=== PATIENT | male | born 1950 | race Caucasian/White ===

== ENCOUNTER 2024-02-12 14:26 | Outpatient (CLI) | payer MEDICARE, OTHER, SELFPAY ==
--- NOTE | 2024-02-12 15:00 | PE_ITS ---
[facility] [address] [facility] [address] Phone:?[phone] Fax:?[phone] Referring Physician Information: Clay Anthony D.O [address] [facility] [address] Phone:?[phone] Fax:?[phone] Patient:Marito Houser D.O.B:?1950 Sex:?Male Phone:?[phone] [facility] MRN:?[id number] Exam Date:?02/12/2024 EXAM: PET/CT WHOLE BODY, CANCER RESTAGING CLINICAL INFORMATION: New diagnosis of melanoma. History of head and neck cancer. TECHNICAL INFORMATION: Helical acquisition of data was obtained from the vertex to the toes with reconstruction of 3.75 mm thick images at 3.[address] data was used for attenuation correction. PET scanning was performed through the same anatomic range 55 minutes following administration of 13.45 mCi of 18-FDG delivered intravenously. The patient's glucose at the time of the injection was 123 mg/dL. PET, CT and PET/CT fusion images are interpreted using a computer viewing workstation. PET, CT and PET/CT fusion images were archived and saved in the patient's permanent medical record. COMPARISON: Outside PET-CT from 07/22/2023. INTERPRETATION: Head and Neck: There are no abnormal hypermetabolic foci within the head or neck. There is physiologic uptake in the intracranial soft tissues. The patient is status post left parotidectomy with asymmetric FDG uptake (SUVmax = 2.75) that is consistent with routine chronic granulation/healing; no evidence of viable residua/recurrence. Chest: There are no abnormal hypermetabolic foci within the chest. Background mediastinal blood pool uptake has a maximum SUV of 2.34. No lung nodules or masses detected on this free-breathing exam. No lymphadenopathy detected. Abdomen and Pelvis: There are no abnormal hypermetabolic foci within the abdomen or pelvis. Background hepatic parenchymal uptake has a maximum SUV of 2.68. There is physiologic excretion of radiotracer in the urine and bowel. Skeleton, Musculature, and Integument: No abnormal hypermetabolic foci within the skeleton. No ramses osteoblastic or osteolytic disease. CONCLUSION: 1. No abnormal FDG uptake to indicate active malignancy. 2. Status post left parotidectomy with expected appearance. Electronically signed on 02/13/2024 1:32:00 PM by Triston Lewis M.D.
== END 2024-02-12 14:27 | disposition home or self-care (01) ==
PROVIDERS: Visit Provider Otolaryngology Otolaryngology/Facial Plastic Surgery
DX: C77.0 Secondary and unspecified malignant neoplasm of lymph nodes of head, face and neck (principal)
CPT/HCPCS: 78816; A9552

== ENCOUNTER 2024-06-02 09:45 | Outpatient (CLI) | payer MEDICARE, OTHER, SELFPAY ==
--- OUTSIDE RECORDS SUMMARY | 2024-06-02 09:49 | XMS_ITS | Encounter Summary ---
Author Organization [facility] Address [address] [address] Care Team Providers Care Metal Fence Erector Name Role Phone Jarod Pascual MD Primary Care Provider [phone]- [phone] Encounter Details Date Type Department Care Team (Late st Contact Info) Description 06/01/2024 1:00 PM TIN CAN LABORER Lab Visit [facility] [address] [place] [id number] Squamous cell carcinoma of skin; Prostate cancer screening Social History Tobacco Use Types Packs/Day Years Used Date Smoking Tobacco: Every Day Cigarettes Comments:Half a pack a day o f Cigarettes and is on a quitting program. Sex and Gender Information Value Date Recorded Sex Assigned at Not on file Gender Identity Not on file Sexual Orientation Not on file documented as of this encounter Plan of Treatment Upcoming Encounters Date Type Department Care Team (Late st Contact Info) Description 06/02/2024 1:00 PM TIN CAN LABORER Appointment [facility] [address] [place] [address] 06/08/2024 8:50 AM TIN CAN LABORER Appointment Otol[place]ology at [place] [address] [place] [address] [address] [place] [phone] Becky Rodriguez MD [facility] [place] [address] 07/08/2024 10:00 AM TIN CAN LABORER Appointment [facility] - Dermatology [address] [place] [address] [place] [address] [place] [address] KATRINA MEHTA [address] 08/09/2024 1:00 PM TIN CAN LABORER Appointment [facility] [address] Dermatology [address] [place], [place] [address] Dina Cuevas MD, PhD [address] [place], [place] [id number] 08/30/2024 9:00 AM TIN CAN LABORER Appointment [facility] [address] [place] [address] 08/30/2024 9:30 AM TIN CAN LABORER Appointment [facility] Oncology [address] [place] [address] Cecile Arteaga MD [address] [place], [place] [phone] documented as of this encounter Procedures Procedure Name Priority Date/Time Associated Diagnosis Comments CBC AND DIFFERENTIAL PANEL STAT 06/01/2024 1:14 PM TIN CAN LABORER Squamous cell carcinoma of skin CREATININE / GFR STAT 06/01/2024 1:14 PM TIN CAN LABORER Squamous cell carcinoma of skin COMPLETE BLOOD COUNT-W/DIFF STAT 06/01/2024 1:14 PM TIN CAN LABORER Squamous cell carcinoma of skin AST STAT 06/01/2024 1:14 PM TIN CAN LABORER Squamous cell carcinoma of skin CALCIUM STAT 06/01/2024 1:14 PM TIN CAN LABORER Squamous cell carcinoma of skin BILIRUBIN, TOTAL STAT 06/01/2024 1:14 PM TIN CAN LABORER Squamous cell carcinoma of skin ALKALINE PHOSPHATASE, TOTAL STAT 06/01/2024 1:14 PM TIN CAN LABORER Squamous cell carcinoma of skin documented in this encounter Results * (ABNORMAL) Complete Blood Count-W/Diff (06/01/2024 1:14 PM TIN CAN LABORER) WBC 8.3 3.5 - 10.5 x10(9)/L 06/01/2024 1:21 PM TIN CAN LABORER [facility] RBC 4.87 4.32 - 5.72 x10(12)/L 06/01/2024 1:21 PM TIN CAN LABORER [facility] Hemoglobin 15.4 13.5 - 17.5 g/dL 06/01/2024 1:21 PM TIN CAN LABORER [facility] HCT 44.6 38.8 - 50.0 % 06/01/2024 1:21 PM TIN CAN LABORER [facility] MCV 91.6 80.0 - 100.0 fL 06/01/2024 1:21 PM TIN CAN LABORER [facility] MCH 31.6 27.6 - 33.3 pg 06/01/2024 1:21 PM TIN CAN LABORER [facility] MCHC 34.5 31.5 - 35.2 g/dL 06/01/2024 1:21 PM TIN CAN LABORER [facility] RDW 12.9 11.9 - 15.5 % 06/01/2024 1:21 PM TIN CAN LABORER [facility] Platelets 260 150 - 450 x10(9)/L 06/01/2024 1:21 PM TIN CAN LABORER [facility] Automated NRBC 0 <=0 /100 WBC 06/01/2024 1:21 PM TIN CAN LABORER [facility] Neutrophil Absolute 6.8 1.7 - 7.0 10(9)/L 06/01/2024 1:21 PM TIN CAN LABORER [facility] Lymphocyte Absolute 0.7(L) 1.0 - 4.8 10(9)/L 06/01/2024 1:21 PM TIN CAN LABORER [facility] Monocyte Absolute 0.6 0.2 - 0.9 10(9)/L 06/01/2024 1:21 PM TIN CAN LABORER [facility] Eosinophil Absolute 0.1 0.0 - 0.5 10(9)/L 06/01/2024 1:21 PM TIN CAN LABORER [facility] Basophil Absolute 0.1 0.0 - 0.3 10(9)/L 06/01/2024 1:21 PM TIN CAN LABORER [facility] Automated Neutrophil Count (Prelim) 6.8 10(9)/L 06/01/2024 1:21 PM TIN CAN LABORER [facility] Comment:The Instrument Absol sun'aq Neutrophil Count (IANC) is calculated from the automated differential and may differ slightly from the manual differential Absolute Neutrophil Count (IANC), if subsequently reported. Immature Granulocyte % 0.4 0.0 - 0.5 % 06/01/2024 1:21 PM TIN CAN LABORER [facility] Blood Venipuncture / Unknown 06/01/2024 1:14 PM TIN CAN LABORER 06/01/2024 1:17 PM TIN CAN LABORER Cecile Arteaga MD LAB_1 Performing Organization Address [facility] Phone Number [facility] [address] [place] [address] * Creatinine / GFR (06/01/2024 1:14 PM TIN CAN LABORER) Creatinine 0.84 0.73 - 1.18 mg/dL 06/01/2024 1:44 PM TIN CAN LABORER [facility] GFR, Estimated >60 >60 mL/min/1.7 3m2 06/01/2024 1:44 PM TIN CAN LABORER [facility] Blood Venipuncture / Unknown 06/01/2024 1:14 PM TIN CAN LABORER 06/01/2024 1:17 PM TIN CAN LABORER Cecile Arteaga MD LAB_1 Performing Organization Address [facility] de Phone Number [facility] [address] * Bilirubin, Total (06/01/2024 1:14 PM TIN CAN LABORER) Bilirubin, Total 0.5 0.2 - 1.2 mg/dL 06/01/2024 1:44 PM TIN CAN LABORER [facility] Blood Venipuncture / Unknown 06/01/2024 1:14 PM TIN CAN LABORER 06/01/2024 1:17 PM TIN CAN LABORER Cecile Arteaga MD LAB_1 Performing Organization Address [facility]/ZIP Co de Phone Number [facility] [address] * Calcium (06/01/2024 1:14 PM TIN CAN LABORER) Calcium 9.3 8.4 - 10.4 mg/dL 06/01/2024 1:44 PM TIN CAN LABORER [facility] Blood Venipuncture / Unknown 06/01/2024 1:14 PM TIN CAN LABORER 06/01/2024 1:17 PM TIN CAN LABORER Cecile Arteaga MD LAB_1 Performing Organization Address [facility] Co de Phone Number [facility] [address] [place] [address] * AST (06/01/2024 1:14 PM TIN CAN LABORER) AST (SGOT) 12 10 - 40 U/L 06/01/2024 1:44 PM TIN CAN LABORER [facility] Blood Venipuncture / Unknown 06/01/2024 1:14 PM TIN CAN LABORER 06/01/2024 1:17 PM TIN CAN LABORER Cecile Arteaga MD LAB_1 Performing Organization Address [facility] Co de Phone Number [facility] [address] * Alkaline Phosphatase, Total (06/01/2024 1:14 PM TIN CAN LABORER) Alkaline Phosphatase 109 40 - 150 U/L 06/01/2024 1:44 PM TIN CAN LABORER [facility] Blood Venipuncture / Unknown 06/01/2024 1:14 PM TIN CAN LABORER 06/01/2024 1:17 PM TIN CAN LABORER Cecile Arteaga MD LAB_1 Performing Organization Address [facility] Co de Phone Number [facility] [address] [place] [address] documented in this encounter Visit Diagnoses Diagnosis Squamous cell carcinoma of skin Squamous cell carcinoma of skin, site unspecified Prostate cancer screening Special screening for malignant neoplasm of prostate documented in this encounter Care Teams Metal Fence Erector Relationship Specialty Start Date End Date Jarod Pascual MD [address] [place] [address] PCP - General 05/10/24 documented as of this encounter
--- OUTSIDE RECORDS SUMMARY | 2024-06-02 09:49 | XMS_ITS | Encounter Summary ---
Author Organization [facility] Address [address], [place] [address] Care Team Providers Care Guest Service Representative Name Role Phone Jarod Pascual MD Primary Care Provider [phone]- [phone] Reason for Visit * Procedure/Equipment (Routine) - Incomplete Specialty Diagnoses / Procedures Referred By Brent t Referred To Contact Diagnoses Squamous cell carcinoma of skin Procedures CT Neck Soft Tissue W IV Cont Cecile Arteaga MD [address] [place] [address] Referral ID Status Reason Start Date Expiration Date V isits Requested Visits Authorized [id number] Incomplete 05/10/2024 08/09/2025 1 1 Encounter Details Date Type Department Care Team (Late st Contact Info) Description 05/29/2024 11:00 AM HEAD PASTRY CHEF Ancillary Procedure [facility] [address] [address] Scan [address] [place] [phone] Cecile Arteaga MD [address] [place] [address] Squamous cell carcinoma of skin Social History Tobacco Use Types Packs/Day Years [...] st Contact Info) Description 06/02/2024 1:00 PM HEAD PASTRY CHEF Appointment [facility] [address] [place] [address] 06/08/2024 8:50 AM HEAD PASTRY CHEF Appointment Otolaryngology at [place] [address] [facility] [address] [place] [phone] Becky Rodriguez MD [address] [place] [address] 07/08/2024 10:00 AM HEAD PASTRY CHEF Appointment - Dermatology [address] [place] [address] [place] [address] [place] [address] 08/09/2024 1:00 PM HEAD PASTRY CHEF Appointment [place] [address] [place] [address] [place] [address] [place] [address] 08/30/2024 9:00 AM HEAD PASTRY CHEF Appointment [facility] [address] [place] [address] 08/30/2024 9:30 AM HEAD PASTRY CHEF Appointment [facility] Oncology [address] [place], [place] [phone] Cecile Arteaga MD [address] [place] [address] documented as of this encounter Procedures Procedure Name Priority Date/Time Associated Diagnosis Comments CT NECK SOFT TISSUE W IV CONT Routine 05/29/2024 11:22 AM HEAD PASTRY CHEF Squamous cell carcinoma of skin documented in this encounter Results * CT Neck Soft Tissue W IV Cont (05/29/2024 11:22 AM HEAD PASTRY CHEF) Anatomical Region Laterality Modality Neck, C-Spine, Spine, Vascular C omputed Tomography 05/29/2024 10:3 4 AM HEAD PASTRY CHEF Impressions 06/01/2024 10:19 AM HEAD PASTRY CHEF 1. Increased degree of intermediate density process within the expected distribution of the deep and superficial lobes of the left parotid gland extending into the adjacent interfascial fat planes and subcutaneous fat. Increased intermediate density along the expected fat plane deep to the left sternocleidomastoid musculature increased. Mild asymmetrical prominence of the left masseter muscle increased. Increased subcutaneous fat stranding involving the left lateral face and anterolateral neck bilaterally left greater than right. Findings may be consistent with a left parotidectomy, Mohs surgery and radiation therapy. No focal superimposed nodular enhancing lesion or fluid collection. Neoplastic infiltration cannot be excluded. 2. Asymmetrical wall thickening involving the oral pharynx and hypopharynx on the left with effacement of the left vallecula and left piriform sinus. No focal enhancing lesion. Recommend direct visualization for further characterization. Post radiation therapy changes could have this appearance. 3. Symmetrical thickening of the epiglottis bilaterally. Symmetrical wall thickening involving the lower hypopharynx and supraglottic larynx including the true and false vocal cords without superimposed enhancing lesions could represent post radiation therapy change. Again recommend direct visualization. 4. Increased size of intermediate density nodular process involving the right submental region extending into the right paramedian anterior neck to the level of the thyroid cartilage superiorly which could represent lymphadenopathy and post radiation therapy changes. Additional increased potential post radiation therapy changes involving the anterior neck bilaterally right greater than left. Superimposed neoplastic infiltration cannot be excluded. 5. Additional findings as above. Narrative 06/01/2024 10:19 AM HEAD PASTRY CHEF INDICATION: eval recurrence COMPARISON: Correlation is made to prior PET/CT 02/12/2024 TECHNIQUE: Images of the neck were obtained following the administration of 75 mL IOHEXOL 350 MG/ML IV SOLN. FINDINGS: Increased degree of intermediate density within the expected distribution of the deep and superficial lobes of the left parotid gland extending into the interfascial fat planes and subcutaneous fat. Metallic surgical clips along the posterior superior margin of the left parotid bed. Intermediate density along the expected fat plane deep to the left sternocleidomastoid musculature, increased. Mild asymmetrical prominence of the left masseter muscle increased. Increased subcutaneous fat stranding involving the left lateral face and anterolateral neck bilaterally. No superimposed focal enhancing lesion or fluid collection. Increased size of intermediate density nodular process of the right submental region extending into the right paramedian anterior neck to the level of the thyroid cartilage superiorly. New zones of asymmetric increased intermediate density and soft tissue swelling involving the right anterior neck anterior to the distribution of the thyroid cartilage. No discrete focal enhancing nodular subcomponent. Bilateral scleral banding. Images through the orbits, visualized paranasal sinuses, visualized mastoid air cells, nasopharynx, right parotid gland, right resin mixer space appear unremarkable. Asymmetric wall thickening involving the oral pharynx and hypopharynx on the left with effacement of the adjacent vallecula and piriform sinus without discrete enhancing nodular lesion. Oral cavity, floor of mouth, submandibular glands appear otherwise unremarkable. Symmetrical thickening of the german of the lower hypopharynx and supraglottic larynx with effacement of the supraglottic airway, axial images 43 through 47 mild symmetrical thickening of the epiglottis. No focal enhancing lesions. 5 mm hypodensity involving left lobe of the thyroid. Visualized mediastinum visualized upper lung singeltary appear unremarkable. Partial visualization of potential secretions involving the lower posterior trachea. Anterior spinal fusion from the C4-T1 levels consisting of interbody spacers and anterior screw/plate fixation. Procedure Note Kavon Yanez MD - 06/01/2024 INDICATION: eval recurrence COMPARISON: Correlation is made to prior PET/CT 02/12/2024 TECHNIQUE: Images of the neck were obtained following the administrationof 75 mL IOHEXOL 350 MG/ML IV SOLN. FINDINGS: Increased degree of intermediate density within the expecteddistribution of the deep and superficial lobes of the left parotid glandextending into the interfascial fat planes and subcutaneous fat. Metallicsurgical clips along the posterior superior margin of the left parotidbed. Intermediate density along the expected fat plane deep to the leftsternocleidomastoid musculature, increased. Mild asymmetrical prominenceof the left masseter muscle increased. Increased subcutaneous fatstranding involving the left lateral face and anterolateral neckbilaterally. No superimposed focal enhancing lesion or fluid collection.Increased size of intermediate density nodular process of the rightsubmental region extending into the right paramedian anterior neck to thelevel of the thyroid cartilage superiorly. New zones of asymmetricincreased intermediate density and soft tissue swelling involving theright anterior neck anterior to the distribution of the thyroid cartilage.No discrete focal enhancing nodular subcomponent. Bilateral scleralbanding. Images through the orbits, visualized paranasal sinuses,visualized mastoid air cells, nasopharynx, right parotid gland, rightmasticator space appear unremarkable. Asymmetric wall thickening involvingthe oral pharynx and hypopharynx on the left with effacement of theadjacent vallecula and piriform sinus without discrete enhancing nodularlesion. Oral cavity, floor of mouth, submandibular glands appear otherwiseunremarkable. Symmetrical thickening of the german of the lower hypopharynxand supraglottic larynx with effacement of the supraglottic airway, axialimages 43 through 47 mild symmetrical thickening of the epiglottis. Nofocal enhancing lesions. 5 mm hypodensity involving left lobe of thethyroid. Visualized mediastinum visualized upper lung singletary appearunremarkable. Partial visualization of potential secretions involving thelower posterior trachea. Anterior spinal fusion from the C4-T1 levelsconsisting of interbody spacers and anterior screw/plate fixation. IMPRESSION 1. Increased degree of intermediate density process within the expecteddistribution of the deep and superficial lobes of the left parotid glandextending into the adjacent interfascial fat planes and subcutaneous fat.Increased intermediate density along the expected fat plane deep to theleft sternocleidomastoid musculature increased. Mild asymmetricalprominence of the left masseter muscle increased. Increased subcutaneousfat stranding involving the left lateral face and anterolateral neckbilaterally left greater than right. Findings may be consistent with aleft parotidectomy, Mohs surgery and radiation therapy. No focalsuperimposed nodular enhancing lesion or fluid collection. Neoplasticinfiltration cannot be excluded. 2. Asymmetrical wall thickening involving the oral pharynx and hypopharynxon the left with effacement of the left vallecula and left piriform sinus.No focal enhancing lesion. Recommend direct visualization for furthercharacterization. Post radiation therapy changes could have thisappearance. 3. Symmetrical thickening of the epiglottis bilaterally. Symmetrical wallthickening involving the lower hypopharynx and supraglottic larynxincluding the true and false vocal cords without superimposed enhancinglesions could represent post radiation therapy change. Again recommenddirect visualization. 4. Increased size of intermediate density nodular process involving theright submental region extending into the right paramedian anterior neckto the level of the thyroid cartilage superiorly which could representlymphadenopathy and post radiation therapy changes. Additional increasedpotential post radiation therapy changes involving the anterior neckbilaterally right greater than left. Superimposed neoplastic infiltrationcannot be excluded. 5. Additional findings as above. Cecile Arteaga MD RAD CT documented in this encounter Visit Diagnoses Diagnosis Squamous cell carcinoma of skin Squamous cell carcinoma of skin, site unspecified documented in this encounter Administered Medications Inactive Administered Medications - up to 3 most recent administrations Medication Order MAR Action Action Date Dose Rate Site iohexol (OMNIPAQUE 350) 350 MG/ML injection 75 mL 75 mL, Intravenous, ONCE, On 05/29/24 at 1115, For 1 dose Given 05/29/2024 10:47 AM HEAD PASTRY CHEF 75 mL sodium chloride 0.9% injection 10 mL 10 mL, Intravenous, ONCE, On 05/29/24 at 1115, For 1 dose Given 05/29/2024 10:46 AM HEAD PASTRY CHEF 10 mL documented in this encounter Care Teams Guest Service Representative Relationship Specialty Start Date End Date Jarod Pascual MD [address] [place] [address] PCP - General 05/10/24 documented as of this encounter
--- OUTSIDE RECORDS SUMMARY | 2024-06-02 09:49 | XMS_ITS | Encounter Summary ---
Author Organization [facility] Address [address] [place] [address] Care Team Providers Care Dry Transfer Man Name Role Phone Unassigned, Provider Primary Care Provider Unava ilable Reason for Referral * Consult/Transfer Care (Routine) - New Request Specialty Diagnoses / Procedures Referred By Brent mary Referred To Contact Diagnoses History of nonmelanoma skin cancer Dina Cuevas MD, PhD [address] [place] [address] Referral ID Status Reason Start Date Expiration Date V isits Requested Visits Authorized [id number] New Request 05/06/2024 08/05/2025 1 1 Scheduling Instructions Your clinician has recommended an appointment with [facility]. You can quickly make your appointment online at Looklet/[email or web address]. You can also call [phone] for help scheduling your appointment. We suggest you call your health insurance company about your coverage and benefits for this appointment. Question Answer Appointment Urgency? 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 Completed radiation 11/2023. New sensation of fullness in throat. No papable lymphnodes. Needs ongoing oncology care for high risk cancer. Will have Q3 month derm visits for now. Drives from [place] NING MACHINE FEEDER Reason for Visit * Reason Comments Skin Check FBE Encounter Details Date Type Department Care Team (Late st Contact Info) Description 05/06/2024 2:00 PM SKINNING MACHINE FEEDER Procedure Visit [facility] [address] [place] [address] Dina Cuevas MD, PhD [address] [place] [address] Skin Check (FBE ) Social History Tobacco Use Types Packs/Day Years Used Date Smoking Tobacco: Never Assessed Sex and Gender Information Value Date Recorded Sex Assigned at Not on file Gender Identity Not on file Sexual Orientation Not on file documented as of this encounter Patient Instructions * Patient Instructions* Lillie Strickland RN - 05/06/2024 2:00 PM SKINNING MACHINE FEEDER Care Instructions after a shave skin biopsy/removal When do I start changing the bandage on my wound site? Leave the original bandage/dressing in place for 24 to 48 hours. If you develop bleeding from the site, apply firm pressure directly over the bandage, using the heel of your hand, for [address] bandage on top of the first one - don???t keep removing and replacing dressings. NO PEEKING! Notify us if the bleeding still does not stop. How do I change the bandage on my wound? Clean the area once a day with warm soap and water. Gently pat dry the area. After the area has been cleaned and is dry, apply a small amount of petroleum jelly or Aquaphor healing ointment and apply a new bandage. We prefer that you do not use an antibacterial ointment (i.e. bacitracin, Neosporin) as many peopledevelop a hypersensitivity including a rash and even blistering related to these. Is it okay to shower after having a skin biopsy/removal? Showering is okay, but please do not soak in a bathtub, hot tub, or pool. This will slow the healing process and may create infection. When can I stop bandaging my wound? Continue the wound care process until the area is healed. Complete healing usually takes 2-4 weeks.Wounds heal best when kept moist, try not to let the area dry out. During this process you may see a white film develop over your wound and this is part of the normal healing process. Letting them open to air, drying out, and having a scab form actually causes wounds to take longer to heal. If yourskin is getting sensitive to the bandage, use gauze and paper tape. Can I exercise after having a skin biopsy/removal? Avoid exercising for 2 days. What signs or symptoms should I call the dermatology department about? Infection after a biopsy is not likely, but can occur. Mild amounts of redness, bruising, swelling,discomfort and a clear to yellowish to blood-tinged discharge are normal. Signs of Infection include: fever, increasing pain, blood blister, drainage of pus, and extreme heat from the site. Please call the clinic if you experience any of these symptoms. When will I receive my skin biopsy/removal results? Your skin biopsy specimen will be sent to our laboratory for processing. It will then be interpreted by one of our board-certified dermatopathologists. The dermatopathologist will write their findings in a pathology report. Your pathology report will be released automatically to your [employer] account. If you don't have an active [employer] account, your care team will contact you with the results of this pathology report when it is available. Typically your pathology report will be available 7 to 14 days after your biopsy or procedure. Our pathology services will be listed separately on your bill. If you have further questions about the biopsy process or if you have not received your biopsy results within 2 weeks, please call us. NING MACHINE FEEDER documented in this encounter Progress Notes * Dina Cuevas MD, PhD - 05/06/2024 2:00 PM CST Results were sent to patient in [employer]. Once they read them, reach out and let patient know 1. The biopsy showed a basal cell carcinoma that needs additional treatment on his left forearm. Based on the histology, they could elect to treat this with electrodesiccation and curettage or surgical excision. 2. The biopsy showed a SCC/BCC that needs additional treatment on his right forearm. Based on the histology, they could elect to treat this with surgical excision. Please review their options for BCC on LEFT ARM and either schedule with me for ED&C or with Derm surgery for excision/Mohs based on their decision. As he does need surgical excision on the rightarm for the squamous cell carcinoma overlapping with a BCC, he might find it easier to see Derm surgery for both. But I am happy to ED&C the left arm if he prefers. Check to see if follow up appointment has already been scheduled, if not they should follow-up in 1year for full-body skin check following procedure. Please update patient problem list with diagnosis, location, and patients choice for treatment. NING MACHINE FEEDER * Dina Cuevas MD, PhD - 05/06/2024 1:00 PM CST Images from the original note were not included. 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 6.5mm invasion depth. Bx05/2023, surgery 08/2023 completed at [facility] SCC vertex scalp s/p excision 07/2023 completed at [facility] Pertinent HPI Ever Houser is a 74 y.o. male who presents to clinic today for Chief Complaint Patient presents with Skin Check FBE Pt presents as a new pt for a FBE. He brings a copy of his pathology and notes which have been added to the problem list. Pt has had extensive surgery and repair for metastatic SCC on left cheek in [place]. He Completed a course of radiation in 12/21. Pt is concerned about a lump and swelling under his jaw present x 1 month. He also has a growth on his left arm present x 1 month tender and growing. [place] [facility] [place] [facility] and has questions about follow up visits with an oncologist. Past Medical History: See Derm Problem List hyperlipidemia diabetes mellitus type II BPH bullous pemphigoid dx 2019 Family History: none Last Derm Visit: Last Visit Maximum visits displayed: 1 None Medications: The patient has a current medication list which includes the following prescription(s): atorvastatin, cholecalciferol, linagliptin, metformin xr, paroxetine, pioglitazone, and tamsulosin. Allergies: No Known Allergies Review of Systems: Generally feels well without other skin concerns today. Exam: General: Well-appearing male, in no acute distress, alert and oriented. Skin: Full body skin exam performed including scalp, head, face, neck, abdomen, chest, back, bilateral upper and lower extremities, nails, and buttocks. Did not examine genitals. Exam remarkable for findings outlined below. Otherwise normal. Assessment/Plan: 1. Sun-damaged skin Diffuse photodamage is noted. No lesions worrisome for melanoma or non-melanoma skin cancer on examtoday (other than biopsied). Reviewed importance of daily sun protection with the goal to minimize any ngo lines with sunscreen of at least SPF30, hats, clothing, and timing of activities in the sun. Reviewed warning signs of skin cancer, need for regular self skin exams, and return to clinic if any new or worrisome spots arise. 2. Benign nevus Scattered uniform brown macules, all examined with dermatoscopy and noted to have normal pigment pattern unless otherwise noted. Benign, reassured. 3. Seborrheic keratosis Scattered ngo to brown, stuck-on, waxy papules noted. Benign, reassured. 4. History of nonmelanoma skin cancer Well healed scar without nodules or dyspigmentation noted at previously excised lesions. No evidence of recurrence. Continue with self-monitoring, and return to clinic if changes to scar. 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 Consult placed for coordination of care. Related Procedures ONCOLOGY CONSULT-ADULTS 5. Neoplasm of skin (HRC) (2) Left Forearm - Anterior 1.1 cm volcano-like nodule with central keritinaceous core. Shave removal (No CPT) Lesion diameter (cm): 1.1 Informed consent: discussed and consent obtained Timeout: patient name, date of , surgical site, and procedure verified Anesthesia: the lesion was anesthetized in a standard fashion Anesthetic: 1% lidocaine w/ epinephrine 1-100,000 local infiltration Instrument used: flexible razor blade Hemostasis achieved with: electrodesiccation Outcome: patient tolerated procedure well Post-procedure details: sterile dressing applied and wound care instructions given Dressing type: bandage and petrolatum Specimen 1 - Surgical Path, Dermatology Clinical Impression: r/o scc 1.1 cm volcano-like nodule with central keritinaceous core. Right Forearm - Anterior 0.6 cm volcano-like nodule with central keritinaceous core. Shave removal (No CPT) Lesion diameter (cm): 0.6 Informed consent: discussed and consent obtained Timeout: patient name, date of , surgical site, and procedure verified Anesthesia: the lesion was anesthetized in a standard fashion Anesthetic: 1% lidocaine w/ epinephrine 1-100,000 local infiltration Instrument used: flexible razor blade Hemostasis achieved with: electrodesiccation Outcome: patient tolerated procedure well Post-procedure details: sterile dressing applied and wound care instructions given Dressing type: bandage and petrolatum Specimen 2 - Surgical Path, Dermatology Clinical Impression: r/o scc 0.6 cm volcano-like nodule with central keritinaceous core. Follow up: Return to clinic in 3 months, sooner PRN problems or concerns. Orders Placed: Orders Placed This Encounter Surgical Path, Dermatology ONCOLOGY CONSULT-ADULTS Shave removal (No CPT) Shave removal (No CPT) This note was dictated using voice recognition software. There may be sound- alike and/or punctuation errors. Chief complaint and portions of HPI entered by nursing staff as provided by patient I confirm that I have addressed the multifaceted nature of the patient's nelson needs by furnishing care and counseling for the patient's chronic or complex condition that will require ongoing care with myself or someone on my team. Addendum: FINAL DIAGNOSIS Date Value Ref Range Status 05/06/2024 Final A. Skin, Left Forearm - Anterior, shave: - Nodular basal cell carcinoma, present at deep biopsy margin. B. Skin, Right Forearm - Anterior, shave: - Nodular basal cell carcinoma colliding with invasive squamous cell carcinoma, both present at deep biopsy margin. NING MACHINE FEEDER documented in this encounter Plan of Treatment Upcoming Encounters Date Type Department Care Team (Late st Contact Info) Description 06/02/2024 1:00 PM SKINNING MACHINE FEEDER Appointment [facility] [address] [place] [address] 06/08/2024 8:50 AM SKINNING MACHINE FEEDER Appointment Otol[facility]ology at [place] [address] [place] [address] [address] [place] [phone] [place] [address] [place] [phone] 07/08/2024 10:00 AM SKINNING MACHINE FEEDER Appointment [facility] - Dermatology [address] [place] [address] [place] [address] [place] [address] 08/09/2024 1:00 PM SKINNING MACHINE FEEDER Appointment [place] [address] [place] [address] Dina Cuevas MD, PhD [address] [place] [address] 08/30/2024 9:00 AM SKINNING MACHINE FEEDER Appointment [facility] LAB [address] [place], [place] [id number] 08/30/2024 9:30 AM SKINNING MACHINE FEEDER Appointment [facility] Oncology [address] [place] [address] Cecile Arteaga MD [address] [place] [address] Scheduled Referrals Name Type Priority Associated Diagnoses Orde r Schedule ONCOLOGY CONSULT-ADULTS Referral Routine History of nonmelanoma skin cancer Ordered: 05/06/2024 documented as of this encounter Procedures Procedure Name Priority Date/Time Associated Diagnosis Comments EPIDERMAL / DERMAL SHAVING Routine 05/06/2024 2:39 PM SKINNING MACHINE FEEDER Neoplasm of skin (HRC) EPIDERMAL / DERMAL SHAVING Routine 05/06/2024 2:37 PM SKINNING MACHINE FEEDER Neoplasm of skin (HRC) SURGICAL PATHOLOGY, DERMATOLOGY Routine 05/06/2024 2:37 PM SKINNING MACHINE FEEDER Neoplasm of skin (HRC) documented in this encounter Results * Shave removal (No CPT) (05/06/2024 2:39 PM SKINNING MACHINE FEEDER) Narrative EXTERNAL RESULTS - 05/06/2024 2:39 PM SKINNING MACHINE FEEDER Lesion diameter (cm): 0.6 Informed consent: discussed and consent obtained Timeout: patient name, date of , surgical site, and procedure verified Anesthesia: the lesion was anesthetized in a standard fashion Anesthetic: 1% lidocaine w/ epinephrine 1-100,000 local infiltration Instrument used: flexible razor blade Hemostasis achieved with: electrodesiccation Outcome: patient tolerated procedure well Post-procedure details: sterile dressing applied and wound care instructions given Dressing type: bandage and petrolatum Dina Cuevas MD, PhD [facility] Performing Organization Address [facility] de Phone Number EXTERNAL RESULTS * Shave removal (No CPT) (05/06/2024 2:37 PM SKINNING MACHINE FEEDER) Narrative EXTERNAL RESULTS - 05/06/2024 2:37 PM SKINNING MACHINE FEEDER Lesion diameter (cm): 1.1 Informed consent: discussed and consent obtained Timeout: patient name, date of , surgical site, and procedure verified Anesthesia: the lesion was anesthetized in a standard fashion Anesthetic: 1% lidocaine w/ epinephrine 1-100,000 local infiltration Instrument used: flexible razor blade Hemostasis achieved with: electrodesiccation Outcome: patient tolerated procedure well Post-procedure details: sterile dressing applied and wound care instructions given Dressing type: bandage and petrolatum Dina Cuevas MD, PhD [facility] Performing Organization Address [facility] de Phone Number EXTERNAL RESULTS * Surgical Path, Dermatology (05/06/2024 2:37 PM SKINNING MACHINE FEEDER) Case Report Surgical Pathology Report Case: [id number] Authorizing Provider: Dina Cuevas MD, PhD Collected: 05/06/2024 1437 Ordering Location: [place] [address] Received: 05/07/2024 0914 Dermatology Pathologist: Los Storm MD Specimens: A) - Skin, Left Forearm - Anterior B) - Skin, Right Forearm - Anterior 05/13/2024 8:16 AM [facility] [address] DER[address]Y FINAL DIAGNOSIS A. Skin, Left Forearm - Anterior, shave: - Nodular basal cell carcinoma, present at deep biopsy margin. B. Skin, Right Forearm - Anterior, shave: - Nodular basal cell carcinoma colliding with invasive squamous cell carcinoma, both present at deep biopsy margin. 05/13/2024 8:16 AM [facility] [address] D[address]Y Clinical Information A: Clinical Impression: r/o scc 1.1 cm volcano-like nodule with central keritinaceous core. B: Clinical Impression: r/o scc 0.6 cm volcano-like nodule with central keritinaceous core. 05/13/2024 8:16 AM [facility] [address] DERMAT[address]Y Microscopic Description Microscopic examination is performed. 05/13/2024 8:16 AM [facility] [address] DER[address]Y Technical Information A portion of the technical [place] [address]. 05/13/2024 8:16 AM [facility] [address] D[address]Y Gross Description A: Received in formalin, labeled with the patient's name and Skin, Left Forearm - Anterior is a 13 x 10 x 5 mm shave of skin. The specimen is marked with blue ink, quadrisected, and submitted entirely in one cassette. B: Received in formalin, labeled with the patient's name and Skin, Right Forearm - Anterior is a 8 x 8 x 2 mm shave of skin. The specimen is marked with green ink, trisected, and submitted entirely in one cassette. DS 05/13/2024 8:16 AM [facility] [address] DERMATOLOGY Embedded Images 05/13/2024 8:16 AM SKINNING MACHINE FEEDER SECOND OFFICER [address] DERMATOLOGY Skin (Skin) 05/06/2024 2:37 PM SKINNING MACHINE FEEDER 05/07/2024 9:25 AM SKINNING MACHINE FEEDER Comment:Clinical Impression: r/o scc 1.1 cm volcano-like nodule with central keritinaceous core. Skin structure (body structure) (Skin) 05/06/2024 2:39 PM SKINNING MACHINE FEEDER 05/07/2024 9:25 AM SKINNING MACHINE FEEDER Comment:Clinical Impression: r/o scc 0.6 cm volcano-like nodule with central keritinaceous core. Dina Cuevas MD, PhD LAB PATHOLOGY SECOND OFFICER [address] [place] [address], [facility] documented in this encounter Visit Diagnoses Diagnosis Sun-damaged skin- Primary Other chronic dermatitis due to solar radiation Benign nevus Benign neoplasm of skin, site unspecified Seborrheic keratosis Other seborrheic keratosis History of nonmelanoma skin cancer Personal history of other malignant neoplasm of skin Neoplasm of skin (HRC) Neoplasm of unspecified nature of bone, soft tissue, and skin documented in this encounter Care Teams Dry Transfer Man Relationship Specialty Start Date End Date Unassigned, Provider [address] [place] [address] PCP - General 04/02/00 05/09/24 documented as of this encounter
--- OUTSIDE RECORDS SUMMARY | 2024-06-02 09:49 | XMS_ITS | Encounter Summary ---
Author Organization [facility] Address [address], [place] [address] Care Team Providers Care Search Engine Marketing Specialist Name Role Phone Jarod Pascual MD Primary Care Provider [phone] Reason for Referral * Consult/Transfer Care (Routine) - New Request Specialty Diagnoses / Procedures Referred By Brent mary Referred To Contact Diagnoses Squamous cell carcinoma of skin Abnormal CT scan, neck Dysphagia, unspecified type H/O head and neck radiation Doc Adame MD [address] [place] [address] Referral ID Status Reason Start Date Expiration Date V isits Requested Visits Authorized [id number] New Request 06/01/2024 08/31/2025 1 1 Scheduling Instructions Your clinician has recommended an appointment with [facility] ([facility]) - Head & Neck Surgery. You may call [phone] for help scheduling your appointment. We suggest you call your health insurance company about your coverage and benefits for this appointment. Question Answer Appointment Urgency? Within 1 Week (Urgent) Reason for visit? eval cause of swelling and abnormal CT, please evaluate/consider biopsy, LN ICAL SERVICES CONSULTANT Encounter Details Date Type Department Care Team (Late st Contact Info) Description 06/01/2024 1:30 PM CLINICAL SERVICES CONSULTANT Office Visit [facility] Oncology [facility] [place] [address] Doc Adame MD [address] [place] [id number] Squamous cell carcinoma of skin (Primary Dx); Abnormal CT scan, neck; Dysphagia, unspecified type; H/O head and neck radiation; Prostate cancer screening Social History Tobacco Use Types Packs/Day Years Used Date Smoking Tobacco: Every Day Cigarettes Comments:Half a pack a day o f Cigarettes and is on a quitting program. Sex and Gender Information Value Date Recorded Sex Assigned at Not on file Gender Identity Not on file Sexual Orientation Not on file documented as of this encounter Last Filed Vital Signs Vital Sign Reading Time Taken Comments Blood Pressure 129/63 06/01/2024 1:35 PM CLINICAL SERVICES CONSULTANT Pulse 78 06/01/2024 1:35 PM CLINICAL SERVICES CONSULTANT Temperature 36.6 C (97.8 F) 06/01/2024 1:35 PM CLINICAL SERVICES CONSULTANT Respiratory Rate - - Oxygen Saturation 100% 06/01/2024 1:3 5 PM CLINICAL SERVICES CONSULTANT Inhaled Oxygen Concentration - - Weight 55.7 kg (122 lb 12.8 oz) 024 1:35 PM CLINICAL SERVICES CONSULTANT with shoe. Height - - Body Mass Index 19.88 05/10/2024 9:12 AM CLINICAL SERVICES CONSULTANT documented in this encounter Patient Instructions * Patient Instructions* Doc Adame MD - 06/01/2024 1:30 PM CLINICAL SERVICES CONSULTANT Please Schedule: ENT Con2 Labs/Imaging: You will receive labs and imaging reports immediately on [facility], and this will be frequently before Dr. Adame has reviewed them. If there is an emergent life-threatening finding, this will be addressed the same day by Dr. Adame or the on-call oncologist. Our nursing team will address any otherurgent labs or major changes in imaging reports and update Dr. Adame for input when necessary with most commonly labs and imaging to be reviewed together at appointments. Scheduling Assistance: For assistance scheduling, please call our main number at [phone] or book online at [email or web address] All radiology imaging can be scheduled by calling [phone]. Future Concerns/Questions: Please contact our main clinic triage nurse team at [phone] for any new symptoms or other urgent matters. If you have additional non-urgent questions or concerns please contact Dr. Adame's main nurse, Elif, by sending a Thoorat message addressed to her or by calling the number above then asking for her. 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 male who was seen in consultation on 05/10/2024 4 squamous cell carcinoma of the skin. He was initially diagnosed at an outside facility, [facility]. Outside records reviewed in [facility]. Per this reviewed: He had move to [place] from [place] in April of 2023. During this visit he noted that he had some skin lesions of the cheek that he wished to have evaluated. Referral to Dermatology. He was seen by Dermatology on 06/16/2023. Abnormalities were noted on the left cheek as well as the vertex. Lesions removed squamous cell carcinoma, well differentiated. For his cheek lesion, he was recommended toundergo Mohs surgery. For this Mohs surgery, he underwent further evaluation including CT of the neck. 07/07/2023 IMPRESSION: 16 x 13 mm ill-defined probable lymph node inferior to the superficial lobe of the left parotid gland with ill-defined margins with the adjacent sternocleidomastoid muscle. Although this could be an inflammatory lymph node, a metastatic lymph node should be excluded. He was seen by ENT on 07/08/2023. By physical exam no neck lymphadenopathy or supraclavicular adenopathy were noted. Neck mass was identified with ultrasound inked and marked. Biopsy was taken for FNA. FINAL DIAGNOSIS A. Lymph node, left level 2, fine-needle aspiration: --Positive for malignancy. --Metastatic squamous cell carcinoma. --Satisfactory specimen for evaluation. 07/22/2023 PET IMPRESSION: 1. Mild FDG avidity corresponding to the nodule/lymph node within or adjacent to the inferior LEFT parotid lobe. 2. No additional sites of hypermetabolic disease are identified. 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 Final pathology notable for left cheek unifocal 3.2 cm moderate to poorly differentiated squamous cell carcinoma depth of invasion 6.5 mm perineural invasion present. Invasive tumor present at margin. Regional lymph nodes: Left neck 2A, 2B, 3 and partial 5 submitted. Eighteen lymph nodes in total evaluated, 2 lymph nodes with tumor. Size of largest syed metastatic deposit 2.4 cm, extranodal extension present. 09/08/2023 he met with Medical Oncology. Per that documentation discussion of high-risk features were reviewed. He was felt to have contraindication to cisplatin. Recommendation of [place]-based withTaxol weekly or cetuximab was reviewed. After discussion the patient opted for radiation alone withplan for use libtayo if relapse. Adjuvant radiation was complicated by significant difficulties with weight loss, orthostatic hypotension, pain and mucositis. He completed all but 2 of his radiation treatments. Postradiation he met with ENT provider and had PET scan in January. By report he had good response to treatment. Stage pT3, pN3b, cM0, group stage IV Interval History: He returns today for follow-up He reports overall continuing to struggle. He states that he continues to eat food to try to increase his weight without improvement in the weight itself. He also notes that he has had progressive pain in his throat. He has found it difficult to swallow. It is most notable 1st thing in the morning when he tries to gargle with mouthwash. He is able to maintain nutrition. He finds when he is tryingto drink because of the pain and difficulty in his throat he we will mechanically lean his whole-body back to be able to swallow. Objective: BP 129/63 (BP Location: Left Arm, BP Cuff Size: Small Adult/Large Pediatrics) Pulse 78 Temp 97.8 ??F (36.6 ??C) (Oral) Wt 122 lb 12.8 oz (55.7 kg) Comment: with shoe. SpO2 100% BMI 19.88 kg/m?? Gen: Alert, normal appearance and behavior, non diaphoretic, no acute distress HEENT: Normocephalic, no scleral icterus Neck: Supple, soft Lymphatic: Right-sided soft spongy cervical lymph node Laboratory: Labs reviewed in [facility] including CBC, oncology profile, PSA 05/29 ct neck, ct chest reviewed in [facility]. Images reviewed personally Assessment and Plan: #. Left cheek squamous cell carcinoma. Surgery notable for 3.2 cm moderate to poorly differentiated cutaneous squamous cell carcinoma withperineural invasion. 08/17 lymph nodes positive for metastatic spread. The largest was 2.4 cm an extra syed extension was seen. Microscopic deep margin positive. pT3,pN3b, cM0 We reviewed that current lab testing including imaging. Discussed that current imaging is inconclusive. Although neck imaging findings may be secondary to radiation, there could be an infiltrative malignancy present as well. Discussed that I would recommend evaluation by ENT for direct visualization. Additional consideration by ENT for biopsy including excisional lymph node biopsy of suspicious lymph node. Reviewed I am concerned given the significant difficulties he is having with his symptomstherefore we will ask for this ENT evaluation to be urgent. He is comfortable with that plan. Additionally reviewed importance of continued follow up with Dermatology. He is currently scheduledwith Dermatology. Goal of Treatment: Curative intent Disease Status: Recall at previous visit we discussed that he is high-risk of recurrence. After evaluation by ENT, if he is found to not have any recurrence and abnormal imaging is consistent with radiation, we would continue to follow closely. In accordance with current NCCN guidelines for patients who are at very high-risk including evaluation physical exam every 2-3 months for 1 year then every 2-4 months cole additional year, then every 4-6 months for 3 years, then every 6-12 months lifelong. Given individual characteristics of his treatment including high tumor grade, incomplete radiation therapy, I would recommend evaluation by imaging at least at 6 months post treatment for the 1st year postradiation. Treatment Plan: Anticipate close surveillance with repeat provider visit in 3 months with lab 2. Weight loss At time of initial consultation discussed ongoing weight loss. Further lab testing was completed for his appointment including PSA. Follow up Plan: ENT referral Total time spent on the day of encounter: 42 minutes spent on day of service preparing for visit including chart review, performing medical appropriate evaluation and counseling/discussion with patient, orders/preparing plan of care and documentation of which 38 minutes was face to face. Dictation disclaimer: Note completed with voice recognition software. Typographical or voice recognition areas may result. Please contact me if you note any areas for clarification and correction. ICAL SERVICES CONSULTANT documented in this encounter Plan of Treatment Upcoming Encounters Date Type Department Care Team (Late st Contact Info) Description 06/02/2024 1:00 PM CLINICAL SERVICES CONSULTANT Appointment [place] [id number] [place] [address] 06/08/2024 8:50 AM CLINICAL SERVICES CONSULTANT Appointment Otolaryngology at [place] [address] [address] [facility] [address] [place] [phone] Becky Rodriguez MD [address] [place] [address] 07/08/2024 10:00 AM CLINICAL SERVICES CONSULTANT Appointment [facility] - Dermatology [address] [place] [address] [place] [address] [place] [address] 08/09/2024 1:00 PM CLINICAL SERVICES CONSULTANT Appointment [place] [address] Dermatology [address] [place] [address] Dina Cuevas MD, PhD [address] [facility] [place] [address] 08/30/2024 9:00 AM CLINICAL SERVICES CONSULTANT Appointment [facility] [address] [facility] [place] [address] 08/30/2024 9:30 AM CLINICAL SERVICES CONSULTANT [facility]ment [facility] [address] [facility] [place] [address] Doc Adame MD [address] [place] [address] Scheduled Orders Name Type Priority Associated Diagnoses Orde r Schedule PSA - Prostatic Specific Antigen (Screen) Lab Routine Prostate cancer screening Expected: 06/02/2024, Expires: 08/31/2024 Scheduled Referrals Name Type Priority Associated Diagnoses Orde r Schedule Otolaryngology Consult Adult/Peds Referral Routine Squamous cell carcinoma of skin Abnormal CT scan, neck Dysphagia, unspecified type H/O head and neck radiation Ordered: 06/01/2024 documented as of this encounter Results * Creatinine / GFR (06/01/2024 1:14 PM CLINICAL SERVICES CONSULTANT) Pathologist [facility] Creatinine 0.84 0.73 - 1.18 mg/dL 06/01/2024 1:44 PM CLINICAL SERVICES CONSULTANT [facility] GFR, Estimated >60 >60 mL/min/1.7 3m2 06/01/2024 1:44 PM CLINICAL SERVICES CONSULTANT [facility] Blood Venipuncture / Unknown 06/01/2024 1:14 PM CLINICAL SERVICES CONSULTANT 06/01/2024 1:17 PM CLINICAL SERVICES CONSULTANT Doc Adame MD LAB_1 [facility] [address] [place], [place] [address] * Bilirubin, Total (06/01/2024 1:14 PM CLINICAL SERVICES CONSULTANT) Bilirubin, Total 0.5 0.2 - 1.2 mg/dL 06/01/2024 1:44 PM CLINICAL SERVICES CONSULTANT [facility] Blood Venipuncture / Unknown 06/01/2024 1:14 PM CLINICAL SERVICES CONSULTANT 06/01/2024 1:17 PM CLINICAL SERVICES CONSULTANT Doc Adame MD LAB_1 Performing Organization Address [facility] [address] Phone Number [facility] [address] [place] [address] * Calcium (06/01/2024 1:14 PM CLINICAL SERVICES CONSULTANT) Calcium 9.3 8.4 - 10.4 mg/dL 06/01/2024 1:44 PM CLINICAL SERVICES CONSULTANT [facility] Blood Venipuncture / Unknown 06/01/2024 1:14 PM CLINICAL SERVICES CONSULTANT 06/01/2024 1:17 PM CLINICAL SERVICES CONSULTANT Doc Adame MD LAB_1 Performing Organization Address [facility] [address] Phone Number [facility] [address] [place] [address] * AST (06/01/2024 1:14 PM CLINICAL SERVICES CONSULTANT) AST (SGOT) 12 10 - 40 U/L 06/01/2024 1:44 PM CLINICAL SERVICES CONSULTANT [facility] Blood Venipuncture / Unknown 06/01/2024 1:14 PM CLINICAL SERVICES CONSULTANT 06/01/2024 1:17 PM CLINICAL SERVICES CONSULTANT Doc Adame MD LAB_1 Performing Organization Address [facility] [address] Phone Number [facility] [address] [place] [address] * Alkaline Phosphatase, Total (06/01/2024 1:14 PM CLINICAL SERVICES CONSULTANT) Alkaline Phosphatase 109 40 - 150 U/L 06/01/2024 1:44 PM CLINICAL SERVICES CONSULTANT [facility] Blood Venipuncture / Unknown 06/01/2024 1:14 PM CLINICAL SERVICES CONSULTANT 06/01/2024 1:17 PM CLINICAL SERVICES CONSULTANT Doc Adame MD LAB_1 [facility] [address] [place] [address], [facility] documented in this encounter Visit Diagnoses Diagnosis Squamous cell carcinoma of skin- Primary Squamous cell carcinoma of skin, site unspecified Abnormal CT scan, neck Other nonspecific (abnormal) findings on radiological and other examinations of body structure Dysphagia, unspecified type H/O head and neck radiation Personal history of irradiation, presenting hazards to health Prostate cancer screening Special screening for malignant neoplasm of prostate documented in this encounter Care Teams Search Engine Marketing Specialist Relationship Specialty Start Date End Date Jarod Pascual MD [address] [place] [address] PCP - General 05/10/24 documented as of this encounter
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
--- OUTSIDE RECORDS SUMMARY | 2024-06-02 09:49 | XMS_ITS | Clinical Summary ---
Author Organization [facility] Address [address], [place] [address] Care Team Providers Care Technical Specialist Cytology Name Role Phone Jarod Pascual MD Primary Care Provider [phone] Source Comments You are receiving this document as you are listed as the primary care provider,follow-up provider, or the patient has been referred to you for consultation.This is in compliance with the Medicare and[facility] EHR Incentive Program,which states Providers who transition their patient to another setting of careor provider of care or refers their patient to another provider of care shouldprovide summary care record for each transition of care or referral. [facility] Allergies No known active allergies Medications Medication Sig Dispensed Refills Start Date End Date Status metFORMIN XR (GLUCOPHAGE XR) 750 MG 24 hour release tablet Take 1 Tablet (750 mg) by mouth every evening with a meal. Twice a day Active LINAGLIPTIN OR 5 mg. Active pioglitazone (ACTOS) 45 MG tablet Take 1 Tablet (45 mg) by mouth daily. Active atorvastatin (LIPITOR) 20 MG tablet Take 1 Tablet (20 mg) by mouth daily. Active tamsulosin 0.4 MG CAPS capsule Take 1 Capsule (0.4 mg) by mouth daily. Active cholecalciferol (VITAMIND3) 50 MCG (2000 UT) tablet Take 1 Tablet (2,000 Units) by mouth daily. Twice a day Active PARoxetine (PAXIL) 10 MG tablet Take 1 Tablet (10 mg) by mouth daily. Active Active Problems Problem Noted Date Diagnosed Date Squamous cell carcinoma of skin 05/05/2024 Overview (05/05/2024): SCC -stage IV, moderate to poorly differentiated left cheek s/p WLE with left parotidectomy +LN dissection 2/9nodes positive, and perineural involvement. 6.5mm invasion depth. Bx05/2023, surgery 08/[address] [facility] SCC vertex scalp s/p excision 07/[address] [facility] Encounters Date Type Department Care Team Description 06/01/2024 1:30 PM SUPERVISOR KEYMODULE ASSEMBLY Office Visit [facility] Oncology [address] [place] [address] Cecile Arteaga MD Squamous cell carcinoma of skin (Primary Dx); Abnormal CT scan, neck; Dysphagia, unspecified type; H/O head and neck radiation; Prostate cancer screening 06/01/2024 1:00 PM SUPERVISOR KEYMODULE ASSEMBLY Lab Visit [facility] LAB [address] [place] [address] Squamous cell carcinoma of skin; Prostate cancer screening 05/31/2024 Notes/Orders [facility] Oncology [address] [place] [address] Cecile Arteaga MD Prostate cancer screening (Primary Dx) 05/29/2024 11:00 AM SUPERVISOR KEYMODULE ASSEMBLY Ancillary Procedure [facility] [address] [address] Scan [address] [place] [phone] Cecile Arteaga MD Squamous cell carcinoma of skin 05/29/2024 10:40 AM SUPERVISOR KEYMODULE ASSEMBLY Ancillary Procedure [facility] [address] [address] Scan [address] [place] [phone] Cecile Arteaga MD Squamous cell carcinoma of skin 05/17/2024 Telephone [place] [address] Dermatology [facility] [place] [address] Dina Cuevas MD, PhD Referral 05/10/2024 9:00 AM SUPERVISOR KEYMODULE ASSEMBLY Office Visit [facility] Oncology [address] [place] [address] Cecile Arteaga MD Squamous cell carcinoma of skin (Primary Dx) 05/06/2024 2:00 PM SUPERVISOR KEYMODULE ASSEMBLY Procedure Visit [place] [address] [place] [address] Dina Cuevas MD, PhD Skin Check (FBE ) from Last 3 Months Social History Tobacco Use Types Packs/Day Years Used Date Smoking Tobacco: Every Day Cigarettes Tobacco Cessation:Ready to Q uit: Not Asked; Counseling Given: Not Answered Comments:Half a pack a day of Cigarettes and is on a quitting program. Sex and Gender Information Value Date Recorded Sex Assigned at Not on file Gender Identity Not on file Sexual Orientation Not on file Last Filed Vital Signs Vital Sign Reading Time Taken Comments Blood Pressure 129/63 06/01/2024 1:35 PM SUPERVISOR KEYMODULE ASSEMBLY Pulse 78 06/01/2024 1:35 PM SUPERVISOR KEYMODULE ASSEMBLY Temperature 36.6 C (97.8 F) 06/01/2024 1:35 PM SUPERVISOR KEYMODULE ASSEMBLY Respiratory Rate - - Oxygen Saturation 100% 06/01/2024 1:3 5 PM SUPERVISOR KEYMODULE ASSEMBLY Inhaled Oxygen Concentration - - Weight 55.7 kg (122 lb 12.8 oz) 024 1:35 PM SUPERVISOR KEYMODULE ASSEMBLY with shoe. Height 167.4 cm (5' 5.9) 05/10/2024 9: 12 AM SUPERVISOR KEYMODULE ASSEMBLY with shoe. Body Mass Index 19.88 05/10/2024 9:12 AM SUPERVISOR KEYMODULE ASSEMBLY Plan of Treatment Upcoming Encounters Date Type Department Care Team (Late st Contact Info) Description 06/02/2024 1:00 PM SUPERVISOR KEYMODULE ASSEMBLY Appointment [facility] [address] [place] [address] 06/08/2024 8:50 AM SUPERVISOR KEYMODULE ASSEMBLY Appointment Otol[place]ology at [place] [address] [place] [address] [address] [place] [phone] Becky Rodriguez MD [address] [place] [address] 07/08/2024 10:00 AM SUPERVISOR KEYMODULE ASSEMBLY Appointment [facility] - Dermatology [address] [place], [place] [address] [place] [address] [place] [address] 08/09/2024 1:00 PM SUPERVISOR KEYMODULE ASSEMBLY Appointment [facility] [address] Dermatology [address] [place], [place] [phone] Dina Cuevas MD, PhD [address] [place], [place] [phone] 08/30/2024 9:00 AM SUPERVISOR KEYMODULE ASSEMBLY Appointment [facility] [address] [place], [place] [phone] 08/30/2024 9:30 AM SUPERVISOR KEYMODULE ASSEMBLY Appointment [facility] Oncology [address] [place] [address] Cecile Arteaga MD [address] [place], [place] [address] Health Maintenance Due Date Last Done Comments Hep C Screening (Preventive Services) 1950 Medicare Annual Wellness Visit 1950 Zoster/Shingles (2 of 2) 03/23/2019 01/26/2019 RSV (1 - 1-dose 75+ series) 2023 COVID-19 Vaccine (3 - 2023- season) 2024 12/18/2020, 11/13/2020 DTaP/Tdap/Td (5 - Tdap) 04/22/2034 04/22/20, 04/04/2022, 01/10/2021, Additional history exists Pneumococcal 65+ Yrs Completed 01/26/2019, 04/21/20 13 Influenza Completed 04/22/2024, 02/28, 04/30/2021, Additional history exists HepA Aged Out No longer eligi ble based on patient's age to complete this topic HepB Aged Out No longer eligi ble based on patient's age to complete this topic Hib Aged Out No longer eligi ble based on patient's age to complete this topic IPV (Polio) Aged Out No longer eligi ble based on patient's age to complete this topic MCV4 Aged Out No longer eligi ble based on patient's age to complete this topic Procedures Procedure Name Priority Date/Time Associated Diagnosis Comments COMPLETE BLOOD COUNT-W/DIFF STAT 06/01/2024 1:14 PM SUPERVISOR KEYMODULE ASSEMBLY Squamous cell carcinoma of skin CREATININE / GFR STAT 06/01/2024 1:14 PM SUPERVISOR KEYMODULE ASSEMBLY Squamous cell carcinoma of skin BILIRUBIN, TOTAL STAT 06/01/2024 1:14 PM SUPERVISOR KEYMODULE ASSEMBLY Squamous cell carcinoma of skin CALCIUM STAT 06/01/2024 1:14 PM SUPERVISOR KEYMODULE ASSEMBLY Squamous cell carcinoma of skin AST STAT 06/01/2024 1:14 PM SUPERVISOR KEYMODULE ASSEMBLY Squamous cell carcinoma of skin ALKALINE PHOSPHATASE, TOTAL STAT 06/01/2024 1:14 PM SUPERVISOR KEYMODULE ASSEMBLY Squamous cell carcinoma of skin CBC AND DIFFERENTIAL PANEL STAT 06/01/2024 1:14 PM SUPERVISOR KEYMODULE ASSEMBLY Squamous cell carcinoma of skin CT NECK SOFT TISSUE W IV CONT Routine 05/29/2024 11:22 AM SUPERVISOR KEYMODULE ASSEMBLY Squamous cell carcinoma of skin CT CHEST W IV CONT Routine 05/29/2024 10 :56 AM SUPERVISOR KEYMODULE ASSEMBLY Squamous cell carcinoma of skin CREATININE/GFR, WB POC STAT 05/29/2024 9:52 AM SUPERVISOR KEYMODULE ASSEMBLY EPIDERMAL / DERMAL SHAVING Routine 05/06/2024 2:39 PM SUPERVISOR KEYMODULE ASSEMBLY Neoplasm of skin (HRC) EPIDERMAL / DERMAL SHAVING Routine 05/06/2024 2:37 PM SUPERVISOR KEYMODULE ASSEMBLY Neoplasm of skin (HRC) SURGICAL PATHOLOGY, DERMATOLOGY Routine 05/06/2024 2:37 PM SUPERVISOR KEYMODULE ASSEMBLY Neoplasm of skin (HRC) from Last 3 Months Results * Creatinine / GFR (06/01/2024 1:14 PM SUPERVISOR KEYMODULE ASSEMBLY) Creatinine 0.84 0.73 - 1.18 mg/dL 06/01/2024 1:44 PM SUPERVISOR KEYMODULE ASSEMBLY [facility] GFR, Estimated >60 >60 mL/min/1.7 3m2 06/01/2024 1:44 PM SUPERVISOR KEYMODULE ASSEMBLY [facility] Blood Venipuncture / Unknown 06/01/2024 1:14 PM SUPERVISOR KEYMODULE ASSEMBLY 06/01/2024 1:17 PM SUPERVISOR KEYMODULE ASSEMBLY Cecile Arteaga MD LAB_1 Performing Organization Address City/State/[facility] Co de Phone Number [facility] [address] * (ABNORMAL) Complete Blood Count-W/Diff (06/01/2024 1:14 PM SUPERVISOR KEYMODULE ASSEMBLY) WBC 8.3 3.5 - 10.5 x10(9)/L 06/01/2024 1:21 PM SUPERVISOR KEYMODULE ASSEMBLY [facility] RBC 4.87 4.32 - 5.72 x10(12)/L 06/01/2024 1:21 PM SUPERVISOR KEYMODULE ASSEMBLY [facility] Hemoglobin 15.4 13.5 - 17.5 g/dL 06/01/2024 1:21 PM SUPERVISOR KEYMODULE ASSEMBLY [facility] HCT 44.6 38.8 - 50.0 % 06/01/2024 1:21 PM SUPERVISOR KEYMODULE ASSEMBLY [facility] MCV 91.6 80.0 - 100.0 fL 06/01/2024 1:21 PM SUPERVISOR KEYMODULE ASSEMBLY [facility] MCH 31.6 27.6 - 33.3 pg 06/01/2024 1:21 PM SUPERVISOR KEYMODULE ASSEMBLY [facility] MCHC 34.5 31.5 - 35.2 g/dL 06/01/2024 1:21 PM SUPERVISOR KEYMODULE ASSEMBLY [facility] RDW 12.9 11.9 - 15.5 % 06/01/2024 1:21 PM SUPERVISOR KEYMODULE ASSEMBLY [facility] Platelets 260 150 - 450 x10(9)/L 06/01/2024 1:21 PM SUPERVISOR KEYMODULE ASSEMBLY [facility] Automated NRBC 0 <=0 /100 WBC 06/01/2024 1:21 PM SUPERVISOR KEYMODULE ASSEMBLY [facility] Neutrophil Absolute 6.8 1.7 - 7.0 10(9)/L 06/01/2024 1:21 PM SUPERVISOR KEYMODULE ASSEMBLY [facility] Lymphocyte Absolute 0.7(L) 1.0 - 4.8 10(9)/L 06/01/2024 1:21 PM SUPERVISOR KEYMODULE ASSEMBLY [facility] Monocyte Absolute 0.6 0.2 - 0.9 10(9)/L 06/01/2024 1:21 PM SUPERVISOR KEYMODULE ASSEMBLY [facility] Eosinophil Absolute 0.1 0.0 - 0.5 10(9)/L 06/01/2024 1:21 PM SUPERVISOR KEYMODULE ASSEMBLY [facility] Basophil Absolute 0.1 0.0 - 0.3 10(9)/L 06/01/2024 1:21 PM SUPERVISOR KEYMODULE ASSEMBLY [facility] Automated Neutrophil Count (Prelim) 6.8 10(9)/L 06/01/2024 1:21 PM SUPERVISOR KEYMODULE ASSEMBLY [facility] Comment:The Instrument Absol [place] Neutrophil Count (IANC) is calculated from the automated differential and may differ slightly from the manual differential Absolute Neutrophil Count (IANC), if subsequently reported. Immature Granulocyte % 0.4 0.0 - 0.5 % 06/01/2024 1:21 PM SUPERVISOR KEYMODULE ASSEMBLY [facility] Blood Venipuncture / Unknown 06/01/2024 1:14 PM SUPERVISOR KEYMODULE ASSEMBLY 06/01/2024 1:17 PM SUPERVISOR KEYMODULE ASSEMBLY Cecile Arteaga MD LAB_1 Performing Organization Address [facility]/ZIP Co de Phone Number [facility] [address] * AST (06/01/2024 1:14 PM SUPERVISOR KEYMODULE ASSEMBLY) AST (SGOT) 12 10 - 40 U/L 06/01/2024 1:44 PM SUPERVISOR KEYMODULE ASSEMBLY [facility] Blood Venipuncture / Unknown 06/01/2024 1:14 PM SUPERVISOR KEYMODULE ASSEMBLY 06/01/2024 1:17 PM SUPERVISOR KEYMODULE ASSEMBLY Cecile Arteaga MD LAB_1 Performing Organization Address City/[facility]/ZIP Co de Phone Number [facility] [address] [place] [address] * Calcium (06/01/2024 1:14 PM SUPERVISOR KEYMODULE ASSEMBLY) Calcium 9.3 8.4 - 10.4 mg/dL 06/01/2024 1:44 PM SUPERVISOR KEYMODULE ASSEMBLY [facility] Blood Venipuncture / Unknown 06/01/2024 1:14 PM SUPERVISOR KEYMODULE ASSEMBLY 06/01/2024 1:17 PM SUPERVISOR KEYMODULE ASSEMBLY Cecile Arteaga MD LAB_1 Performing Organization Address [facility] de Phone Number [facility] [address] [place] [address] * Bilirubin, Total (06/01/2024 1:14 PM SUPERVISOR KEYMODULE ASSEMBLY) Bilirubin, Total 0.5 0.2 - 1.2 mg/dL 06/01/2024 1:44 PM SUPERVISOR KEYMODULE ASSEMBLY [facility] Blood Venipuncture / Unknown 06/01/2024 1:14 PM SUPERVISOR KEYMODULE ASSEMBLY 06/01/2024 1:17 PM SUPERVISOR KEYMODULE ASSEMBLY Cecile Arteaga MD LAB_1 Performing Organization Address [facility] de Phone Number [facility] [address] [place] [address] * Alkaline Phosphatase, Total (06/01/2024 1:14 PM SUPERVISOR KEYMODULE ASSEMBLY) Alkaline Phosphatase 109 40 - 150 U/L 06/01/2024 1:44 PM SUPERVISOR KEYMODULE ASSEMBLY [facility] Blood Venipuncture / Unknown 06/01/2024 1:14 PM SUPERVISOR KEYMODULE ASSEMBLY 06/01/2024 1:17 PM SUPERVISOR KEYMODULE ASSEMBLY Cecile Arteaga MD LAB_1 Performing Organization Address [facility] de Phone Number [facility] [address] [place] [address] * CT Neck Soft Tissue W IV Cont (05/29/2024 11:22 AM SUPERVISOR KEYMODULE ASSEMBLY) Anatomical Region Laterality Modality Neck, C-Spine, Spine, Vascular C omputed Tomography 05/29/2024 10:3 4 AM SUPERVISOR KEYMODULE ASSEMBLY Impressions 06/01/2024 10:19 AM SUPERVISOR KEYMODULE ASSEMBLY 1. Increased degree of intermediate density process [...] findings as above. Narrative 06/01/2024 10:19 AM SUPERVISOR KEYMODULE ASSEMBLY INDICATION: eval recurrence COMPARISON: Correlation is made [...] air cells, nasopharynx, right parotid gland, right resident programs assistant space appear unremarkable. Asymmetric wall thickening involving [...] Chest W IV Cont (05/29/2024 10:56 AM SUPERVISOR KEYMODULE ASSEMBLY) Anatomical Region Laterality Modality Chest, Lung Computed Tomogra phy 05/29/2024 10:3 3 AM SUPERVISOR KEYMODULE ASSEMBLY Impressions 05/29/2024 12:27 PM SUPERVISOR KEYMODULE ASSEMBLY 1. Multiple 1 to 2 mm pulmonary [...] time, likely benign. Narrative 05/29/2024 12:27 PM SUPERVISOR KEYMODULE ASSEMBLY COMPARISON: Correlation made with PET/CT from 07/22/2023, [...] likely benign. Cecile Arteaga MD RAD CT * Creatinine/GFR, WB POC (05/29/2024 9:52 AM SUPERVISOR KEYMODULE ASSEMBLY) Creatinine, Whole Blood 0.9 0.7 - 1.2 mg/dL 05/29/2024 10:33 AM [facility] GFR, Estimated >60 >60 mL/min/1.7 3m2 05/29/2024 10:33 AM [facility] Blood Venipuncture / Unknown 05/29/2024 9:52 AM SUPERVISOR KEYMODULE ASSEMBLY 05/29/2024 10:30 AM SUPERVISOR KEYMODULE ASSEMBLY Cecile Arteaga MD LAB_1 [facility] [address] [place] [address] * Shave removal (No CPT) (05/06/2024 2:39 PM SUPERVISOR KEYMODULE ASSEMBLY) Only the most recent of2 resultswithin the time period is included. Narrative EXTERNAL RESULTS - 05/06/2024 2:39 PM SUPERVISOR KEYMODULE ASSEMBLY Lesion diameter (cm): 0.6 Informed consent: discussed [...] petrolatum Dina Cuevas MD, PhD DERM PROCEDURE ORDE [facility] EXTERNAL RESULTS * Surgical Path, Dermatology (05/06/2024 2:37 PM SUPERVISOR KEYMODULE ASSEMBLY) Case Report Surgical Pathology Report Case: [id number] Authorizing Provider: Dina Cuevas MD, PhD Collected: 05/06/2024 1437 Ordering Location: [place] [address] Received: 05/07/2024 0976 Dermatology Pathologist: Los Storm MD Specimens: A) - Skin, Left Forearm - Anterior B) - Skin, Right Forearm - Anterior 05/13/2024 8:16 AM SUPERVISOR KEYMODULE ASSEMBLY [facility] D[facility] FINAL DIAGNOSIS A. Skin, Left Forearm - Anterior, shave: - Nodular basal cell carcinoma, present at deep biopsy margin. B. Skin, Right Forearm - Anterior, shave: - Nodular basal cell carcinoma colliding with invasive squamous cell carcinoma, both present at deep biopsy margin. 05/13/2024 8:16 AM SUPERVISOR KEYMODULE ASSEMBLY [facility] DER[facility] Clinical Information A: Clinical Impression: r/o scc 1.1 cm volcano-like nodule with central keritinaceous core. B: Clinical Impression: r/o scc 0.6 cm volcano-like nodule with central keritinaceous core. 05/13/2024 8:16 AM SUPERVISOR KEYMODULE ASSEMBLY [facility] DERMATOLOGY Microscopic Description Microscopic examination is performed. 05/13/2024 8:16 AM SUPERVISOR KEYMODULE ASSEMBLY [facility] DER[facility] Technical Information A portion of the technical staining was performed at [facility], [address] [place] [address]. 05/13/2024 8:16 AM SUPERVISOR KEYMODULE ASSEMBLY [facility] DERMAT[facility]Y Gross Description A: Received in [...] in one cassette. DS 05/13/2024 8:16 AM SUPERVISOR KEYMODULE ASSEMBLY [facility] DER[facility]Y Embedded Images 05/13/2024 8:16 AM SUPERVISOR KEYMODULE ASSEMBLY [facility] DER[facility] Skin (Skin) 05/06/2024 2:37 PM SUPERVISOR KEYMODULE ASSEMBLY 05/07/2024 9:25 AM SUPERVISOR KEYMODULE ASSEMBLY Comment:Clinical Impression: r/o scc 1.1 cm volcano-like nodule with central keritinaceous core. Skin structure (body structure) (Skin) 05/06/2024 2:39 PM SUPERVISOR KEYMODULE ASSEMBLY 05/07/2024 9:25 AM SUPERVISOR KEYMODULE ASSEMBLY Comment:Clinical Impression: r/o scc 0.6 cm volcano-like nodule with central keritinaceous core. Dina Cuevas MD, PhD LAB PATHOLOGY Performing Organization Address City/State/ZIP Co tn Phone Number [facility] DERMATOLOGY [address] [place] [address], [facility] from Last 3 Months Care Teams Technical Specialist Cytology Relationship Specialty Start Date End Date Jarod Pascual MD [address] [place] [address] PCP - General 05/10/24
--- OUTSIDE RECORDS SUMMARY | 2024-06-02 09:49 | XMS_ITS | Clinical Summary ---
Author Organization [facility] Address [place], [place] [address] Care Team Providers Care Cerner Analyst Name Role Phone Nonstaff, Doctor Primary Care Provider Unavailab le Allergies No known active allergies Medications Medication Sig Dispensed Refills Start Date End Date Status atorvastatin (LIPITOR) 20 mg tablet Take 20 mg by mouth once daily. Active cholecalciferol, Vitamin D3, 2,000 unit tablet Take 2,000 Units by mouth once daily. Active doxycycline (VIBRAMYCIN) 100 mg capsule Take 100 mg by mouth 2 times daily. Active linaGLIPtin (TRADJENTA) 5 mg tab Take 5 mg by mouth once daily. Active pioglitazone (ACTOS) 45 mg tablet Take 45 mg by mouth once daily. Active tamsulosin (FLOMAX) 0.4 mg capsule Take 0.4 mg by mouth once daily in the afternoon. Active oxyCODONE (ROXICODONE) 5 mg immediate release tabletIndications:Po st-operative state Take 1-2 tablets by mouth every 6 hours if needed for Pain (For moderate pain.) 20 tablet 06/30/2019 Active metFORMIN (GLUCOPHAGE XR) 750 mg Extended-Release tabletIndications:Ty pe 2 diabetes mellitus without complication, without long-term current use of insulin (HC) Take 1 tablet by mouth 2 times daily. DO NOT TAKE UNTIL OK WITH YOUR PRIMARY MD 0 07/02/2019 Active Active Problems Problem Noted Date Diagnosed Date BIRGIT (acute kidney injury) 06/30/2019 Right hydronephrosis seconda ry to right ureteral stricture. S/P Cysto and stent placement 06/29/2019 Type 2 diabetes mellitus wit hout complication, without long-term current use of insulin 06/29/2019 Hyperlipidemia 06/29/2019 Bullous pemphigoid 06/29/2019 BPH (benign prostatic hyperplasia) 06/29/2019 Social History Tobacco Use Types Packs/Day Years Used Date Smoking Tobacco: Former Smokeless Tobacco: Never Sex and Gender Information Value Date Recorded Sex Assigned at Not on file Gender Identity Not on file Sexual Orientation Not on file Obstetrics History Last Filed Vital Signs Vital Sign Reading Time Taken Comments Blood Pressure 138/64 06/30/2019 4:00 PM GROCERY DELIVERER Pulse 63 06/30/2019 4:00 PM GROCERY DELIVERER Temperature 36.5 C (97.7 F) 06/30/2019 4:00 PM GROCERY DELIVERER Respiratory Rate 16 06/30/2019 4:00 PM GROCERY DELIVERER Oxygen Saturation 93% 06/30/2019 4:00 PM GROCERY DELIVERER Inhaled Oxygen Concentration - - Weight 67.6 kg (149 lb) 06/29/2019 4:43 PM GROCERY DELIVERER Height 167.6 cm (5' 6) 06/29/2019 4:43 PM GROCERY DELIVERER Body Mass Index 24.05 06/29/2019 4:43 PM GROCERY DELIVERER Plan of Treatment Not on file Medical Devices Implanted Type Area Labeling Associate Device Identifier Shelf Expiration Date Model / Serial / Lot Stent Uret [id number] Contour - [id number] Implanted:Qty: 1 on 06/30/2019 by Seth Villa MD at [facility] Right: Ureter [facility] 02/23/2022 [id number]# / / [id number] Advance Directives * Full Code (Latest Code Status on File) Date Activated Date Inactivated Comments 06/29/2019 5:43 PM 06/30/2019 8:29 PM Care Teams Cerner Analyst Relationship Specialty Start Date End Date Nonstaff, Doctor NON STAFF DOCTOR PCP - General 06/29/19
--- OUTSIDE RECORDS SUMMARY | 2024-06-02 09:49 | XMS_ITS | Encounter Summary ---
[facility] Address [address], [place] [address] Care Team Providers Care Forestry Pilot Name Role Phone Jarod Pascual MD Primary Care Provider [phone] Reason for Referral * Consult/Transfer Care (Routine) - New Request Specialty Diagnoses / Procedures Referred By Brent mary Referred To Contact Diagnoses Basal cell carcinoma of upper extremity, unspecified laterality Dina Cuevas MD, PhD [address] [place] [address] Referral ID Status Reason Start Date Expiration Date V isits Requested Visits Authorized [id number] New Request 05/17/2024 08/16/2025 1 1 Scheduling Instructions Your clinician has recommended an appointment with [facility] Dermatology Surgery. You may call [phone] to schedule your appointment. This recommended service/s may not be covered by your insurance coverage. To find out your specific benefit coverage, please call the number on your insurance card. Question Answer Appointment Urgency? Non-Urgent NSTONE POLISHER OPERATOR Reason for Visit * Reason Comments Referral Encounter Details Date Type Department Care Team (Late st Contact Info) Description 05/17/2024 Telephone [place] [address] Dermatology [address] [place], [place] [id number] Dina Cuevas MD, PhD [facility] [place] [address] Referral Social History Tobacco Use Types Packs/Day Years Used Date Smoking Tobacco: Every Day Cigarettes Comments:Half a pack a day o f Cigarettes and is on a quitting program. Sex and Gender Information Value Date Recorded Sex Assigned at Not on file Gender Identity Not on file Sexual Orientation Not on file documented as of this encounter Nursing Notes * Almas Ingram - 05/19/2024 10:42 AM CST Scheduled a 2.0 site excision on 07/08 with TURNER in [place]. NSTONE POLISHER OPERATOR * Jimena Dickerson - 05/19/2024 9:54 AM CST LVM NSTONE POLISHER OPERATOR * Delores Arauz MD - 05/18/2024 6:32 AM CST Agree with grading. OK to do both at same appt. NSTONE POLISHER OPERATOR * Yennifer Ramirez MD - 05/17/2024 5:10 PM CST Agree semi urgent , both in one excision slot. NSTONE POLISHER OPERATOR * Carlie Mercado MD - 05/17/2024 8:58 AM CST semi urgent. Excision. Can do both in one excision slot if scheduled with me NSTONE POLISHER OPERATOR * Yancy Malik - 05/17/2024 8:48 AM CST Semi urgent exc 1.0 + 1.0 or semi urgent exc 2.0, 2 sites. Can be with JL, DARIN or gen derm/res per guidelines. NSTONE POLISHER OPERATOR * Delores Garcia RN - 05/17/2024 7:43 AM CST Images from the original note were not included. Mohs / Derm Surg Referral Site 1: Site 2: Site 3: Site 4: Site Left Forearm- Anterior Right Forearm- Anterior Diagnosis Nodular BCC Nodular BCC Size (optional) <1 cm 1-2 cm >2 cm Special Considerations for this site Photos (Copy & Paste or type No Photo): How was pt informed? (ex: left msg, spoke with pt): [employer] message. Patient left voicemail verbalizing understanding understanding and chose excision x2. Home address : [address] [place], [place] [address] Is this the patient's first derm surg referral?: Yes Best Number/Person to Call: Telephone Information: Work Phone Not on file. Home Phone Not on file. Remember, if contacting someone besides the pt, make sure we have a verbal disclosure on file for that person. Notes (such as mobility requirements, preferred surgeon or location, scheduling considerations, etc.): NSTONE POLISHER OPERATOR documented in this encounter Plan of Treatment Upcoming Encounters Date Type Department Care Team (Late st Contact Info) Description 06/02/2024 1:00 PM GREENSTONE POLISHER OPERATOR Appointment [facility] [address] [place] [address] 06/08/2024 8:50 AM GREENSTONE POLISHER OPERATOR Appointment Otol[place]ology at [place] [address] [address] [facility] [address] [place] [phone] Becky Rodriguez MD [address] [place] [address] 07/08/2024 10:00 AM GREENSTONE POLISHER OPERATOR Appointment [facility] - Dermatology [address] [place] [address] [place] [address] [place] [address] [place] [address] 08/09/2024 1:00 PM GREENSTONE POLISHER OPERATOR Appointment [place] [address] Dermatology [address] [place] [address] Dina Cuevas MD, PhD [address] [place] [address] 08/30/2024 9:00 AM GREENSTONE POLISHER OPERATOR Appointment [facility] [address] [place] [address] 08/30/2024 9:30 AM GREENSTONE POLISHER OPERATOR Appointment [facility] Oncology [address] [place] [address] Cecile Arteaga MD [address] [place] [address] Scheduled Referrals Name Type Priority Associated Diagnoses Orde r Schedule Dermatology Surgery/Mohs Consult Adult Referral Routine Basal cell carcinoma of upper extremity, unspecified laterality Ordered: 05/17/2024 documented as of this encounter Visit Diagnoses Diagnosis Basal cell carcinoma of upper extremity, unspecified laterality- Primary documented in this encounter Care Teams Forestry Pilot Relationship Specialty Start Date End Date Jarod Pascual MD [address] [place] [address] PCP - General 05/10/24 documented as of this encounter
--- OUTSIDE RECORDS SUMMARY | 2024-06-02 09:49 | XMS_ITS | Encounter Summary ---
Author Organization [facility] Address [address], [place] [address] Care Team Providers Care Farm Labor Contractor Name Role Phone Jarod Pascual MD Primary Care Provider [phone]- [phone] Reason for Visit * Procedure/Equipment (Routine) - Incomplete Specialty Diagnoses / Procedures Referred By Brent t Referred To Contact Diagnoses Squamous cell carcinoma of skin Procedures CT Chest W IV Cont Cecile Arteaga MD [address] [place] [address] Referral ID Status Reason Start Date Expiration Date V isits Requested Visits Authorized [id number] Incomplete 05/10/2024 08/09/2025 1 1 Encounter Details Date Type Department Care Team (Late st Contact Info) Description 05/29/2024 10:40 AM BUILDING ATTENDANT Ancillary Procedure [facility] [address] [address] Scan [address] [place] [phone] Cecile Arteaga MD [address] [place] [address] Squamous cell carcinoma of skin [...] st Contact Info) Description 06/02/2024 1:00 PM BUILDING ATTENDANT Appointment [facility] [address] [place] [address] 06/08/2024 8:50 AM BUILDING ATTENDANT Appointment Otolaryngology at [place] [address] [address] [facility] [address] [place] [address] Becky Rodriguez MD [address] [place] [address] 07/08/2024 10:00 AM BUILDING ATTENDANT Appointment [facility] - Dermatology [address] [place] [address] [place] [address] [place] [address] 08/09/2024 1:00 PM BUILDING ATTENDANT Appointment [place] [address] [place] [address] Dina Cuevas MD, PhD [address] [place] [address] 08/30/2024 9:00 AM BUILDING ATTENDANT Appointment [facility] [address] [place] [address] 08/30/2024 9:30 AM BUILDING ATTENDANT Appointment [facility] Oncology [address] [place] [address] Cecile Arteaga MD [address] [place] [address] documented as of this encounter Procedures Procedure Name Priority Date/Time Associated Diagnosis Comments CT CHEST W IV CONT Routine 05/29/2024 10 :56 AM BUILDING ATTENDANT Squamous cell carcinoma of skin CREATININE/GFR, WB POC STAT 05/29/2024 9:52 AM BUILDING ATTENDANT documented in this encounter Results * CT Chest W IV Cont (05/29/2024 10:56 AM BUILDING ATTENDANT) Anatomical Region Laterality Modality Chest, Lung Computed Tomogra phy 05/29/2024 10:3 3 AM BUILDING ATTENDANT Impressions 05/29/2024 12:27 PM BUILDING ATTENDANT 1. Multiple 1 to 2 mm pulmonary [...] time, likely benign. Narrative 05/29/2024 12:27 PM BUILDING ATTENDANT COMPARISON: Correlation made with PET/CT from 07/22/2023, [...] * Creatinine/GFR, WB POC (05/29/2024 9:52 AM BUILDING ATTENDANT) Creatinine, Whole Blood 0.9 0.7 - 1.2 mg/dL 05/29/2024 10:33 AM BUILDING ATTENDANT [facility] GFR, Estimated >60 >60 mL/min/1.7 3m2 05/29/2024 10:33 AM [facility] Blood Venipuncture / Unknown 05/29/2024 9:52 AM BUILDING ATTENDANT 05/29/2024 10:30 AM BUILDING ATTENDANT Cecile Arteaga MD LAB_1 [facility] [address] [place] [address] documented in this encounter Visit Diagnoses Diagnosis Squamous cell carcinoma of skin Squamous cell carcinoma of skin, site unspecified documented in this encounter Care Teams Farm Labor Contractor Relationship Specialty Start Date End Date Jarod Pascual MD [address] [place] [address] PCP - General 05/10/24 documented as of this encounter
--- OUTSIDE RECORDS SUMMARY | 2024-06-02 09:49 | XMS_ITS | Encounter Summary ---
Author Organization [facility] Address [address] [address] Care Team Providers Care Circus Agent Name Role Phone Jarod Pascual MD Primary Care Provider [phone]- [phone] Encounter Details Date Type Department Care Team (Late st Contact Info) Description 05/31/2024 Notes/Orders [facility] Oncology [address] [place] [address] Cecile Arteaga MD [address] [place], [place] [phone] Prostate cancer screening (Primary Dx) Social History Tobacco Use Types [...] st Contact Info) Description 06/02/2024 1:00 PM SOFTWARE DESIGN ENGINEER Appointment [facility] [address] [place] [address] 06/08/2024 8:50 AM SOFTWARE DESIGN ENGINEER Appointment Otol[place]ology at [place] [address] [place] [address] [address] [place] [phone] Becky Rodriguez MD [address] [place] [address] 07/08/2024 10:00 AM SOFTWARE DESIGN ENGINEER Appointment [place] [facility] - Dermatology [address] [place] [address] [place] [address] [place] [address] 08/09/2024 1:00 PM SOFTWARE DESIGN ENGINEER Appointment [facility] [address] Dermatology [address] [place], [place] [address] Dina Cuevas MD, PhD [address] [place] [address] 08/30/2024 9:00 AM SOFTWARE DESIGN ENGINEER Appointment [facility] [address] [place] [address] 08/30/2024 9:30 AM SOFTWARE DESIGN ENGINEER Appointment [facility] Oncology [address] [place] [address] Cecile Arteaga MD [address] [place] [address] documented as of this encounter Visit Diagnoses Diagnosis Prostate cancer screening- Primary Special screening for malignant neoplasm of prostate documented in this encounter Care Teams Circus Agent Relationship Specialty Start Date End Date Jarod Pascual MD [address] [place] [address] PCP - General 05/10/24 documented as of this encounter
--- OUTSIDE RECORDS SUMMARY | 2024-06-02 09:50 | XMS_ITS | Encounter Summary ---
Author Organization [facility] Address [address] [address] [place] [address] Care Team Providers Care Hydrologist Name Role Phone Ochoa Varma MD Primary Care Provider Elkin Zavala MD Unavailable Yuri Oneill MD Unavailable Emma Guerrero RN Unavailable [phone] Ochoa Varma MD Unavailable Encounter Details Date Type Department Care Team (Late st Contact Info) Description 02/25/2024 Orders Only [facility] [address] [facility] [place] [address] [place]ya [place] [address] [facility] [place] [address] Diagnosis unknown (Primary Dx) Social History Tobacco Use Types Packs/Day Years Used Date Smoking Tobacco: Every Day Cigarettes 0.3 57.9 Started: 06/30/1966 Smokeless Tobacco: Never Comments:0.5 pack per day - current 12/02/23 4-5 cigarettes daily 0.75 pack per day 08/22/2023 No vaping About 3rd quarter of a pack-09/08/23 10/07/23-0.5 PPD 11/11/23-5 cigarettes daily 11/26/23-6-7 cigarettes daily, 01/07/24-0.5 PPD Alcohol Use Standard Drinks/Week Comments Yes 0 (1 standard drink = 0.6 oz pur e alcohol) socially, maybe 3 per month AUDIT-C Answer Date Recorded Q1: How often do you have a drink containing alc ohol? 2-4 times a month 08/29/2023 Q2: How many drinks containi ng alcohol do you have on a typical day when you are drinking? 1 or 2 08/29/2023 Q3: How often do you have si x or more drinks on one occasion? Never 08/29/2023 Overall Financial Resource Strain (CARDIA) Answe r Date Recorded How hard is it for you to pa y for the very basics like food, housing, medical care, and heating? Not hard at all 08/12/2023 PHQ-2 Answer Date Recorded PHQ-2 Total 2 10/11/2023 Hunger Vital Sign Answer Date Recorded Within the past 12 months, y ou worried that your food would run out before you got the money to buy more. Never true 08/12/19 24 Within the past 12 months, t he food you bought just didn't last and you didn't have money to get more. Never true 08/12/2023 PRAPARE - Transportation Answer Date Re corded In the past 12 months, has l ack of transportation kept you from medical appointments or from getting medications? No 07/31 In the past 12 months, has l ack of transportation kept you from meetings, work, or from getting things needed for daily living? No 08/12/2023 Housing Stability Vital Sign Answer Hardy e Recorded In the last 12 months, was t here a time when you were not able to pay the mortgage or rent on time? No 08/12/2023 In the last 12 months, how many places have you lived? 1 08/12/2023 In the last 12 months, was t here a time when you did not have a steady place to sleep or slept in a chcf (including now)? No 08/12/2023 Sex and Gender Information Value Date Recorded Sex Assigned at Not on file Legal Sex Male 12:43 PM CDT Gender Identity Not on file Sexual Orientation Not on file documented as of this encounter Functional Status * Do you have difficulty with walking, balance, climbing stairs, or had a fall in the last 3 months? Answer Date of Assessment Author No 12/08/2023 2:30 PM CDT Usha Leyva LPN documented as of this encounter Plan of Treatment Upcoming Encounters Date Type Department Care Team (Latest Contact Info) Description 07/14/2024 1:45 PM WIRE ROPE SALES REPRESENTATIVE Office Visit [facility] [address] [facility] [place] [address] Katelyn Waller MD [address] [facility] [place] [address] Discharge Disposition: Home, Self Care 12/20/2024 2:45 PM CDT Clinical Support Visit [facility] [address] [facility] [place] [address] Elkin Zavala MD [address] [facility] [place] [address] 12/20/2024 3:00 PM CDT Office Visit [facility] [address] [facility] [place] [address] Elkin Zavala MD [address] [facility] [place] [address] documented as of this encounter Procedures Procedure Name Priority Date/Time Associated Diagnosis Comments EXTERNAL IMAGING STUDY PACS STORAGE Routine 02/12/2024 4:05 PM CDT Diagnosis unknown documented in this encounter Results * EXTERNAL IMAGING STUDY PACS STORAGE (02/12/2024 4:05 PM CDT) Narrative Epic, User - 02/25/2024 8:44 AM CDT Outside study order used for film storage in PACS. No radiologist review or dictation. us Provider Unlisted RADIOLOGY DIAGNOSTIC Final Res ult documented in this encounter Visit Diagnoses Diagnosis Diagnosis unknown- Primary Other unknown and unspecified cause of morbidity or mortality documented in this encounter Care Teams Hydrologist Relationship Specialty Start Date End Date Ochoa Varma MD [address] [place] [address] PCP - General Family Medicine 05/20/23 Ochoa Varma MD [address] [place] [address] PCP - Attributed Provider 12/23/23 Elkin Zavala MD [address] [facility] [place] [address] Consulting Physician Radiation Oncology (Radiology) 09/01/23 Yuri Oneill MD [address] [place] [address] Primary Oncologist Hematology and Oncology (Internal Medicine) 09/05/23 Emma Guerrero, RN [address] [place] [address] Nurse Navigator Otolaryngology (Ear, Nose and Throat) 10/28/23 documented as of this encounter
--- OUTSIDE RECORDS SUMMARY | 2024-06-02 09:50 | XMS_ITS ---
Author Organization [place] [email or web address] [facility] Address [address] [place] [address] [address] [place] [address] Care Team Providers Care Environmental Test Technician Name Role Phone Ochoa Varma MD Primary Care Provider Elkin Zavala MD Unavailable Yuri Oneill MD Unavailable [phone] Emma Guerrero RN Unavailable [phone] Ochoa Varma MD Unavailable Active Problems Problem Noted Date Diagnosed Date Dehydration 12/08/2023 Recurrent major depressive d isorder, remission status unspecified 10/28/2023 Depression, recurrent 10/28/2023 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 08/31 Cancer Staging:Pathologic stage from 09/01/2023:Stage IV(pT3, pN3a(U), cM0) - Signed by Elkin Zavala MD on 09/01/2023 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 11/06/2022 Right ureteral stone 10/30/2022 Essential hypertension 04/15/2022 Erectile dysfunction 07/03/2020 Generalized osteoarthritis 07/03/2020 Primary osteoarthritis of fi rst carpometacarpal joint of left hand 09/15/2019 BIRGIT (acute kidney injury) 06/30/2019 Type 2 diabetes mellitus wit hout complication, without long-term current use of insulin 06/29/2019 Other hydronephrosis 06/29/2019 Hyperlipidemia 06/29/2019 BPH (benign prostatic hyperplasia) 06/29/2019 Vitreomacular adhesion of right eye 04/01/2019 Presence of intraocular lens 04/01/2019 Bullous pemphigoid 04/01/2019 Pruritus 12/25/2018 Lumbar pain 12/25/2018 Left hip pain 12/25/2018 Diverticulosis of large intestine without hemorr raul 07/24/2018 Tubular adenoma of colon 01/25/2017 Colon polyps 01/21/2017 Iliac artery stenosis, right 07/15/2016 Overview (05/20/2023): Balloon procedure 1995 about Premature atrial contractions 02/21/2016 Vitamin D deficiency 02/20/2016 Pure hypercholesterolemia 02/20/2016 Nontoxic single thyroid nodule 02/20/2016 Mass of neck 02/06/2016 Overview (06/19/2023): Problem description: Neck mass Thyroid nodule 02/06/2016 Overview (06/19/2023): Problem description: Thyroid nodule Current Treatment and Therapy Plans No current plan information found. Other Current Plans Infusion Orders - IV Fluids (Hydration)* Plan Start Date:12/10/2023 Plan Provider:Ochoa Varma MD Linked Problems Dehydration Treatment Medications sodium chloride 0.9% (bolus) sodium chloride flush 0.9% Past Treatment and Therapy Plans INFUSION 1 Plan Name Start Date Discontinue Date Treatment Medications Discontinue Reason Plan Provider Infusion Orders - IV Fluids (Hydration) 12/02/2023 12/02/2023 sodium chloride 0.9% (bolus)sodium chloride flush 0.9% Therapy completed Elkin Zavala MD Radiation Treatments * Course C1: L_Neck 10/23/2023 - 12/01/2023 Treatment Period Energy Fraction Dose Fractions Total Dose Plans Planned Left_Neck 10/23/2023 - 12/01/2023 220 cGy 27 / 3 0 6,600 cGy Reference Points Delivered [id number] 10/23/2023 - 12/01/2023 5,940 cGy * Course C1:TomoHeadNeck 10/21/2023 - 10/21/2023 Treatment Period Energy Fraction Dose Fractions Total Dose Plans Planned TomoHeadNeck 10/21/2023 - 10/21/2023 0 / 1 Reference Points Delivered [id number] 10/21/2023 - 10/21/2023 0 cGy
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
--- OUTSIDE RECORDS SUMMARY | 2024-06-02 09:50 | XMS_ITS | Encounter Summary ---
Author Organization [facility] Address [address] [place] [address] Care Team Providers Care Healthcare Business Analyst Name Role Phone Ochoa Varma MD Primary Care Provider Elkin Zavala MD Unavailable Yuri Oneill MD Unavailable Emma Guerrero RN Unavailable [phone] Ochoa Varma MD Unavailable Reason for Referral * Transitions of Care (Routine) - New Request Specialty Diagnoses / Procedures Referred By Brent mary Referred To Contact Diagnoses Squamous cell carcinoma of skin of left cheek Katelyn Waller MD [address] [place] [address] Phone: tel: fax: Dina Chakraborty MD [address] [place] [address] Phone: tel: fax: Referral ID Status Reason Start Date Expiration Date Visits Requested Visits Authorized [id number] New Request Patient Preference 03/31/2024 1 1 Comments Patient has metastatic melanoma. Also followed by head and neck surgery Reason for Visit * Reason Onset Date Comments Referral 03/30/2024 Encounter Details Date Type Department Care Team (Late st Contact Info) Description 03/30/2024 Telephone [facility] DERMATOLOG[facility] [address] [place] [id number] Dorothy Rich, AUTO REPAIR SHOP MANAGER [address] [place] [address] Referral Social History Tobacco Use Types Packs/Day [...] place to sleep or slept in a care home (including now)? No 08/12/2023 Sex and Gender [...] Leyva LPN documented as of this encounter Nursing Notes * Katelyn Waller MD - 03/31/2024 12:54 PM CDT Referral signed * Dorothy Rich LPN - 03/30/2024 1:12 PM CDT Lens stated he called one of the provider on the list of provider Dr. Waller provided. Appointment schedule 04/12/[address] Dina Cuevas. Needs referral and records fax to to [facility] phone # fax # . Referral placed. Records faxed. * Dorothy Rich LPN - 03/30/2024 1:10 PM CDT ----- Message from Katelyn Waller sent at 03/29/2024 4:57 PM CDT ----- Regarding: RE: patient referral We can put in a referral but I am confused as to how he cannot find a software quality specialist nearby - We sent him a list of board certified dermatologists and I don't know of a [facility] that does not do skin cancer screenings. I also can't imagine that there won't be a long wait time for [place] as well. rod Reynolds put together a referral for Minh noting he has metastatic squamous cell carcinoma and needs regular skin exams. ----- Message ----- From: Emma Guerrero RN Sent: 03/29/2024 2:02 PM CDT To: Katelyn Waller MD Subject: RE: patient referral Wero, I had a call from Minh today stating he has tried to call several physician practices in [place] and they are either booked up, not taking new patients or do not specialize in what he needs. He didfind one doctor that comes to a town nearby, but only once per week. Patient is requesting a referral to [facility] for Dermatology. Not sure if this is something you want to send to have him see someone specific that you might know or? He has kept his appointment with you for now, but plans to cancel if he can get into someone in [place]. Otherwise, I can call [facility] and have them reach out to the patient to set something up. Thank you, Emma ----- Message ----- From: Katelyn Waller MD Sent: 03/15/2024 8:25 AM CDT To: Emma Guerrero RN Subject: RE: patient referral Generally, a referral is not needed. There are no board certified dermatologists listed in [place] per the [employer] website. I did print a list for ones 15-25 miles from [place]. We can mail this tothem and they can pick one or call one for time to get in. He has an appointment with us in June- this may need to be cancelled if they are able to get into one closer to home. Please notify them. ----- Message ----- From: Emma Guerrero RN Sent: 03/12/2024 2:29 PM CDT To: Katelyn Waller MD Subject: FW: patient referral Wero Waller, The ENT referral at [facility] also has a dermatology clinic on site and the patient wouldlike a referral to a software quality specialist there. Do you know of anyone specific he should see at that center and could your staff place that referral? Thank you, Emma ----- Message ----- From: Maria G Bernal MA Sent: 03/12/2024 2:17 PM CDT To: Emma Guerrero RN; Deloris Quinn CNP Subject: RE: patient referral FYI, Referral made to: There is this surgeon at [facility], if you want to put in the referral. Adrian Wood MD [address] [place], [place] [address] ## correct fax # is [phone]## Sun: Closed Mon - Tue: 7:30 am-8:00 pm Fri - Fri: 7:30 am-5:00 pm Sat: Closed Will fax records, ref to Dr Adrian Wood, they will review records and contact pt with appt ----- Message ----- From: Deloris Quinn CNP Sent: 03/12/2024 7:55 AM CDT To: Ent Kaplan Scheduling Staff Subject: RE: patient referral Placed referral to ENT in [facility] ----- Message ----- From: Clay Anthony DO Sent: 03/10/2024 2:55 PM CDT To: Deloris Quinn CNP; Nela Zamora PA-C Subject: FW: patient referral Can one of you place this referral ----- Message ----- From: Emma Guerrero RN Sent: 02/28/2024 9:23 AM CDT To: Clay Anthony DO; Vandana Mike RN Subject: patient referral There is this surgeon at [facility], if you want to put in the referral. Adrian Wood MD [address] [place], [place] [address] Sun: Closed Mon - Tue: 7:30 am-8:00 pm Fri - Fri: 7:30 am-5:00 pm Sat: Closed General info: [phone] ----- Message ----- From: Clay Anthony DO Sent: 02/25/2024 2:27 PM CDT To: Emma Guerrero RN When you get back can you find a surgeon for his moth exterminator follow up near [facility]? He lives with his son now. documented in this encounter Plan of Treatment Upcoming Encounters Date Type Department Care Team (Latest Contact Info) Description 07/14/2024 1:45 PM COSTUMER ASSISTANT Office Visit [facility] DERMAT[facility] [address] [facility] [place] [address] Katelyn Waller MD [address] [facility] [place] [address] Discharge Disposition: Home, Self Care 12/20/2024 2:45 PM CDT Clinical Support Visit [facility] [address] [facility] [place] [address] Elkin Zavala MD [address] [facility] [place] [address] 12/20/2024 3:00 PM CDT Office Visit [facility] [address] [facility] [place] [address] Elkin Zavala MD [address] [facility] [place] [address] Scheduled Referrals Name Type Priority Associated Diagnoses Orde r Schedule CLINIC REFERRAL DERMATOLOGY NON ONE CHART Referral Routine Squamous cell carcinoma of skin of left cheek Ordered: 03/31/2024 documented as of this encounter Visit Diagnoses Diagnosis Squamous cell carcinoma of skin of left cheek- Primary Squamous cell carcinoma of skin of other and unspecified parts of face documented in this encounter Care Teams Healthcare Business Analyst Relationship Specialty Start Date End Date Ochoa Varma MD [address] [address] PCP - General Family Medicine 05/20/23 Ochoa Varma MD [address] [place] [address] PCP - Attributed Provider 12/23/23 lEkin Zavala MD [address] [facility] [place] [address] Consulting Physician Radiation Oncology (Radiology) 09/01/23 Yuri Oneill MD [address] [place] [address] Primary Oncologist Hematology and Oncology (Internal Medicine) 09/05/23 Emma Guerrero RN [address] [place] [address] Nurse Navigator Otolaryngology (Ear, Nose and Throat) 10/28/23 documented as of this encounter
--- OUTSIDE RECORDS SUMMARY | 2024-06-02 09:50 | XMS_ITS | Encounter Summary ---
Author Organization [facility] Address [address] [place] [address] [address] [place] [address] Care Team Providers Care Lard Refiner Name Role Phone Ochoa Varma MD Primary Care Provider Elkin Zavala MD Unavailable Yuri Oneill MD Unavailable Emma Guerrero RN Unavailable [phone] Ochoa Varma MD Unavailable Reason for Visit * Reason Onset Date Comments Referral 03/12/2024 Encounter Details Date Type Department Care Team (Late st Contact Info) Description 03/12/2024 Telephone [facility] EAR, NOSE & THROAT [address] [place] [address] Clay Anthony, [address] [address] Referral Social History Tobacco Use Types Packs/Day Years Used Date Smoking Tobacco: Every Day Cigarettes 0.3 57.9 Started: 06/30/1966 Smokeless Tobacco: Never Comments:0.5 pack per day - current 12/02/23 4-5 cigarettes daily 0.75 pack per day 08/22/2023 No vaping About 3rd quarter of a pack-09/08/23 10/07/23-0.5 PPD 11/11/23-5 cigarettes daily 11/26/23-6-7 cigarettes daily, 7/10/24-0.5 PPD Alcohol Use Standard Drinks/Week Comments Yes [...] place to sleep or slept in a correction (including now)? No 08/12/2023 Sex and Gender [...] as of this encounter Nursing Notes * Maria G Bernal MA - 03/12/2024 1:48 PM CDT FYI, Referral made to: There is this surgeon at [facility], if you want to put in the referral. Adrian Wood MD [address] [place] [address] correct fax # is [phone] Sun: Closed Mon - Tue: 7:30 am-8:00 pm Fri - Fri: 7:30 am-5:00 pm Sat: Closed Will fax records, ref to Dr Adrian Wood, they will review records and contact pt with appt documented in this encounter Plan of Treatment Upcoming Encounters Date Type Department Care Team (Latest Contact Info) Description 07/14/2024 1:45 PM ESCORT PATIENTS Office Visit [facility] DERMAT[facility] [address] [place] [address] Katelyn Waller MD [address] [place] [address] Discharge Disposition: Home, Self Care 12/20/2024 2:45 PM CDT Clinical Support Visit [facility] [address] [place] [address] Elkin Zavala MD [address] [place] [address] 12/20/2024 3:00 PM CDT Office Visit [facility] [address] [place] [address] Elkin Zavala MD [address] [place] [address] documented as of this encounter Visit Diagnoses Not on filedocumented in this encounter Care Teams Lard Refiner Relationship Specialty Start Date End Date Ochoa Varma MD [address] [place] [address] PCP - General Family Medicine 05/20/23 Ochoa Varma MD [address] [place] [address] PCP - Attributed Provider 12/23/23 Elkin Zavala MD [address] [place] [address] Consulting Physician Radiation Oncology (Radiology) 09/01/23 Yuri Oneill MD [address] [place] [address] Primary Oncologist Hematology and Oncology (Internal Medicine) 09/05/23 Emma Guerrero RN [address] [place] [address] [place] [address] Nurse Navigator Otolaryngology (Ear, Nose and Throat) 10/28/23 documented as of this encounter
--- OUTSIDE RECORDS SUMMARY | 2024-06-02 09:50 | XMS_ITS | Encounter Summary ---
Author Organization [facility] Address [address] [address] [place] [address] Care Team Providers Care Digital Learning Platforms Manager Name Role Phone Ochoa Varma MD Primary Care Provider Elkin Zavala MD Unavailable Yuri Oneill MD Unavailable mEma Guerrero RN Unavailable [phone] Ochoa Varma MD Unavailable [phone] Encounter Details Date Type Department Care Team (Late st Contact Info) Description 03/15/2024 Telephone [facility] ON[facility] [address] [place] [address] Emma Guerrero, RN [address] [place] [address] Social History Tobacco Use Types Packs/Day Years [...] as of this encounter Nursing Notes * Emma Guerrero RN - 03/15/2024 2:32 PM CDT 03/15/2024 Call to patient to inform him he can refer himself to a wet machine operator in the [facility]. There are no board certified dermatologists in this area listed on the [facility] website per Dr Waller. Patient will be mailed a list of providers that are within 20 miles or so from that area per Dr Waller. Patient can then pick one and call to schedule himself. Navigation did not speak to the patient as he did not answer. VM left for patient to return call [facility] Navigator. documented in this encounter Plan of Treatment Upcoming Encounters Date Type Department Care Team (Latest Contact Info) Description 07/14/2024 1:45 PM TORPEDO SPECIALIST Office Visit [facility] DERMAT[facility] [address] [place] [address] Katelyn Waller MD [address] [place] [address] Discharge Disposition: Home, Self Care 12/20/2024 2:45 PM CDT Clinical Support Visit [facility] [address] [place] [address] Elkin Zavala MD [address] [place] [address] 12/20/2024 3:00 PM CDT Office Visit [facility] [address] [place] [address] Elkin Zavala MD [address] [place] [address] documented as of this encounter Visit Diagnoses Not on filedocumented in this encounter Care Teams Digital Learning Platforms Manager Relationship Specialty Start Date End Date Ochoa Varma MD [address] [place] [address] PCP - General Family Medicine 05/20/23 Ochoa Varma MD [address] [place] [address] PCP - Attributed Provider 12/23/23 Elkin Zavala MD [address] [place] [address] Consulting Physician Radiation Oncology (Radiology) 09/01/23 Yuri Oneill MD [address] [place] [address] Primary Oncologist Hematology and Oncology (Internal Medicine) 09/05/23 Emma Guerrero RN [address] [place] [address] Nurse Navigator Otolaryngology (Ear, Nose and Throat) 10/28/23 documented as of this encounter
--- OUTSIDE RECORDS SUMMARY | 2024-06-02 09:50 | XMS_ITS | Continuity of Care Document ---
Author Name [facility] Organization [facility] Care Team Providers Care Change Management Expert Name Role Phone [facility] Unavailable Unavailable Problems Combined list of problems from Department of Defense and [facility] Affairs facilities. It does not include entries that were removed or entered in error. Problem Status Onset Date Problem Type Date of Resolution Comments Source Actinic keratosis Active Condition [facility] Adjustment Disorder Unspecified * (ICD-9-CM 309.9) Active Condition [facility] Benign prostatic hyperplasia Active Condition [facility] Cervical spinal stenosis Active Condition [facility] Cervical spondylosis without myelopathy Active Condition [facility] Diabetes Mellitus Type 2 (SCT 96982932) Active Condition [facility] Diabetes Mellitus Type II or unspecified Active Condition [facility] Erectile Dysfunction * (ICD-9-CM 302.72) Active Condition [facility] Family social history Active Condition November 17, 2023 Entered By: LUCIA YUEN Comment: Sister - passed of colon cancer - first diagnosis age 72May 2023 Entered By: LUCIA YUEN Comment: brother - passed of bone cancer [facility] History of colonoscopy Active Condition November 17, 2023 Entered By: LUCIA YUEN Comment: reports next due 2028; last 2018 in [facility] History of surgery Active Condition ay 2023 Entered By: LUCIA YUEN Comment: Arthroscopy bilateral knees, left rotator cuff repair, cervical fusion C1-C3 2022, right TMJMay 2023 Entered By: LUCIA YUEN Comment: 09/2023 left total parotidectomy, left neck dissection, left cheek wide excision, rotation flap [facility] Hyperlipidemia (SCT [id number]) Active Condition [facility] Hyperlipidemia * (ICD-9-CM 272.4) Active Condition [facility] Impaired FASTING Glucose (ICD-9-CM 790.21) Active Condition [facility] Insomnia * (ICD-9-CM 780.52) Active Condition [facility] Mixed hyperlipidemia Active Condition [facility] Nephrolithiasis Active Condition [facility] Osteoarthritis of bilateral knee joints Active Condition [facility] Peripheral Vascular Disease Leg/Foot (ICD-9-CM 443.9) Active Condition [facility] Personal History of Colonic Polyps (ICD-9-CM V12.72) Active Condition [facility] Posttraumatic stress disorder Active Condition [facility] Social and personal history finding Active Condition November 17, 2023 Entered By: LUCIA YUEN Comment: with two children. Son lives two hours from him. 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, reserves 8 yrs, [employer] 3 yrs, [employer] 15 yrs [facility] Squamous cell carcinoma Active Condition [facility] Tobacco user Active Condition [facility] Type 2 diabetes mellitus without complication Active Condition [facility] Diagnosis: ICD-10-CM F43.10 Post-traumatic stress disorder, unspecified Active Diagnosis [facility] Diagnosis: ICD-10-CM Z72.0 Tobacco use Active Diagnosis [facility] Diagnosis: ICD-10-CM E11.9 Type 2 diabetes mellitus without complications Active Diagnosis [facility] Diagnosis: ICD-10-CM Z71.9 Counseling, unspecified Active Diagnosis [facility] Diagnosis: ICD-10-CM C80.1 Malignant (primary) neoplasm, unspecified Active Diagnosis [facility] Medications Combined list of outpatient medications from Department of Defense and [facility] Affairs facilities.Medications provided include 1) outpatient medications from the last 15 months, and 2) patient-reported medications. Medication Details Route Status Patient Instructions Prescription Expires Prescription Number Last Dispense Date Ordering Provider Order Date Order Qty Source ACETAMINOPH EN TAB TAKE TYLENOL ARTHRITI S BY MOUTH PRN ORAL ACTIVE LLOYD ZIMMERMAN 2007 [facility] atorvastati n (U/D) 20 MG ORAL TAB TAKE ONE TABLET ORALLY AT BEDTIME FOR CHOLESTE ROL Active 11/17/2024 [id number] LUCIA YUEN [address] [facility] ATORVASTATI N CA 20MG TAB TAKE ONE TABLET ORALLY AT BEDTIME FOR CHOLESTE ROL ORAL DISCONT INUED (EDIT) 11/17/2024 [id number] 4 TON YUEN 2023 90 [facility] ATORVASTATI N CA 20MG TAB TAKE ONE TABLET BY MOUTH AT BEDTIME ORAL ACTIVE SIVA CENTENO 2018 [facility] ATORVASTATI N CA 40MG TAB TAKE ONE TABLET ORALLY AT BEDTIME FOR CHOLESTE ROL ORAL ACTIVE 02/19/2025 [id number] 4 Megha KRUEGER 2023 90 [facility] ATORVASTATI N CALCIUM (atorvastat in calcium), 20 MG, TABLET, ORAL, LUL PHARMACEU, 500 ea. BOTTLE Active [id number] 4 2023 90 [facility] BUPROPION HCL 150MG 12HR TAB,SA TAKE ONE TABLET ORALLY EVERY DAY FOR 3 DAYS, THEN TAKE ONE TABLET TWICE A DAY FOR 12 WEEKS FOR TOBACCO CESSATIO N ORAL 05/29/2024 [id number] 4 Megha KRUEGER 2023 171 [facility] CHOLECALCIF TERRELL (VIT D3) TAB TAKE ORALLY EVERY DAY ORAL ACTIVE Megha KRUEGER 2023 [facility] CLOTRIMAZOL E (CLOTRIMAZO LE), 10MG, ALEX, MUCOUS MEM, [facility] 70 ea. BOTTLE Active [id number] 2023 70 Pharmac y [facility] Service Facilit y CYANOCOBALA MIN 1000MCG TAB TAKE FIVE TABLETS ORALLY EVERY DAY ORAL ACTIVE Megha KRUEGER 2023 [facility] DIPHENHYDRA MINE HCL 25MG CAP TAKE 1 CAPSULE ORALLY NEEDED ORAL ACTIVE Megha KRUEGER 2023 [facility] EMPAGLIFLOZ IN 10 MG ORAL TAB TAKE ONE TABLET ORALLY EVERY MORNING FOR DIABETES Active 11/17/2024 [id number] 4 LUCIA YUEN [address] [facility] EMPAGLIFLOZ IN 10MG TAB TAKE ONE TABLET ORALLY EVERY MORNING FOR DIABETES ORAL ACTIVE 02/19/2025 [id number] 4 Megha KRUEGER 2023 90 [facility] EMPAGLIFLOZ IN 10MG TAB TAKE ONE TABLET ORALLY EVERY MORNING FOR DIABETES ORAL DISCONT INUED BY PROVIDE R 11/17/2024 [id number] 4 TON YUEN 2023 90 [facility] FLOMAX (BRAND) 0.4 MG ORAL CAP TAKE ONE CAPSULE ORALLY EVERY DAY FOR PROSTATE 30 MINUTES AFTER THE SAME MEAL EACH DAY Active 11/17/2024 [id number] 4 LUCIA YUEN [address] [facility] FLUOROURACI L (fluorourac il), 5 %, CREAM (G), TOPICAL, [employer] IN, 40 g TUBE Active [id number] 2023 40 [facility] y IBUPROFEN TAB TAKE BY MOUTH PRN ORAL ACTIVE GE,HAITAO 2007 [facility] LIDOCAINE HCL VISCOUS (LIDOCAINE HCL), 20MG/ML, SOLUTION, MUCOUS MEM, [facility] 100 ml BOTTLE Cancele d [id number] : 2023 160 [facility]ilit y LINAGLIPTIN 5MG TAB TAKE ONE TABLET BY MOUTH EVERY DAY ORAL ACTIVE SIVA CENTENO 2018 [facility] METFORMIN HCL 750MG 24HR TAB,SA TAKE ONE TABLET ORALLY EVERY EVENING FOR DIABETES WITH FOOD ORAL HOLD 11/17/2024 [id number] 4 TON YUEN 2023 90 [facility] METFORMIN HCL 750MG 24HR TAB,SA TAKE ONE TABLET BY MOUTH TWICE A DAY WITH FOOD ORAL ACTIVE SIVA CENTENO 2018 [facility] Metformin Hydrochlori de (Glucophage XR Eq.) Tablet Extended Release 750 mg Oral TAKE ONE TABLET ORALLY EVERY EVENING FOR DIABETES WITH FOOD Active 11/17/2024 [id number] 4 LUCIA YUEN [address] [facility] METFORMIN TAB,SA TAKE 750MG BY MOUTH TWICE A DAY ORAL ACTIVE Demian DOVE 2011 [facility] Nicotine Polacrilex (Commit Eq.) Lozenge 4 mg Mouth/Throa t DISSOLVE 1 LOZENGE BETWEEN CHEEK AND GUM EVERY 3 HOURS NEEDED EVERY 1 TO 2 HOURS WEEKS 1-6; EVERY 2 TO 4 HOURS WEEKS 7-9; EVERY 4 TO 8 HOURS WEEKS 10-12 FOR TOBACCO CESSATIO N. Active 11/17/2024 [id number] 4 LUCIA YUEN [address] [facility] NICOTINE POLACRILEX 4MG LOZENGE DISSOLVE 1 LOZENGE BETWEEN CHEEK AND GUM EVERY 3 HOURS NEEDED EVERY 1 TO 2 HOURS WEEKS 1-6; EVERY 2 TO 4 HOURS WEEKS 7-9; EVERY 4 TO 8 HOURS WEEKS 10-12 FOR TOBACCO CESSATIO N. EVERY 1 TO 2 HOURS WEEKS 1-6; EVERY 2 TO 4 HOURS WEEKS 7-9; EVERY 4 TO 8 HOURS WEEKS 10-12 FOR TOBACCO CESSATIO N. BUCCAL DISCONT INUED BY PINO Boss 11/17/2024 [id number] 4 TON YUEN 2023 144 [facility] ONDANSETRON ODT (ONDANSETRO N), 4 MG, TAB RAPDIS, ORAL, XiamON PHARMA L, 30 ea. BLIST PACK Active [id number] 2023 30 Pharmac y [facility]ion Service Facilit y PAROXETINE HCL (PAROXETINE HCL), 20 MG, TABLET, ORAL, JDLab., 1000 ea. BOTTLE Active [id number] 2023 90 Pharmac y Data Trans[facility] tion Service Facilit y PARoxetine HCl (U/D) 20 MG ORAL TAB TAKE ONE TABLET ORALLY EVERY DAY FOR PTSD Active 11/17/2024 [id number] LUCIA YUEN 2023 90 [facility] PAROXETINE HCL 20MG TAB TAKE ONE TABLET ORALLY EVERY DAY FOR PTSD ORAL DISCONT INUED (EDIT) 11/17/2024 [id number] 4 TON YUEN 2023 90 [facility] PAROXETINE HCL 30MG TAB TAKE ONE TABLET ORALLY EVERY DAY FOR PTSD ORAL ACTIVE 03/10/2025 [id number] 4 Angelina NICOLE 2023 90 [facility] PAROXETINE HCL 30MG TAB TAKE ONE TABLET ORALLY EVERY DAY FOR PTSD ORAL DISCONT INUED (EDIT) 01/19/2025 [id number] Angelina NICOLE 2023 60 [facility] PIOGLITAZON E 45 MG ORAL TAB TAKE ONE TABLET ORALLY EVERY DAY FOR DIABETES Active 11/17/2024 [id number] [facility]EN 2023 90 [facility] 45MG TAB TAKE ONE TABLET ORALLY EVERY DAY FOR DIABETES ORAL ACTIVE 11/17/2024 [id number] 4 TON YUEN 2023 90 [facility] PIOGLITAZON E HCL 45MG TAB TAKE ONE TABLET BY MOUTH DAILY ORAL ACTIVE Demian DOVE 2011 [facility] PREDNISONE 20MG TAB TAKE ONE TABLET ORALLY TWICE A DAY FOR 5 DAYS FOR RASH WITH FOOD. ORAL DISCONT INUED 02/03/2024 [id number] 4 GRAVES 2023 10 [facility] ROSUVASTATI N CA 40MG TAB TAKE ONE TABLET BY MOUTH DAILY ORAL ACTIVE KATIE KIM 2010 [facility] SAW PALMETTO CAP/TAB TAKE 900MG BY MOUTH TWICE A DAY ORAL ACTIVE Demian DOVE 2011 [facility] SSD (SILVER SULFADIAZIN E), 1 %, CREAM (G), TOPICAL, 'S LAB, 400 g JAR Active [id number] 2023 400 Pharmac y [facility] Service Facilit y TAMSULOSIN HCL 0.4MG CAP TAKE ONE CAPSULE ORALLY EVERY DAY FOR PROSTATE 30 MINUTES AFTER THE SAME MEAL EACH DAY ORAL HOLD 11/17/2024 [id number] TON YUEN 2023 90 [facility] TRADJENTA (LINAGLIPTI N), 5 MG, TABLET, ORAL, BOEHRINGER ING., 90 ea. BOTTLE Active [id number] 2023 90 Pharmac y Data Trans[facility]ion Service Facilit y Immunizations Combined list of available immunizations from the Department of Defense and Veterans Affairs facilities. Immunization Series Date Given Administered By Site Reaction Lot Number CVX Code Drug Panel Instrument Repairer Status Comments Source PNEUMOCOCCAL CONJUGATE PCV20, POLYSACCHARID E [id number] CONJUGATE, ADJUVANT, PF 2023 YASMIN BROWN RIGHT DELTO ID [id number] 216 complet [facility] TDAP 2022 115 complet [facility] COVID-19 (MODERNA), MRNA, LNP-S, PF, 100 MCG/0.5ML DOSE OR 50 MCG/0.25ML DOSE 2 2020 207 complet ed [facility] COVID-19 (MODERNA), MRNA, LNP-S, PF, 100 MCG/0.5ML DOSE OR 50 MCG/0.25ML DOSE 1 2020 207 complet ed [facility] PNEUMOCOCCAL POLYSACCHARID E PPV23 2018 33 complet ed [facility] ZOSTER RECOMBINANT 1 2018 187 complet [facility] PNEUMOCOCCAL CONJUGATE PCV 13 2012 133 complet ed V [facility] INFLUENZA, UNSPECIFIED FORMULATION 2010 88 complet ed [facility] INFLUENZA, UNSPECIFIED FORMULATION 2008 88 complet ed [facility] INFLUENZA, UNSPECIFIED FORMULATION 2007 88 complet ed [facility] INFLUENZA, UNSPECIFIED FORMULATION 2006 88 complet ed [facility] PNEUMOCOCCAL, UNSPECIFIED FORMULATION 2006 109 complet [facility] TD(ADULT) UNSPECIFIED FORMULATION 2003 139 complet [facility] Results Combined list of recent chemistry, hematology and other laboratory results from Department of Defense and Veterans Affairs, ranging from 15 months to all on record, depending upon the facility. Order Name Results Value Reference Range Date Interpretation Specimen Comments Source CBC SCREEN/AU TO DIFF MONOCYTES [#/VOLUME] IN BLOOD BY AUTOMATED COUNT 0.7 10*3/uL 0.2 - 1.0 01/11 Specimen Type: BLOOD No comment entered. Ordering Provider: RISHABH KRUEGER Report Released Date/Time: Jan 08, 2024 03:50 PM Reporting Lab: [address] [place] [address] Performing Lab: [address] [place] [address] [facility] CBC SCREEN/AU TO DIFF NEUTROPHILS [#/VOLUME] IN BLOOD BY AUTOMATED COUNT 10.4 10*3/uL 1.5 - 7.0 01/11 H Specimen Type: BLOOD No comment entered. Ordering Provider: RISHABH KRUEGER Report Released Date/Time: Jan 08, 2024 03:50 PM Reporting Lab: [address] [place] [address] Performing Lab: [address] [place] [address] [facility] CBC SCREEN/AU TO DIFF ERYTHROCYTE S [#/VOLUME] IN BLOOD BY AUTOMATED COUNT 4.14 10*6/uL 3.95 - 5.79 01/11 Specimen Type: BLOOD No comment entered. Ordering Provider: RISHABH KRUEGER Report Released Date/Time: Jan 08, 2024 03:50 PM Reporting Lab: [address] [place] [address] Performing Lab: [address] [place] [address] [facility] CBC SCREEN/AU TO DIFF LEUKOCYTES [#/VOLUME] IN BLOOD BY AUTOMATED COUNT 11.9 10*3/uL 4.0 - 10.8 01/11 H Specimen Type: BLOOD No comment entered. Ordering Provider: RISHABH KRUEGER Report Released Date/Time: Jan 08, 2024 03:50 PM Reporting Lab: [address] [place] [address] Performing Lab: [address] [place] [address] [facility] CBC SCREEN/AU TO DIFF HEMOGLOBIN [MASS/VOLUM E] IN BLOOD 13.3 g/dL 12.5 - 17.0 01/11 Specimen Type: BLOOD No comment entered. Ordering Provider: RISHABH KRUEGER Report Released Date/Time: Jan 08, 2024 03:50 PM Reporting Lab: [address] [place] [address] Performing Lab: [address] [place] [address] [facility] CBC SCREEN/AU TO DIFF HEMATOCRIT [VOLUME FRACTION] OF BLOOD BY AUTOMATED COUNT 38.7 38 - 52 01/11 Specimen Type: BLOOD No comment entered. Ordering Provider: RISHABH KRUEGER Report Released Date/Time: Jan 08, 2024 03:50 PM Reporting Lab: [address] [place] [address] Performing Lab: [address] [place] [address] [facility] CBC SCREEN/AU TO DIFF MCV [ENTITIC VOLUME] BY AUTOMATED COUNT 93.5 fL 81.8 - 98.6 01/11 Specimen Type: BLOOD No comment entered. Ordering Provider: RISHABH KRUEGER Report Released Date/Time: Jan 08, 2024 03:50 PM Reporting Lab: [address] [place] [address] Performing Lab: [address] [place] [address] [facility] CBC SCREEN/AU TO DIFF MCH [ENTITIC MASS] BY AUTOMATED COUNT 32.1 pg 27.2 - 33.6 01/11 Specimen Type: BLOOD No comment entered. Ordering Provider: RISHABH KRUEGER Report Released Date/Time: Jan 08, 2024 03:50 PM Reporting Lab: [address] [place] [address] Performing Lab: [address] [place] [address] [facility] CBC SCREEN/AU TO DIFF MCHC [MASS/VOLUM E] BY AUTOMATED COUNT 34.4 g/dL 32.4 - 34.8 01/11 Specimen Type: BLOOD No comment entered. Ordering Provider: RISHABH KRUEGER Report Released Date/Time: Jan 08, 2024 03:50 PM Reporting Lab: [place] [facility] [facility] [address] [place] [address] [place] [address] Performing Lab: [facility] [address] [place] [address] [place] [address] [facility] CBC SCREEN/AU TO DIFF ERYTHROCYTE DISTRIBUTIO N WIDTH [RATIO] BY AUTOMATED COUNT 15.2 12.3 - 15.9 01/11 Specimen Type: BLOOD No comment entered. Ordering Provider: RISHABH KRUEGER Report Released Date/Time: Jan 08, 2024 03:50 PM Reporting Lab: [facility] [address] [place] [address] [place] [address] Performing Lab: [place] [address] [place] [address] [facility] CBC SCREEN/AU TO DIFF PLATELETS [#/VOLUME] IN BLOOD BY AUTOMATED COUNT 250 10*3/uL 150 - 400 01/11 Specimen Type: BLOOD No comment entered. Ordering Provider: RISHABH KRUEGER Report Released Date/Time: Jan 08, 2024 03:50 PM Reporting Lab: [place] [address] [place] [address] Performing Lab: [place] [address] [place] [address] [facility] CBC SCREEN/AU TO DIFF PLATELET MEAN VOLUME [ENTITIC VOLUME] IN BLOOD BY AUTOMATED COUNT 9.9 fL 6.6 - 11.8 01/11 Specimen Type: BLOOD No comment entered. Ordering Provider: RISHABH KRUEGER Report Released Date/Time: Jan 08, 2024 03:50 PM Reporting Lab: [place] [address] [place] [address] Performing Lab: [facility] [address] [place] [address] [place] [address] [facility] CBC SCREEN/AU TO DIFF EOSINOPHILS [#/VOLUME] IN BLOOD BY AUTOMATED COUNT 0.1 10*3/uL 0.0 - 0.6 01/11 Specimen Type: BLOOD No comment entered. Ordering Provider: RISHABH KRUEGER Report Released Date/Time: Jan 08, 2024 03:50 PM Reporting Lab: [place] [address] [place] [address] Performing Lab: [facility] [address] [place] [address] [place] [address] [facility] CBC SCREEN/AU TO DIFF BASOPHILS [#/VOLUME] IN BLOOD BY AUTOMATED COUNT 0.0 10*3/uL 0.0 - 0.2 01/11 Specimen Type: BLOOD No comment entered. Ordering Provider: RISHABH KRUEGER Report Released Date/Time: Jan 08, 2024 03:50 PM Reporting Lab: [address] [place] [address] Performing Lab: [address] [place] [address] [facility] CBC SCREEN/AU TO DIFF LYMPHOCYTES [#/VOLUME] IN BLOOD BY AUTOMATED COUNT 0.6 10*3/uL 1.0 - 4.0 01/11 L Specimen Type: BLOOD No comment entered. Ordering Provider: RISHABH KRUEGER Report Released Date/Time: Jan 08, 2024 03:50 PM Reporting Lab: [address] [place] [address] Performing Lab: [address] [place] [address] [facility] CBC SCREEN/AU TO DIFF NUCLEATED ERYTHROCYTE S [#/VOLUME] IN BLOOD BY AUTOMATED COUNT 0.00 10*3/uL 0 - 0.00 01/11 Specimen Type: BLOOD No comment entered. Ordering Provider: RISHABH KRUEGER Report Released Date/Time: Jan 08, 2024 03:50 PM Reporting Lab: [address] [place] [address] Performing Lab: [address] [place] [address] [facility] CBC SCREEN/AU TO DIFF NUCLEATED ERYTHROCYTE S/100 LEUKOCYTES [RATIO] IN BLOOD BY AUTOMATED COUNT 0.0 0 - 0.0 01/11 Specimen Type: BLOOD No comment entered. Ordering Provider: RISHABH KRUEGER Report Released Date/Time: Jan 08, 2024 03:50 PM Reporting Lab: [address] [place] [address] Performing Lab: [place] [address] [place] [address] [facility] CBC SCREEN/AU TO DIFF IMMATURE GRANULOCYTE S [#/VOLUME] IN BLOOD BY AUTOMATED COUNT 0.1 10*3/uL 0 - 0.06 01/11 H Specimen Type: BLOOD No comment entered. Ordering Provider: RISHABH KRUEGER Report Released Date/Time: Jan 08, 2024 03:50 PM Reporting Lab: [address] [address] Performing Lab: [address] [place] [id number] [place] [address] COMPREHEN SIVE METABOLIC PANEL UREA NITROGEN [MASS/VOLUM E] IN SERUM OR PLASMA 18 mg/dL 9 - 20 01/11 Specimen Type: PLASMA Comment: For an in-depth explanation of the eGFR (CKD-EPI) calculation, please refer to [facility]: Chemistry Ordering Provider: RISHABH KRUEGER Report Released Date/Time: Jan 08, 2024 03:50 PM Reporting Lab: [address] [address] Performing Lab: [address] [place] [address] [facility] COMPREHEN SIVE METABOLIC PANEL GLUCOSE [MASS/VOLUM E] IN SERUM OR PLASMA 350 mg/dL 70 - 100 01/11 H Specimen Type: PLASMA Comment: For an in-depth explanation of the eGFR (CKD-EPI) calculation, please refer to Path and Lab [facility]: Chemistry Ordering Provider: RISHABH KRUEGER Report Released Date/Time: Jan 08, 2024 03:50 PM Reporting Lab: [address] [place] [address] Performing Lab: [address] [place] [address] [facility] COMPREHEN SIVE METABOLIC PANEL SODIUM [MOLES/VOLU ME] IN SERUM OR PLASMA 135 mmol/L 137 - 145 01/11 L Specimen Type: PLASMA Comment: For an in-depth explanation of the eGFR (CKD-EPI) calculation, please refer to Path and Lab [facility]: Chemistry Ordering Provider: RISHABH KRUEGER Report Released Date/Time: Jan 08, 2024 03:50 PM Reporting Lab: [address] [place] [address] Performing Lab: [facility] [address] [place] [address] [place] [address] [facility] COMPREHEN SIVE METABOLIC PANEL POTASSIUM [MOLES/VOLU ME] IN SERUM OR PLASMA 4.1 mmol/L 3.5 - 5.1 01/11 Specimen Type: PLASMA Comment: For an in-depth explanation of the eGFR (CKD-EPI) calculation, please refer to Path and Lab [facility]: Chemistry Ordering Provider: RISHABH KRUEGER Report Released Date/Time: Jan 08, 2024 03:50 PM Reporting Lab: [place] [address] [place] [address] Performing Lab: [address] [place] [address] [facility] COMPREHEN SIVE METABOLIC PANEL CHLORIDE [MOLES/VOLU ME] IN SERUM OR PLASMA 100 mmol/L 98 - 107 01/11 Specimen Type: PLASMA Comment: For an in-depth explanation of the eGFR (CKD-EPI) calculation, please refer to Path and Lab Sharepoint: Chemistry Ordering Provider: RISHABH KRUEGER Report Released Date/Time: Jan 08, 2024 03:50 PM Reporting Lab: [address] [place] [address] Performing Lab: [address] [place] [address] [facility] COMPREHEN SIVE METABOLIC PANEL CARBON DIOXIDE, TOTAL [MOLES/VOLU ME] IN SERUM OR PLASMA 27 mmol/L 22 - 30 01/11 Specimen Type: PLASMA Comment: For an in-depth explanation of the eGFR (CKD-EPI) calculation, please refer to Path and Lab Sharepoint: Chemistry Ordering Provider: RISHABH KRUEGER Report Released Date/Time: Jan 08, 2024 03:50 PM Reporting Lab: [facility] [address] [place] [address] [place] [address] Performing Lab: [facility] [address] [place] [address] [place] [address] [facility] COMPREHEN SIVE METABOLIC PANEL PROTEIN [MASS/VOLUM E] IN SERUM OR PLASMA 6.3 g/dL 6.5 - 8.5 01/11 L Specimen Type: PLASMA Comment: For an in-depth explanation of the eGFR (CKD-EPI) calculation, please refer to Path and Lab Sharepoint: Chemistry Ordering Provider: RISHABH KRUEGER Report Released Date/Time: Jan 08, 2024 03:50 PM Reporting Lab: [facility] [address] [place] [address] [place] [address] Performing Lab: [facility] [address] [place] [address] [place] [address] [facility] COMPREHEN SIVE METABOLIC PANEL ALBUMIN [MASS/VOLUM E] IN SERUM OR PLASMA 4.1 g/dL 3.5 - 5 01/11 Specimen Type: PLASMA Comment: For an in-depth explanation of the eGFR (CKD-EPI) calculation, please refer to Path and Lab Sharepoint: Chemistry Ordering Provider: RISHABH KRUEGER Report Released Date/Time: Jan 08, 2024 03:50 PM Reporting Lab: [address] [place] [address] Performing Lab: [address] [place] [address] [facility] COMPREHEN SIVE METABOLIC PANEL BILIRUBIN.T OTAL [MASS/VOLUM E] IN SERUM OR PLASMA 0.6 mg/dL 0.2 - 1.3 01/11 Specimen Type: PLASMA Comment: For an in-depth explanation of the eGFR (CKD-EPI) calculation, please refer to Path and Lab Sharepoint: Chemistry Ordering Provider: RISHABH KRUEGER Report Released Date/Time: Jan 08, 2024 03:50 PM Reporting Lab: [place] [address] [place] [address] [place] [address] Performing Lab: [facility] [address] [place] [address] [place] [address] [facility] COMPREHEN SIVE METABOLIC PANEL ANION GAP IN SERUM OR PLASMA 8 mmol/L 3 - 11 01/11 Specimen Type: PLASMA Comment: For an in-depth explanation of the eGFR (CKD-EPI) calculation, please refer to Path and Lab Sharepoint: Chemistry Ordering Provider: RISHABH KRUEGER Report Released Date/Time: Jan 08, 2024 03:50 PM Reporting Lab: [facility] [address] [place] [address] [place] [address] Performing Lab: [facility] [address] [place] [address] [place] [address] [facility] COMPREHEN SIVE METABOLIC PANEL ALANINE AMINOTRANSF ERASE [ENZYMATIC ACTIVITY/VO LUME] IN SERUM OR PLASMA 20 U/L < 50 - 50 01/11 Specimen Type: PLASMA Comment: For an in-depth explanation of the eGFR (CKD-EPI) calculation, please refer to Path and Lab Sharepoint: Chemistry Ordering Provider: RISHABH KRUEGER Report Released Date/Time: Jan 08, 2024 03:50 PM Reporting Lab: [facility] [address] [address] Performing Lab: [facility] [address] [place] [address] [place] [address] [facility] COMPREHEN SIVE METABOLIC PANEL CREATININE [MASS/VOLUM E] IN SERUM OR PLASMA 0.7 mg/dL 0.7 - 1.4 01/11 Specimen Type: PLASMA Comment: For an in-depth explanation of the eGFR (CKD-EPI) calculation, please refer to Path and Lab Sharepoint: Chemistry Ordering Provider: RISHABH KRUEGER Report Released Date/Time: Jan 08, 2024 03:50 PM Reporting Lab: [facility] [address] [facility] [place] [address] Performing Lab: [facility] [address] [facility] [place] [address] [facility] COMPREHEN SIVE METABOLIC PANEL ALKALINE PHOSPHATASE [ENZYMATIC ACTIVITY/VO LUME] IN SERUM OR PLASMA 140 U/L 38 - 126 01/11 H Specimen Type: PLASMA Comment: For an in-depth explanation of the eGFR (CKD-EPI) calculation, please refer to Path and Lab Sharepoint: Chemistry Ordering Provider: RISHABH KRUEGER Report Released Date/Time: Jan 08, 2024 03:50 PM Reporting Lab: [facility] [address] [facility] [place] [address] Performing Lab: [facility] [address] [address] [facility] COMPREHEN SIVE METABOLIC PANEL ASPARTATE AMINOTRANSF ERASE [ENZYMATIC ACTIVITY/VO LUME] IN SERUM OR PLASMA 18 U/L 15 - 46 01/11 Specimen Type: PLASMA Comment: For an in-depth explanation of the eGFR (CKD-EPI) calculation, please refer to Path and Lab Sharepoint: Chemistry Ordering Provider: RISHABH KRUEGER Report Released Date/Time: Jan 08, 2024 03:50 PM Reporting Lab: [address] [place] [address] Performing Lab: [address] [place] [address] [facility] COMPREHEN SIVE METABOLIC PANEL CALCIUM [MASS/VOLUM E] IN SERUM OR PLASMA 9.3 mg/dL 8.4 - 10.2 01/11 Specimen Type: PLASMA Comment: For an in-depth explanation of the eGFR (CKD-EPI) calculation, please refer to Path and Lab Sharepoint: Chemistry Ordering Provider: RISHABH KRUEGER Report Released Date/Time: Jan 08, 2024 03:50 PM Reporting Lab: [address] [place] [address] Performing Lab: [address] [place] [address] [facility] COMPREHEN SIVE METABOLIC PANEL GLOMERULAR FILTRATION RATE/1.73 SQ M.PREDICTED [VOLUME RATE/AREA] IN SERUM, PLASMA OR BLOOD BY CREATININE- BASED FORMULA (CKD-EPI 2020) 96.00 mL/min/ {1.73_m 2} 01/11 Specimen Type: PLASMA Comment: For an in-depth explanation of the eGFR (CKD-EPI) calculation, please refer to Path and Lab Sharepoint: Chemistry Ordering Provider: RISHABH KRUEGER Report Released Date/Time: Jan 08, 2024 03:50 PM Reporting Lab: [address] [place] [address] Performing Lab: [address] [place] [address] [facility] HEMOGLOBI N A1C HEMOGLOBIN A1C/HEMOGLO BIN.TOTAL IN BLOOD 7.4 01/11 Specimen Type: BLOOD Comment: Values obtained from A1C measurements can vary.For typical A1C assays, a reported value of 7.0 could actually be between 6.72and 7.28 if measured by a reference method. A reported value of 9.0 couldactuall y be between 8.73 and 9.27. Ref: http://www.n gsp.org/CAPd donna.asp Ordering Provider: RISHABH KRUEGER Report Released Date/Time: Jan 08, 2024 03:50 PM Reporting Lab: [facility] [address] [place] [address] [place] [address] Performing Lab: [facility] [address] [place] [address] [place] [address] [facility] LIPID PANEL CHOLESTEROL [MASS/VOLUM E] IN SERUM OR PLASMA 207 mg/dL < 200 - 200 01/11 H Specimen Type: PLASMA Comment: For an in-depth explanation of the eGFR (CKD-EPI) calculation, please refer to Path and Lab Sharepoint: Chemistry Ordering Provider: RISHABH KRUEGER Report Released Date/Time: Jan 08, 2024 03:50 PM Reporting Lab: [facility] [address] [place] [address] [place] [address] Performing Lab: [address] [place] [address] [facility] LIPID PANEL TRIGLYCERID E [MASS/VOLUM E] IN SERUM OR PLASMA 155 mg/dL < 150 - 150 01/11 H Specimen Type: PLASMA Comment: For an in-depth explanation of the eGFR (CKD-EPI) calculation, please refer to Path and Lab Sharepoint: Chemistry Ordering Provider: RISHABH KRUEGER Report Released Date/Time: Jan 08, 2024 03:50 PM Reporting Lab: [facility] [address] [place] [address] [place] [address] Performing Lab: [facility] [address] [place] [address] [place] [address] [facility] LIPID PANEL CHOLESTEROL IN LDL [MASS/VOLUM E] IN SERUM OR PLASMA BY CALCULATION 102 mg/dL < 100 - 100 01/11 H Specimen Type: PLASMA Comment: For an in-depth explanation of the eGFR (CKD-EPI) calculation, please refer to Path and Lab Sharepoint: Chemistry Ordering Provider: RISHABH KRUEGER Report Released Date/Time: Jan 08, 2024 03:50 PM Reporting Lab: [facility] [address] [place] [address] [place] [address] Performing Lab: [facility] [address] [place] [address] [place] [address] [facility] LIPID PANEL CHOLESTEROL IN HDL [MASS/VOLUM E] IN SERUM OR PLASMA 74 mg/dL 01/11 Specimen Type: PLASMA Comment: For an in-depth explanation of the eGFR (CKD-EPI) calculation, please refer to Path and Lab Sharepoint: Chemistry Ordering Provider: RISHABH KRUEGER Report Released Date/Time: Jan 08, 2024 03:50 PM Reporting Lab: [address] [place] [address] Performing Lab: [address] [place] [address] [facility] MICROALBU MIN PANEL (RDM) MICROALBUMI N [MASS/VOLUM E] IN URINE <0.6mg/ dL < 1.7 - 1.7 01/11 Specimen Type: URINE Comment: Unable to calculate MALB/CREAT-R due to low/high Microalbumin or Creatinine. Ordering Provider: RISHABH KRUEGER Report Released Date/Time: Jan 08, 2024 03:50 PM Reporting Lab: [address] [place] [address] Performing Lab: [address] [place] [address] [facility] MICROALBU MIN PANEL (RDM) MICROALBUMI N/CREATININ E [MASS RATIO] IN URINE comment mg/g{cr eat} 01/11 Specimen Type: URINE Comment: Unable to calculate MALB/CREAT-R due to low/high Microalbumin or Creatinine. Ordering Provider: RISHABH KRUEGER Report Released Date/Time: Jan 08, 2024 03:50 PM Reporting Lab: [address] [place] [address] Performing Lab: [address] [place] [address] [facility] MICROALBU MIN PANEL (RDM) CREATININE [MASS/VOLUM E] IN URINE 40 mg/dL 01/11 Specimen Type: URINE Comment: Unable to calculate MALB/CREAT-R due to low/high Microalbumin or Creatinine. Ordering Provider: RISHABH KRUEGER Report Released Date/Time: Jan 08, 2024 03:50 PM Reporting Lab: [address] [place] [address] Performing Lab: [facility] [address] [place] [address] [facility] CBC SCREEN/AU TO DIFF MONOCYTES [#/VOLUME] IN BLOOD BY AUTOMATED COUNT 0.6 10*3/uL 0.2 - 1.0 11/16 Specimen Type: BLOOD No comment entered. Ordering Provider: LUCIA YUEN Report Released Date/Time: Oct 14, 2023 01:25 PM Reporting Lab: [facility] [address] [place] [address] [place] [address] Performing Lab: [facility] [address] [place] [address] [place] [address] [facility] CBC SCREEN/AU TO DIFF NEUTROPHILS [#/VOLUME] IN BLOOD BY AUTOMATED COUNT 6.8 10*3/uL 1.5 - 7.0 11/16 Specimen Type: BLOOD No comment entered. Ordering Provider: LUCIA YUEN Report Released Date/Time: Oct 14, 2023 01:25 PM Reporting Lab: [facility] [place] [address] [place] [address] Performing Lab: [facility] [address] [place] [address] [place] [address] [facility] CBC SCREEN/AU TO DIFF ERYTHROCYTE S [#/VOLUME] IN BLOOD BY AUTOMATED COUNT 4.77 10*6/uL 3.95 - 5.79 11/16 Specimen Type: BLOOD No comment entered. Ordering Provider: LUCIA YUEN Report Released Date/Time: Oct 14, 2023 01:25 PM Reporting Lab: [facility] [place] [address] [place] [address] Performing Lab: [facility] [address] [place] [address] [place] [address] [facility] CBC SCREEN/AU TO DIFF LEUKOCYTES [#/VOLUME] IN BLOOD BY AUTOMATED COUNT 8.2 10*3/uL 4.0 - 10.8 11/16 Specimen Type: BLOOD No comment entered. Ordering Provider: LUCIA YUEN Report Released Date/Time: Oct 14, 2023 01:25 PM Reporting Lab: [facility] [address] [place] [address] [place] [address] Performing Lab: [facility] [address] [place] [address] [place] [address] [facility] CBC SCREEN/AU TO DIFF HEMOGLOBIN [MASS/VOLUM E] IN BLOOD 14.7 g/dL 12.5 - 17.0 11/16 Specimen Type: BLOOD No comment entered. Ordering Provider: LUCIA YUEN Report Released Date/Time: Oct 14, 2023 01:25 PM Reporting Lab: [address] [place] [address] Performing Lab: [address] [place] [address] [facility] CBC SCREEN/AU TO DIFF HEMATOCRIT [VOLUME FRACTION] OF BLOOD BY AUTOMATED COUNT 43.9 38 - 52 11/16 Specimen Type: BLOOD No comment entered. Ordering Provider: LUCIA YUEN Report Released Date/Time: Oct 14, 2023 01:25 PM Reporting Lab: [address] [place] [address] Performing Lab: [address] [place] [address] [facility] CBC SCREEN/AU TO DIFF MCV [ENTITIC VOLUME] BY AUTOMATED COUNT 92.0 fL 81.8 - 98.6 11/16 Specimen Type: BLOOD No comment entered. Ordering Provider: LUCIA YUEN Report Released Date/Time: Oct 14, 2023 01:25 PM Reporting Lab: [address] [place] [address] Performing Lab: [address] [place] [address] [facility] CBC SCREEN/AU TO DIFF MCH [ENTITIC MASS] BY AUTOMATED COUNT 30.8 pg 27.2 - 33.6 11/16 Specimen Type: BLOOD No comment entered. Ordering Provider: LUCIA YUEN Report Released Date/Time: Oct 14, 2023 01:25 PM Reporting Lab: [address] [place] [address] Performing Lab: [address] [place] [address] [facility] CBC SCREEN/AU TO DIFF MCHC [MASS/VOLUM E] BY AUTOMATED COUNT 33.5 g/dL 32.4 - 34.8 11/16 Specimen Type: BLOOD No comment entered. Ordering Provider: LUCIA YUEN Report Released Date/Time: Oct 14, 2023 01:25 PM Reporting Lab: [address] [place] [address] Performing Lab: [address] [place] [address] [facility] CBC SCREEN/AU TO DIFF ERYTHROCYTE DISTRIBUTIO N WIDTH [RATIO] BY AUTOMATED COUNT 13.6 12.3 - 15.9 11/16 Specimen Type: BLOOD No comment entered. Ordering Provider: LUCIA YUEN Report Released Date/Time: Oct 14, 2023 01:25 PM Reporting Lab: [address] [place] [address] Performing Lab: [address] [place] [address] [facility] CBC SCREEN/AU TO DIFF PLATELETS [#/VOLUME] IN BLOOD BY AUTOMATED COUNT 226 10*3/uL 150 - 400 11/16 Specimen Type: BLOOD No comment entered. Ordering Provider: LUCIA YUEN Report Released Date/Time: Oct 14, 2023 01:25 PM Reporting Lab: [place] [address] [place] [address] Performing Lab: [address] [place] [address] [facility] CBC SCREEN/AU TO DIFF PLATELET MEAN VOLUME [ENTITIC VOLUME] IN BLOOD BY AUTOMATED COUNT 10.1 fL 6.6 - 11.8 11/16 Specimen Type: BLOOD No comment entered. Ordering Provider: LUCIA YUEN Report Released Date/Time: Oct 14, 2023 01:25 PM Reporting Lab: [place] [address] [place] [address] Performing Lab: [address] [place] [address] [facility] CBC SCREEN/AU TO DIFF EOSINOPHILS [#/VOLUME] IN BLOOD BY AUTOMATED COUNT 0.1 10*3/uL 0.0 - 0.6 11/16 Specimen Type: BLOOD No comment entered. Ordering Provider: LUCIA YUEN Report Released Date/Time: Oct 14, 2023 01:25 PM Reporting Lab: [facility] [address] [place] [address] [place] [address] Performing Lab: [facility] [address] [place] [address] [place] [address] [facility] CBC SCREEN/AU TO DIFF BASOPHILS [#/VOLUME] IN BLOOD BY AUTOMATED COUNT 0.0 10*3/uL 0.0 - 0.2 11/16 Specimen Type: BLOOD No comment entered. Ordering Provider: LUCIA YUEN Report Released Date/Time: Oct 14, 2023 01:25 PM Reporting Lab: [place] [facility] [address] [place] [address] Performing Lab: [place] [address] [place] [address] [facility] CBC SCREEN/AU TO DIFF LYMPHOCYTES [#/VOLUME] IN BLOOD BY AUTOMATED COUNT 0.6 10*3/uL 1.0 - 4.0 11/16 L Specimen Type: BLOOD No comment entered. Ordering Provider: LUCIA YUEN Report Released Date/Time: Oct 14, 2023 01:25 PM Reporting Lab: [place] [address] [place] [address] Performing Lab: [place] [address] [place] [address] [facility] CBC SCREEN/AU TO DIFF NUCLEATED ERYTHROCYTE S [#/VOLUME] IN BLOOD BY AUTOMATED COUNT 0.00 10*3/uL 0 - 0.00 11/16 Specimen Type: BLOOD No comment entered. Ordering Provider: LUCIA YUEN Report Released Date/Time: Oct 14, 2023 01:25 PM Reporting Lab: [place] [address] [place] [address] Performing Lab: [place] [address] [place] [address] [facility] CBC SCREEN/AU TO DIFF NUCLEATED ERYTHROCYTE S/100 LEUKOCYTES [RATIO] IN BLOOD BY AUTOMATED COUNT 0.0 0 - 0.0 11/16 Specimen Type: BLOOD No comment entered. Ordering Provider: LUCIA YUEN Report Released Date/Time: Oct 14, 2023 01:25 PM Reporting Lab: [place] [address] [place] [address] Performing Lab: [address] [place] [address] [facility] CBC SCREEN/AU TO DIFF IMMATURE GRANULOCYTE S [#/VOLUME] IN BLOOD BY AUTOMATED COUNT 0.0 10*3/uL 0 - 0.06 11/16 Specimen Type: BLOOD No comment entered. Ordering Provider: LUCIA YUEN Report Released Date/Time: Oct 14, 2023 01:25 PM Reporting Lab: [address] [place] [address] Performing Lab: [address] [place] [address] [facility] COMPREH SIVE METABOLIC PANEL UREA NITROGEN [MASS/VOLUM E] IN SERUM OR PLASMA 13 mg/dL 9 - 20 11/16 Specimen Type: PLASMA Comment: For an in-depth explanation of the eGFR (CKD-EPI) calculation, please refer to Path and Lab Sharepoint: Chemistry For PSA: 5 alpha reductase inhibitors can cause a reduction in serum PSA by approximatel y 50%. Free PSA levels are not affected. Potential for biotin interference especially in patients taking biotin in doses of thousands of micrograms/d ay. The following tests have the potential for biotin interference . Direction of Biotin interference : Positive: B12, Cortisol, Folate, Anti-HAV Total. Negative: CEA, Ferritin, FSH, PTH, LH, Prolactin, PSA, HCG, Troponin, TSH, Testosterone , Anti-HAV IgM. Ordering Provider: LUCIA YUEN Report Released Date/Time: Oct 14, 2023 01:25 PM Reporting Lab: [address] [place] [address] Performing Lab: [address] [place] [address] [facility] COMPREH SIVE METABOLIC PANEL GLUCOSE [MASS/VOLUM E] IN SERUM OR PLASMA 144 mg/dL 70 - 100 11/16 H Specimen Type: PLASMA Comment: For an in-depth explanation of the eGFR (CKD-EPI) calculation, please refer to Path and Lab Sharepoint: Chemistry For PSA: 5 alpha reductase inhibitors can cause a reduction in serum PSA by approximatel y 50%. Free PSA levels are not affected. Potential for biotin interference especially in patients taking biotin in doses of thousands of micrograms/d ay. The following tests have the potential for biotin interference . Direction of Biotin interference : Positive: B12, Cortisol, Folate, Anti-HAV Total. Negative: CEA, Ferritin, FSH, PTH, LH, Prolactin, PSA, HCG, Troponin, TSH, Testosterone , Anti-HAV IgM. Ordering Provider: LUCIA YUEN Report Released Date/Time: Oct 14, 2023 01:25 PM Reporting Lab: [address] [place] [address] Performing Lab: [address] [place] [address] [facility] COMPREH SIVE METABOLIC PANEL SODIUM [MOLES/VOLU ME] IN SERUM OR PLASMA 141 mmol/L 137 - 145 11/16 Specimen Type: PLASMA Comment: For an in-depth explanation of the eGFR (CKD-EPI) calculation, please refer to Path and Lab Sharepoint: Chemistry For PSA: 5 alpha reductase inhibitors can cause a reduction in serum PSA by approximatel y 50%. Free PSA levels are not affected. Potential for biotin interference especially in patients taking biotin in doses of thousands of micrograms/d ay. The following tests have the potential for biotin interference . Direction of Biotin interference : Positive: B12, Cortisol, Folate, Anti-HAV Total. Negative: CEA, Ferritin, FSH, PTH, LH, Prolactin, PSA, HCG, Troponin, TSH, Testosterone , Anti-HAV IgM. Ordering Provider: LUCIA YUEN Report Released Date/Time: Oct 14, 2023 01:25 PM Reporting Lab: [address] [place] [address] Performing Lab: [address] [place] [address] [facility] METABOLIC PANEL POTASSIUM [MOLES/VOLU ME] IN SERUM OR PLASMA 4.2 mmol/L 3.5 - 5.1 11/16 Specimen Type: PLASMA Comment: For an in-depth explanation of the eGFR (CKD-EPI) calculation, please refer to Path and Lab Sharepoint: Chemistry For PSA: 5 alpha reductase inhibitors can cause a reduction in serum PSA by approximatel y 50%. Free PSA levels are not affected. Potential for biotin interference especially in patients taking biotin in doses of thousands of micrograms/d ay. The following tests have the potential for biotin interference . Direction of Biotin interference : Positive: B12, Cortisol, Folate, Anti-HAV Total. Negative: CEA, Ferritin, FSH, PTH, LH, Prolactin, PSA, HCG, Troponin, TSH, Testosterone , Anti-HAV IgM. Ordering Provider: LUCIA YUEN Report Released Date/Time: Oct 14, 2023 01:25 PM Reporting Lab: [address] [place] [address] Performing Lab: [address] [place] [address] [facility] COMPREH SIVE METABOLIC PANEL CHLORIDE [MOLES/VOLU ME] IN SERUM OR PLASMA 106 mmol/L 98 - 107 11/16 Specimen Type: PLASMA Comment: For an in-depth explanation of the eGFR (CKD-EPI) calculation, please refer to Path and Lab Sharepoint: Chemistry For PSA: 5 alpha reductase inhibitors can cause a reduction in serum PSA by approximatel y 50%. Free PSA levels are not affected. Potential for biotin interference especially in patients taking biotin in doses of thousands of micrograms/d ay. The following tests have the potential for biotin interference . Direction of Biotin interference : Positive: B12, Cortisol, Folate, Anti-HAV Total. Negative: CEA, Ferritin, FSH, PTH, LH, Prolactin, PSA, HCG, Troponin, TSH, Testosterone , Anti-HAV IgM. Ordering Provider: LUCIA YUEN Report Released Date/Time: Oct 14, 2023 01:25 PM Reporting Lab: [address] [place] [address] Performing Lab: [address] [place] [address] [facility] SIVE METABOLIC PANEL CARBON DIOXIDE, TOTAL [MOLES/VOLU ME] IN SERUM OR PLASMA 30 mmol/L 22 - 30 11/16 Specimen Type: PLASMA Comment: For an in-depth explanation of the eGFR (CKD-EPI) calculation, please refer to Path and Lab Sharepoint: Chemistry For PSA: 5 alpha reductase inhibitors can cause a reduction in serum PSA by approximatel y 50%. Free PSA levels are not affected. Potential for biotin interference especially in patients taking biotin in doses of thousands of micrograms/d ay. The following tests have the potential for biotin interference . Direction of Biotin interference : Positive: B12, Cortisol, Folate, Anti-HAV Total. Negative: CEA, Ferritin, FSH, PTH, LH, Prolactin, PSA, HCG, Troponin, TSH, Testosterone , Anti-HAV IgM. Ordering Provider: LUCIA YUEN Report Released Date/Time: Oct 14, 2023 01:25 PM Reporting Lab: [address] [place] [address] Performing Lab: [address] [place] [address] [facility] COMPREHEN SIVE METABOLIC PANEL PROTEIN [MASS/VOLUM E] IN SERUM OR PLASMA 6.6 g/dL 6.5 - 8.5 11/16 Specimen Type: PLASMA Comment: For an in-depth explanation of the eGFR (CKD-EPI) calculation, please refer to Path and Lab Sharepoint: Chemistry For PSA: 5 alpha reductase inhibitors can cause a reduction in serum PSA by approximatel y 50%. Free PSA levels are not affected. Potential for biotin interference especially in patients taking biotin in doses of thousands of micrograms/d ay. The following tests have the potential for biotin interference . Direction of Biotin interference : Positive: B12, Cortisol, Folate, Anti-HAV Total. Negative: CEA, Ferritin, FSH, PTH, LH, Prolactin, PSA, HCG, Troponin, TSH, Testosterone , Anti-HAV IgM. Ordering Provider: LUCIA YUEN Report Released Date/Time: Oct 14, 2023 01:25 PM Reporting Lab: [address] [place] [address] Performing Lab: [address] [place] [address] [facility] COMPREHEN SIVE METABOLIC PANEL ALBUMIN [MASS/VOLUM E] IN SERUM OR PLASMA 4.3 g/dL 3.5 - 5 11/16 Specimen Type: PLASMA Comment: For an in-depth explanation of the eGFR (CKD-EPI) calculation, please refer to Path and Lab Sharepoint: Chemistry For PSA: 5 alpha reductase inhibitors can cause a reduction in serum PSA by approximatel y 50%. Free PSA levels are not affected. Potential for biotin interference especially in patients taking biotin in doses of thousands of micrograms/d ay. The following tests have the potential for biotin interference . Direction of Biotin interference : Positive: B12, Cortisol, Folate, Anti-HAV Total. Negative: CEA, Ferritin, FSH, PTH, LH, Prolactin, PSA, HCG, Troponin, TSH, Testosterone , Anti-HAV IgM. Ordering Provider: LUCIA YUEN Report Released Date/Time: Oct 14, 2023 01:25 PM Reporting Lab: [address] [place] [address] Performing Lab: [address] [place] [address] [facility] COMPREHEN SIVE METABOLIC PANEL BILIRUBIN.T OTAL [MASS/VOLUM E] IN SERUM OR PLASMA 0.7 mg/dL 0.2 - 1.3 11/16 Specimen Type: PLASMA Comment: For an in-depth explanation of the eGFR (CKD-EPI) calculation, please refer to Path and Lab Sharepoint: Chemistry For PSA: 5 alpha reductase inhibitors can cause a reduction in serum PSA by approximatel y 50%. Free PSA levels are not affected. Potential for biotin interference especially in patients taking biotin in doses of thousands of micrograms/d ay. The following tests have the potential for biotin interference . Direction of Biotin interference : Positive: B12, Cortisol, Folate, Anti-HAV Total. Negative: CEA, Ferritin, FSH, PTH, LH, Prolactin, PSA, HCG, Troponin, TSH, Testosterone , Anti-HAV IgM. Ordering Provider: LUCIA YUEN Report Released Date/Time: Oct 14, 2023 01:25 PM Reporting Lab: [address] [place] [address] Performing Lab: [address] [place] [address] [facility] COMPREH SIVE METABOLIC PANEL ANION GAP IN SERUM OR PLASMA 5 mmol/L 3 - 11 11/16 Specimen Type: PLASMA Comment: For an in-depth explanation of the eGFR (CKD-EPI) calculation, please refer to Path and Lab Sharepoint: Chemistry For PSA: 5 alpha reductase inhibitors can cause a reduction in serum PSA by approximatel y 50%. Free PSA levels are not affected. Potential for biotin interference especially in patients taking biotin in doses of thousands of micrograms/d ay. The following tests have the potential for biotin interference . Direction of Biotin interference : Positive: B12, Cortisol, Folate, Anti-HAV Total. Negative: CEA, Ferritin, FSH, PTH, LH, Prolactin, PSA, HCG, Troponin, TSH, Testosterone , Anti-HAV IgM. Ordering Provider: LUCIA YUEN Report Released Date/Time: Oct 14, 2023 01:25 PM Reporting Lab: [address] [place] [address] Performing Lab: [address] [place] [address] [facility] COMPREH SIVE METABOLIC PANEL ALANINE AMINOTRANSF ERASE [ENZYMATIC ACTIVITY/VO LUME] IN SERUM OR PLASMA 17 U/L < 50 - 50 11/16 Specimen Type: PLASMA Comment: For an in-depth explanation of the eGFR (CKD-EPI) calculation, please refer to Path and Lab Sharepoint: Chemistry For PSA: 5 alpha reductase inhibitors can cause a reduction in serum PSA by approximatel y 50%. Free PSA levels are not affected. Potential for biotin interference especially in patients taking biotin in doses of thousands of micrograms/d ay. The following tests have the potential for biotin interference . Direction of Biotin interference : Positive: B12, Cortisol, Folate, Anti-HAV Total. Negative: CEA, Ferritin, FSH, PTH, LH, Prolactin, PSA, HCG, Troponin, TSH, Testosterone , Anti-HAV IgM. Ordering Provider: LUCIA YUEN Report Released Date/Time: Oct 14, 2023 01:25 PM Reporting Lab: [address] [place] [address] Performing Lab: [address] [place] [address] [facility] COMPREH SIVE METABOLIC PANEL CREATININE [MASS/VOLUM E] IN SERUM OR PLASMA 0.7 mg/dL 0.7 - 1.4 11/16 Specimen Type: PLASMA Comment: For an in-depth explanation of the eGFR (CKD-EPI) calculation, please refer to [facility]: Chemistry For PSA: 5 alpha reductase inhibitors can cause a reduction in serum PSA by approximatel y 50%. Free PSA levels are not affected. Potential for biotin interference especially in patients taking biotin in doses of thousands of micrograms/d ay. The following tests have the potential for biotin interference . Direction of Biotin interference : Positive: B12, Cortisol, Folate, Anti-HAV Total. Negative: CEA, Ferritin, FSH, PTH, LH, Prolactin, PSA, HCG, Troponin, TSH, Testosterone , Anti-HAV IgM. Ordering Provider: LUCIA YUEN Report Released Date/Time: Oct 14, 2023 01:25 PM Reporting Lab: [address] [place] [address] Performing Lab: [address] [place] [address] [facility] COMPREHEN SIVE METABOLIC PANEL ALKALINE PHOSPHATASE [ENZYMATIC ACTIVITY/VO LUME] IN SERUM OR PLASMA 80 U/L 38 - 126 11/16 Specimen Type: PLASMA Comment: For an in-depth explanation of the eGFR (CKD-EPI) calculation, please refer to [facility]: Chemistry For PSA: 5 alpha reductase inhibitors can cause a reduction in serum PSA by approximatel y 50%. Free PSA levels are not affected. Potential for biotin interference especially in patients taking biotin in doses of thousands of micrograms/d ay. The following tests have the potential for biotin interference . Direction of Biotin interference : Positive: B12, Cortisol, Folate, Anti-HAV Total. Negative: CEA, Ferritin, FSH, PTH, LH, Prolactin, PSA, HCG, Troponin, TSH, Testosterone , Anti-HAV IgM. Ordering Provider: LUCIA YUEN Report Released Date/Time: Oct 14, 2023 01:25 PM Reporting Lab: [address] [place] [address] Performing Lab: [address] [place] [address] [facility] COMPREH SIVE METABOLIC PANEL ASPARTATE AMINOTRANSF ERASE [ENZYMATIC ACTIVITY/VO LUME] IN SERUM OR PLASMA 27 U/L 15 - 46 11/16 Specimen Type: PLASMA Comment: For an in-depth explanation of the eGFR (CKD-EPI) calculation, please refer to [facility]: Chemistry For PSA: 5 alpha reductase inhibitors can cause a reduction in serum PSA by approximatel y 50%. Free PSA levels are not affected. Potential for biotin interference especially in patients taking biotin in doses of thousands of micrograms/d ay. The following tests have the potential for biotin interference . Direction of Biotin interference : Positive: B12, Cortisol, Folate, Anti-HAV Total. Negative: CEA, Ferritin, FSH, PTH, LH, Prolactin, PSA, HCG, Troponin, TSH, Testosterone , Anti-HAV IgM. Ordering Provider: LUCIA YUEN Report Released Date/Time: Oct 14, 2023 01:25 PM Reporting Lab: [address] [place] [address] Performing Lab: [address] [place] [address] [facility] COMPREHEN SIVE METABOLIC PANEL CALCIUM [MASS/VOLUM E] IN SERUM OR PLASMA 9.3 mg/dL 8.4 - 10.2 11/16 Specimen Type: PLASMA Comment: For an in-depth explanation of the eGFR (CKD-EPI) calculation, please refer to [facility]: Chemistry For PSA: 5 alpha reductase inhibitors can cause a reduction in serum PSA by approximatel y 50%. Free PSA levels are not affected. Potential for biotin interference especially in patients taking biotin in doses of thousands of micrograms/d ay. The following tests have the potential for biotin interference . Direction of Biotin interference : Positive: B12, Cortisol, Folate, Anti-HAV Total. Negative: CEA, Ferritin, FSH, PTH, LH, Prolactin, PSA, HCG, Troponin, TSH, Testosterone , Anti-HAV IgM. Ordering Provider: LUCIA YUEN Report Released Date/Time: Oct 14, 2023 01:25 PM Reporting Lab: [address] [place] [address] Performing Lab: [address] [place] [address] [facility] GLOMERULAR FILTRATION RATE/1.73 SQ M.PREDICTED [VOLUME RATE/AREA] IN SERUM, PLASMA OR BLOOD BY CREATININE- BASED FORMULA (CKD-EPI 2020) 96.00 mL/min/ {1.73_m 2} 11/16 Specimen Type: PLASMA Comment: For an in-depth explanation of the eGFR (CKD-EPI) calculation, please refer to Path and [facility]: Chemistry For PSA: 5 alpha reductase inhibitors can cause a reduction in serum PSA by approximatel y 50%. Free PSA levels are not affected. Potential for biotin interference especially in patients taking biotin in doses of thousands of micrograms/d ay. The following tests have the potential for biotin interference . Direction of Biotin interference : Positive: B12, Cortisol, Folate, Anti-HAV Total. Negative: CEA, Ferritin, FSH, PTH, LH, Prolactin, PSA, HCG, Troponin, TSH, Testosterone , Anti-HAV IgM. Ordering Provider: LUCIA YUEN Report Released Date/Time: Oct 14, 2023 01:25 PM Reporting Lab: [address] [place] [address] Performing Lab: [address] [place] [address] [facility] HEMOGLOBI N A1C HEMOGLOBIN A1C/HEMOGLO BIN.TOTAL IN BLOOD 7.8 11/16 Specimen Type: BLOOD Comment: Values obtained from A1C measurements can vary.For typical A1C assays, a reported value of 7.0 could actually be between 6.72and 7.28 if measured by a reference method. A reported value of 9.0 couldactuall y be between 8.73 and 9.27. Ref: http://www.n gsp.org/CAPd donna.asp Ordering Provider: LUCIA YUEN Report Released Date/Time: Oct 14, 2023 01:25 PM Reporting Lab: [address] [place] [address] Performing Lab: [address] [place] [address] [facility] LIPID PANEL CHOLESTEROL [MASS/VOLUM E] IN SERUM OR PLASMA 113 mg/dL < 200 - 200 11/16 Specimen Type: PLASMA Comment: For an in-depth explanation of the eGFR (CKD-EPI) calculation, please refer to Path and [facility]: Chemistry For PSA: 5 alpha reductase inhibitors can cause a reduction in serum PSA by approximatel y 50%. Free PSA levels are not affected. Potential for biotin interference especially in patients taking biotin in doses of thousands of micrograms/d ay. The following tests have the potential for biotin interference . Direction of Biotin interference : Positive: B12, Cortisol, Folate, Anti-HAV Total. Negative: CEA, Ferritin, FSH, PTH, LH, Prolactin, PSA, HCG, Troponin, TSH, Testosterone , Anti-HAV IgM. Ordering Provider: LUCIA YUEN Report Released Date/Time: Oct 14, 2023 01:25 PM Reporting Lab: [address] [place] [address] Performing Lab: [address] [place] [address] [facility] LIPID PANEL TRIGLYCERID E [MASS/VOLUM E] IN SERUM OR PLASMA 78 mg/dL < 150 - 150 11/16 Specimen Type: PLASMA Comment: For an in-depth explanation of the eGFR (CKD-EPI) calculation, please refer to Path and Lab Sharepoint: Chemistry For PSA: 5 alpha reductase inhibitors can cause a reduction in serum PSA by approximatel y 50%. Free PSA levels are not affected. Potential for biotin interference especially in patients taking biotin in doses of thousands of micrograms/d ay. The following tests have the potential for biotin interference . Direction of Biotin interference : Positive: B12, Cortisol, Folate, Anti-HAV Total. Negative: CEA, Ferritin, FSH, PTH, LH, Prolactin, PSA, HCG, Troponin, TSH, Testosterone , Anti-HAV IgM. Ordering Provider: LUCIA YUEN Report Released Date/Time: Oct 14, 2023 01:25 PM Reporting Lab: [address] [place] [address] Performing Lab: [address] [place] [address] [facility] LIPID PANEL CHOLESTEROL IN LDL [MASS/VOLUM E] IN SERUM OR PLASMA BY CALCULATION 40 mg/dL < 100 - 100 11/16 Specimen Type: PLASMA Comment: For an in-depth explanation of the eGFR (CKD-EPI) calculation, please refer to Path and Lab Sharepoint: Chemistry For PSA: 5 alpha reductase inhibitors can cause a reduction in serum PSA by approximatel y 50%. Free PSA levels are not affected. Potential for biotin interference especially in patients taking biotin in doses of thousands of micrograms/d ay. The following tests have the potential for biotin interference . Direction of Biotin interference : Positive: B12, Cortisol, Folate, Anti-HAV Total. Negative: CEA, Ferritin, FSH, PTH, LH, Prolactin, PSA, HCG, Troponin, TSH, Testosterone , Anti-HAV IgM. Ordering Provider: LUCIA YUEN Report Released Date/Time: Oct 14, 2023 01:25 PM Reporting Lab: [address] [place] [address] Performing Lab: [address] [place] [address] [facility] LIPID PANEL CHOLESTEROL IN HDL [MASS/VOLUM E] IN SERUM OR PLASMA 57 mg/dL 11/16 Specimen Type: PLASMA Comment: For an in-depth explanation of the eGFR (CKD-EPI) calculation, please refer to Path and Lab Sharepoint: Chemistry For PSA: 5 alpha reductase inhibitors can cause a reduction in serum PSA by approximatel y 50%. Free PSA levels are not affected. Potential for biotin interference especially in patients taking biotin in doses of thousands of micrograms/d ay. The following tests have the potential for biotin interference . Direction of Biotin interference : Positive: B12, Cortisol, Folate, Anti-HAV Total. Negative: CEA, Ferritin, FSH, PTH, LH, Prolactin, PSA, HCG, Troponin, TSH, Testosterone , Anti-HAV IgM. Ordering Provider: LUCIA YUEN Report Released Date/Time: Oct 14, 2023 01:25 PM Reporting Lab: [address] [place] [address] Performing Lab: [address] [place] [address] [facility] URINALYSI S COLOR OF URINE Yellow 11/16 Specimen Type: URINE No comment entered. Ordering Provider: LUCIA YUEN Report Released Date/Time: Oct 14, 2023 01:25 PM Reporting Lab: [address] [place] [address] Performing Lab: [address] [place] [address] [facility] URINALYSI S PH OF URINE 6.5 5.0 - 9.0 11/16 Specimen Type: URINE No comment entered. Ordering Provider: LUCIA YUEN Report Released Date/Time: Oct 14, 2023 01:25 PM Reporting Lab: [address] [place] [address] Performing Lab: [address] [place] [address] [facility] URINALYSI S LEUKOCYTES [#/AREA] IN URINE SEDIMENT BY MICROSCOPY HIGH POWER FIELD NEG 11/16 Specimen Type: URINE No comment entered. Ordering Provider: LUCIA YUEN Report Released Date/Time: Oct 14, 2023 01:25 PM Reporting Lab: [address] [place] [address] Performing Lab: [place] [facility] [address] [place] [address] [place] [address] [facility] URINALYSI S APPEARANCE OF URINE CLEAR 11/16 Specimen Type: URINE No comment entered. Ordering Provider: LUCIA YUEN Report Released Date/Time: Oct 14, 2023 01:25 PM Reporting Lab: [place] [facility] [address] [place] [address] [place] [address] Performing Lab: [place] [facility] [address] [place] [address] [place] [address] [facility] [facility] URINALYSI S SPECIFIC GRAVITY OF URINE 1.019 1.003 - 1.040 11/16 Specimen Type: URINE No comment entered. Ordering Provider: LUCIA YUEN Report Released Date/Time: Oct 14, 2023 01:25 PM Reporting Lab: [place] [address] [place] [address] Performing Lab: [place] [address] [place] [address] [facility] [facility] URINALYSI S PROTEIN [MASS/VOLUM E] IN URINE TRACEmg /dL 11/16 Specimen Type: URINE No comment entered. Ordering Provider: LUCIA YUEN Report Released Date/Time: Oct 14, 2023 01:25 PM Reporting Lab: [place] [address] [place] [address] Performing Lab: [place] [address] [place] [address] [facility] [facility] URINALYSI S GLUCOSE [MASS/VOLUM E] IN URINE BY TEST STRIP 500 mg/dL 11/16 Specimen Type: URINE No comment entered. Ordering Provider: LUCIA YUEN Report Released Date/Time: Oct 14, 2023 01:25 PM Reporting Lab: [place] [facility] [address] [place] [address] [place] [address] Performing Lab: [place] [facility] [address] [place] [address] [place] [address] [facility] URINALYSI S KETONES [MASS/VOLUM E] IN URINE BY TEST STRIP NEGmg/d L 11/16 Specimen Type: URINE No comment entered. Ordering Provider: LUCIA YUEN Report Released Date/Time: Oct 14, 2023 01:25 PM Reporting Lab: [place] [facility] [address] [place] [address] Performing Lab: [place] [facility] [address] [place] [address] [place] [facility] URINALYSI S NITRITE [MASS/VOLUM E] IN URINE BY TEST STRIP NEG 11/16 Specimen Type: URINE No comment entered. Ordering Provider: LUCIA YUEN Report Released Date/Time: Oct 14, 2023 01:25 PM Reporting Lab: [place] [facility] [address] [place] [address] [place] [address] Performing Lab: [place] [facility] [address] [place], [place] [address] [address] [place] [facility] URINALYSI S UROBILINOGE N [UNITS/VOLU ME] IN URINE BY TEST STRIP 4 mg/dL <2.0 - 2.0 11/16 Specimen Type: URINE No comment entered. Ordering Provider: LUCIA YUEN Report Released Date/Time: Oct 14, 2023 01:25 PM Reporting Lab: [place] [facility] [address] [place] [address] [place] [address] Performing Lab: [place] [facility] [address] [place] [address] [place] [address] [place] [facility] URINALYSI S BILIRUBIN.T OTAL [PRESENCE] IN URINE NEG 11/16 Specimen Type: URINE No comment entered. Ordering Provider: LUCIA YUEN Report Released Date/Time: Oct 14, 2023 01:25 PM Reporting Lab: [place] [facility] [address] [place] [address] [place] [address] Performing Lab: [place] [facility] [address] [place], [place] [address] [address] [place] [facility] URINALYSI S HEMOGLOBIN [PRESENCE] IN URINE NEG 11/16 Specimen Type: URINE No comment entered. Ordering Provider: LUCIA YUEN Report Released Date/Time: Oct 14, 2023 01:25 PM Reporting Lab: [place] [facility] [address] [place] [address] [place] [address] Performing Lab: [place] [facility] [address] [place], [place] [address] [address] [place] [facility] Vital Signs Combined list of inpatient and outpatient Vital Signs from Department of Defense and Veterans Affairs, ranging from 12 months to all on record, depending upon the facility. Vital Sign Value Date Comments Source SYSTOLIC BLOOD PRESSURE 152 01/12/2024 14:19:05 [place] [facility] DIASTOLIC BLOOD PRESSURE 75 01/12/2024 14:19:05 [place] [facility] PULSE OXIMETRY 98 01/12/2024 14:19:05 [place] [facility] WEIGHT 123 01/12/2024 14:19:05 [place] [facility] BMI 19kg/m2 01/12/2024 14:19:05 [place] [facility] PAIN 0 01/12/2024 14:19:05 [place] [facility] HEIGHT 67 01/12/2024 14:19:05 [place] [facility] TEMPERATURE 97.6 01/12/2024 14:19:05 [place] [facility] PULSE 48 01/12/2024 14:19:05 [place] [facility] RESPIRATION 16 01/12/2024 14:19:05 [place] [facility] SYSTOLIC BLOOD PRESSURE 130 11/17/2023 14:24:28 [place] [facility] DIASTOLIC BLOOD PRESSURE 63 11/17/2023 14:24:28 [place] [facility] PULSE OXIMETRY 96 11/17/2023 14:24:28 [place] [facility] WEIGHT 131 11/17/2023 14:24:28 [place] [facility] PAIN 0 11/17/2023 14:24:28 [place] [facility] TEMPERATURE 97.3 11/17/2023 14:24:28 [place] [facility] PULSE 63 11/17/2023 14:24:28 [place] [facility] RESPIRATION 16 11/17/2023 14:24:28 [place] [facility] Encounters Combined list of: 1) Encounters from Department of Veterans Affairs facilities going back up to thelast 18 months. 2) Encounters from the Department of Defense facilities going back up to 280 months. Location Location Details Encounter Type Encounter Number Reason For Visit Attending Provider ADM Date DC Date Status Disposition Source [place] [facility] Outpatient Encounter [id number] 04/04 [place] [facility] Outpatient Encounter [id number] 10/26 [facility] [place] [facility] Outpatient Encounter [id number] 10/[address] [place] [facility] [place] [facility] Outpatient Encounter [id number] 11/[address] [place] [facility] [place] [facility] OFFICE O/P [place] 60 MIN [id number] Diagnos is: ICD-10- CM E11.9 Type 2 diabete s mellitu s without complic ations< br/> BILLY YUEN 11/[address] [place] [facility] [place] [facility] QNHP OL DIG ASSMT&MGMT 05-19 [id number] Diagnos is: ICD-10- CM F43.10 Post-tr aumatic stress disorde r, unspeci fied
ROME PABLO 11/[address] [place] [facility] [place] [facility] Outpatient Encounter [id number] BILLY YUEN 11/[address] [place] [facility] [place] [facility] Outpatient Encounter [id number] 11/[address] [place] [facility] [place] [facility] Outpatient Encounter [id number] 11/[address] [place] [facility] [place] [facility] Outpatient Encounter [id number] KAY LAZO 01/[address] [place] [address] [facility] [place] [facility] Outpatient Encounter [id number] 01/[address] [place] [facility] [place] 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
DAVID MAK 01/[address] [place] [facility] [place] 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
ME NEELA KRUEGER 01/[address] [place] [facility] [place] [facility] PSYCH DIAGNOSTIC EVALUATION [id number] Diagnos is: ICD-10- CM F43.10 Post-tr aumatic stress disorde r, unspeci fied
JUDY NICOLE 01/[address] [place] [facility] [place] 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
ELOY METZ M 01/[address] [place] [facility] [place] [facility] Outpatient Encounter [id number] 01/[address] [place] [facility] [place] 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
ELOY METZ 02/[address] [place] [facility] [place] [facility] Outpatient Encounter [id number] 02/[address] [place] [facility] [place] [facility] Outpatient Encounter [id number] Diagnos is: ICD-10- CM E11.9 Type 2 diabete s mellitu s without complic ations< br/> ME NEELA KRUEGER 02/[address] [place] [facility] [place] [facility] PSYTX W PT 30 MINUTES [id number] Diagnos is: ICD-10- CM F43.10 Post-tr aumatic stress disorde r, unspeci fied
LISANDRO DODD 02/[address] [place] [facility] [place] [facility] Outpatient Encounter [id number] 02/[address] [place] [facility] [place] [facility] Outpatient Encounter [id number] LISANDRO DODD 02/[address] [place] [facility] [place] [facility] Outpatient Encounter [id number] 02/[address] [place] [facility] [place] [facility] QNHP OL DIG ASSMT&MGMT 05-19 [id number] Diagnos is: ICD-10- CM Z72.0 Tobacco use<br/ > ROME PABLO 03/[address] [place] [facility] [place] [facility] Outpatient Encounter [id number] 03/[address] [place] [facility] [place] [facility] Outpatient Encounter [id number] 03/[address] [place] [facility] [place] [facility] Outpatient Encounter [id number] Diagnos is: ICD-10- CM F43.10 Post-tr aumatic stress disorde r, unspeci fied
JUDY NICOLE 03/[address] [place] [facility] [place] [facility] Outpatient Encounter [id number] 03/[address] [place] [facility] [place] [facility] Outpatient Encounter [id number] 04/[address] [place] [address] [facility] Procedures Combined list of: 1) Procedures from Department of Veterans Affairs facilities going back up to [facility], not all [place] non-surgical procedures are included; 2) All procedures from the Department of Defense facilities. Procedure Procedure Type Code Date Perfomer Comments Sourc e SKIN TEST; TUBERCULOSIS, TIN E TEST 09/30/2003 [facility] Social History Combined list of available smoking, tobacco, and other social history from Department of Defense and Veterans Affairs facilities. Social History Type Response Date Comment Sourc e Tobacco smoking status NHIS VA-TOBACCO USER EVERY DAY 11/17/2023 [facility] History of tobacco use VA-TOBACCO USE WI 30 MIN OF WAKEUP 11/17/2023 [facility] History of tobacco use AL-TOBACCO QUIT 15 YRS OR MORE 01/26/2019 [facility] History of tobacco use FORMER TOBACCO USER 7Y OR GREATER 07/19/2011 [facility] History of tobacco use FORMER TOBACCO USE >1Y <7Y 10/30/2009 [facility] History of tobacco use FORMER TOBACCO USE >1Y <7Y 10/26/2008 [facility] History of tobacco use FORMER TOBACCO USE >1Y <7Y 10/27/2007 [facility] History of tobacco use FORMER TOBACCO USE >1Y <7Y 11/27/2006 [facility] History of tobacco use LIFETIME NON-SMOKER/QUIT 7 YRS OR> 04/26/2004 Quit 2 months ago [facility] This section is an empty social history section. [facility] Plan of Care List of future care activities from [facility] facilities. Additional future care activities may be listed in the Assessment and Plan section. Date/Time Care Activity Care Activity Detail Facili ty 08/17/2024 AMBULATORY - MEDICINE AMBULATORY - MEDICI NE [facility] 08/17/2024 AMBULATORY - SURGERY AMBULATORY - SURGERY [facility] 08/17/2024 AMBULATORY - MEDICINE AMBULATORY - MEDICI NE [facility] 05/19/2024 Laboratory - Chemistry Order MET ABOLIC PANEL BLOOD PLASMA SP [facility] 05/19/2024 Laboratory - Chemistry Order LIP ID PANEL BLOOD PLASMA SP ONCE [facility] 05/19/2024 Laboratory - Chemistry Order HEM OGLOBIN A1C BLOOD SP ONCE [facility] Advance Directives List of completed, amended, or rescinded Advance Directives on record at [facility] facilities. An actual copy of the Directive is not included. Date Advance Directive Provider Source 11/15/2001 ADVANCE DIRECTIVE FELIX BALTAZ[facility]
--- OUTSIDE RECORDS SUMMARY | 2024-06-02 09:50 | XMS_ITS | Clinical Summary ---
Author Organization [facility] Address [address] [place] [address] [address] [place] [address] Care Team Providers Care Impregnator Electrolytic Capacitors Name Role Phone Ochoa Varma MD Primary Care Provider Elkin Zavala MD Unavailable Yuri Oneill MD Unavailable Emma Guerrero RN Unavailable [phone] Ochoa Varma MD Unavailable [phone] Allergies No known active allergies Medications vitamin D3, cholecalciferol, 50 mcg (2000 unit) tablet Take 50 mcg by mouth 1 time a day in the morning Active miscellaneous medication MISC Take 1 tablet by mouth Every 4 hours as needed for other (Specify) (restless legs) (lands Naturals - Restful Legs Tablets) Active Cyanocobalamin (B-12) 5000 MCG SUBL Take 1 tablet by mouth 1 time a day in the morning Active metFORMIN (GLUCOPHAGE XR) 750 MG extended release tablet Take 1 tablet (750 mg) by mouth 2 times a day Active PARoxetine (PAXIL) 20 mg tabletIndications:Recur rent major depressive disorder, remission status unspecified (CMS-HCC) Take 30 mg by mouth 1 time per day Active pioglitazone (ACTOS) 45 MG tablet Take 1 tablet (45 mg) by mouth 1 time per day 02/14/2 024 Active tamsulosin (FLOMAX) 0.4 mg capsule Take 1 capsule (0.4 mg) by mouth 1 time a day in the evening 024 Active atorvaSTATin (LIPITOR) 20 mg tabletIndications:Pure hypercholesterolemia Take 1 tablet (20 mg) by mouth 1 time a day in the morning 90 tablet 024 Active linagliptin (TRADJENTA) 5 mg tabletIndications:Type 2 diabetes mellitus without complication, without long-term current use of insulin (HCC) Take 1 tablet (5 mg) by mouth 1 time a day in the morning 90 tablet 024 Active diphenhydrAMINE (BENADRYL) 25 mg capsule Take 25 mg by mouth 20mg twice daily for 5 days Active mometasone (ELOCON) 0.1 % OINTIndications:Squamou s 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,Radiation dermatitis Apply topically 2 times a day as needed for itching 45 g Active Additional Information Patient not taking.Reason: By Patient, Reported on 02/25/2024 Active Problems Problem Noted Date Diagnosed Date [...] 02/06/2016 Overview (06/19/2023): Problem description: Thyroid nodule Encounters Date Type Department Care Team Description 03/30/2024 Telephone [facility] DERMATOLOG[facility] [address] [facility] [place] [address] Dorothy Rich LPN Referral 03/29/2024 Telephone [facility] ONCOLOGY [address] [place] [address] Emma Guerrero, CHRISTINE 03/17/2024 Telephone [facility] ONCOLOGY [address] [place] [address] Emma Guerrero RN 03/15/2024 Telephone [facility] ONCOLOGY [address] [place] [address] Emma Guerrero, CHRISTINE 03/12/2024 Telephone [facility] EAR, NOSE & THROAT [address] [facility] [place] [address] Clay Anthony DO Referral 03/12/2024 Orders Only [facility] EAR, NOSE & THROAT [address] [facility] [place] [address] Deloris Quinn, ZAHRAA 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 (Primary Dx) from Last 3 Months Immunizations Immunization Administration Dates Next Due HEP B,adult 08/16/2015,08/16/2005 INFLUENZA SINGLE DOSE 0.5ML 6 MONTHS AND UP 07/11/2015 INFLUENZA VACCINE ADJUVANT(F LUAD) 65 YEARS AND UP 03/24/2018 Influenza Vaccine 04/04/2011 Influenza Virus Vaccine - Whole 07/11/2015 Moderna COVID-19 Vaccine (Re d Top)12 years and up 12/18/2020,11/13/2020 TDAP 04/04/2022 Trivalent Influenza High Dos e, Historical 03/14/2023,04/30/2021,03/30/2020,2016,03/30/2014 Family History Medical History Relation Comments Prostate Cancer Brother Coronary Artery Disease Father Not otherwise listed - Cancer Half brother Diabetes Maternal Aunt Arthritis Mother Diabetes Mother Heart Failure Mother Breast Cancer Niece Heart Failure Paternal Uncle Colorectal Cancer Sister Relation Status Comments Brother Father Half Sister Half brother Maternal Aunt Maternal Grandfather Maternal Grandmother Maternal Uncle Mother Niece Alive Paternal Aunt Paternal Grandfather Paternal Grandmother Paternal Uncle Sister Son Alive Social History Tobacco Use Types Packs/Day Years Used Date Smoking Tobacco: Every Day Cigarettes 0.3 57.9 Started: 06/30/1966 Smokeless Tobacco: Never Tobacco Cessation:Ready to Q uit: No; Counseling Given: Yes Comments:0.5 pack per day 2021 - current 12/02/23 4-5 cigarettes daily 0.75 [...] place to sleep or slept in a intermediate (including now)? No 08/12/2023 Sex and Gender [...] 14 02/25/2024 2:09 PM CDT Oxygen Saturation 99% 01/07/2024 1:10 PM CDT Inhaled Oxygen Concentration - - Weight 55.3 kg (122 lb) 02/25/2024 2:09 PM CDT Height 166 cm (5' 5.35) 09/08/2023 10:32 AM CDT Body Mass Index 20.08 09/08/2023 10:32 AM CDT Plan of Treatment Upcoming Encounters Date Type Department Care Team (Latest Contact Info) Description 07/14/2024 1:45 PM WEB SUPPORT ENGINEER Office Visit [facility] DERMATOLOGY [address] [place] [address] Katelyn Waller MD [address] [place] [address] Discharge Disposition: Home, Self Care 12/20/2024 2:45 PM CDT Clinical Support Visit [facility] [address] [facility] [place] [address] Elkin Zavala MD [address] [facility] [place] [address] 12/20/2024 3:00 PM CDT Office Visit [facility] [address] [facility] [place] [address] Elkin Zavala MD [address] [facility] [place] [address] Health Maintenance Due Date Last Done Comments Hepatitis C Screening 1948 Ophthalmology Exam 1949 Pneumococcal Vaccine 65yr + (1 of 2 - PCV) 1954 Diabetic Foot Exam 1958 Zoster Vaccine (1 of 2) 1967 [employer] Directive document 2013 Hepatitis B Vaccine (3 of 3 - 19+ 3-dose series) 10/11/2015 08/16/2015, 08/16/2005 Covid-19 Vaccine (3 - Modern a risk series) 01/15/2021 12/18/2020, 11/13/2020 RSV Vaccine, Adult (1 - 1-do se 75+ series) 2023 Hemoglobin A1C Every 6 Months 04/26/2023 10/25/2022, 06/30/2019 Influenza Vaccine (#1) 2024 3, 04/30/2021, 03/30/2020, Additional history exists Lipid Screening 03/14/2024 03/14/2023 Microalbumin 03/14/2024 03/14/2023 Colonoscopy 04/19/2027 04/19/2022 TDAP/TD VACCINE (2 - Td or Tdap) 04/04/2032 04/04/20 Colorectal Cancer Screening Discontinued 04/19/2022 Procedures Procedure Name Priority Date/Time Associated Diagnosis Comments GLYCATED HEMOGLOBIN Routine 10/25/2022 COLONOSCOPY Routine 04/19/2022 from Last 3 Months or Most Recently Relevant to Health Maintenance Results * GLYCATED HEMOGLOBIN (10/25/2022) Hgb A1C 7.2 % OTHER PROCEDURES Blood BLOOD SPECIMEN / Unknown us Abstract Provider LAB BLOOD Final Result OTHER PROCEDURES * COLONOSCOPY (04/19/2022) COLONOSCOPY (EXTERNAL RESULT) Details unknown/Myriam ent Reported OTHER PROCEDURES Comment:[facility]-date only, no report us Abstract Provider IP PROCEDURES Final Result OTHER PROCEDURES from Last 3 Months or Most Recently Relevant to Health Maintenance Advance Directives For more information, please contact: [phone] * Full Code (Latest Code Status on File) Date Activated Date Inactivated Comments 08/12/2023 6:13 AM 08/13/2023 9:07 PM Care Teams Impregnator Electrolytic Capacitors Relationship Specialty Start Date End Date Ochoa Varma MD [address] [place] [address] PCP - General Family Medicine 05/20/23 Ochoa Varma MD [address] [place] [address] PCP - Attributed Provider 12/23/23 Elkin Zavala MD [address] [facility] [place] [address] Consulting Physician Radiation Oncology (Radiology) 09/01/23 Yuri Oneill MD [address] [place] [address] Primary Oncologist Hematology and Oncology (Internal Medicine) 09/05/23 Emma Guerrero, RN [address] [place] [address] [place] [address] Nurse Navigator Otolaryngology (Ear, Nose and Throat) 10/28/23
--- OUTSIDE RECORDS SUMMARY | 2024-06-02 09:50 | XMS_ITS | Encounter Summary ---
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 patients, complete and submit the Out of Network Prior Authorization form (under Resource Tab, [place] Forms). 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 (Primary Dx) Social History Tobacco Use Types [...] (Latest Contact Info) Description 07/14/2024 1:45 PM PIGMENT PUMPER Office Visit [facility] DERMATOLOGY [address] [place] [address] Katelyn Waller MD [address] [place] [place] [address] Discharge Disposition: Home, Self Care 12/20/2024 2:45 PM CDT Clinical Support Visit [facility] ON[facility] [place] [address] [place] [place] [address] Elkin Zavala MD [address] [place] [place] [address] 12/20/2024 3:00 PM CDT Office Visit [facility] [place] [address] [facility] [place] [address] Elkin Zavala MD [address] [place] [place] [address] Scheduled Referrals Name Type Priority Associated Diagnoses Orde r Schedule CLINIC REFERRAL ENT NON ONE CHART Referral Routine 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 Ordered: 03/12/2024 documented as of this encounter Visit Diagnoses Diagnosis 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- Primary Squamous cell carcinoma of skin of other and unspecified parts of face documented in this encounter Care Teams Drill Foreman Relationship Specialty Start Date End Date Ochoa Varma MD [address] [place] [address] PCP - General Family Medicine 05/20/23 Ochoa Varma MD [address] [place] [address] PCP - Attributed Provider 12/23/23 Elkin Zavala MD [address] [facility] [place] [address] Consulting Physician Radiation Oncology (Radiology) 09/01/23 Yuri Oneill MD [address] [place] [address] Primary Oncologist Hematology and Oncology (Internal Medicine) 09/05/23 Emma Guerrero RN [address] [place] [address] Nurse Navigator Otolaryngology (Ear, Nose and Throat) 10/28/23 documented as of this encounter
--- OUTSIDE RECORDS SUMMARY | 2024-06-02 09:50 | XMS_ITS | Encounter Summary ---
Author Organization [facility] Address [address] [address] [place] [address] Care Team Providers Care Waiter/Waitress First Class Name Role Phone Ochoa Varma MD Primary Care Provider [phone] Elkin Zavala MD Unavailable Yuri Oneill MD Unavailable [phone] Emma Guerrero RN Unavailable [phone] Ochoa Varma MD Unavailable Encounter Details Date Type Department Care Team (Late st Contact Info) Description 03/29/2024 Telephone [facility] [address] [place] [address] Emma Guerrero, RN [address] [place] [address] Social History Tobacco Use Types Packs/Day Years [...] place to sleep or slept in a assisted (including now)? No 08/12/2023 Sex and Gender [...] Nursing Notes * Emma Guerrero RN - 03/29/2024 2:45 PM CDT 03/29/2024 Call from patient stating he is unable to find a supervisor mixing to see in [place] or the surrounding area from the list of providers that he was sent. Patient states they are either booked up, not seeing new patients, or do not specialize in the type of care he will need for follow up. Patient is requesting a referral to [facility]. Navigation sent message to Dr Waller, asking if she has a provider in mind at [facility] to refer the patient to. Navigation will await reply from Dr Waller before calling [facility]. Navigation will assist in having [facility] reach out to the patient to set up an appointment as needed. documented in this encounter Plan of Treatment Upcoming Encounters Date Type Department Care Team (Latest Contact Info) Description 07/14/2024 1:45 PM HORSE DOCTOR Office Visit [facility] [address] [place] [address] Katelyn Waller MD [address] [place] [address] Discharge Disposition: Home, Self Care 12/20/2024 2:45 PM CDT Clinical Support Visit [facility] [place] [address] [place] [address] Elkin Zavala MD [address] [place] [address] 12/20/2024 3:00 PM CDT Office Visit [facility] [address] [place] [address] Elkin Zavala MD [address] [place] [address] documented as of this encounter Visit Diagnoses Not on filedocumented in this encounter Care Teams Waiter/Waitress First Class Relationship Specialty Start Date End Date Ochoa Varma MD [address] [place] [address] PCP - General Family Medicine 05/20/23 Ochoa Varma MD [address] [place] [address] PCP - Attributed Provider 12/23/23 Elkin Zavala MD [address] [place] [address] Consulting Physician Radiation Oncology (Radiology) 09/01/23 Yuri Oneill MD [address] [place] [address] Primary Oncologist Hematology and Oncology (Internal Medicine) 09/05/23 Emma Guerrero RN [address] [place] [address] [place] [address] Nurse Navigator Otolaryngology (Ear, Nose and Throat) 10/28/23 documented as of this encounter
--- OUTSIDE RECORDS SUMMARY | 2024-06-02 09:50 | XMS_ITS | Encounter Summary ---
Author Organization [facility] Address [address] [address] [place] [address] Care Team Providers Care Inclusion Internship Name Role Phone Ochoa Varma MD Primary Care Provider Elkin Zavala MD Unavailable Yuri Oneill MD Unavailable [phone] Emma Guerrero RN Unavailable [phone] Ochoa Varma MD Unavailable Encounter Details Date Type Department Care Team (Late st Contact Info) Description 03/17/2024 Telephone [facility] [address] [place] [address] Emma Guerrero, RN [address] [place] [address] [place] [address] Social History Tobacco Use Types Packs/Day Years [...] place to sleep or slept in a penitentiary (including now)? No 08/12/2023 Sex and Gender [...] Nursing Notes * Emma Guerrero RN - 03/17/2024 1:33 PM CDT 03/17/2024 Call to patient to discuss Dermatology and ENT referral to providers in [place]. Patient recordswere sent to Dr Davis Wood and that office will review them and determine if that patient can be seen at that clinic. Patient will get a call from them to schedule, if he can be seen there. Patient was given the message from Dr Waller, stating they will mail the patient a list of providers in the [place] area. The patient can pick one and call that facility to schedule. Patient verbalized understanding and had no further questions. documented in this encounter Plan of Treatment Upcoming Encounters Date Type Department Care Team (Latest Contact Info) Description 07/14/2024 1:45 PM LEAD CLINICAL RESEARCH COORDINATOR Office Visit [facility] DERMATOLOG[facility] [address] [facility] [address] Katelyn Waller MD [address] [facility] [address] Discharge Disposition: Home, Self Care 12/20/2024 2:45 PM CDT Clinical Support Visit [facility]OG[facility] [place] [address] [facility] [address] Elkin Zavala MD [address] [facility] [address] 12/20/2024 3:00 PM CDT Office Visit [facility] [place] [address] [facility] [address] Elkin Zavala MD [address] [facility] [address] documented as of this encounter Visit Diagnoses Not on filedocumented in this encounter Care Teams Inclusion Internship Relationship Specialty Start Date End Date Ochoa Varma MD [address] [place] [address] PCP - General Family Medicine 05/20/23 Ochoa Varma MD [address] [place] [address] PCP - Attributed Provider 12/23/23 Elkin Zavala MD [address] [place] [address] [place] [address] Consulting Physician Radiation Oncology (Radiology) 09/01/23 Yuri Oneill MD [address] [place] [address] Primary Oncologist Hematology and Oncology (Internal Medicine) 09/05/23 Emma Guerrero RN [address] [place] [address] [place] [address] Nurse Navigator Otolaryngology (Ear, Nose and Throat) 10/28/23 documented as of this encounter
== END 2024-06-02 09:46 | disposition home or self-care (01) ==
PROVIDERS: PCP Internal Medicine; Visit Provider Internal Medicine
DX: E78.5 Hyperlipidemia, unspecified (principal); I10 Essential (primary) hypertension
CPT/HCPCS: 80053; 80061

== ENCOUNTER 2024-06-04 09:07 | Outpatient (RCR) | payer MEDICARE, OTHER, SELFPAY ==
--- NOTE | 2024-06-04 14:48 | PT.OPEX ---
PT [place] Outpatient Eval PT [facility] Outpatient Eval Start: 06/04/24 09:03 Freq: Status: Active Protocol: Document 06/04/24 09:04 CRP (Rec: 06/04/24 14:47 CRP [id number]) E-signed By Garfield Justice PT Physical Therapy Outpatient Evaluation Insurance Information Recert Due Date 09/02/24 Insurance Name Medicare B Medical Diagnosis Neck pain Back pain L shoulder and L LE weakness Referring MD Dr Zayas Subjective Subjective Pt reports that dating back to 2022 he was having treatments for back pain. Had imaging that then showed cervical spine involvement that was affecting his spinal cord. Had surgery for his neck with fusion C4-T1. Since that surgery he has not felt his L shoulder blade as balance with the R shoulder blade. Also has pain that goes into the L shoulder blade and up the neck . Since the surgery he has had difficulty raising his L arm above shoulder height. Since cancer diagnosis and treatment he has had thickening for the front of his neck that impedes his motion. Also co LBP and has been told there is arthritis. L side to center of the low back. Feels his legs are unstable and he gets fatigued very quickly. Walking much more than 200 yrds really affects his legs. Back pain can increase if he sits too long and he does not have support. Cannot stand much without increased pian. PMHx: Skin cancer with major resection surgery along L side of the neck and face. Has been told the cancer has spread to his lymph nodes. Had 6 weeks of radiation which finished December 04 2023. He is still actively treating this. Pain Comments 4/10 pain Current Work Status Retired Objective Other/Pertinent Objective Gait: shows slight balance checks. No able to keep a straight path. Trunk ROM: Flex WNL, Ext min dec, bilat SB WNL, bilat rot mod dec Cervical spine ROM: flex saloni dec, bilat rot 10 deg, Ext saloni decrease Shoulder ROM: R flex 135, Abd 140, Hand up back to L1, ER 75. L shoulder flex 90 degrees - AAROM 125, Abd 75 deg with tingling into the L hand, hand up back T10, ER 34 deg. Scapular winging noted on L with ROM and MMT Shoulder MMT: abd R 4/5, L 3/5 , ER R 4/5, L 3-/5, IR R 4+/5, L 4-/5 LE MMT: Hip flex 4-/5 bilat, Hip abd 4+/5, Hip ext 4-/5 bilat. Knee flex/ext 4+/5 Functional Test Performed & Score Tinetti 19/28 Assessment Assessment/Impression Pt presents to the clinic with long standing issues of neck pain, L shoulder blade region pain, LBP and weakness into the L UE and bilat LEs. Pt is s/p multilevel cervical spine fusion. Pts signs and sxs suggest lumbar spine and cervical spine DDD/DJD and resulting pain/dysfunction into L UE and bilat LEs. At this time the patients weakness is significantly affecting his balance and gait abilities. Based on Tinetti score, Pt is at an increased risk for falling. Skilled PT is necessary to incorporate ther ex, nm kisha, manual therapy and pt education to decrease pain and improve functional mobility. Primary Functional Limitations Raising L UE to reach above head Standing Walking Plan of Care Rehabilitation Potential Good Physical Therapy Goals 1. Pt will be independent with HEP in 8 weeks. 2. Pt will score >22/28 on Tinetti balance score showing decreased risk for falling when completing daily errands in the community. 3. 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 Coordination/Communication With Referral Source Treatment Plan/Direct Interventions Gait Training,Manual Therapy, Neuromuscular Re-ed,Orthotics/ Braces,Self-Care/Home Management,Therapeutic Activities,Therapeutic Exercises Frequency/Duration 1-2x/wk for 12 weeks Patient Will Be Discharged From Therapy Completion of LTG(s),Skills Plateau,Independent w/HEP, Independently Progressing Evaluation Billing Untimed Code Treatment Minutes 45 Complexity High Certification Information Initial Certification Date 06/04/24 Ending Certification Date 09/02/24 Provider Signature Required Yes Provider Signature Shows Agreement With POC & Medical Necessity Physician NPI Number Write NPI# Here Physician Comment/Change : Physician Signature & Date Requested Please Sign/Date Here
== END 2024-09-02 14:12 | disposition home or self-care (01) ==
PROVIDERS: PCP Internal Medicine; Visit Provider Family Medicine
DX: M54.2 Cervicalgia (principal); M54.9 Dorsalgia, unspecified; R29.898 Other symptoms and signs involving the musculoskeletal system; Z51.89 Encounter for other specified aftercare
CPT/HCPCS: 97116; 97163

== ENCOUNTER 2025-01-10 17:58 | Emergency (ER) | payer MEDICARE, OTHER, SELFPAY ==
--- OUTSIDE RECORDS SUMMARY | 2024-01-12 10:00 | XMS_ITS | Encounter Summary ---
Author Name [facility] [place] [facility] [place] Address [address] [place] [address] Care Team Providers Care Electronic Die Maker Name Role Phone SIVA CENTENO Primary Care Provider Unavailabl e MARY GASTELUM Primary Care Provider Unavailabl e Insurance Providers: All historical and current Section Date Range: From patient's date of to the date document was created. This section includes the names of all active insurance providers for the patient. Insurance Provider Type of Coverage Plan Name Start of Policy Coverage End of Policy Coverage Group Number Member ID Insurance Provider's Telephone Number Policy Forte's Name Patient's Relationship to Policy Forte MEDICA PREFERRED PROVIDER ORGANIZAT ION (PPO) MEDIC A KATHYC E Jun 30, 2007 [id number] Cece CASTELLANOS SPOUSE MEDICA BEHAVIORAL HEALTH MENTAL HEALTH MEDIC A PASSP ORT Jun 30, 2007 [id number] Cece CASTELLANOS OIKelly SPOUSE MEDICARE (WNR) MEDICARE (M) PART A Mar 30, 2013 PART A [id number] WILFREDO CASTELLANOS JR PATIENT MEDICARE (WNR) MEDICARE (M) PART B Mar 30, 2013 PART B [id number] WILFREDO CASTELLANOS JR PATIENT MEDICARE (WNR) MEDICARE (M) PART A Mar 30, 2013 PART A [id number] Cece CASTELLANOS EONARD PATIENT MEDICARE (WNR) MEDICARE (M) PART B Mar 30, 2013 PART B [id number] Cece CASTELLANOS EOJUANPABLOD PATIENT MEDIMPACT RX PRESCRIPT ION Jun 30, 2007 [id number] Cece CASTELLANOS OIS SPOUSE Selected Encounter This section includes the information on record at [place] for the Encounter. Date/Time Encounter Type Encounter Description Reason Provider Source Jan 12, 2024 03:00 PM OFFICE O/P EST MOD 30 MIN PRIMARY CARE/MEDICINE ICD-10-CM C80.1 Malignant (primary) neoplasm, unspecified MARY GASTELUM Yoshi Encounter Template Text not used by [place] Assessments - Encounter Diagnoses This section includes the primary and secondary diagnoses documented for the Encounter. Date/Time Primary/Secondary Diagnosis Diagnosis Name Provider Source Jan 12, 2024 03:10 PM PRIMARY Malignant (primary) neoplasm, unspecified MARY GASTELUM [facility] Jan 12, 2024 03:10 PM SECONDARY Benign prostatic hyperplasia without lower urinry tract symp MARY GASTELUM [facility] Jan 12, 2024 03:10 PM SECONDARY Hyperlipidemia, unspecified MARY GASTELUM [facility] Jan 12, 2024 03:10 PM SECONDARY Post-traumatic stress disorder, unspecified MARY GASTELUM [facility] Jan 12, 2024 03:10 PM SECONDARY Tobacco use MARY GASTELUM [facility] Jan 12, 2024 03:10 PM SECONDARY Type 2 diabetes mellitus without complications MARY GASTELUM [facility] Plan of Treatment: Future Appointments (+ 6 months) and Future Tests (+/- 45 days) The Plan of Treatment section includes future care activities for the patient from all [place] treatmentcilities. This section includes future appointments and future orders which are active, pending or scheduled. Future Appointments This section includes appointments that were scheduled to occur 6 months from the date of the Encounter, up to a maximum of 20 appointments. The data comes from all [place] treatment facilities. Appointment Date/Time Appointment Type Appointme nt Facility Name Jan 27, 2024 01:00 PM AMBULATORY - PSYCHIATRY [facility] Feb 06, 2024 01:00 PM AMBULATORY - PSYCHIATRY [facility] Feb 19, 2024 10:00 AM AMBULATORY - MEDICINE [facility] Feb 19, 2024 02:00 PM AMBULATORY - PSYCHIATRY [facility] Mar 09, 2024 10:30 AM AMBULATORY - PSYCHIATRY [facility] Lab Results: +/- 30 days of the encounter This section includes the Chemistry and Hematology Lab Results on record with [place] for the patient. Radiology Reports and Pathology Reports are provided separately, in subsequent sections. Lab Results This section contains the Chemistry/Hematology Results that were resulted 30 days before or 30 daysafter the date of the Encounter. Date/Time Source Result Type Result - Unit Interpretation Reference Range Specimen Type Comment Jan 12, 2024 01:22 PM [facility] CBC SCREEN/AUTO DIFF BLOOD Specimen Type: BLOOD No comment entered. Ordering Provider: MARY GASTELUM Report Released Date/Time: Jan 08, 2024 03:50 PM Reporting Lab: [address] [place] [address] Performing Lab: [address] [place] [address] MONO-A 0.7 10*3/uL 0.2-1.0 NEUTROPHIL-A 10.4 10*3/uL H 1.5-7.0 RBC* 4.14 10*6/uL 3.95-5.79 WBC* 11.9 10*3/uL H 4.0-10.8 HGB* 13.3 g/dL 12.5-17.0 HEMATOCRIT 38.7 38-52 MCV* 93.5 fL 81.8-98.6 MCH* 32.1 pg 27.2-33.6 MCHC* 34.4 g/dL 32.4-34.8 RDW* 15.2 12.3-15.9 PLT* 250 10*3/uL 150-400 MPV* 9.9 fL 6.6-11.8 EOSINOPHIL-A 0.1 10*3/uL 0.0-0.6 BASOPHIL-A 0.0 10*3/uL 0.0-0.2 LYMPH-A 0.6 10*3/uL L 1.0-4.0 NRBC # 0.00 10*3/uL 0-0.00 NRBC % 0.0 0-0.0 IG # 0.1 10*3/uL H 0-0.06 Jan 12, 2024 01:22 PM [facility] COMPREHENSIVE METABOLIC PANEL PLASMA Specimen Type: PLASMA Comment: For an in-depth explanation of the eGFR (CKD-EPI) calculation, please refer to Path and Lab Sharepoint: Chemistry Ordering Provider: MARY GASTELUM Report Released Date/Time: Jan 08, 2024 03:50 PM Reporting Lab: [address] [place] [address] Performing Lab: [address] [place] [address] [place] NITROGEN 18 mg/dL 9-20 GLUCOSE 350 mg/dL H 70-100 SODIUM 135 mmol/L L 137-145 POTASSIUM 4.1 mmol/L 3.5-5.1 CHLORIDE 100 mmol/L 98-107 CO2 27 mmol/L 22-30 PROTEIN, (TOTAL) 6.3 g/dL L 6.5-8.5 ALBUMIN 4.1 g/dL 3.5-5 BILIRUBIN, TOTAL 0.6 mg/dL 0.2-1.3 ANION GAP 8 mmol/L 3-11 ALT 20 U/L < 50 EGFR-CREATININE 0.7 mg/dL 0.7-1.4 ALK PHOS 140 U/L H 38-126 AST* 18 U/L 15-46 CALCIUM* 9.3 mg/dL 8.4-10.2 CREAT EGFR(CKD-EPI) 96.00 mL/min/{1.73_m2} Jan 12, 2024 01:22 PM [facility] HEMOGLOBIN A1C BLOOD Specimen Type: BLOOD Comment: Values obtained from A1C measurements can vary.For typical A1C assays, a reported value of 7.0 could actually be between 6.72and 7.28 if measured by a reference method. A reported value of 9.0 couldactually be between 8.73 and 9.27. Ref: http://www.ngsp.org/CAPdata.asp Ordering Provider: MARY GASTELUM Report Released Date/Time: Jan 08, 2024 03:50 PM Reporting Lab: [address] [place] [address] Performing Lab: [address] [place] [address] HEMOGLOBIN A1C 7.4 Jan 12, 2024 01:22 PM [facility] LIPID PANEL PLASMA Specimen Type : PLASMA Comment: For an in-depth explanation of the eGFR (CKD-EPI) calculation, please refer to Path and Lab Sharepoint: Chemistry Ordering Provider: MARY GASTELUM Report Released Date/Time: Jan 08, 2024 03:50 PM Reporting Lab: [address] [place] [address] Performing Lab: [address] [place] [address] CHOLESTEROL 207 mg/dL H < 200 TRIGLYCERIDE 155 mg/dL H < 150 LDL CHOLESTEROL CALCULATION 102 mg/dL H < 100 HDL* 74 mg/dL Jan 12, 2024 01:22 PM [facility] MICROALBUMIN PANEL (RDM) URINE Specimen Type: URINE Comment: Unable to calculate MALB/CREAT-R due to low/high Microalbumin or Creatinine. Ordering Provider: MARY GASTELUM Report Released Date/Time: Jan 08, 2024 03:50 PM Reporting Lab: [address] [place] [address] Performing Lab: [address] [place] [address] MICROALBUMIN (RDM) <0.6 mg/dL < 1.7 mICROAL/CREA RATIO R comment mg/g{creat} CREATININE, URINE 40 mg/dL Vital Signs: All taken on the encounter date This section contains inpatient and outpatient Vital Signs collected on the date of the Encounter. Date/Time Temperature Pulse Blood Pressure Respiratory Rate SP02 Pain Height Weight Body Mass Index Source Jan 12, 2024 02:25 PM 144/74 [facility] Jan 12, 2024 02:22 PM 149/75 [facility] Jan 12, 2024 02:19 PM 97.6 48 152/75 16 98 0 67 123 19 [facility] Social History: Smoking Status (Most current) and Tobacco Use (All prior to encounter date) This section includes the most current, and the historical, smoking and tobacco- related health factors from the [place] facility where the Encounter took place. Current Smoking Status This section includes the most current smoking, or tobacco-related health factor, from the [place] facility where the Encounter took place. Date/Time Current Smoking Status Comment Facil ity November 17, 2023 02:30 PM VA-TOBACCO USER EVERY DAY [facility] Tobacco Use History This section includes a history of the smoking, or tobacco-related health factors, that were collected on or before the date of the Encounter. The data comes from the [place] facility where the Encounter took place. Date/Time Smoking Status/Tobacco Use Comment F acility November 17, 2023 02:30 PM VA-TOBACCO USE ADVICE [facility] November 17, 2023 02:30 PM VA-TOBACCO USE THREADER NO [facility] November 17, 2023 02:30 PM VA-TOBACCO USE MED NO [facility] November 17, 2023 02:30 PM VA-TOBACCO USE WI 30 MIN OF WAKE UP [facility] November 17, 2023 02:30 PM VA-TOBACCO USER EVERY DAY [facility] Advance Directives: All historical and current Section Date Range: From patient's date of to the date document was created. This section includes ALL of a patient's completed or amended [place] Advance and Rescinded Directives. The entries below indicate that a directive exists for the patient, but an actual copy is not included with this document. The data comes from all [facility]. Date Advance Directives Provider Source November 15, 2001 ADVANCE DIRECTIVE FELIX BALTAZAR [facility] Encounter Notes: All associated encounter notes This section contains the clinical notes associated to the Encounter. Date/Time Encounter Note(s) Provider Source Jan 12, 2024 03:11 PM MEDICATION MGT NOT E: LOCAL TITLE: MEDICATION RECONCILIATION STANDARD TITLE: MEDICATION MGT NOTE DATE OF NOTE: JAN 12, 2024@15:11 ENTRY DATE: JAN 12, 2024@15:11:07 AUTHOR: MARY GASTELUM EXP COSIGNER: URGENCY: STATUS: COMPLETED Medication Reconciliation Outpatient Visit - reconciled... Active and Recently Outpatient Medications: MRT5 - Allergies/ADRs FACILITY ALLERGY/ADR -------- [facility] NO KNOWN ALLERGIES [facility] NO KNOWN ALLERGIES [facility] No Known Allergies [facility] NO KNOWN ALLERGIES MRT1 - Med Reconciliation INCLUDED IN THIS LIST: Alphabetical list of active outpatient prescriptions dispensed from [facility] (local) and dispensed from another [place] or [facility] facility (remote) as well as inpatient orders (local pending and active), local clinic medications, locally documented non-VA medications, and local prescriptions that have or been discontinued in the past 90 days. Non-VA Meds Last Documented On: Jan 12, 2024 NOTE The display of VA prescriptions dispensed from another [place] or [facility] facility (remote) is limited to active outpatient prescription entries matched to National Drug File at the originating site and may not include some items such as investigational drugs, compounds, etc. NOT INCLUDED IN THIS LIST: Medications self-entered by the patient into personal health records (i.e. [facility]ly) are NOT included in this list. Non-VA medications documented outside this [place], remote inpatient orders (regardless of status) and remote clinic medications are NOT included in this list. The patient and provider must always discuss medications the patient is taking, regardless of where the medication was dispensed or obtained. OUTPT ATORVASTATIN CALCIUM 20MG TAB (Status = Active) TAKE ONE TABLET ORALLY AT BEDTIME FOR CHOLESTEROL Rx# [id number] Last Released: 11/20/23 Qty/Days Supply: Rx Expiration Date: 11/17/24 Refills Remainin Indication: FOR CHOLESTEROL Non-VA CHOLECALCIFEROL (VIT D3) TAB TAKE ORALLY EVERY DAY Non-VA CYANOCOBALAMIN 1000MCG TAB TAKE FIVE TABLETS ORALLY EVERY DAY Non-VA DIPHENHYDRAMINE HCL 25MG CAP TAKE 1 CAPSULE ORALLY NEEDED OUTPT EMPAGLIFLOZIN 10MG TAB (Status = Discontinued) TAKE ONE TABLET ORALLY EVERY MORNING FOR DIABETES Rx# [id number] Last Released: Qty/ Supply: Rx Expiration Date: 11/17/24 Refills Remainin Indication: FOR DIABETES Non-VA LINAGLIPTIN 5MG TAB TAKE ONE TABLET ORALLY EVERY DAY OUTPT METFORMIN HCL 750MG 24HR SA TAB (Status = On Hold) TAKE ONE TABLET ORALLY EVERY EVENING FOR DIABETES WITH FOOD Rx# [id number] Last Released: Supply: Rx Expiration Date: 11/17/24 Refills Remainin Indication: FOR DIABETES OUTPT NICOTINE POLACRILEX 4MG LOZENGE (Status = Discontinued) DISSOLVE 1 LOZENGE BETWEEN CHEEK AND GUM EVERY 3 HOURS NEEDED EVERY 1 TO 2 HOURS WEEKS 1-6; EVERY 2 TO 4 HOURS WEEKS 7-9; EVERY 4 TO 8 HOURS WEEKS 10-12 FOR TOBACCO CESSATION. Rx# [id number] Last Released: Supply: Rx Expiration Date: 11/17/24 Refills Remainin Indication: FOR NICOTINE REPLACEMENT THERAPY OUTPT PAROXETINE HCL 20MG TAB (Status = Active) TAKE ONE TABLET ORALLY EVERY DAY FOR PTSD Rx# [id number] Last Released: 11/21/23 Qt Supply: Rx Expiration Date: 11/17/24 Refills Remainin Indication: FOR PTSD OUTPT PIOGLITAZONE HCL 45MG TAB (Status = Active) TAKE ONE TABLET ORALLY EVERY DAY FOR DIABETES Rx# [id number] Last Released: 11/20/23 Qt Supply: Rx Expiration Date: 11/17/24 Refills Remainin Indication: FOR DIABETES OUTPT PREDNISONE 20MG TAB (Status = Discontinued) TAKE ONE TABLET ORALLY TWICE A DAY FOR 5 DAYS FOR RASH WITH FOOD. Rx# [id number] Last Released: 01/05/24 QtyDays Supply: 04/03 Rx Expiration Date: 02/03/24 Refills Remainin OUTPT TAMSULOSIN HCL 0.4MG CAP (Status = On Hold) TAKE ONE CAPSULE ORALLY EVERY DAY FOR PROSTATE 30 MINUTES AFTER THE SAME MEAL EACH DAY Rx# [id number] Last Released: Supply: Rx Expiration Date: 11/17/24 Refills Remainin Indication: FOR PROSTATE SUPPLIES PHARMACY TERMS AND POSSIBLE PATIENT ACTIONS INPT = [place] inpatient order IV = [place] intravenous medication OUTPT = [place] outpatient prescription PHARMACY POSSIBLE PATIENT TERMS EXPLANATION ACTIONS -------- --- ACTIVE A prescription that can be If you have refills, filled at the local [place] pharmacy. you may request a refill of this prescription from your [place] pharmacy. CLINIC A medication you received during If you have questions a visit to a [place] clinic or about this medication emergency department. contact your [place] healthcare team. DISCONTINUED A prescription your provider has Contact your VA stopped. It is no longer healthcare team if you available to be sent to you or need more of this picked up at the [place] pharmacy medication. window. A prescription which is too old Contact your VA to fill. This does not refer to healthcare team if you the expiration date of the need more of this medication in the container. medication. NON-VA A medication that came from If this medication someplace other than a VA information is pharmacy. This may be a incorrect or out of prescription from either the VA date, please tell your or non VA providers that was VA healthcare team. filled outside the VA. Or, it may be an gosd-[id number]-[id number] (OTC), herbal, dietary supplements or sample medication. ON HOLD An active prescription that will Contact your VA not be filled until pharmacy pharmacy when you need resolves the issue. more of this medication. PARKED An active prescription that will Contact your VA not be filled until the patient pharmacy when you need requests it. this medication. PENDING This prescription order has been If you have been sent to the pharmacy for review instructed to start and is not ready yet. this medication now, contact your VA pharmacy. SUSPENDED An active prescription that is Contact your VA not scheduled to be filled yet. pharmacy if you need You should receive it before this medication now. you run out. ======== Active Medication Being Obtained at another [place]: No Active Remote Medications for this patient Medications reconciled. I have reviewed the most recent list of outpatient medications listed above. I have provided a list and discussed it with the patient and those present. The patient and those present verbalized understanding of the importance of taking medications as prescribed and any change in medication orders. Medication Education Was medication education provided for new medications or changes to medications? (including medication name, dose, route, reason for use, and potential side effects). No new medications or medication changes during this encounter. /gwyn/ Mary Gastelum CNP Primary Care Signed: 01/12/2024 15:11 MARY GASTELUM [facility] Jan 12, 2024 03:10 PM OUTPATIENT INTERDI SCIPLINARY NOTE: LOCAL TITLE: AFTER VISIT NOTE STANDARD TITLE: OUTPATIENT INTERDISCIPLINARY NOTE DATE OF NOTE: JAN 12, 2024@15:10 ENTRY DATE: JAN 12, 2024@15:10:55 AUTHOR: MAYR GASTELUM EXP COSIGNER: URGENCY: STATUS: COMPLETED DEPARTMENT OF [facility] [address] [place] [phone] LOCAL - [facility] ([phone]) PACT: TRISTON CARPENTER 04 (Focus: Primary Care Only) Primary Care Provider: MARY GASTELUM PHONE:[phone] Dispatcher Service Or Work: JARON LAND PHONE:[phone] PAGER:[phone] Clinical Associate: RONNIE VALDOVINOS PHONE:[phone] PAGER:[phone] Certified Executive Chef: YASMIN LAY PHONE:[phone] Clinical Pharmacist Practitioner: KRISTINE BUCK PHONE:[phone] Sales And Merchandising Associate: MARY HOOKS PHONE:[phone] Surrogate Dispatcher Service Or Work: MANOLO LAZARO PHONE:[phone] Clinical POC: Administrative POC: Certified Executive Chef YASMIN LAY PHONE:[phone] DATE OF VISIT: JAN 12, 2024 Demographics: [facility] [address] [place], [place] [id number] Mar Next of kin: NORBERTO BOYD 02/16/2024 11:00 SF/[facility] SW C 08/17/2024 14:30 SF/PACT OPERATIONAL REVIEW SERGEANT INTAKE ([place]) 08/17/2024 15:00 SF/PACT PAULINE RAPID EXTRACTOR OPERATOR 4 P Most Recent Vitals: Temp : 97.6 F [36.4 C] (01/12/2024 14:19) Pulse : 48 (01/12/2024 14:19) Resp : 16 (01/12/2024 14:19) B/P : 144/74 (01/12/2024 14:25) Ht : 67 in [170.2 cm] (01/12/2024 14:19) Wt : 123 lb [55.79 kg] (01/12/2024 14:19) Pain : 0 (01/12/2024 14:19) BMI : 19.3 PO2 : 01/12/24 @ 1419 PULSE OXIMETRY: 98 Active Inpatient, Outpatient and Clinic Medications (including Supplies): Active Outpatient Medications Status 1) ATORVASTATIN CALCIUM 20MG TAB TAKE ONE TABLET ORALLY ACTIVE AT BEDTIME FOR CHOLESTEROL 2) METFORMIN HCL 750MG 24HR SA TAB TAKE ONE TABLET HOLD ORALLY EVERY EVENING FOR DIABETES WITH FOOD 3) PAROXETINE HCL 20MG TAB TAKE ONE TABLET ORALLY EVERY ACTIVE DAY FOR PTSD 4) PIOGLITAZONE HCL 45MG TAB TAKE ONE TABLET ORALLY ACTIVE EVERY DAY FOR DIABETES 5) TAMSULOSIN HCL 0.4MG CAP TAKE ONE CAPSULE ORALLY HOLD EVERY DAY FOR PROSTATE 30 MINUTES AFTER THE SAME MEAL EACH DAY Active Non-VA Medications Status 1) Non-VA CHOLECALCIFEROL (VIT D3) TAB ORALLY ACTIVE 2) Non-VA CYANOCOBALAMIN 1000MCG TAB 5000MCG ORALLY ACTIVE EVERY DAY 3) Non-VA DIPHENHYDRAMINE HCL 25MG CAP 25MG ORALLY ACTIVE NEEDED 4) Non-VA LINAGLIPTIN 5MG TAB 5MG ORALLY EVERY DAY ACTIVE 9 Total Medications Notes: Today's Orders: ORDERS TODAY - NONE FOUND IMMUNIZATIONS: IM - Immunizations ADMINISTERED Immunization Series Date Facility Reaction Info COVID-19 (MODERNA), MRNA, LNP-S,* 2 12/18/2020 [place] COVID-19 (MODERNA), MRNA, LNP-S,* 1 11/13/2020 [place] PNEUMOCOCCAL CONJUGATE PCV20, PO* 11/17/2023 [facility] TDAP 04/04/2023 [place] CONTRAINDICATED No data available REFUSED ======= Immunization Date Facility Info COVID-19 (MODERNA), MRNA, LNP-S,* 01/12/2024 [facility] <I> ZOSTER RECOMBINANT 01/12/2024 [facility] <I> ZOSTER RECOMBINANT 11/17/2023 [facility] <I> <I> See the Detailed Immunizations Health Summary Component[DIM] for Additional Information * Value is truncated; see the Detailed Immunizations Health Summary Component[DIM] for complete text ST - Skin Tests No data available This note was provided to the . I have reviewed the most recent list of outpatient medications listed above, provided them a list, and discussed it with the Silva, family, or significant other and the /caregiver verbalized understanding. Mary Gastelum, ZAHRAA Primary Care To: PRINCE CASTELLANOS JR Dated: JAN 12, 2024 MARY GASTELUM [facility] Jan 12, 2024 02:23 PM NURSING OUTPATIENT NOTE: LOCAL TITLE: OUTPATIENT NURSING NOTE STANDARD TITLE: NURSING OUTPATIENT NOTE DATE OF NOTE: JAN 12, 2024@14:23 ENTRY DATE: JAN 12, 2024@14:23:14 AUTHOR: RONNIE VALDOVINOS EXP COSIGNER: URGENCY: STATUS: COMPLETED What is most important for you to have addressed today by your provider? Silva is here for f/u visit. No concerns voiced. Provider follow-up needed for the following positive screens: None Non-VA supplied medications: ALLERGIES Previously documented allergies: Patient has answered NKA Allergies reviewed (Latex, medications, food), no changes noted. Newly identified allergies: Most Recent Vitals: Temp : 97.6 F [36.4 C] (01/12/2024 14:19) Pulse : 48 (01/12/2024 14:19) Resp : 16 (01/12/2024 14:19) B/P : 149/75 (01/12/2024 14:22) Ht : 67 in [170.2 cm] (01/12/2024 14:19) Wt : 123 lb [55.79 kg] (01/12/2024 14:) Pain : 0 (01/12/2024 14:) O2 sat: 01/12/24 @ 1419 PULSE OXIMETRY: 98 BMI : 19.3 HIGH BLOOD PRESSURE READINGS AND REASSESSMENTS IF GREATER THAN 140/90: Blood Pressure Goals (recheck blood pressure if you get an initial or subsequent readings greater than the below): BP taken both arms and recorded BP on highest limb. left x Entered Blood Pressure Readings into Vital Signs package in CPRS. Possible reasons for high blood pressure readingsPatient has home BP monitoring equipment. ABUSE/NEGLECT SCREEN: If any positive response(s), notify supervisor evaporator and contact Sales And Merchandising Associate. No evidence of abuse. MEDICATION RECONCILIATION: Medications have been reviewed and are accurate per patient or special needs child caregiver. /gwyn/ RONNIE VALDOVINOS OPERATIONAL REVIEW SERGEANT Primary Care Signed: 01/12/2024 14:25 RONNIE VALDOVINOS [facility] Jan 12, 2024 02:20 PM NURSING RISK ASSES SMENT SCREENING NOTE: LOCAL TITLE: HEALTH PROMOTION STANDARD TITLE: NURSING RISK ASSESSMENT SCREENING NOTE DATE OF NOTE: JAN 12, 2024@14:20 ENTRY DATE: JAN 12, 2024@14:20:15 AUTHOR: RONNIE VALDOVINOS EXP COSIGNER: URGENCY: STATUS: COMPLETED Clinical Reminders Activity Eye Care At-Risk Screen : Patient identified to be at risk for the following eye condition(s): DIABETIC RETINOPATHY: Diabetes Diagnosis Information: Encounter Diagnosis: 11/17/2023@14:30 E11.9 (ICD-10-CM) Type 2 Diabetes Mellitus without Complications rank: PRIMARY Prov. Narr. - Diabetes Mellitus Type [address] [id number]) MACULAR DEGENERATION: Macular Degeneration Risk Factors Information: Reminder Term: VA-AMD RISK FACTORS Encounter Diagnosis: 11/17/2023@14:30 Z72.0 (ICD-10-CM) Tobacco use rank: SECONDARY Prov. Narr. - Tobacco user (SNOMED CT [id number]) Action: No Referral Ordered: Eye exam completed elsewhere by an Supervisor Glycerin or Engineering Laboratory Technician Diabetic retinal exam result: Results Unknown (recommended that patient proceed with eye care request or obtain outside retinal exam result within 90 days) Date: Oct, 2023 ? Exact date is unknown Location: [place] RHS Screen: RHS Screen Session Format: Face to Face Environmental Check Upon inquiry, the individual reports that the environment is safe to proceed. Informed Consent to Screen and Document The individual consents to proceed with screening. RHS screen was conducted with the individual's consent utilizing a standardized copyrighted tool. Education and resources/referrals provided as needed. EDUCATION: The individual indicated readiness to learn. Education offered during this session as noted above. The individual indicated understanding by asking relevant questions and making appropriate comments. No barriers to learning were observed or identified. COVID-19 Immunization: Refused Moderna Monovalent COVID-19 vaccine Immunization: COVID-19 (MODERNA), MRNA, LNP-S, PF, 50 MCG/0.5 ML (AGES 12+ YEARS) Refusal Reason: PATIENT DECISION Patient refuses all immunization(s) in the COVID-19 group Date Documented: 01/12/24 14:21 Herpes Zoster (Shingles) Vaccine: The patient declines to receive the recommended dose of zoster (shingles) vaccine. Immunization: ZOSTER RECOMBINANT Refusal Reason: PATIENT DECISION Patient refuses all immunization(s) in the ZOSTER group Date Documented: 01/12/24 14:21 /gwyn/ RONNIE VALDOVINOS LPN Primary Care Signed: 01/12/2024 14:21 RONNIE VALDOVINOS [facility] Jan 12, 2024 12:39 PM PRIMARY CARE NOTE: LOCAL TITLE: AMB CARE NOTE STANDARD TITLE: PRIMARY CARE NOTE DATE OF NOTE: JAN 12, 2024@12:39 ENTRY DATE: JAN 12, 2024@12:39:52 AUTHOR: MARY GASTELUM EXP COSIGNER: URGENCY: STATUS: COMPLETED PRINCE CASTELLANOS JR is a 73 year old patient. ====== ASSESSMENT/PLAN: ====== INVASIVE SQUAMOUS CELL CARCINOMA Diagnosed 08/2023 - per [facility], oncology told him his life expectancy is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
--- OUTSIDE RECORDS SUMMARY | 2024-02-24 10:58 | XMS_ITS | Encounter Summary ---
Author Name [facility] Address [address] [place] [address] Care Team Providers Care Proposal Development Manager Name Role Phone SIVA CENTENO Primary Care Provider Unavailabl e MARY KRUEGER Primary Care Provider Unavailabl e Insurance Providers: [...] MEDIC A KATHYC E Jun 30, 2007 [id number] Cece CASTELLANOS SPOUSE [facility] MEDIC A PASSP ORT Jun 30, 2007 [id number] Cece CASTELLANOS SPOUSE MEDICARE (WNR) MEDICARE (M) PART A Mar 30, 2013 PART A [id number] WILFREDO CASTELLANOS JR PATIENT MEDICARE (WNR) MEDICARE (M) PART B Mar 30, 2013 PART B [id number] WILFREDO CASTELLANOS JR PATIENT MEDICARE (WNR) MEDICARE (M) PART A Mar 30, 2013 PART A [id number] Cece CASTELLANOS EONARD PATIENT MEDICARE (WNR) MEDICARE (M) PART B Mar 30, 2013 PART B [id number] Cece CASTELLANOS EONARD PATIENT MEDIMPACT RX PRESCRIPT ION Jun 30, 2007 [id number] Cece CASTELLANOS OIS SPOUSE Selected Encounter This section includes the information on record at [place] for the Encounter. Date/Time Encounter Type Encounter Description Reason Pro vider Source Feb 24, 2024 03:58 PM Outpatient Encounter ADMIN PAT ACTIVTIES (MASNONCT) I[facility] Encounter Template Text not used by [place] Plan of Treatment: Future Appointments (+ 6 months) and Future Tests (+/- 45 days) The Plan of Treatment section includes future care activities for the patient from all [place] [facility]. This section includes future appointments and future orders which are active, pending or scheduled. Future Appointments This section includes appointments that were scheduled to occur 6 months from the date of the Encounter, up to a maximum of 20 appointments. The data comes from all [place] treatment facilities. Appointment Date/Time Appointment Type Appointme nt Facility Name Mar 09, 2024 10:30 AM AMBULATORY - PSYCHIATRY [facility] Aug 17, 2024 01:30 PM AMBULATORY - SURGERY [facility] Aug 17, 2024 02:30 PM AMBULATORY - MEDICINE [facility] Social History: Smoking Status (Most current) and Tobacco Use (All prior to encounter date) This section includes the most current, and the historical, smoking and tobacco- related health factors from the [place] facility where the Encounter took place. Current Smoking Status This section includes the most current smoking, or tobacco-related health factor, from the [place] facility where the Encounter took place. Date/Time Current Smoking Status Comment Facil ity November 17, 2023 02:30 PM VA-TOBACCO USER EVERY DAY [facility] Tobacco Use History This section includes a history of the smoking, or tobacco-related health factors, that were collected on or before the date of the Encounter. The data comes from the [place] facility where the Encounter took place. 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 This section includes ALL of a patient's completed or amended [place] Advance and Rescinded Directives. The entries below indicate that a directive exists for the patient, but an actual copy is not included with this document. The data comes from all [place] facilities. Date Advance Directives Provider Source November 15, 2001 ADVANCE DIRECTIVE FELIX BALTAZAR [facility] Encounter Notes: All associated encounter notes This section contains the clinical notes associated to the Encounter. Date/Time Encounter Note(s) Provider Source Feb 24, 2024 03:58 PM NONVA NOTE: LOCAL TITLE: COMMUNITY CARE-CARE COORDINATION PLAN NOTE STANDARD TITLE: NONVA NOTE DATE OF NOTE: FEB 24, 2024@15:58 ENTRY DATE: FEB 24, 2024@15:58:50 AUTHOR: CHANI LORENZANA EXP COSIGNER: URGENCY: STATUS: COMPLETED Community Care Consult: mental health Consult No: [id number] [facility] Referral #: [id number] Chief Complaint: ptsd Patient Admitted? No Level of Care Coordination Basic Care Coordination was determined from: Chart Review Facility Community Care Office Contact Care Coordination Point of Contact: Chani Collins RN [phone] Services: Navigation Scheduling Post-Appointment Follow-Up E-Communications to referring provider Plan: Approved /gwyn/ CHANI LORENZANA RN Signed: 02/24/2024 15:59 [facility]
--- OUTSIDE RECORDS SUMMARY | 2024-03-02 06:12 | XMS_ITS ---
Author Name [facility] [place] [facility] [place] Organization [facility] [place] [facility] [place] Address [address] [place] [address] Care Team Providers Care Umbrella Supervisor Name Role Phone SIVA CENTENO Primary Care [...] PREFERRED PROVIDER ORGANIZAT ION (PPO) MEDIC A CHOIC E Jun 30, 2007 [id number] [phone] Cece CASTELLANOS SPOUSE [facility] MEDIC A PASSP ORT Jun 30, 2007 [id number] [phone] Cece CASTELLANOS SPOUSE MEDICARE (WNR) MEDICARE (M) PART A Mar 30, 2013 PART A [id number] WILFREDO CASTELLANOS JR PATIENT MEDICARE (WNR) MEDICARE () PART B Mar 30, 2013 PART B [id number] WILFREDO CASTELLANOS JR PATIENT MEDICARE (WNR) MEDICARE (M) PART A Mar 30, 2013 PART A [id number] Cece CASTELLANOS EONARD PATIENT MEDICARE (WNR) MEDICARE (M) PART B Mar 30, 2013 PART B [id number] [phone] Cece CASTELLANOS EOSHARON PATIENT MEDIMPACT RX PRESCRIPT ION Jun 30, 2007 [id number] Cece CASTELLANOS OIS SPOUSE Selected Encounter This section includes the information on record at [place] for the Encounter. Date/Time Encounter Type Encounter Description Reason Provider Source Mar 02, 2024 11:12 AM QNHP OL DIG ASSMT&MGMT 11-20 PCMHI INDIV ICD-10-CM Z72.0 Tobacco use LORENZO PABLO Yoshi Encounter Template Text not used by [place] Assessments - Encounter Diagnoses This section includes the primary and secondary diagnoses documented for the Encounter. Date/Time Primary/Secondary Diagnosis Diagnosis Name Provider Source Mar 02, 2024 03:32 PM PRIMARY Tobacco use LORENZO PABLO [facility] Mar 02, 2024 03:32 PM SECONDARY Post-traumatic stress disorder, unspecified LORENZO PABLO [facility] Plan of Treatment: Future Appointments (+ 6 months) and Future Tests (+/- 45 days) The Plan of Treatment section includes future care activities for the patient from [facility]. This section includes future appointments and future orders which are active, pending or scheduled. Future Appointments This section includes appointments that were scheduled to occur 6 months from the date of the Encounter, up to a maximum of 20 appointments. The data comes from all [place] treatment facilities. Appointment Date/Time Appointment Type Appointme nt Facility Name Mar 09, 2024 10:30 AM AMBULATORY - PSYCHIATRY [facility] Aug 17, 2024 01:30 PM AMBULATORY - SURGERY [facility] Aug 17, 2024 02:30 PM AMBULATORY - MEDICINE [facility] Social History: Smoking Status (Most current) and Tobacco Use (All prior to encounter date) This section includes the most current, and the historical, smoking and tobacco- related health factors from the [place] facility where the Encounter took place. Current Smoking Status This section includes the most current smoking, or tobacco-related health factor, from the [place] facility where the Encounter took place. Date/Time Current Smoking Status Comment Facil ity November 17, 2023 02:30 PM VA-TOBACCO USER EVERY DAY [facility] Tobacco Use History This section includes a history of the smoking, or tobacco-related health factors, that were collected on or before the date of the Encounter. The data comes from the [place] facility where the Encounter took place. 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 This section includes ALL of a patient's completed or amended [place] Advance and Rescinded Directives. The entries below indicate that a directive exists for the patient, but an actual copy is not included with this document. The data comes from all [facility]. Date Advance Directives Provider Source November 15, 2001 ADVANCE DIRECTIVE FELIX BALTAZAR [facility] Encounter Notes: All associated encounter notes This section contains the clinical notes associated to the Encounter. Date/Time Encounter Note(s) Provider Source Mar 02, 2024 11:12 AM CONSULT: LOCAL TITLE: [facility] CONSULT CLINICAL PHARMACY STANDARD TITLE: CONSULT DATE OF NOTE: MAR 02, 2024@11:12 ENTRY DATE: MAR 02, 2024@11:12:39 AUTHOR: LORENZO PABLO EXP COSIGNER: URGENCY: STATUS: COMPLETED Reason For Request: Only wants help with tobacco cessation. NRT patches and gum not effective previously. He has never tried Chantix or Zyban. Currently also prescribed paroxetine. Requesting MH to review to see if either would be appropriate to try. ======= Active Inpatient, Outpatient and Clinic Medications (including Supplies): Active Outpatient Medications Status 1) ATORVASTATIN CALCIUM 40MG TAB TAKE ONE TABLET ORALLY ACTIVE AT BEDTIME FOR CHOLESTEROL 2) EMPAGLIFLOZIN 10MG TAB TAKE ONE TABLET ORALLY EVERY ACTIVE MORNING FOR DIABETES 3) METFORMIN HCL 750MG 24HR SA TAB TAKE ONE TABLET HOLD ORALLY EVERY EVENING FOR DIABETES WITH FOOD 4) PAROXETINE HCL 30MG TAB TAKE ONE TABLET ORALLY EVERY ACTIVE DAY FOR PTSD 5) PIOGLITAZONE HCL 45MG TAB TAKE ONE TABLET ORALLY ACTIVE EVERY DAY FOR DIABETES 6) TABLET CUTTER USE TABLET CUTTER NEEDED ACTIVE 7) TAMSULOSIN HCL 0.4MG CAP TAKE ONE CAPSULE ORALLY HOLD EVERY DAY FOR PROSTATE 30 MINUTES AFTER THE SAME MEAL EACH DAY Active Non-VA Medications Status 1) Non-VA CHOLECALCIFEROL (VIT D3) TAB ORALLY ACTIVE 2) Non-VA CYANOCOBALAMIN 1000MCG TAB 5000MCG ORALLY ACTIVE EVERY DAY 3) Non-VA DIPHENHYDRAMINE HCL 25MG CAP 25MG ORALLY ACTIVE NEEDED 10 Total Medications ALLERGIES: Patient has answered NKA Tobacco History: Current Use (Smoking/Chewing Tobacco/Vaping): smoking 1/2 pack/day. Past quit attempts & medication trials: Nicotine lozenges started 11/17/23. Per consult has tried nicotine patches. Neither of these have been effective. OBJECTIVE: LABS 01/12/2024 EGFR-CREATININE 0.70 01/12/2024 ALT 20.00 01/12/2024 AST* 18.00 ASSESSMENT 1. Only currently takes paroxetine 30 mg daily for PTSD. Only denies other medication trials. 2. has tried nicotine lozenges and patches and these were ineffective. Option to try varenicline or bupropion next for smoking cessation. PLAN Recommend to try bupropion next. Discontinue nicotine products. This is okay to take with his current medication, paroxetine. Bupropion SR (12 hour formulation): Days 1 to 3: 150 mg once daily Maintenance (Day 4): 150 mg twice daily without regard to food for 8-12 weeks total therapy Target quit date 1-2 weeks after start of therapy. Monitor for: anxiety, dry mouth, dizziness, behavior changes (depression, SI/HI, agitation), nausea/loss of appetite Thanks for the consult! Clinical Reminders Activity PBM PharmD Pharmacotherapy Rem V12: PHARMACIST INTERVENTIONS: TOBACCO USE DISORDER Medication Intervention(s) Discontinue and/or change to different medication /es/ LORENZO PABLO PHARMD Signed: 03/02/2024 15:32 LORENZO PABLO [facility]
--- OUTSIDE RECORDS SUMMARY | 2024-03-04 09:37 | XMS_ITS ---
Author Name [facility] [place] [facility] [place] Organization [place] Address [address] [place] [address] Care Team Providers Care Strategic Procurement Manager Name Role Phone SIVA CENTENO Primary [...] MEDIC A KATHYC E Jun 30, 2007 [id number] Cece CASTELLANOS SPOUSE [facility] MEDIC A PASSP ORT Jun 30, 2007 [id number] [phone] Cece CASTELLANOS SPOUSE MEDICARE (WNR) MEDICARE (M) PART A Mar 30, 2013 PART A [id number] WILFREDO CASTELLANOS JR PATIENT MEDICARE (WNR) MEDICARE (M) PART B Mar 30, 2013 PART B [id number] WILFREDO CASTELLANOS JR PATIENT MEDICARE (WNR) MEDICARE (M) PART A Mar 30, 2013 PART A [id number] Cece CASTELLANOS EONARD PATIENT MEDICARE (WNR) MEDICARE (M) PART B Mar 30, 2013 PART B [id number] Cece CASTELLANOS EONARD PATIENT MEDIMPACT RX PRESCRIPT ION Jun 30, 2007 [id number] Cece CASTELLANOS OIS SPOUSE Selected Encounter This section includes the information on record at [place] for the Encounter. Date/Time Encounter Type Encounter Description Reason Pro vider Source Mar 04, 2024 02:37 PM Outpatient Encounter ADMIN PAT ACTIVTIES (MASNONCT) IHE Encounter Template Text not used by [place] Plan of Treatment: Future Appointments (+ 6 months) and Future Tests (+/- 45 days) The Plan of Treatment section includes future care activities for the patient from all [place] [facility]. This section includes future appointments and future orders which are active, pending or scheduled. Future Appointments This section includes appointments that were scheduled to occur 6 months from the date of the Encounter, up to a maximum of 20 appointments. The data comes from all [place] treatment facilities. Appointment Date/Time Appointment Type Appointme nt Facility Name Mar 09, 2024 10:30 AM AMBULATORY - PS[facility]CHIATRY [facility] Aug 17, 2024 01:30 PM AMBULATORY - SURGERY [facility] Aug 17, 2024 02:30 PM AMBULATORY - MEDICINE [facility] Social History: Smoking Status (Most current) and Tobacco Use (All prior to encounter date) This section includes the most current, and the historical, smoking and tobacco- related health factors from the [place] facility where the Encounter took place. Current Smoking Status This section includes the most current smoking, or tobacco-related health factor, from the [place] facility where the Encounter took place. Date/Time Current Smoking Status Comment Facil ity November 17, 2023 02:30 PM VA-TOBACCO USER EVERY DAY [facility] Tobacco Use History This section includes a history of the smoking, or tobacco-related health factors, that were collected on or before the date of the Encounter. The data comes from the [place] facility where the Encounter took place. Date/Time Smoking Status/Tobacco Use Comment F acility November 17, 2023 02:30 PM VA-TOBACCO USE ADVICE [facility] November 17, 2023 02:30 PM VA-TOBACCO USE ENGINE SPECIALIST NO [facility] November 17, 2023 02:30 PM VA-TOBACCO USE MED NO [facility] November 17, 2023 02:30 PM VA-TOBACCO USE WI 30 MIN OF WAKE UP [facility] November 17, 2023 02:30 PM VA-TOBACCO USER EVERY DAY [facility] Advance Directives: All historical and current Section Date Range: From patient's date of to the date document was created. This section includes ALL of a patient's completed or amended [place] Advance and Rescinded Directives. The entries below indicate that a directive exists for the patient, but an actual copy is not included with this document. The data comes from all [place] facilities. Date Advance Directives Provider Source November 15, 2001 ADVANCE DIRECTIVE FELIX [address]TAZAR [facility] Encounter Notes: All associated encounter notes This section contains the clinical notes associated to the Encounter. Date/Time Encounter Note(s) Provider Source Mar 04, 2024 02:37 PM LETTERS: LOCAL TITLE: SCHEDULING NO CONTACT LETTER STANDARD TITLE: LETTERS DATE OF NOTE: MAR 04, 2024@14:37 ENTRY DATE: MAR 04, 2024@14:38:02 AUTHOR: DAYAN EMERY COSIGNER: URGENCY: STATUS: COMPLETED DEPARTMENT OF [address] [address] MAR 04, 2024 PRINCE CASTELLANOS [address] [place] [id number] Dear PRINCE CASTELLANOS, This letter is sent regarding a CLINICAL PHARMACY appointment for you, which KRISTINE BUCK requested. We have unfortunately been unable to reach you by phone. If we have not heard from you by Feb, we will make no further attempts to contact you about this appointment. Our Scheduling Department is always willing to assist you should you choose to seek the care referenced in this letter. Please contact [place] scheduling staff at [phone], or call toll-free at [phone]. Our business hours are Friday - Friday, 7:30 AM - 4:00 PM. If you call before or after these hours, feel free to leave a voicemail with a phone number where we can reach you. Our staff will be happy to call you back to schedule an appointment. Thank you. Sincerely, [facility] To: PRINCE CASTELLANOS JR Dated: MAR 05, 2024 DAYAN EMERY [facility]
--- OUTSIDE RECORDS SUMMARY | 2024-03-10 03:58 | XMS_ITS | Encounter Summary ---
Author Name [facility] [place] Organization [place] Address [address] [place] [id number] Care Team Providers Care Edge Setter Name Role Phone SIVA CENTENO Primary Care [...] MEDIC A CHOIC E Jun 30, 2007 [id number] Cece CASTELLANOS SPOUSE [facility] M[facility] HE[facility] MEDIC A PASSP ORT Jun 30, 2007 [id number] Cece CASTELLANOS SPOUSE MEDICARE (WNR) MEDICARE (M) PART A Mar 30, 2013 PART A [id number] WILFREDO CASTELLANOS JR PATIENT MEDICARE (WNR) MEDICARE () PART B Mar 30, 2013 PART B [id number] WILFREDO CASTELLANOS JR PATIENT MEDICARE (WNR) MEDICARE () PART A Mar 30, 2013 PART A [id number] Cece CASTELLANOS EOSHARON PATIENT MEDICARE (WNR) MEDICARE (M) PART B Mar 30, 2013 PART B [id number] Cece CASTELLANOS EOJUANPABLOD PATIENT MEDIMPACT RX PRESCRIPT ION Jun 30, 2007 [id number] Cece CASTELLANOS OIS SPOUSE Selected Encounter This section includes the information on record at [place] for the Encounter. Date/Time Encounter Type Encounter Description Reason Pro vider Source Mar 10, 2024 08:58 AM Outpatient Encounter COMMUNITY CARE CONSULT IHE Encounter Template Text not used by [place] Plan of Treatment: Future Appointments (+ 6 months) and Future Tests (+/- 45 days) The Plan of Treatment section includes future care activities for the patient from all [place] [facility]. This section includes future appointments and future orders which are active, pending or scheduled. Future Appointments This section includes appointments that were scheduled to occur 6 months from the date of the Encounter, up to a maximum of 20 appointments. The data comes from all [place] treatment facilities. Appointment Date/Time Appointment Type Appointme nt Facility Name Aug 17, 2024 01:30 PM AMBULATORY - SURGERY [facility] Aug 17, 2024 02:30 PM AMBULATORY - MEDICINE [facility] Social History: Smoking Status (Most current) and Tobacco Use (All prior to encounter date) This section includes the most current, and the historical, smoking and tobacco- related health factors from the [place] facility where the Encounter took place. Current Smoking Status This section includes the most current smoking, or tobacco-related health factor, from the [place] facility where the Encounter took place. Date/Time Current Smoking Status Comment Goldie itroberth November 17, 2023 02:30 PM VA-TOBACCO USER EVERY DAY [facility] Tobacco Use History This section includes a history of the smoking, or tobacco-related health factors, that were collected on or before the date of the Encounter. The data comes from the [place] facility where the Encounter took place. Date/Time Smoking Status/Tobacco Use Comment F acility November 17, 2023 02:30 PM VA-TOBACCO USE ADVICE [facility] November 17, 2023 02:30 PM VA-TOBACCO USE ASSOCIATE PROFESSOR COMPUTER SCIENCE NO [facility] November 17, 2023 02:30 PM VA-TOBACCO USE MED NO [facility] November 17, 2023 02:30 PM VA-TOBACCO USE WI 30 MIN OF WAKE UP [facility] November 17, 2023 02:30 PM VA-TOBACCO USER EVERY DAY [facility] Advance Directives: All historical and current Section Date Range: From patient's date of to the date document was created. This section includes ALL of a patient's completed or amended [place] Advance and Rescinded Directives. The entries below indicate that a directive exists for the patient, but an actual copy is not included with this document. The data comes from all [place] facilities. Date Advance Directives Provider Source November 15, 2001 ADVANCE DIRECTIVE FELIX BALTAZAR [facility] Encounter Notes: All associated encounter notes This section contains the clinical notes associated to the Encounter. Date/Time Encounter Note(s) Provider Source Mar 10, 2024 08:58 AM NONVA NOTE: LOCAL TITLE: COMMUNITY CARE UNABLE TO CONTACT LETTER (AUTOPRINT) STANDARD TITLE: NONVA NOTE DATE OF NOTE: MAR 10, 2024@08:58 ENTRY DATE: MAR 10, 2024@08:58:44 AUTHOR: JOSE A GARRETT COSIGNER: URGENCY: STATUS: COMPLETED Feb PRINCE CASTELLANOS [address] [place], [place] [id number] Dear PRINCE CASTELLANOS, Your Community Care team was unsuccessful in reaching you by telephone. This is regarding your referral for MENTAL HEALTH-COUNSELING. It is important to contact your community care team so we can assist you in meeting your health care needs. You have been referred to care in the community, but you must contact us first. This referral authorization will be canceled in 14 days from the date of this letter if your community care team does not hear from you. Please note: This letter is only used to inform you of our attempt to contact you for care in the community. If you receive this letter after an appointment has been made for you or if you have spoken to community care, please disregard this letter and dispose of properly. If you have questions regarding your care, please contact [facility] Office of Community Care by calling [phone] during the hours of 8:00am - 4:00pm M-F. Thank you for the opportunity to serve you. Sincerely, [place] [facility] ([facility]) JOSE A GARRETT [facility]
--- OUTSIDE RECORDS SUMMARY | 2024-12-01 14:30 | XMS_ITS | Encounter Summary ---
Author Organization [facility] Address [address], [place] [address] Care Team Providers Care Boiler Water Tester Name Role Phone Jarod Pascual MD Primary Care Provider [phone] Reason for Visit * Reason Comments Excision SCC- Left Forearm * Consult/Transfer Care (Routine) - New Request Specialty Diagnoses / Procedures Referred By Brnet mary Referred To Contact Diagnoses Squamous cell carcinoma of skin of left upper [place], [place] [address] [place] [address] Phone: tel: fax: Referral ID Status Reason Start Date Expiration Date V isits Requested Visits Authorized [id number] New Request 11/17/2024 02/16/2026 1 1 Encounter Details Date Type Department Care Team (Late st Contact Info) Description 12/01/2024 2:30 PM CDT Office Visit [place] [address] [address] [place] [address] [phone] [place] [address] [place] [address] Squamous cell carcinoma of skin (Primary Dx) Social History Tobacco Use Types Packs/Day Years Used Date Smoking Tobacco: Every Day Cigarettes Smokeless Tobacco: Never Comments:Half a pack a day o f Cigarettes and is on a quitting program. Alcohol Use Standard Drinks/Week Comments Yes 0 (1 standard drink = 0.6 oz pur e alcohol) rarely PHQ-2 Answer Date Recorded PHQ-2 Score 1 06/10/2024 Sex and Gender Information Value Date Recorded Sex Assigned at Not on file Legal Sex Male 4:29 AM CDT Gender Identity Not on file Sexual Orientation Not on file documented as of this encounter Patient Instructions * Patient Instructions* Karen Soliman LPN - 12/01/2024 2:30 PM CDT Surgical Wound Care Instructions Keep pressure bandage in place for 2 days (48hrs). Keep dressing dry and avoid water directly on the wound. If the bandage becomes wet you may remove the dressing (tape and gauze) and reapply a Layerof Vaseline and a fresh bandage. Do Not disturb the underlying wound. Beginning 2 days after surgery you will clean the wound once a day. Remove the tape and Telfa pad. You can allow the shower water to moisten the tape to help loosen it. Clean the wound with Hydrogen Peroxide or Sterile Saline on a Q-tip. Use a fresh Q-tip each time and roll it over the wound and remove any crust, scale or scab on the incision line. Then apply a layer of Vaseline or Aquaphor to the wound and cover it with a Bandage. Avoid Neosporin as it can cause an allergic reaction. Swelling is common around the surgical site and can be most pronounced around the eyes. Sleep with your head or the affected body part elevated on 2 pillows to reduce swelling. Avoid strenuous exercise or activity, heavy lifting and bending over the next 1- 2 weeks. Please avoid Aspirin, nonsteroidal anti-inflammatory agents such as Advil and Motrin as well as Alcohol as these medications will increase your risk of bleeding. If you have been prescribed Aspirin, Coumadin or other platelet inhibiting medications by your doctor please let us know. If you have pain or discomfort, you may take Tylenol 1-2 tablets as needed per the directions on the label. If your pain is not controlled please let us know. If bleeding occurs apply direct pressure to the site for 15 minutes with no peeking. An ice pack wrapped in a towel for a minute at a time may help as well. If bleeding persists for more than 15 minutes please contact the office at the phone numbers below. Phone Numbers: Direct Nurse Line: Friday - Friday (7:00 am 3:00 pm) Dr. Ramirez???s: Weekends, Holidays or For Urgent needs documented in this encounter Progress Notes * Yennifer Ramirez MD - 12/01/2024 2:30 PM CDT Excision Left Forearm - Anterior, shave: - Invasive well-differentiated squamous cell carcinoma, HPI: Ever Houser is a 74 y.o. male who presents for evaluation and possible surgical treatment left forearm anterior invasive well differentiate squamous cell cancer . REVIEW OF SYSTEMS : negative pacemaker, negative defibrillator, negative artificial heart valve, negative artificial joint, negative arrhythmia, negative htn, positive diabetes, negative renal dz, negative hepatic dz, negative bleeding disorder. Past Medical History: Reviewed in health profile. 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 6.5mm invasion depth. Bx05/2023, surgery 08/2023 completed at [facility] SCC vertex scalp s/p excision 07/2023 completed at [facility] Tobacco use ([facility]) Type 2 diabetes mellitus (C) 06/10/2024 Past Surgical History: Procedure Laterality Date ACL RECONSTRUCTION Left CERVICAL FUSION 2022 NECK DISSECTION 08/11/2023 PAROTIDECTOMY Left 08/11/2023 positive h/o skin cancer. Social History: positive tobacco use. Rarely drinks per week EtOH use. Medications: Reviewed in patients health profile. Notably patient takes Current Outpatient Medications Medication Instructions atorvastatin (LIPITOR) 20 mg, Oral, DAILY blood glucose (ONETOUCH VERIO) test strip 1 Each, To Test, DAILY calcipotriene (DOVONEX) 0.005 % cream Use twice a day efudex until red, then stop (expect this about day 4, stop at day 8 if no reaction) cholecalciferol (VITAMIND3) 2,000 Units, Oral, DAILY Continuous Glucose Utility [employer] (FREESTYLE BRITTANI 3 READER) HIRAL Use to read blood glucose per urgent care's instruction. Continuous Glucose Sensor (FREESTYLE BRITTANI 3 PLUS SENSOR) MISC Change every 15 days diphenoxylate-atropine (LOMOTIL) 2.5-0.025 MG tablet 1 Tablet, Oral, QID PRN fluorouracil (EFUDEX) 5 % cream Use twice a day with calcipotriene until red, then stop (expect this about day 4, stop at day 8 if no reaction) Lancets (TiinkkTOUCH DELICA PLUS) MISC lancets 1 Each, To Test, DAILY levothyroxine (SYNTHROID) 100 mcg, Oral, DAILY lidocaine-prilocaine (EMLA) 2.5-2.5 % cream Apply quarter-sized amount to port 30-60 minutes prior to treatment as needed. linagliptin (TRADJENTA) 5 mg, Oral, DAILY metFORMIN XR (GLUCOPHAGE XR) 750 mg, Oral, BID WITH MEALS mupirocin (BACTROBAN) 2 % ointment Topical, BID ondansetron (ZOFRAN) 8 mg, Oral, Q8H PRN YepLike!UCH VERIO FLEX w/Device meter Use as directed. PARoxetine (PAXIL) 10 mg, DAILY PARoxetine (PAXIL) 30 mg, Oral, DAILY pioglitazone (ACTOS) 45 mg, Oral, DAILY tamsulosin (FLOMAX) 0.4 mg, Oral, DAILY No Known Allergies OBJECTIVE : Vital Signs: BP 138/66 P 73 Constitutional: Alert, WDWN, cooperative in no acute distress. Head : Biopsy site easily identified left cheek and site was confirmed by pt and photo No results found for: INR Path report was reviewed with pt ASSESSMENT/PLAN: 1. Left Malar Cheek,- Squamous cell carcinoma in situ, --Pt was educated regarding dx --Sun precautions and sunscreen use were reviewed, encouraged --Discussed all management options with patient, including benefits and risks of each: no treatment, excision with 5 mm margins and repair, Mohs micrographic surgery --Pt elected Mohs micrographic surgery and understands the risks of scar (including scar widening, hypertrophic/keloid scar, erythematous/hyperpigmented/hypopigmented scar), bleeding, infection, numbness, recurrence, dehiscence, necrosis --Mohs surgery is indicated due to anatomic location --Patient would like to go forward with procedure today, which was subsequently done --Please see operative note and consent form for further details F/U in 2 week(s) for s/r. Also follow-up with referring provider per their instructions or sooner prn. documented in this encounter Plan of Treatment Upcoming Encounters Date Type Department Care Team (Late st Contact Info) Description 01/14/2025 9:00 AM CDT Appointment [facility] [place] [address] [place] [address] [place] [address] 01/14/2025 10:30 AM CDT Appointment [facility] [address] [place] [address] Cecile Arteaga MD [address] [place] [address] 01/18/2025 8:00 AM CDT Appointment [facility] On[facility] Treatment Rooms [address] [place] [id number] 01/18/2025 8:30 AM CDT Appointment [facility] Oncology [address] [place] [id number] Cecile Arteaga MD [address] [place] [phone] documented as of this encounter Goals Goal Patient Goal Type Associated Problems Recent Progress Patient-Stated? Author INFUSION ONCOLOGY - BASELINE Care Plan INFUSION ONCOLOGY - BASELINE No Triston Krause INFUSION ONCOLOGY - RECURRING Care Plan INFUSION ONCOLOGY - RECURRING No Kandy Paniagua RN documented as of this encounter Procedures Procedure Name Priority Date/Time Associated Diagnosis Comments SKIN REPAIR Routine 12/01/2024 3:10 PM CDT Squamous cell carcinoma of skin SKIN EXCISION Routine 12/01/2024 3:10 PM CDT Squamous cell carcinoma of skin SURGICAL PATHOLOGY, DERMATOLOGY Routine 12/01/2024 3:10 PM CDT Squamous cell carcinoma of skin documented in this encounter Results * Skin repair (No CPT) (12/01/2024 3:10 PM CDT) Narrative EXTERNAL RESULTS - 12/01/2024 3:10 PM CDT Complexity: Intermediate Final length (cm): 4.5 Informed consent: discussed and consent obtained Reason for type of repair: reduce tension to allow closure, reduce the risk of dehiscence, infection, and necrosis, reduce subcutaneous space and avoid a hematoma and allow closure of the large defect Undermining: edges undermined Subcutaneous layers (deep stitches): Suture size: 4-0 and 5-0 Suture type: Vicryl (polyglactin 910) and Monocryl (poliglecaprone 25) Stitches: Buried vertical mattress Fine/surface layer approximation (top stitches): Suture size: 4-0 Suture type: Prolene (polypropylene) Stitches: simple running Hemostasis achieved with: suture and electrodesiccation Outcome: patient tolerated procedure well with no complications Post-procedure details: sterile dressing applied and wound care instructions given Dressing type: pressure dressing (Mupirocin) us Yennifer Ramirez MD DERM PROCEDURE ORDERABLES Fi nal Result EXTERNAL RESULTS * Skin excision (No CPT) (12/01/2024 3:10 PM CDT) Narrative EXTERNAL RESULTS - 12/01/2024 3:10 PM CDT Excision method: elliptical Lesion length (cm): 1 Lesion width (cm): 0.9 Margin per side (cm): 0.5 Total excision diameter (cm): 2 Informed consent: discussed and consent obtained Timeout: patient name, date of , surgical site, and procedure verified Procedure prep: Patient was prepped and draped in usual sterile fashion Prep type: Chlorhexidine Anesthesia: the lesion was anesthetized in a standard fashion Anesthetic: 1% lidocaine w/ epinephrine 1-100,000 local infiltration Instrument used: #15 blade Hemostasis achieved with: suture and electrodesiccation Outcome: patient tolerated procedure well with no complications Post-procedure details: sterile dressing applied and wound care instructions given Dressing type: pressure dressing (Mupirocin) us Yennifer Ramirez MD DERM PROCEDURE ORDERABLES Fi nal Result EXTERNAL RESULTS * Surgical Path, Dermatology (12/01/2024 3:10 PM CDT) Case Report Surgical Pathology Report Case: [id number] Authorizing Provider: Yennifer Ramirez MD Collected: 12/01/2024 1510 Ordering Location: [place] [address] Received: 12/03/2024 0706 Dermatology Pathologist: Jerad Drummond MD Specimen: Skin, Left Forearm - Anterior 12/08/2024 2:53 PM [facility] 3800 DERMATOLOGY FINAL DIAGNOSIS A. Skin, Left Forearm - Anterior, excision: - Residual squamous cell carcinoma, excised Comment: The prior biopsy report ([id number]) was also reviewed. 12/08/2024 2:53 PM [facility] 3800 DERMATOLOGY at 1453 CDT Clinical Information Clinical Impression: SCC; [id number] 12/08/2024 2:53 PM [facility] 3800 DERMATOLOGY Microscopic Description Microscopic examination is performed. 12/08/2024 2:53 PM [facility] 3800 DERMATOLOGY Technical Information A portion of the technical staining was performed at [facility], [address] [place] [id number]. 12/08/2024 2:53 PM [facility] 3800 DERMATOLOGY Gross Description A: Received in formalin, labeled with the patient's name and Skin, Left Forearm - Anterior is a 40 x 12 x 4 mm elliptical excision of skin and subcutis with an orienting suture on one long margin, now designated 12:00. The 12:00 long margin is inked blue, and the 6:00 long margin is inked black. The specimen is then serially sectioned into 14 pieces and submitted entirely in cassette 1 through 6, with the 9:00 portion in cassette 1. DS 12/08/2024 2:53 PM CDT [facility] DERMATOLOGY Embedded Images 12/08/2024 2:53 PM CDT [facility] DER[facility] Skin (Skin) 12/01/2024 3:10 PM CDT 12/03/2024 7:06 AM CDT Comment:Clinical Impression: SCC; [id number] us Yennifer Ramirez MD LAB PATHOLOGY Final Result [facility] DER[facility]Y [address] [place] [address], [facility] documented in this encounter Visit Diagnoses Diagnosis Squamous cell carcinoma of skin- Primary Squamous cell carcinoma of skin, site unspecified documented in this encounter Additional Health Concerns Active Problems Noted Date Diagnosed Date INFUSION ONCOLOGY - BASELINE 06/29/2024 INFUSION ONCOLOGY - RECURRING 07/12/2024 documented as of this encounter Care Teams Boiler Water Tester Relationship Specialty Start Date End Date Jarod Pascual MD [address] [place] [address] PCP - General 05/10/24 documented as of this encounter
--- OUTSIDE RECORDS SUMMARY | 2024-12-07 10:27 | XMS_ITS | Encounter Summary ---
Author Organization [facility] Address [address] [place] [address] Care Team Providers Care Security Project Manager Name Role Phone Jarod Pascual MD Primary Care Provider [phone] Reason for Visit * Reason Comments SKIN CANCER * Infusion Therapy Plan (Routine) - Authorized Specialty Diagnoses / Procedures Referred By Brent t Referred To Contact Diagnoses Squamous cell carcinoma of skin Secondary and unspecified malignant neoplasm of lymph nodes of head, face and neck (HRC) Cecile Arteaga MD [address] [place] [address] Phone: tel: fax: [address] [address] Phone: tel: Referral ID Status Reason Start Date Expiration Date V isits Requested Visits Authorized [id number] Authorized 06/28/2024 09/27/2025 [id number] Encounter Details Date Type Department Care Team (Latest Contact Info) Description 12/07/2024 10:27 AM CDT - 12/07/2024 11:59 PM CDT Hospital Encounter [facility] [address] [place] [address] Demi Davis MD [address] [place] [address] Squamous cell carcinoma of skin (Primary Dx); 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); Type 2 diabetes mellitus with 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, without long-term current use of insulin (HRC) Discharge Disposition: Home Social History Tobacco Use Types Packs/Day Years [...] Sign Reading Time Taken Comments Blood Pressure 124/73 12/07/2024 12:41 PM CDT Pulse 66 12/07/2024 12:41 PM CDT Temperature 36.1 C (97 F) 12/07/2024 10:49 AM CDT Respiratory Rate - - Oxygen Saturation 98% 12/07/2024 10:49 AM CDT Inhaled Oxygen Concentration - - Weight 55.5 kg (122 lb 4.8 oz) 12/07/2024 10:49 AM CDT Height - - Body Mass Index 20.03 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 06/10/2024 blood glucose (ACCU-CHEK GUIDE TEST) test stripIndications :Type 2 diabetes mellitus with 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, without long-term current use of insulin (HRC) Use 1 Each to test daily. Use as directed 100 Each 3 12/07/2024 Blood Glucose Monitoring Suppl (ACCU-CHEK GUIDE ME) w/Device KITIndications:T ype 2 diabetes mellitus with 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, without long-term current use of insulin (HRC) Use as directed. 1 Kit 12/07/2024 calcipotriene (DOVONEX) 0.005 % creamIndications :Actinic keratosis Use twice a day efudex until red, then stop (expect this about day 4, stop at day 8 if no reaction) 60 g 1 09/22/2024 cholecalciferol (VITAMIND3) 50 MCG (2000 UT) tablet Take 1 Tablet (2,000 Units) by mouth daily. 06/10/2024 diphenoxylate-at ropine (LOMOTIL) 2.5-0.025 MG tablet Take 1 Tablet by mouth 4 times daily as needed for Diarrhea. 60 Tablet 2 09/13/2024 fluorouracil (EFUDEX) 5 % creamIndications :Actinic keratosis Use twice a day with calcipotriene until red, then stop (expect this about day 4, stop at day 8 if no reaction) 40 g 1 09/22/2024 lancets (ACCU-CHEK SOFTCLIX)Indicat ions:Type 2 diabetes mellitus with 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, without long-term current use of insulin (HRC) Use 1 Each to test daily. 100 Each 11 12/07/2024 levothyroxine (SYNTHROID) 75 MCG tablet Take 1 Tablet (75 mcg) by mouth daily. Take at least one hour before or two hours after meal. 90 Tablet 3 11/02/2024 lidocaine-priloc teddy (EMLA) 2.5-2.5 % cream Apply quarter-sized amount to port 30-60 minutes prior to treatment as needed. 30 g 1 07/12/2024 metFORMIN XR (GLUCOPHAGE XR) 750 MG 24 hour release tabletIndication s:Type 2 Diabetes Mellitus Take 1 Tablet (750 mg) by mouth two times a day with meals. Indications: Type 2 Diabetes 60 Tablet 1 08/02/2024 mupirocin (BACTROBAN) 2 % ointment Apply topically two times a day. 22 g 07/28/2024 nystatin creamIndications :Perleche Apply twice daily for flares, once daily for maintenance. May stop if well controlled, but restart for flares. 30 g 12 11/24/2024 ondansetron (ZOFRAN) 8 MG tablet Take 1 Tablet (8 mg) by mouth every 8 hours as needed for Nausea. 30 Tablet 2 09/13/2024 PARoxetine (PAXIL) 10 MG tabletIndication s:Posttraumatic Stress Disorder Take 1 Tablet (10 mg) by mouth daily. Indications: Posttraumatic Stress Disorder 06/10/2024 PARoxetine (PAXIL) 30 MG tabletIndication s:Posttraumatic Stress Disorder Take 1 Tablet (30 mg) by mouth daily. Indications: Posttraumatic Stress Disorder 06/10/2024 pioglitazone (ACTOS) 45 MG tabletIndication s:Type 2 Diabetes Mellitus Take 1 Tablet (45 mg) by mouth daily. Indications: Type 2 Diabetes 30 Tablet 1 08/02/2024 prochlorperazine (COMPAZINE) 10 MG tablet Take 1 Tablet (10 mg) by mouth every 6 hours as needed for Nausea. 60 Tablet 2 11/16/2024 tamsulosin 0.4 MG CAPS capsuleIndicatio ns:Benign Prostatic Hypertrophy Take 1 Capsule (0.4 mg) by mouth daily. Indications: Benign Enlargement of Prostate 30 Capsule 1 08/02/2024 documented as of this encounter Progress Notes * Liana Westbrook RN - 12/07/2024 10:30 AM CDT CHEMOTHERAPY / IMMUNOTHERAPY ADMINISTRATION F: Ever presents to clinic today for Libtayo D1C7 for skin cancer as managed by Dr Arteaga. Alert with Nguyen Betancourt APRN (video visit) today Premedications: none D: Vital signs including height/weight, pertinent lab values, and toxicity assessment were reviewedand are within treatment parameters. A: Any abnormal lab values drawn today were addressed as follows: no action needed. Prior to releasing the treatment plan, dosing calculations and primary treatment references were verified to ensuredose is within acceptable range. The treatment plan was reviewed with patient including medicationsto be given along with the route of administration, infusion time, and symptoms to report during infusions. Prior to antineoplastic drug administration, the following were independently verified by two chemotherapy competent personnel: two patient identifiers in the presence of the patient, drug name, drugdose, infusion/drug volume, route of administration, rate of administration, expiration dates/times, appearance and physical integrity of the drugs, rate set on infusion pump, sequencing of drug administration, clamps open. Premedications and antineoplastic medications administered as ordered and documented in the MAR. R: Patient tolerated treatment well. Patient/family education completed today included drugs received and patient/family verbalized understanding. Patient was discharged home in stable condition. Liana Westbrook RN 1:41 PM 12/07/2024 documented in this encounter Plan of Treatment Upcoming Encounters Date Type Department Care Team (Late st Contact Info) Description 01/14/2025 9:00 AM CDT Appointment [facility] [address] [place] [address] Cecile Arteaga MD [address] [place] [address] 01/14/2025 10:30 AM CDT Appointment [facility] [place] [address] Cecile Arteaga MD [address] [place] [address] 01/18/2025 8:00 AM CDT Appointment [facility] [address] [place] [address] 01/18/2025 8:30 AM CDT Appointment [facility] [address] [place] [address] Cecile Arteaga MD [address] [place], [place] [id number] documented as of this encounter Goals Goal Patient Goal Type Associated Problems Recent Progress Patient-Stated? 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) Squamous cell carcinoma of skin LIVER PANEL(HEPATIC FUNCTION PANEL) STAT 12/07/2024 10:28 AM CDT 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) Squamous cell carcinoma of skin TSH, SENSITIVE STAT 12/07/2024 10:28 AM CDT 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) Squamous cell carcinoma of skin BASIC METABOLIC PANEL STAT 12/07/2024 10:28 AM CDT 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) Squamous cell carcinoma of skin HGB A1C Routine 12/07/2024 10:28 AM CDT Type 2 diabetes mellitus with 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, without long-term current use of insulin (HRC) Squamous cell carcinoma of skin documented in this encounter Results * (ABNORMAL) Hgb A1c (12/07/2024 10:28 AM CDT) Hemoglobin A1C (Rapid) 7.5(H) <=5.6 % 12/07/2024 12:07 PM [facility] Estimated Average Glucose (Calc) 169 < 117 mg/dL 12/07/2024 12:07 PM [facility] Comment:Estimated average gl ucose (eAG) converts A1c into glucose units (mg/dL) and estimates average glucose over the past approximately 3 months. The eAG reference interval (<117 mg/dL) corresponds to an A1c of <5.7%. Blood Venipuncture / Unknown 12/07/2024 10:28 AM CDT 12/07/2024 10:56 AM [facility] - 12/07/2024 12:07 PM CDT For patients not previously diagnosed with diabetes: 5.7-6.4%: Increased risk for diabetes 6.5% and greater: Diagnostic for diabetes For patients diagnosed with diabetes: <8.0%: Goal of therapy for ages 18-75 Clinicians may recommend a higher or lower goal for specific individuals. The test method used for this Hemoglobin A1c result can experience interference from elevated hemoglobin and other hemoglobin variants. In patients with results that do not correlate clinically, contact the lab for further direction. us Nguyen Betancourt APRN, CNP LAB_1 Final Resu lt [facility] [address] [place] [address], [facility] * (ABNORMAL) Complete Blood Count-W/Diff (12/07/2024 10:28 AM CDT) WBC 10.1 3.5 - 10.5 x10(9)/L 12/07/2024 10:59 AM CDT [facility] RBC 4.17(L) 4.32 - 5.72 x10(12)/L 12/07/2024 10:59 AM T [facility] Hemoglobin 12.9(L) 13.5 - 17.5 g/dL 12/07/2024 10:59 AM [facility] HCT 38.0(L) 38.8 - 50.0 % 12/07/2024 10:59 AM [facility] MCV 91.1 80.0 - 100.0 fL 12/07/2024 10:59 AM T [facility] MCH 30.9 27.6 - 33.3 pg 12/07/2024 10:59 AM [facility] MCHC 33.9 31.5 - 35.2 g/dL 12/07/2024 10:59 AM [facility] RDW 14.5 11.9 - 15.5 % 12/07/2024 10:59 AM [facility] Platelets 268 150 - 450 x10(9)/L 12/07/2024 10:59 AM [facility] Automated NRBC 0 <=0 /100 WBC 12/07/2024 10:59 AM [facility] Neutrophil Absolute 8.5(H) 1.7 - 7.0 10(9)/L 12/07/2024 10:59 AM [facility] Lymphocyte Absolute 0.7(L) 1.0 - 4.8 10(9)/L 12/07/2024 10:59 AM [facility] Monocyte Absolute 0.7 0.2 - 0.9 10(9)/L 12/07/2024 10:59 AM CDT [facility] Eosinophil Absolute 0.1 0.0 - 0.5 10(9)/L 12/07/2024 10:59 AM CDT [facility] Basophil Absolute 0.0 0.0 - 0.3 10(9)/L 12/07/2024 10:59 AM CDT [facility] Immature Granulocyte % 0.3 0.0 - 0.5 % 12/07/2024 10:59 AM CDT [facility] Blood Venipuncture / Unknown 12/07/2024 10:28 AM CDT 12/07/2024 10:56 AM CDT Cecile Arteaga MD LAB_1 Final Resul t Performing Organization Address [facility]/ZIP Co de Phone Number [facility] [address] [place] [address] * (ABNORMAL) TSH (12/07/2024 10:28 AM CDT) Pathologist [facility] TSH, Sensitive 13.12(H) 0.30 - 4.50 uIU/mL 12/07/2024 5:32 PM CDT [facility] Blood Venipuncture / Unknown 12/07/2024 10:28 AM CDT 12/07/2024 10:56 AM CDT us Cecile Arteaga MD LAB_1 Final Resul t [facility] [address] [place], [place] [phone] [place] [address] * (ABNORMAL) BASIC METABOLIC PANEL (12/07/2024 10:28 AM CDT) Pathologist [facility] Sodium 138 136 - 145 mmol/L 12/07/2024 11:16 AM T [facility] Potassium 4.3 3.5 - 5.1 mmol/L 12/07/2024 11:16 AM CDT [facility] Chloride 102 98 - 109 mmol/L 12/07/2024 11:16 AM CDT [facility] CO2 22 20 - 29 mmol/L 12/07/2024 11:16 AM [facility] Anion Gap 14 6 - 16 mmol/L 12/07/2024 11:16 AM [facility] Calcium 8.6 8.4 - 10.4 mg/dL 12/07/2024 11:16 AM [facility] BUN 13 7 - 26 mg/dL 12/07/2024 11:16 AM [facility] Creatinine 0.79 0.73 - 1.18 mg/dL 12/07/2024 11:16 AM [facility] Glucose 213(H) 70 - 100 mg/dL 12/07/2024 11:16 AM [facility] Comment:The given reference range is for the fasting state. Non-fasting reference range for glucose is 70 - 180 mg/dL. GFR, Estimated >60 >60 mL/min/1.7 3m2 12/07/2024 11:16 AM [facility] Hours Fasting 0.1 8 - 12 Hours 12/07/2024 11:16 AM [facility] Comment:Lab unable to obtain patient's fasting status at time of specimen collection. Blood Venipuncture / Unknown 12/07/2024 10:28 AM CDT 12/07/2024 10:56 AM CDT us Cecile Arteaga MD LAB_1 Final Resul t [facility] [address] [place] [address], [facility] * Liver Panel(Hepatic Function Panel) (12/07/2024 10:28 AM CDT) Alkaline Phosphatase 100 40 - 150 U/L 12/07/2024 11:16 AM [facility] Bilirubin, Total 0.4 0.2 - 1.2 mg/dL 12/07/2024 11:16 AM [facility] Bilirubin, Direct 0.2 0.0 - 0.5 mg/dL 12/07/2024 11:16 AM [facility] AST (SGOT) 23 10 - 40 U/L 12/07/2024 11:16 AM [facility] ALT (SGPT) 13 0 - 55 U/L 12/07/2024 11:16 AM T [facility] Protein, Total 6.5 6.4 - 8.3 g/dL 12/07/2024 11:16 AM T [facility] Albumin 3.8 3.5 - 5.0 g/dL 12/07/2024 11:16 AM T [facility] Blood Venipuncture / Unknown 12/07/2024 10:28 AM CDT 12/07/2024 10:56 AM CDT us Cecile Arteaga MD LAB_1 Final Resul t [facility] [address] [place] [address], [facility] documented in this encounter Visit Diagnoses Diagnosis Squamous cell carcinoma of skin- Primary Squamous cell carcinoma of skin, site unspecified 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),Squamous cell carcinoma of skin Given 12/07/2024 12:38 PM CDT 500 Units sodium chloride 0.9% injection 10-60 mL 10-60 mL, Intravenous, PRN BEFORE&AFTER MEDICATIONS OR LAB DRAW, Line Patency, Starting on Fri12/07/24 at 1142, Until Fri12/07/24 at 1516, For 1 dayIndications: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
--- OUTSIDE RECORDS SUMMARY | 2024-12-07 10:50 | XMS_ITS | Encounter Summary ---
[facility] Organization [facility] Address [address] [place] [address] Care Team Providers Care Backer Up Name Role Phone Jarod Pascual MD Primary Care Provider [phone]- [phone] Reason for Referral * Consult/Transfer Care (Routine) - New Request Specialty Diagnoses / Procedures Referred By Brent t Referred To Contact Diagnoses Type 2 diabetes mellitus with 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, without long-term current use of insulin (HRC) Squamous cell carcinoma of skin Type 2 diabetes mellitus with hyperglycemia, without long-term current use of insulin (HRC) Nguyen Betancourt, TICKET SALES AGENT, ELEVATOR SERVICEMAN [address] [place] [address] Phone: tel: fax: Referral ID Status Reason Start Date Expiration Date V isits Requested Visits Authorized [id number] New Request 12/07/2024 03/08/2026 1 1 Scheduling Instructions Your clinician has recommended an appointment with [facility]. You may call [phone] to schedule your appointment. We suggest you call your health insurance company about your coverage and benefits for this appointment. Question Answer Appointment Urgency? Within 1 Week (Urgent) Reason for visit New diagnosis (up to 10 hrs): Group Ed as appropriate Education / Management Needs (Additional hours may be needed) Medication Start/Educator to Choose, Initiate and Adjust per Standing Order; DM Education, Clinician to Choose Medication, Educator to Initiate and Adjust per Standing Order; DM Education Medication Start, Clinician to Choose Insulin Start Individual Participation Barriers (To Small Group Ed)? None Certification statement I certify that I am managing this patient s condition and education Plan of Care Diabetes self-management training includes: healthy eating, physical activity, monitoring, medications, reducing risks, problem-solving, healthy coping. Changes to plan should be documented in comment box. Additional details found in standing order. Individuals may be eligible for both DSMT and MNT services in the same year. I approve the delivery of initial MNT (3hrs) and/or annual follow-up MNT (2hrs). Yes Comments Other Barriers or Additional Comments: Last 2 A1c Performed in lab: Hemoglobin A1C (%) Date Value 06/10/2024 9.4 (H) Last 2 Point of Care A1c: No results found for: [id number] Encounter Details Date Type Department Care Team (Late st Contact Info) Description 12/07/2024 10:50 AM CDT Telemedicine [facility] Oncology [address] [place] [address] Scarlett Love, BING, ELEVATOR SERVICEMAN [address] [place], [place] [id number] Nguyen Betancourt APRN, ELEVATOR SERVICEMAN [address] [place] [address] Squamous cell carcinoma of skin (Primary Dx); Type 2 diabetes mellitus with 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, without long-term current use of insulin (HRC); Type 2 diabetes mellitus with hyperglycemia, without long-term current use of insulin (HRC); Nausea Social History Tobacco Use Types Packs/Day Years [...] this encounter Patient Instructions * Patient Instructions* Nguyen Betancourt APRN, CNP - 12/07/2024 10:50 AM CDT Minh Houser, It was nice to talk with you today! You were seen today for immunotherapy follow-up visit Your treatment plan is: Libtayo every 3 weeks Infusion plan: Today proceed with Libtayo. Schedule: Return to the clinic in 3, [address] Cecile Arteaga or Scarlett Love NP with labs: Basic Metabolic Panel, CBC/Diff, Liver Function Test, and TSH and treatment to follow. Diabetes education consult MIKEL Home Instructions: Eat breakfast before taking your handful of pills in the morning We will follow-up with you re: your hgb A1C which is a lab that measures your glucose over the past3 months. Orders Placed This Encounter Hgb A1c Diabetes Education and MNT - Adult/Peds When to contact the clinic: ?Contact the clinic or nurse care line for the following symptoms: a fever of greater than 100.4 F, any infectious symptoms, unusual bleeding/bruising, new or worsening shortness of breath, if you develop any new or painful swelling, and for new or worsening pain. Call with any questions or concerns. The clinic phone number for use during both clinic hours and after hours is [phone]. 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 4. 06/15/2024 anterior neck lymph node biopsy 5. 07/12/2024-current Libtayo immunotherapy History at Presentation: (Per previous note from Dr. Arteaga): Ever Houser is a 74 y.o. male who was seen in consultation on 05/10/2024 for squamous cell carcinoma of the skin. He was initially diagnosed at an outside facility, [place]. Outside records reviewed in [facility]. Per this reviewed: He had move to [place] from [place] in April of 2023. During this visit [...] to have contraindication to cisplatin. Recommendation of [place]-based withTaxol weekly or cetuximab was reviewed. After [...] pN3b, cM0, group stage IV Interval History: Minh is seen today unaccompanied for video follow up prior to next dose immunotherapy. He states hisenergy is stable and reports feeling ???tired, it goes back and forth?? . He is napping at times and a nap can sometimes be 2-3 hours. He has had to send an alarm to wake up in the past. He has had nausea after taking a handful of pills in the morning. He takes his levothyroxine on an empty stomach and follows this with a cup of coffee approximately 30 minutes later. He does not routinely breakfast. He finally eats meals around 2:00 p.m. and 8:00 p.m.. He continues on Actos and metformin for recently diagnosed diabetes. He does not check his blood sugars at home. He has been cautious with his carbohydrate intake due to elevated blood glucose level; however, he has been losing weight and wonders how to balance increasing his caloric intake with carb counting. The bottom of his feet feel numb. He had questions about previous diagnosis of peripheral arterial disease being on his chart and whether this could be treated at some point. He uses a cane for stability. He has had over 1 year duration of left hip and left leg feeling weak after walking a significant distance. Reports he previously was seen at [facility] for back c oncerns. Denies pain in his low back most of the time but with shifting his body back and forth he feels ???discomfort?? in his low back rated 2 to 3/10. Objective: Wt Readings from Last 3 Encounters: 12/07/24 122 lb 4.8 oz (55.5 kg) 11/16/24 125 lb (56.7 kg) 10/26/24 121 lb 11.2 oz (55.2 kg) Temp Readings from Last 3 Encounters: 12/07/24 97 ??F (36.1 ??C) (Temporal Artery) 11/16/24 (!) 96.8 ??F (36 ??C) 10/26/24 97.2 ??F (36.2 ??C) (Temporal Artery) BP Readings from Last 3 Encounters: 12/07/24 124/73 11/16/24 130/62 10/26/24 111/63 Pulse Readings from Last 3 Encounters: 12/07/24 66 11/16/24 66 10/26/24 61 Gen: Alert, normal appearance and behavior, non diaphoretic, no acute distress Pulmonary: No SOB with normal conversation. Laboratory: Labs reviewed in [facility] 12/07/2024 Assessment and Plan: #. Left cheek squamous cell carcinoma. Goal of treatment: Palliative, aim to alleviate/prevent symptoms and prolong survival, but without expectation of cure. Disease status: Disease progression noted on 05/29/[address] soft tissue neck. Swelling and adenopathy decreased on exam Treatment: Cemiplimab-21 day cycle Plan: He will continue with Cemiplimab-today and continue at three-week intervals, with repeat PET/CT on 01/14/2025. He has questions about getting a PET/CT with diagnosis of diabetes. He read in thescheduling instructions that PET can not be completed if glucose> 200. We discussed that blood glucose will be checked on day of imaging; encouraged him to be fasting prior to procedure. #. Diabetes mellitus, type 2 -Diagnosed May 2024 during preop visit. A1c 9.4 at that time. Provider providing H&P prescribed metformin and Actos. He is not checking blood sugars at home. - A1c ordered today = 7.5. He previously saw Dr. Lopez with Endocrinology for hypothyroidism. Message sent to her and primary oncologist regarding further management. - extension educator consult ordered. #. Hypothyroidism. Currently on levothyroxine 75 [address]cg [address] Dr. Sandrita Lopez. #. Nausea. Mild, grade 1. - Reports worse after taking morning pills. Recommend he eat breakfast meal prior to AM pills (continue synthroid on an empty stomach). - Zofran 8 mg every 8 hours PRN and compazine PRN as already prescribed. Nguyen Betancourt APRN, CNP 3:20 PM 12/07/2024 TT 44 minutes spent on the video with the patient, 50 minutes spent on chart review, patient visit,documentation. This note was created using voice recognition software. Please notify me if there are significant unintended word substitutions and I will fix them. documented in this encounter Plan of Treatment Upcoming Encounters Date Type Department Care Team (Late st Contact Info) Description 01/14/2025 9:00 AM CDT Appointment [facility] [address] [place] [address]. [place] [address] Cecile Arteaga MD [address] [place] [address] 01/14/2025 10:30 AM CDT Appointment [facility] [address] [place] [address]. [place] [address] Cecile Arteaga MD [address] [place] [address] 01/18/2025 8:00 AM CDT Appointment [facility] On[facility] Treatment Rooms [address] [place] [address] 01/18/2025 8:30 AM CDT Appointment [facility] [address] [place] [address] Cecile Arteaga MD [address] [place] [address] Scheduled Referrals Name Type Priority Associated Diagnoses Orde r Schedule Diabetes Education and MNT - Adult/Peds Referral Routine Type 2 diabetes mellitus with 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, without long-term current use of insulin (HRC) Squamous cell carcinoma of skin Type 2 diabetes mellitus with hyperglycemia, without long-term current use of insulin (HRC) Ordered: 12/07/2024 documented as of this encounter Goals Goal Patient Goal Type Associated Problems Recent Progress Patient-Stated? Author INFUSION ONCOLOGY - BASELINE Care Plan INFUSION ONCOLOGY - BASELINE No Triston Krause INFUSION ONCOLOGY - RECURRING Care Plan INFUSION ONCOLOGY - RECURRING No Kandy Paniagua RN documented as of this encounter Results * (ABNORMAL) Hgb A1c (12/07/2024 10:28 AM CDT) Hemoglobin A1C (Rapid) 7.5(H) <=5.6 % 12/07/2024 12:07 PM CDT [facility] Estimated Average Glucose (Calc) 169 < 117 mg/dL 12/07/2024 12:07 PM T [facility] Comment:Estimated average gl ucose (eAG) converts A1c into glucose units (mg/dL) and estimates average glucose over the past approximately 3 months. The eAG reference interval (<117 mg/dL) corresponds to an A1c of <5.7%. Blood Venipuncture / Unknown 12/07/2024 10:28 AM CDT 12/07/2024 10:56 AM CDT Narrative [facility] - 12/07/2024 12:07 PM CDT For [...] for further direction. us Nguyen Betancourt APRN, [facility]_1 Final Resu lt [facility] [address] [place] [address], [facility] documented in this encounter Visit Diagnoses Diagnosis Squamous cell carcinoma of skin- Primary Squamous cell carcinoma of skin, site unspecified Type 2 diabetes mellitus with 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, without long-term current use of insulin (HRC) Type 2 diabetes mellitus with hyperglycemia, without long-term current use of insulin (HRC) Nausea Nausea alone documented in this encounter Additional Health Concerns Active Problems Noted Date Diagnosed Date INFUSION ONCOLOGY - BASELINE 06/29/2024 INFUSION ONCOLOGY - RECURRING 07/12/2024 documented as of this encounter Care Teams Backer Up Relationship Specialty Start Date End Date Jarod Pascual MD [address] [place] [address] PCP - General 05/10/24 documented as of this encounter
--- OUTSIDE RECORDS SUMMARY | 2024-12-15 14:00 | XMS_ITS | Encounter Summary ---
Author Organization [facility] Address [address], [place] [address] Care Team Providers Care Senior Policy Advisor Name Role Phone Jarod Pascual MD Primary Care Provider [phone]- [phone] Reason for Referral * (Routine) - New Request Specialty Diagnoses / Procedures Referred By Brent mary Referred To Contact Diagnoses Actinic keratosis Procedures IA DESTRUC BENIGN/PREMAL,2-14 [place] [address] [address] Phone: tel: fax: Referral ID Status Reason Start Date Expiration Date V isits Requested Visits Authorized [id number] New Request 12/15/2024 03/16/2026 1 1 Reason for Visit * Reason Comments Suture/Staple Removal Encounter Details Date Type Department Care Team (Late st Contact Info) Description 12/15/2024 2:00 PM CDT Office Visit [facility] [address] Dermatology [address] [place], [place] [phone] [place] [address] [place] [address] Neoplasm of skin (HRC) (Primary Dx); AK (actinic keratosis); Encounter for removal of sutures; Actinic keratosis Social History Tobacco Use Types Packs/Day Years [...] this encounter Patient Instructions * Patient Instructions* Mamie Soto RN - 12/15/2024 2:00 PM CDT Surgical Wound Care Instructions FOR YOUR HAND Keep pressure bandage in place for 2 [...] it. Clean the wound with Hydrogen Peroxide on a Q-tip. Use a fresh Q-tip [...] Ramirez???s: Weekends, Holidays or For Urgent needs Wound Care to Incision Site Once Sutures Are Removed. What you will need: Steri Strips Liquid Skin Adhesive (Mastisol) Scar Pad (one brand is Scar Away) Caring for you incision to create the best results: Open the package of the skin adhesive and remove from package. Crack the applicator and shake until liquid fills the applicator tip. Apply by gently rubbing the skin adhesive on each side of incision line and let dry until it gets sticky (5-10 seconds.) Apply Steri Strip from bottom to top of incision line to work against gravity. Next apply tegaderm over the steri strips. Leave strips in place until they fall off. *Continue to replace Steri Strips for 1 month in total if they fall of before. * After 1 month of using Steri Strips you may start an [id number] Scar Pad. Cut the scar pad to a size that covers the scar generously. Apply as directed on package. The Scar Pad will help soften, flatten hypertrophic scars (raised scars) giving a less visible result- closer to your skins natural texture and color. Liquid Nitrogen Treatment (Cryotherapy) How it Works: Liquid nitrogen (Cryotherapy) is a cold liquified gas, with a temperature of -321?? F. It's used to freeze and destroy superficial skin growths. Treatment Goals: Treatment with liquid nitrogen may cause the treated area to appear red or swollenanywhere from a few hours to a couple of days. Usually a scab/crust forms, which will fall off by itself in 1 to 3 weeks. The skin growth will fall off with the scab, leaving healthy new skin. This new skin is typically instrumentation and controls designer, and will usually blend in color-burr over time. You May Experience: Liquid nitrogen causes stinging and mild pain while the growth is being frozen and then thaws. The worst discomfort occurs during the first five to 10 minutes of the procedure, but can sometimes last significantly longer. A blister, sometimes a blood blister, may form. If this occurs, you may pop the blister with a clean needle, but leave the roof of the blister intact on the skin. If this does happen, keep the area covered with a Band-Aid and use Vaseline or antibiotic ointment. Areas that are prone to blistering are the eyelids and hands. The blisters and swelling are part of the treatment and will gradually heal. No special care is needed, you can wash as usual and use makeup or other cosmetics. You also may experience some redness, swelling, tenderness, weeping, or crusts/scabs. Try not to pick at, itch, or scrub the area. If the treated sore area feels sore or irritated, you can keep it covered. Avoid excessive sun exposure since this can result in persistent darkening at the treated sites. PLEASE NOTE: Sometimes, growths have to be re-frozen. If your growth is not cured by liquid nitrogen, please make a return appt. Uncommon: Please call the clinic if you have any white, green, or yellow fluid damage or any sign of an apparent infection. We will call you with the results. documented in this encounter Progress Notes * Yennifer Ramirez MD - 12/15/2024 2:00 PM CDT Images from the original note were not included. Ever Houser was seen in follow up for suture removal for a squamous cell carcinoma on the left forearm treated with excisional Surgery on 12/01/24. The wound was repaired with a layered linear closure. Physical Examination: Constitutional: On physical examination, I found a pleasant 74 y.o. male in no apparent distress. Chest and Excision: On physical examination, the wound on the left arm is healing well, without evidence of infection, wound dehiscence, or abnormal scar formation. Hyperkeratotic lesion on the left hand worrisome for KA AK on the left chest and the left forearm Assessment: Well-healing scar Plan: 1. The sutures were removed, bacitracin and steri-strips were applied. Further wound care instructions were given. 2. Skin Exam 1. NEOPLASM OF SKIN (HRC) Left Dorsal Hand Skin Biopsy (No CPT) Type of biopsy: tangential Informed consent: discussed and consent obtained Timeout: patient name, date of , surgical site, and procedure verified Procedure prep: Patient was prepped and draped in usual sterile fashion Prep type: Chlorhexidine Anesthesia: the lesion was anesthetized in a standard fashion Anesthetic: 1% lidocaine w/ epinephrine 1-100,000 local infiltration Instrument used: #15 blade Hemostasis achieved with: aluminum chloride Outcome: patient tolerated procedure well Post-procedure details: sterile dressing applied and wound care instructions given Dressing type: petrolatum and bandage Specimen 1 - Surgical Path, Dermatology Clinical Impression: R/O SCC 2. AK (ACTINIC KERATOSIS) Chest and left arm AK Liquid N2 Liquid nitrogen applied x 5-10seconds x 2 freeze-thaw cycles. Alternative treatments (i.e.cream/home therapy) discussed. Chance of recurrence, further treatment necessary, and hypopigmentation discussed. Aftercare reviewed verbally and written handouts (cryotherapy instructions) given as well. 3. ENCOUNTER FOR REMOVAL OF SUTURES 4. The patient will follow-up with Dr. Cuevas for ongoing dermatologic care, and on an as-needed basis here. Yennifer Ramirez MD 12/15/2024 documented in this encounter Plan of Treatment Upcoming Encounters Date Type Department Care Team (Late st Contact Info) Description 01/14/2025 9:00 AM CDT Appointment [facility] [address] [place] [address] Cecile Arteaga MD [address] [place] [address] 01/14/2025 10:30 AM CDT Appointment [facility] [place] [address] Cecile Arteaga MD [address] [place] [address] 01/18/2025 8:00 AM CDT Appointment [facility] On[facility] Treatment Rooms [address] [place] [address] 01/18/2025 8:30 AM CDT Appointment [facility] On[facility] [address] [place] [address] Cecile Arteaga MD [address] [place] [address] documented as of this encounter Goals Goal Patient Goal Type Associated Problems Recent Progress Patient-Stated? Author INFUSION ONCOLOGY - BASELINE Care Plan INFUSION ONCOLOGY - BASELINE No Triston Krause INFUSION ONCOLOGY - RECURRING Care Plan INFUSION ONCOLOGY - RECURRING No Kandy Paniagua RN documented as of this encounter Procedures Procedure Name Priority Date/Time Associated Diagnosis Comments SKIN BIOPSY Routine 12/15/2024 2:54 PM CDT Neoplasm of skin (HRC) SURGICAL PATHOLOGY, DERMATOLOGY Routine 12/15/2024 2:54 PM CDT Neoplasm of skin (HRC) documented in this encounter Results * Skin Biopsy (No CPT) (12/15/2024 2:54 PM CDT) Narrative EXTERNAL RESULTS - 12/15/2024 2:54 PM CDT Type of biopsy: tangential Informed consent: discussed and consent obtained Timeout: patient name, date of , surgical site, and procedure verified Procedure prep: Patient was prepped and draped in usual sterile fashion Prep type: Chlorhexidine Anesthesia: the lesion was anesthetized in a standard fashion Anesthetic: 1% lidocaine w/ epinephrine 1-100,000 local infiltration Instrument used: #15 blade Hemostasis achieved with: aluminum chloride Outcome: patient tolerated procedure well Post-procedure details: sterile dressing applied and wound care instructions given Dressing type: petrolatum and bandage Yennifer Ramirez MD DERM PROCEDURE ORDERABLES Fi nal Result EXTERNAL RESULTS * Surgical Path, Dermatology (12/15/2024 2:54 PM CDT) Case Report Surgical Pathology Report Case: [id number] Authorizing Provider: Yennifer Ramirez MD Collected: 12/15/2024 1454 Ordering Location: [facility] [address] Received: 12/16/2024 0901 Dermatology Pathologist: Jerad Drummond MD Specimen: Skin, Left Dorsal Hand 12/22/2024 11:08 AM CDT PIPE ORGAN MECHANIC APPRENTICE 3800 DERMATOLOGY FINAL DIAGNOSIS A. Skin, Left Dorsal Hand, shave: - Invasive, well-different iated squamous cell carcinoma, free of sampled biopsy margins. 12/22/2024 11:08 AM CDT PIPE ORGAN MECHANIC APPRENTICE 3800 DERMATOLOGY at 1108 CDT Clinical Information Clinical Impression: R/O SCC 12/22/2024 11:08 AM CDT PIPE ORGAN MECHANIC APPRENTICE 38[address] DERMATOLOGY Microscopic Description Microscopic examination is performed. 12/22/2024 11:08 AM CDT PIPE ORGAN MECHANIC APPRENTICE 3800 DERMATOLOGY Technical Information A portion of the technical staining was performed at [facility], [address] [place] [address]. 12/22/2024 11:08 AM CDT PIPE ORGAN MECHANIC APPRENTICE [address] DERMATOLOGY Gross Description A: Received in formalin, labeled with the patient's name and Skin, Left Dorsal Hand is a 15 x 15 x 5 mm shave of skin. The specimen is marked with purple ink, serially sectioned into 5 pieces, and submitted entirely in 1 cassette. TV 12/22/2024 11:08 AM CDT PIPE ORGAN MECHANIC APPRENTICE [address] DERMATOLOGY Embedded Images 12/22/2024 11:08 AM CDT PIPE ORGAN MECHANIC APPRENTICE 38[address] DERMATOLOGY Skin (Skin) 12/15/2024 2:54 PM CDT 12/16/2024 9:01 AM CDT Comment:Clinical Impression: R/O SCC us Yennifer Ramirez MD LAB PATHOLOGY Final Result [facility] [address] [facility] [address] documented in this encounter Visit Diagnoses Diagnosis Neoplasm of skin (HRC)- Primary Neoplasm of unspecified nature of bone, soft tissue, and skin AK (actinic keratosis) Actinic keratosis Encounter for removal of sutures Actinic keratosis documented in this encounter Additional Health Concerns Active Problems Noted Date Diagnosed Date INFUSION ONCOLOGY - BASELINE 06/29/2024 INFUSION ONCOLOGY - RECURRING 07/12/2024 documented as of this encounter Care Teams Senior Policy Advisor Relationship Specialty Start Date End Date Jarod Pascual MD [address] [place] [address] PCP - General 05/10/24 documented as of this encounter
--- OUTSIDE RECORDS SUMMARY | 2024-12-28 10:12 | XMS_ITS | Encounter Summary ---
Author Organization [facility] Address [address] [place] [id number] Care Team Providers Care Cut Order Hand Name Role Phone Jarod Pascual MD Primary Care Provider [phone]- [phone] Reason for Visit * Reason Comments SKIN CANCER * Infusion Therapy Plan (Routine) - Authorized Specialty Diagnoses / Procedures Referred By Brent t Referred To Contact Diagnoses Squamous cell carcinoma of skin Secondary and unspecified malignant neoplasm of lymph nodes of head, face and neck (HRC) Cecile Arteaga MD [address] [place] [address] Phone: tel: fax: [address] [address] Phone: tel: Referral ID Status Reason Start Date Expiration Date V isits Requested Visits Authorized [id number] Authorized 06/28/2024 09/27/2025 [id number] Encounter Details Date Type Department Care Team (Latest Contact Info) Description 12/28/2024 10:12 AM CDT - 12/28/2024 11:59 PM CDT Hospital Encounter [facility] [address] [place] [address] Scarlett Love, MEDIA ASSOCIATE, COMMUNICATIONS ADVISOR [address] [place] [address] Squamous cell carcinoma of skin (Primary Dx); 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) Discharge Disposition: Home Social History Tobacco [...] Sign Reading Time Taken Comments Blood Pressure 139/62 12/28/2024 12:44 PM CDT Pulse 59 12/28/2024 12:44 PM CDT Temperature 35.9 C (96.6 F) 12/28/2024 10:35 AM CDT Respiratory Rate - - Oxygen Saturation 98% 12/28/2024 10:35 AM CDT Inhaled Oxygen Concentration - - Weight 55.3 kg (122 lb) 12/28/2024 10:35 AM CDT Height - - Body Mass Index 19.99 06/15/2024 12:30 PM INSPECTOR AND UNLOADER documented in this encounter Medications at Time [...] Progress Notes * Liana Westbrook RN - 12/28/2024 10:30 AM CDT D1C21 CHEMOTHERAPY / IMMUNOTHERAPY ADMINISTRATION F: Ever presents to clinic today for [facility] for skin cancer as managed by Dr Arteaga. Alert with Scarlett Love NP today Premedications: None D: Vital signs including height/weight, pertinent lab [...] home in stable condition. Liana Westbrook RN 3:31 PM 12/28/2024 documented in this encounter Plan of Treatment Upcoming Encounters Date Type Department Care Team (Late st Contact Info) Description 01/14/2025 9:00 AM CDT Appointment [facility] [address] [place] [address] Cecile Arteaga MD [address] [place] [address] 01/14/2025 10:30 AM CDT Appointment [facility] [address] [place] [address] Cecile Arteaga MD [address] [place] [address] 01/18/2025 8:00 AM CDT Appointment [facility] Oncology Treatment Rooms [address] [place] [address] 01/18/2025 8:30 AM CDT Appointment [facility] Oncology [address] [place] [address] Cecile Arteaga MD [address] [place] [address] documented as of this encounter Goals Goal Patient Goal Type Associated Problems Recent Progress Patient-Stated? 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 RBC 4.28(L) 4.32 - 5.72 x10(12)/L 12/28/2024 10:[address] [facility] Hemoglobin 13.3(L) 13.5 - 17.5 g/dL 12/28/2024 10:[address] [facility] HCT 39.0 38.8 - 50.0 % 12/28/2024 10:[address] [facility] MCV 91.1 80.0 - 100.0 fL 12/28/2024 10:[address] [facility] MCH 31.1 27.6 - 33.3 pg 12/28/2024 10:[address] [facility] MCHC 34.1 31.5 - 35.2 g/dL 12/28/2024 10:[address] [facility] RDW 14.5 11.9 - 15.5 % 12/28/2024 10:[address] [facility] Platelets 248 150 - 450 x10(9)/L 12/28/2024 10:[address] [facility] Automated NRBC 0 <=0 /100 WBC 12/28/2024 10:[address] [facility] Neutrophil Absolute 7.3(H) 1.7 - 7.0 10(9)/L 12/28/2024 10:[address] [facility] Lymphocyte Absolute 0.7(L) 1.0 - 4.8 10(9)/L 12/28/2024 10:45 AM CDT [facility] Monocyte Absolute 0.6 0.2 - 0.9 10(9)/L 12/28/2024 10:45 AM CDT [facility] Eosinophil Absolute 0.2 0.0 - 0.5 10(9)/L 12/28/2024 10:45 AM CDT [facility] Basophil Absolute 0.1 0.0 - 0.3 10(9)/L 12/28/2024 10:45 AM CDT [facility] Immature Granulocyte % 0.6(H) 0.0 - 0.5 % 12/28/2024 10:45 AM CDT [facility] Blood Venipuncture / Unknown 12/28/2024 10:18 AM CDT 12/28/2024 10:42 AM CDT us Cecile Arteaga MD LAB_1 Final Resul t Performing Organization Address [facility] de Phone Number [facility] [address] [place] [address] * (ABNORMAL) TSH (12/28/2024 10:18 AM CDT) Pathologist [facility] TSH, Sensitive 11.65(H) 0.30 - 4.50 uIU/mL 12/28/2024 6:05 PM CDT [facility] Blood Venipuncture / Unknown 12/28/2024 10:18 AM CDT 12/28/2024 10:42 AM CDT us Cecile Arteaga MD LAB_1 Final Resul t [facility] [address] * (ABNORMAL) BASIC METABOLIC PANEL (12/28/2024 10:18 AM CDT) Sodium 137 136 - 145 mmol/L 12/28/2024 11:10 AM CDT [facility] Potassium 4.1 3.5 - 5.1 mmol/L 12/28/2024 11:[address] [facility] Chloride 100 98 - 109 mmol/L 12/28/2024 11:[address] [facility] CO2 25 20 - 29 mmol/L 12/28/2024 11:[address] [facility] Anion Gap 12 6 - 16 mmol/L 12/28/2024 11:[address] [facility] Calcium 8.8 8.4 - 10.4 mg/dL 12/28/2024 11:[address] [facility] BUN 12 7 - 26 mg/dL 12/28/2024 11:[address] [facility] Creatinine 0.75 0.73 - 1.18 mg/dL 12/28/2024 11:[address] [facility] Glucose 178(H) 70 - 100 mg/dL 12/28/2024 11:[address] [facility] Comment:The given reference range is for the fasting state. Non-fasting reference range for glucose is 70 - 180 mg/dL. GFR, Estimated >60 >60 mL/min/1.7 3m2 12/28/2024 11:[address] [facility] Hours Fasting 0.1 8 - 12 Hours 12/28/2024 11:[address] [facility] Comment:Lab unable to obtain patient's fasting status at time of specimen collection. Blood Venipuncture / Unknown 12/28/2024 10:18 AM CDT 12/28/2024 10:42 AM CDT us Cecile Artegaa MD LAB_1 Final Resul t [facility] [address] [place] [address] * (ABNORMAL) Liver Panel(Hepatic Function Panel) (12/28/2024 10:18 AM CDT) Alkaline Phosphatase 76 40 - 150 U/L 12/28/2024 11:[address] [facility] Bilirubin, Total 0.6 0.2 - 1.2 mg/dL 12/28/2024 11:[address] [facility] Bilirubin, Direct 0.3 0.0 - 0.5 mg/dL 12/28/2024 11:10 AM CDT [facility] AST (SGOT) 22 16 - 46 U/L 12/28/2024 11:10 AM T [facility] ALT (SGPT) 14 0 - 55 U/L 12/28/2024 11:10 AM T [facility] Protein, Total 6.3(L) 6.4 - 8.3 g/dL 12/28/2024 11:10 AM T [facility] Albumin 3.8 3.5 - 5.0 g/dL 12/28/2024 11:10 AM T [facility] Blood Venipuncture / Unknown 12/28/2024 10:18 AM CDT 12/28/2024 10:42 AM CDT us Cecile Arteaga MD LAB_1 Final Resul t [facility] [address] [place] [address], [facility] documented in this encounter Visit Diagnoses Diagnosis Squamous cell carcinoma of skin- Primary Squamous cell carcinoma of skin, site unspecified 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),Squamous cell carcinoma of skin Given 12/28/2024 12:44 PM CDT 500 Units sodium chloride 0.9% injection 10-60 mL 10-60 mL, Intravenous, PRN BEFORE&AFTER MEDICATIONS OR LAB DRAW, Line Patency, Starting on Fri12/28/24 at 1151, Until Fri12/28/24 at 1731, For 1 dayIndications: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
--- OUTSIDE RECORDS SUMMARY | 2024-12-28 11:00 | XMS_ITS | Encounter Summary ---
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); Type 2 diabetes mellitus with 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, without long-term current use of insulin (HRC); Elevated TSH Social History Tobacco Use Types Packs/Day Years [...] on file documented as of this encounter Progress Notes * Scarlett Love APRN, [employer] - 12/28/2024 11:00 AM CDT ONCOLOGY FOLLOW UP VISIT: 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 4. 06/15/2024 anterior neck lymph node biopsy 5. 07/12/2024-current Libta History at Presentation: Per Dr. Arteaga: Ever Houser is a 74 y.o. male who was seen in consultation on 05/10/2024 4 squamous cell carcinoma of the skin. He was initially diagnosed at an outside facility, [place]. Outside records reviewed in [facility]. Per this reviewed: He had move to [place] from [place] in April of 2023. During [...] to have contraindication to cisplatin. Recommendation of chitina-based withTaxol weekly or cetuximab was reviewed. After [...] cM0, group stage IV Interval History: He does have a dull headache in the back of the head that has been going on for three weeks. It is generally mild and not too bothersome.He does feel his neck is tight as well. He declines an MRI as of now, but will reach out if it worsens. He denies any blurred vision. Does have occasional nausea,which is chronic and ongoing since starting treatment. It typically comes on in the AM. He is hesitant to take his Zofran as he feels that too upsets his stomach if he takes it on an empty stomach. We discuss an ODT for of his zofran but he declines it as of now. It resolves after a few hours. Thisis not new, and it is not worsening. He has occasional loose stools, which can be up to 4-5 times a day. But, that being said, he feels his bowels are much improved and for the most part he is havingnormal, formed stools.. He is worried about his blood glucose given his upcoming PET scan. His BG does fluctuate between 120-180. He is on metformin, which is managed by the [facility], with last phone visit with Marlene Smith RD on 12/07/2024. Today's blood glucose is 178 and he is fasting. Objective: Wt Readings from Last 3 Encounters: 12/28/24 122 lb (55.3 kg) 12/07/24 122 lb 4.8 oz (55.5 kg) 11/16/24 125 lb (56.7 kg) Temp Readings from Last 3 Encounters: 12/28/24 (!) 96.6 ??F (35.9 ??C) 12/07/24 97 ??F (36.1 ??C) (Temporal Artery) 11/16/24 (!) 96.8 ??F (36 ??C) BP Readings from Last 3 Encounters: 12/28/24 103/61 12/07/24 124/73 11/16/24 130/62 Pulse Readings from Last 3 Encounters: 12/28/24 66 12/07/24 66 11/16/24 66 Gen: Alert, normal appearance and behavior, non diaphoretic, no acute distress HEENT: Normocephalic, no scleral icterus. Lymph nodes: Firmness along the left postauricular lymph node and submental lymph node. This is stable. CV: Regular rate and rhythm Pulmonary: Pulmonary effort is normal. Lungs clear to auscultation bilaterally Skin: Right forearm, no open areas, discoloration consistent with healing Extremities: No cyanosis or clubbing. No edema. Laboratory: Labs reviewed in [facility] including BMP, CBC, LFTs, TSH pending. CT neck on 05/29/2024 reviewed Assessment and Plan: #. Left cheek squamous cell carcinoma. Goal of treatment: Palliative, aim to alleviate/prevent symptoms and prolong survival, but without expectation of cure. Disease status: Disease progression noted on 05/29/[address] soft tissue neck. Swelling and adenopathy decreased on exam Treatment: Cemiplimab-21 day cycle Plan: He will continue with Cemiplimab-today and continue at three-week intervals, with repeat PET/CT on 01/14/2025. We did discuss immune mediated side effects today. He will continue follow-up hereat [place], and I have asked he reach out with any acute concerns. #. Headaches, mild. No other acute neuro symptoms. We did discuss an MRI, but he has declined as ofright now, but I did stress that I would like him to reach out should he have any increased headaches, nausea, or blurred vision. #. Hypothyroidism. Currently on levothyroxine 75 mcg daily. TSH pending today. #. Diarrhea. Mild, and it vacillates with normal, formed stools. Continue to monitor. We did discuss certainly he can use proactive loperamide as needed, but he would like to hold off. Creatinine andpotassium are both stable today. #. Nausea. Mild, grade 1. This is ongoing and we discussed proactive use of antiemetics multiple times and again today. He does have a prescription for ondansetron and prochlorperazine at home. #. Type 2 diabetes. Continues to follow with [facility]. He understands to fast prior to his PET/CT. I didreach out to his team and he does have follow-up later this week. There involvement is appreciated. Scarlett Love CNP Oncology, Hematology, and Palliative Care [facility] Dictation disclaimer: Note completed with voice recognition software. Typographical or voice recognition areas may result. Please contact me if you note any areas for clarification and correction. documented in this encounter Plan of Treatment Upcoming Encounters Date Type Department Care Team (Late st Contact Info) Description 01/14/2025 9:00 AM CDT Appointment [facility] [address] [place], [place] [id number] Cecile Arteaga MD [address] [place], [place] [address] 01/14/2025 10:30 AM CDT Appointment [facility] [address] [facility] [place] [id number] Cecile Arteaga MD [address] [place] [address] 01/18/2025 8:00 AM CDT Appointment [facility] Oncology Treatment Rooms [address] [place] [address] 01/18/2025 8:30 AM CDT Appointment [facility] Oncology [address] [place] [address] Cecile Arteaga MD [address] [place] [address] documented as of this encounter Goals Goal Patient Goal Type Associated Problems Recent Progress Patient-Stated? 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) Secondary and unspecified malignant neoplasm of lymph nodes of head, face, and neck Type 2 diabetes mellitus with 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, without long-term current use of insulin (HRC) Elevated TSH Other abnormal blood chemistry documented in this encounter Additional Health Concerns Active Problems Noted Date Diagnosed Date INFUSION ONCOLOGY - BASELINE 06/29/2024 INFUSION ONCOLOGY - RECURRING 07/12/2024 documented as of this encounter Care Teams Dictaphone Mechanic Relationship Specialty Start Date End Date Jarod Pascual MD [address] [place] [address] PCP - General 05/10/24 documented as of this encounter
--- OUTSIDE RECORDS SUMMARY | 2025-01-10 17:59 | XMS_ITS | Continuity of Care Document ---
Author Name [facility] Organization [facility] Care Team Providers Care Website Programmer Name Role Phone [facility] Unavailable Unavailable Problems Combined list of problems from Department of Defense and [facility] Affairs facilities. It does not include entries that were removed or entered in error. Problem Status Onset Date Problem Type Date of Resolution Comments Source Actinic keratosis Active Condition [facility] Adjustment Disorder Unspecified * (ICD-9-CM 309.9) Active Condition [facility] Benign prostatic hyperplasia Active Condition [facility] Cervical spinal stenosis Active Condition [facility] Cervical spondylosis without myelopathy Active Condition [facility] Diabetes Mellitus Type 2 (SCT 46086898) Active Condition [facility] Diabetes Mellitus Type II or unspecified Active Condition [facility] Erectile Dysfunction * (ICD-9-CM 302.72) Active Condition [facility] Family social history Active Condition November 17, 2023 Entered By: LUCIA YUEN Comment: Sister - passed of colon cancer - first diagnosis age 72May 2023 Entered By: LUCIA YUEN Comment: brother - passed of bone cancer [facility] History of colonoscopy Active Condition November 17, 2023 Entered By: LUCIA YUEN Comment: reports next due 2028; last 2018 in [facility] History of surgery Active Condition ay 2023 Entered By: LUCIA YUEN Comment: Arthroscopy bilateral knees, left rotator cuff repair, cervical fusion C1-C3 2022, right TMJMay 2023 Entered By: LUCIA YUEN Comment: 09/2023 left total parotidectomy, left neck dissection, left cheek wide excision, rotation flap [facility] Hyperlipidemia (SCT 47367457) Active Condition [facility] Hyperlipidemia * (ICD-9-CM 272.4) Active Condition [facility] Impaired FASTING Glucose (ICD-9-CM 790.21) Active Condition [facility] Insomnia * (ICD-9-CM 780.52) Active Condition [facility] Mixed hyperlipidemia Active Condition [facility] Nephrolithiasis Active Condition [facility] Osteoarthritis of bilateral knee joints Active Condition [facility] Peripheral Vascular Disease Leg/Foot (ICD-9-CM 443.9) Active Condition [facility] Personal History of Colonic Polyps (ICD-9-CM V12.72) Active Condition [facility] Posttraumatic stress disorder Active Condition [facility] Social and personal history finding Active Condition November 17, 2023 Entered By: LUCIA YUEN Comment: with two children. Son lives two hours from him. 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, reserves 8 yrs, [employer] 3 yrs, [employer] 15 yrs [facility] Squamous cell carcinoma Active Condition [facility] Tobacco user Active Condition [facility] Type 2 diabetes mellitus without complication Active Condition [facility] Diagnosis: ICD-10-CM F43.10 Post-traumatic stress disorder, unspecified Active Diagnosis [facility] Diagnosis: ICD-10-CM Z72.0 Tobacco use Active Diagnosis [facility] Diagnosis: ICD-10-CM E11.9 Type 2 diabetes mellitus without complications Active Diagnosis [facility] Diagnosis: ICD-10-CM Z71.9 Counseling, unspecified Active Diagnosis [facility] Diagnosis: ICD-10-CM C80.1 Malignant (primary) neoplasm, unspecified Active Diagnosis [facility] Medications Combined list of outpatient medications from Department of Defense and [facility] Affairs facilities.Medications provided include 1) outpatient medications from the last 15 months, and 2) patient-reported medications. Medication Details Route Status Patient Instructions Prescription Expires Prescription Number Last Dispense Date Ordering Provider Order Date Order Qty Source ACETAMINOPH EN TAB TAKE TYLENOL ARTHRITI S BY MOUTH PRN ORAL ACTIVE LLOYD ZIMMERMAN 2007 [facility] atorvastati n (U/D) 20 MG ORAL TAB TAKE ONE TABLET ORALLY AT BEDTIME FOR CHOLESTE ROL 11/17/2024 [id number] LUCIA YUEN 2023 90 [facility] ATORVASTATI N CA 20MG TAB TAKE ONE TABLET ORALLY AT BEDTIME FOR CHOLESTE ROL ORAL DISCONT INUED (EDIT) 11/17/2024 [id number] 4 TON YUEN 2023 90 [facility] ATORVASTATI N CA 20MG TAB TAKE ONE TABLET BY MOUTH AT BEDTIME ORAL ACTIVE SIVA CENTENO 2018 [facility] ATORVASTATI N CA 40MG TAB TAKE ONE TABLET ORALLY AT BEDTIME FOR CHOLESTE ROL ORAL ACTIVE 02/19/2025 [id number] PATI,Megha VICKY Megha 2023 90 [facility] BUPROPION HCL 150MG 12HR TAB,SA TAKE ONE TABLET ORALLY EVERY DAY FOR 3 DAYS, THEN TAKE ONE TABLET TWICE A DAY FOR 12 WEEKS FOR TOBACCO CESSATIO N ORAL 05/29/2024 [id number] Megha KRUEGER 2023 171 [facility] CHOLECALCIF TERRELL (VIT D3) TAB TAKE ORALLY EVERY DAY ORAL ACTIVE Megha KRUEGER 2023 [facility] CLOTRIMAZOL E (CLOTRIMAZO LE), 10MG, ALEX, MUCOUS EMILIA, [facility] 70 ea. BOTTLE Active [id number] 2023 70 Pharmac y Data Transac tion Service Facilit y CYANOCOBALA MIN 1000MCG TAB TAKE FIVE TABLETS ORALLY EVERY DAY ORAL ACTIVE PATIMegha VICKY [place] 2023 [facility] DIPHENHYDRA MINE HCL 25MG CAP TAKE 1 CAPSULE ORALLY NEEDED ORAL ACTIVE PATIMegha VICKY Megha 2023 [facility] EMPAGLIFLOZ IN 10 MG ORAL TAB TAKE ONE TABLET ORALLY EVERY MORNING FOR DIABETES 11/17/2024 [id number] LUCIA YUEN 2023 90 [facility] EMPAGLIFLOZ IN 10MG TAB TAKE ONE TABLET ORALLY EVERY MORNING FOR DIABETES ORAL ACTIVE 02/19/2025 [id number] 4 Megha KRUEGER 2023 90 [facility] EMPAGLIFLOZ IN 10MG TAB TAKE ONE TABLET ORALLY EVERY MORNING FOR DIABETES ORAL DISCONT INUED BY PINO Boss 11/17/2024 [id number] 4 TON YUEN 2023 90 [facility] FLOMAX (BRAND) 0.4 MG ORAL CAP TAKE ONE CAPSULE ORALLY EVERY DAY FOR PROSTATE 30 MINUTES AFTER THE SAME MEAL EACH DAY 11/17/2024 [id number] 4 LUCIA YUEN 2023 90 [facility] IBUPROFEN TAB TAKE BY MOUTH PRN ORAL ACTIVE GE,GAELTAO 2007 [facility] LIDOCAINE HCL VISCOUS (LIDOCAINE HCL), 20MG/ML, SOLUTION, MUCOUS MEM, [employer]., 100 ml BOTTLE Cancele d [id number] : 2023 160 [facility] y [facility] Trans[facility] t[facility] Service Facilit y LINAGLIPTIN 5MG TAB TAKE ONE TABLET BY MOUTH EVERY DAY ORAL ACTIVE SIVA CENTENO 2018 [facility] METFORMIN HCL 750MG 24HR TAB,SA TAKE ONE TABLET ORALLY EVERY EVENING FOR DIABETES WITH FOOD ORAL 11/17/2024 [id number] 4 TON YUEN 2023 [facility] METFORMIN HCL 750MG 24HR TAB,SA TAKE ONE TABLET BY MOUTH TWICE A DAY WITH FOOD ORAL ACTIVE SIVA CENTENO 2018 [facility] Metformin Hydrochlori de (Glucophage XR Eq.) Tablet Extended Release 750 mg Oral TAKE ONE TABLET ORALLY EVERY EVENING FOR DIABETES WITH FOOD 11/17/2024 [id number] 4 LUCIA YUEN 2023 90 [facility] METFORMIN TAB,SA TAKE 750MG BY MOUTH TWICE A DAY ORAL ACTIVE Demian DOVE 2011 [facility] Nicotine Polacrilex (Commit Eq.) Lozenge 4 mg Mouth/Throa t DISSOLVE 1 LOZENGE BETWEEN CHEEK AND GUM EVERY 3 HOURS NEEDED EVERY 1 TO 2 HOURS WEEKS 1-6; EVERY 2 TO 4 HOURS WEEKS 7-9; EVERY 4 TO 8 HOURS WEEKS 10-12 FOR TOBACCO CESSATIO N. 11/17/2024 [id number] LUCIA YUEN 2023 144 [facility] NICOTINE POLACRILEX 4MG LOZENGE DISSOLVE 1 [...] BUCCAL DISCONT INUED BY PINO Boss 11/17/2024 [id number] TON YUEN 2023 144 [facility] ONDANSETRON ODT (ONDANSETRO N), 4 MG, TAB RAPDIS, ORAL, [employer] PHARMA L, 30 ea. BLIST PACK Active [id number] 2023 30 Pharmac y Data Transac tion Service Facilit y PARoxetine HCl (U/D) 20 MG ORAL TAB TAKE ONE TABLET ORALLY EVERY DAY FOR PTSD 11/17/2024 [id number] 4 LUCIA YUEN 2023 90 [facility] PAROXETINE HCL 20MG TAB TAKE ONE TABLET ORALLY EVERY DAY FOR PTSD ORAL DISCONT INUED (EDIT) 11/17/2024 [id number] TON YUEN 2023 90 [facility] PAROXETINE HCL 30MG TAB TAKE ONE TABLET ORALLY EVERY DAY FOR PTSD ORAL ACTIVE 03/10/2025 [id number] 4 Angelina NICOLE 2023 90 [facility] PAROXETINE HCL 30MG TAB TAKE ONE TABLET ORALLY EVERY DAY FOR PTSD ORAL DISCONT INUED (EDIT) 01/19/2025 [id number] 4 Angelina NICOLE 2023 60 [facility] PIOGLITAZON E 45 MG ORAL TAB TAKE ONE TABLET ORALLY EVERY DAY FOR DIABETES 11/17/2024 [id number] 4 LUCIA YUEN 2023 90 [facility] PIOGLITAZON E HCL 45MG TAB TAKE ONE TABLET ORALLY EVERY DAY FOR DIABETES ORAL 11/17/2024 [id number] 4 TON YUEN 2023 90 [facility] PIOGLITAZON E HCL 45MG TAB TAKE ONE TABLET BY MOUTH DAILY ORAL ACTIVE Demian DOVE ASIL 2011 [facility] PREDNISONE 20MG TAB TAKE ONE TABLET ORALLY TWICE A DAY FOR 5 DAYS FOR RASH WITH FOOD. ORAL DISCONT INUED 02/03/2024 [id number] GRAVES 2023 10 [facility] ROSUVASTATI N CA 40MG TAB TAKE ONE TABLET BY MOUTH DAILY ORAL ACTIVE KATIE KIM 2010 [facility] SAW PALMET[place] CAP/TAB TAKE 900MG BY MOUTH TWICE A DAY ORAL ACTIVE Demian DOVE ASIL 2011 [facility] SSD (SILVER SULFADIAZIN E), 1 %, CREAM (G), TOPICAL, 'S LAB, 400 g JAR Active [id number] 2023 400 Pharmac y Data Transac tion Service Facilit y TAMSULOSIN HCL 0.4MG CAP TAKE ONE CAPSULE ORALLY EVERY DAY FOR PROSTATE 30 MINUTES AFTER THE SAME MEAL EACH DAY ORAL 11/17/2024 [id number] 4 TON YUEN 2023 90 [facility] Immunizations Combined list of available immunizations from the Department of Defense and [facility] Affairs facilities. Immunization Series Date Given Administered By Site Reaction Lot Number CVX Code Drug Mobility Scooter Repairer Status Comments Source PNEUMOCOCCAL CONJUGATE PCV20, POLYSACCHARID E [id number] CONJUGATE, ADJUVANT, PF 2023 YASMIN BROWN RIGHT DELTO ID [id number] complet ed ADMINISTE JODEE AT DC, [facility] TDAP 2022 115 complet ed HISTORICA L INFORMATI ON - FROM PATIENT'S WRITTEN RECORD, [facility] COVID-19 (MODERNA), MRNA, LNP-S, PF, 100 MCG/0.5ML DOSE OR 50 MCG/0.25ML DOSE 2 2020 207 complet ed HISTORICA L INFORMATI ON - FROM PATIENT'S WRITTEN RECORD, [facility] COVID-19 (MODERNA), MRNA, LNP-S, PF, 100 MCG/0.5ML DOSE OR 50 MCG/0.25ML DOSE 1 2020 207 complet ed HISTORICA L INFORMATI ON - FROM PATIENT'S WRITTEN RECORD, [facility] PNEUMOCOCCAL POLYSACCHARID E PPV23 2018 33 complet ed [facility] ZOSTER RECOMBINANT 1 2018 187 complet ed [facility] PNEUMOCOCCAL CONJUGATE PCV 13 2012 133 complet ed JLV [facility] INFLUENZA, UNSPECIFIED FORMULATION 2010 88 complet ed [facility] INFLUENZA, UNSPECIFIED FORMULATION 2008 88 complet ed [facility] INFLUENZA, UNSPECIFIED FORMULATION 2007 88 complet ed [facility] INFLUENZA, UNSPECIFIED FORMULATION 2006 88 complet ed [facility] PNEUMOCOCCAL, UNSPECIFIED FORMULATION 2006 109 complet ed [facility] TD(ADULT) UNSPECIFIED FORMULATION 2003 139 complet ed [facility] Results Combined list of recent chemistry, hematology [...] Jan 08, 2024 03:50 PM Reporting Lab: [address] [place] [address] Performing Lab: [address] [place] [address] [facility] CBC SCREEN/AU TO DIFF NEUTROPHILS [#/VOLUME] IN BLOOD BY AUTOMATED COUNT 10.4 10*3/uL 1.5 - 7.0 01/11 H Specimen Type: BLOOD No comment entered. Ordering Provider: RISHABH KRUEGER Report Released Date/Time: Jan 08, 2024 03:50 PM Reporting Lab: [address] [place] [address] Performing Lab: [address] [place] [address] [facility] CBC SCREEN/AU TO DIFF ERYTHROCYTE S [#/VOLUME] IN BLOOD BY AUTOMATED COUNT 4.14 10*6/uL 3.95 - 5.79 01/11 Specimen Type: BLOOD No comment entered. Ordering Provider: RISHABH KRUEGER Report Released Date/Time: Jan 08, 2024 03:50 PM Reporting Lab: [address] [place] [address] Performing Lab: [address] [place] [id number] [place] [address] CBC SCREEN/AU TO DIFF LEUKOCYTES [#/VOLUME] IN BLOOD BY AUTOMATED COUNT 11.9 10*3/uL 4.0 - 10.8 01/11 H Specimen Type: BLOOD No comment entered. Ordering Provider: RISHABH KRUEGER Report Released Date/Time: Jan 08, 2024 03:50 PM Reporting Lab: [address] [place] [address] Performing Lab: [address] [place] [id number] [place] [address] CBC SCREEN/AU TO DIFF HEMOGLOBIN [MASS/VOLUM E] IN BLOOD 13.3 g/dL 12.5 - 17.0 01/11 Specimen Type: BLOOD No comment entered. Ordering Provider: RISHABH KRUEGER Report Released Date/Time: Jan 08, 2024 03:50 PM Reporting Lab: [address] [place] [address] Performing Lab: [address] [place] [id number] [place] [address] CBC SCREEN/AU TO DIFF HEMATOCRIT [VOLUME FRACTION] OF BLOOD BY AUTOMATED COUNT 38.7 38 - 52 01/11 Specimen Type: BLOOD No comment entered. Ordering Provider: RISHABH KRUEGER Report Released Date/Time: Jan 08, 2024 03:50 PM Reporting Lab: [place] [address] [place] [address] Performing Lab: [place] [facility] [address] [place] [address] [place] [address] [place] [facility] CBC SCREEN/AU TO DIFF MCV [ENTITIC VOLUME] BY AUTOMATED COUNT 93.5 fL 81.8 - 98.6 01/11 Specimen Type: BLOOD No comment entered. Ordering Provider: RISHABH KRUEGER Report Released Date/Time: Jan 08, 2024 03:50 PM Reporting Lab: [place] [address] [place] [address] Performing Lab: [place] [address] [place] [address] [place] [facility] CBC SCREEN/AU TO DIFF MCH [ENTITIC MASS] BY AUTOMATED COUNT 32.1 pg 27.2 - 33.6 01/11 Specimen Type: BLOOD No comment entered. Ordering Provider: RISHABH KRUEGER Report Released Date/Time: Jan 08, 2024 03:50 PM Reporting Lab: [place] [address] [place] [address] Performing Lab: [place] [address] [place] [address] [place] [facility] [place] [facility] CBC SCREEN/AU TO DIFF MCHC [MASS/VOLUM E] BY AUTOMATED COUNT 34.4 g/dL 32.4 - 34.8 01/11 Specimen Type: BLOOD No comment entered. Ordering Provider: RISHABH KRUEGER Report Released Date/Time: Jan 08, 2024 03:50 PM Reporting Lab: [place] [address] [place] [address] Performing Lab: [place] [address] [place] [address] [facility] CBC SCREEN/AU TO DIFF ERYTHROCYTE DISTRIBUTIO N WIDTH [RATIO] BY AUTOMATED COUNT 15.2 12.3 - 15.9 01/11 Specimen Type: BLOOD No comment entered. Ordering Provider: RISHABH KRUEGER Report Released Date/Time: Jan 08, 2024 03:50 PM Reporting Lab: [place] [address] [place] [address] Performing Lab: [place] [address] [place] [address] [facility] CBC SCREEN/AU TO DIFF PLATELETS [#/VOLUME] IN BLOOD BY AUTOMATED COUNT 250 10*3/uL 150 - 400 01/11 Specimen Type: BLOOD No comment entered. Ordering Provider: RISHABH KRUEGER Report Released Date/Time: Jan 08, 2024 03:50 PM Reporting Lab: [address] [place] [address] Performing Lab: [address] [place] [address] [facility] CBC SCREEN/AU TO DIFF PLATELET MEAN VOLUME [ENTITIC VOLUME] IN BLOOD BY AUTOMATED COUNT 9.9 fL 6.6 - 11.8 01/11 Specimen Type: BLOOD No comment entered. Ordering Provider: RISHABH KRUEGER Report Released Date/Time: Jan 08, 2024 03:50 PM Reporting Lab: [address] [place] [address] Performing Lab: [address] [place] [address] [facility] CBC SCREEN/AU TO DIFF EOSINOPHILS [#/VOLUME] IN BLOOD BY AUTOMATED COUNT 0.1 10*3/uL 0.0 - 0.6 01/11 Specimen Type: BLOOD No comment entered. Ordering Provider: RISHABH KRUEGER Report Released Date/Time: Jan 08, 2024 03:50 PM Reporting Lab: [address] [place] [address] Performing Lab: [address] [place] [address] [facility] CBC SCREEN/AU TO DIFF BASOPHILS [#/VOLUME] IN BLOOD BY AUTOMATED COUNT 0.0 10*3/uL 0.0 - 0.2 01/11 Specimen Type: BLOOD No comment entered. Ordering Provider: RISHABH KRUEGER Report Released Date/Time: Jan 08, 2024 03:50 PM Reporting Lab: [address] [place] [address] Performing Lab: [address] [place] [address] [facility] CBC SCREEN/AU TO DIFF LYMPHOCYTES [#/VOLUME] IN BLOOD BY AUTOMATED COUNT 0.6 10*3/uL 1.0 - 4.0 01/11 L Specimen Type: BLOOD No comment entered. Ordering Provider: RISHABH KRUEGER Report Released Date/Time: Jan 08, 2024 03:50 PM Reporting Lab: [address] [place] [address] Performing Lab: [address] [place] [address] [facility] CBC SCREEN/AU TO DIFF NUCLEATED ERYTHROCYTE S [#/VOLUME] IN BLOOD BY AUTOMATED COUNT 0.00 10*3/uL 0 - 0.00 01/11 Specimen Type: BLOOD No comment entered. Ordering Provider: RISHABH KRUEGER Report Released Date/Time: Jan 08, 2024 03:50 PM Reporting Lab: [address] [place] [address] Performing Lab: [address] [place] [address] [facility] CBC SCREEN/AU TO DIFF NUCLEATED ERYTHROCYTE S/100 LEUKOCYTES [RATIO] IN BLOOD BY AUTOMATED COUNT 0.0 0 - 0.0 01/11 Specimen Type: BLOOD No comment entered. Ordering Provider: RISHABH KRUEGER Report Released Date/Time: Jan 08, 2024 03:50 PM Reporting Lab: [address] [place] [address] Performing Lab: [address] [place] [address] [facility] CBC SCREEN/AU TO DIFF IMMATURE GRANULOCYTE S [#/VOLUME] IN BLOOD BY AUTOMATED COUNT 0.1 10*3/uL 0 - 0.06 01/11 H Specimen Type: BLOOD No comment entered. Ordering Provider: RISHABH KRUEGER Report Released Date/Time: Jan 08, 2024 03:50 PM Reporting Lab: [address] [place] [address] Performing Lab: [address] [place] [address] [facility] COMPREHEN SIVE METABOLIC PANEL UREA NITROGEN [MASS/VOLUM E] IN SERUM OR PLASMA 18 mg/dL 9 - 20 01/11 Specimen Type: PLASMA Comment: For an in-depth explanation of the eGFR (CKD-EPI) calculation, please refer to Path and Lab Sharepoint: Chemistry Ordering Provider: RISHABH KRUEGER Report Released Date/Time: Jan 08, 2024 03:50 PM Reporting Lab: [address] [place] [address] Performing Lab: [place] [address] [place] [address] [place] [address] [facility] COMPREHEN SIVE METABOLIC PANEL GLUCOSE [MASS/VOLUM E] IN SERUM OR PLASMA 350 mg/dL 70 - 100 01/11 H Specimen Type: PLASMA Comment: For an in-depth explanation of the eGFR (CKD-EPI) calculation, please refer to Path and Lab Sharepoint: Chemistry Ordering Provider: RISHABH KRUEGER Report Released Date/Time: Jan 08, 2024 03:50 PM Reporting Lab: [place] [address] [place] [address] [place] [address] Performing Lab: [place] [address] [place] [address] [facility] COMPREHEN SIVE METABOLIC PANEL SODIUM [MOLES/VOLU ME] IN SERUM OR PLASMA 135 mmol/L 137 - 145 01/11 L Specimen Type: PLASMA Comment: For an in-depth explanation of the eGFR (CKD-EPI) calculation, please refer to Path and Lab Sharepoint: Chemistry Ordering Provider: RISHABH KRUEGER Report Released Date/Time: Jan 08, 2024 03:50 PM Reporting Lab: [place] [address] [place] [address] [place] [address] Performing Lab: [place] [facility] [place] [address] [place], [place] [address] [address] [facility] COMPREHEN SIVE METABOLIC PANEL POTASSIUM [MOLES/VOLU ME] IN SERUM OR PLASMA 4.1 mmol/L 3.5 - 5.1 01/11 Specimen Type: PLASMA Comment: For an in-depth explanation of the eGFR (CKD-EPI) calculation, please refer to Path and Lab Sharepoint: Chemistry Ordering Provider: RISHABH KRUEGER Report Released Date/Time: Jan 08, 2024 03:50 PM Reporting Lab: [place] [facility] [address] [place], [place] [address] [address] Performing Lab: [place] [facility] [place] [facility] [address] [place] [address] [facility] COMPREHEN SIVE METABOLIC PANEL CHLORIDE [MOLES/VOLU ME] IN SERUM OR PLASMA 100 mmol/L 98 - 107 01/11 Specimen Type: PLASMA Comment: For an in-depth explanation of the eGFR (CKD-EPI) calculation, please refer to Path and Lab Sharepoint: Chemistry Ordering Provider: RISHABH KRUEGER Report Released Date/Time: Jan 08, 2024 03:50 PM Reporting Lab: [place] [address] [place] [address] Performing Lab: [place] [address] [facility] [place] [address] [facility] COMPREHEN SIVE METABOLIC PANEL CARBON DIOXIDE, TOTAL [MOLES/VOLU ME] IN SERUM OR PLASMA 27 mmol/L 22 - 30 01/11 Specimen Type: PLASMA Comment: For an in-depth explanation of the eGFR (CKD-EPI) calculation, please refer to Path and Lab Sharepoint: Chemistry Ordering Provider: RISHABH KRUEGER Report Released Date/Time: Jan 08, 2024 03:50 PM Reporting Lab: [place] [address] [facility] [place] [address] Performing Lab: [place] [facility] [place] [address] [place] [address] [place] [address] [facility] COMPREHEN SIVE METABOLIC PANEL PROTEIN [MASS/VOLUM E] IN SERUM OR PLASMA 6.3 g/dL 6.5 - 8.5 01/11 L Specimen Type: PLASMA Comment: For an in-depth explanation of the eGFR (CKD-EPI) calculation, please refer to Path and Lab Sharepoint: Chemistry Ordering Provider: RISHABH KRUEGER Report Released Date/Time: Jan 08, 2024 03:50 PM Reporting Lab: [place] [facility] [address] [facility] [place] [address] Performing Lab: [place] [facility] [address] [facility] [place] [address] [facility] COMPREHEN SIVE METABOLIC PANEL ALBUMIN [MASS/VOLUM E] IN SERUM OR PLASMA 4.1 g/dL 3.5 - 5 01/11 Specimen Type: PLASMA Comment: For an in-depth explanation of the eGFR (CKD-EPI) calculation, please refer to Path and Lab Sharepoint: Chemistry Ordering Provider: RISHABH KRUEGER Report Released Date/Time: Jan 08, 2024 03:50 PM Reporting Lab: [place] [facility] [address] [place] [address] [place] [address] Performing Lab: [place] [facility] [address] [place] [address] [place] [address] [facility] [facility] [place] [facility] COMPREHEN SIVE METABOLIC PANEL BILIRUBIN.T OTAL [MASS/VOLUM E] IN SERUM OR PLASMA 0.6 mg/dL 0.2 - 1.3 01/11 Specimen Type: PLASMA Comment: For an in-depth explanation of the eGFR (CKD-EPI) calculation, please refer to Path and Lab Sharepoint: Chemistry Ordering Provider: RISHABH KRUEGER Report Released Date/Time: Jan 08, 2024 03:50 PM Reporting Lab: [place] [facility] [address] [place] [address] [place] [address] Performing Lab: [place] [place] [facility] [address] [place] [address] [place] [address] [facility] [place] [facility] COMPREHEN SIVE METABOLIC PANEL ANION GAP IN SERUM OR PLASMA 8 mmol/L 3 - 11 01/11 Specimen Type: PLASMA Comment: For an in-depth explanation of the eGFR (CKD-EPI) calculation, please refer to Path and Lab Sharepoint: Chemistry Ordering Provider: RISHABH KRUEGER Report Released Date/Time: Jan 08, 2024 03:50 PM Reporting Lab: [place] [facility] [address] [facility] [place] [address] Performing Lab: [place] [facility] [place] [facility] [address] [place] [address] [facility] COMPREHEN SIVE METABOLIC PANEL ALANINE AMINOTRANSF ERASE [ENZYMATIC ACTIVITY/VO LUME] IN SERUM OR PLASMA 20 U/L < 50 - 50 01/11 Specimen Type: PLASMA Comment: For an in-depth explanation of the eGFR (CKD-EPI) calculation, please refer to Path and Lab Sharepoint: Chemistry Ordering Provider: RISHABH KRUEGER Report Released Date/Time: Jan 08, 2024 03:50 PM Reporting Lab: [facility] [address] [facility] [place] [address] Performing Lab: [facility] [address] [place] [address] [facility] COMPREHEN SIVE METABOLIC PANEL CREATININE [MASS/VOLUM E] IN SERUM OR PLASMA 0.7 mg/dL 0.7 - 1.4 01/11 Specimen Type: PLASMA Comment: For an in-depth explanation of the eGFR (CKD-EPI) calculation, please refer to Path and Lab Sharepoint: Chemistry Ordering Provider: RISHABH KRUEGER Report Released Date/Time: Jan 08, 2024 03:50 PM Reporting Lab: [address] [place] [address] Performing Lab: [address] [place] [address] [facility] COMPREHEN SIVE METABOLIC PANEL ALKALINE PHOSPHATASE [ENZYMATIC ACTIVITY/VO LUME] IN SERUM OR PLASMA 140 U/L 38 - 126 01/11 H Specimen Type: PLASMA Comment: For an in-depth explanation of the eGFR (CKD-EPI) calculation, please refer to Path and Lab Sharepoint: Chemistry Ordering Provider: RISHABH KRUEGER Report Released Date/Time: Jan 08, 2024 03:50 PM Reporting Lab: [facility] [address] [place] [address] Performing Lab: [facility] [address] [place] [address] [place] [address] [facility] COMPREHEN SIVE METABOLIC PANEL ASPARTATE AMINOTRANSF ERASE [ENZYMATIC ACTIVITY/VO LUME] IN SERUM OR PLASMA 18 U/L 15 - 46 01/11 Specimen Type: PLASMA Comment: For an in-depth explanation of the eGFR (CKD-EPI) calculation, please refer to Path and Lab Sharepoint: Chemistry Ordering Provider: RISHABH KRUEGER Report Released Date/Time: Jan 08, 2024 03:50 PM Reporting Lab: [facility] [address] [place] [address] [place] [address] Performing Lab: [facility] [address] [place] [address] [place] [address] [facility] COMPREHEN SIVE METABOLIC PANEL CALCIUM [MASS/VOLUM E] IN SERUM OR PLASMA 9.3 mg/dL 8.4 - 10.2 01/11 Specimen Type: PLASMA Comment: For an in-depth explanation of the eGFR (CKD-EPI) calculation, please refer to Path and Lab Sharepoint: Chemistry Ordering Provider: RISHABH KRUEGER Report Released Date/Time: Jan 08, 2024 03:50 PM Reporting Lab: [address] [place] [address] Performing Lab: [address] [place] [address] [facility] COMPREHEN SIVE METABOLIC PANEL GLOMERULAR FILTRATION RATE/1.73 SQ M.PREDICTED [VOLUME RATE/AREA] IN SERUM, PLASMA OR BLOOD BY CREATININE- BASED FORMULA (CKD-EPI 2020) 96.00 mL/min/ {1.73_m 2} 01/11 Specimen Type: PLASMA Comment: For an in-depth explanation of the eGFR (CKD-EPI) calculation, please refer to Path and Lab Sharepoint: Chemistry Ordering Provider: RISHABH KRUEGER Report Released Date/Time: Jan 08, 2024 03:50 PM Reporting Lab: [address] [place] [address] Performing Lab: [address] [place] [id number] [place] [address] HEMOGLOBI N A1C HEMOGLOBIN A1C/HEMOGLO BIN.TOTAL IN [...] Jan 08, 2024 03:50 PM Reporting Lab: [address] [place] [address] Performing Lab: [address] [place] [address] [facility] LIPID PANEL CHOLESTEROL [MASS/VOLUM E] IN SERUM OR PLASMA 207 mg/dL < 200 - 200 01/11 H Specimen Type: PLASMA Comment: For an in-depth explanation of the eGFR (CKD-EPI) calculation, please refer to Path and Lab Sharepoint: Chemistry Ordering Provider: RISHABH KRUEGER Report Released Date/Time: Jan 08, 2024 03:50 PM Reporting Lab: [address] [place] [address] Performing Lab: [address] [place] [address] [facility] LIPID PANEL TRIGLYCERID E [MASS/VOLUM E] IN SERUM OR PLASMA 155 mg/dL < 150 - 150 01/11 H Specimen Type: PLASMA Comment: For an in-depth explanation of the eGFR (CKD-EPI) calculation, please refer to Path and Lab Sharepoint: Chemistry Ordering Provider: RISHABH KRUEGER Report Released Date/Time: Jan 08, 2024 03:50 PM Reporting Lab: [address] [place] [address] Performing Lab: [address] [place] [address] [facility] LIPID PANEL CHOLESTEROL IN LDL [MASS/VOLUM E] IN SERUM OR PLASMA BY CALCULATION 102 mg/dL < 100 - 100 01/11 H Specimen Type: PLASMA Comment: For an in-depth explanation of the eGFR (CKD-EPI) calculation, please refer to Path and Lab Sharepoint: Chemistry Ordering Provider: RISHABH KRUEGER Report Released Date/Time: Jan 08, 2024 03:50 PM Reporting Lab: [address] [place] [address] Performing Lab: [address] [place] [address] [facility] LIPID PANEL CHOLESTEROL IN HDL [MASS/VOLUM E] IN SERUM OR PLASMA 74 mg/dL 01/11 Specimen Type: PLASMA Comment: For an in-depth explanation of the eGFR (CKD-EPI) calculation, please refer to Path and Lab Sharepoint: Chemistry Ordering Provider: RISHABH KRUEGER Report Released Date/Time: Jan 08, 2024 03:50 PM Reporting Lab: [address] [place] [address] Performing Lab: [facility] [address] [place] [address] [place] [address] [facility] MICROALBU MIN PANEL (RDM) MICROALBUMI N [MASS/VOLUM E] IN URINE <0.6mg/ dL < 1.7 - 1.7 01/11 Specimen Type: URINE Comment: Unable to calculate MALB/CREAT-R due to low/high Microalbumin or Creatinine. Ordering Provider: RISHABH KRUEGER Report Released Date/Time: Jan 08, 2024 03:50 PM Reporting Lab: [address] [place] [address] Performing Lab: [address] [place] [address] [facility] MICROALBU MIN PANEL (RDM) MICROALBUMI N/CREATININ E [MASS RATIO] IN URINE comment mg/g{cr eat} 01/11 Specimen Type: URINE Comment: Unable to calculate MALB/CREAT-R due to low/high Microalbumin or Creatinine. Ordering Provider: RISHABH KRUEGER Report Released Date/Time: Jan 08, 2024 03:50 PM Reporting Lab: [address] [place] [address] Performing Lab: [address] [place] [address] [facility] MICROALBU MIN PANEL (RDM) CREATININE [MASS/VOLUM E] IN URINE 40 mg/dL 01/11 Specimen Type: URINE Comment: Unable to calculate MALB/CREAT-R due to low/high Microalbumin or Creatinine. Ordering Provider: RISHABH KRUEGER Report Released Date/Time: Jan 08, 2024 03:50 PM Reporting Lab: [address] [place] [address] Performing Lab: [address] [place] [address] [facility] URINALYSI S COLOR OF URINE Yellow 11/16 Specimen Type: URINE No comment entered. Ordering Provider: LUCIA YUEN Report Released Date/Time: Oct 14, 2023 01:25 PM Reporting Lab: [address] [place] [address] Performing Lab: [facility] [address] [place] [address] [facility] URINALYSI S PH OF URINE 6.5 5.0 - 9.0 11/16 Specimen Type: URINE No comment entered. Ordering Provider: LUCIA YUEN Report Released Date/Time: Oct 14, 2023 01:25 PM Reporting Lab: [facility] [address] [place] [address] [place] [address] Performing Lab: [facility] [address] [place] [address] [place] [address] [facility] URINALYSI S LEUKOCYTES [#/AREA] IN URINE SEDIMENT BY MICROSCOPY HIGH POWER FIELD NEG 11/16 Specimen Type: URINE No comment entered. Ordering Provider: LUCIA YUEN Report Released Date/Time: Oct 14, 2023 01:25 PM Reporting Lab: [facility] [address] [place] [address] [place] [address] Performing Lab: [facility] [address] [place] [address] [place] [address] [facility] URINALYSI S APPEARANCE OF URINE CLEAR 11/16 Specimen Type: URINE No comment entered. Ordering Provider: LUCIA YUEN Report Released Date/Time: Oct 14, 2023 01:25 PM Reporting Lab: [facility] [address] [place] [address] [place] [address] Performing Lab: [facility] [address] [place] [address] [place] [address] [facility] URINALYSI S SPECIFIC GRAVITY OF URINE 1.019 1.003 - 1.040 11/16 Specimen Type: URINE No comment entered. Ordering Provider: LUCIA YUEN Report Released Date/Time: Oct 14, 2023 01:25 PM Reporting Lab: [facility] [address] [place] [address] [place] [address] Performing Lab: [facility] [address] [place] [address] [place] [address] [facility] URINALYSI S PROTEIN [MASS/VOLUM E] IN URINE TRACEmg /dL 11/16 Specimen Type: URINE No comment entered. Ordering Provider: LUCIA YUEN Report Released Date/Time: Oct 14, 2023 01:25 PM Reporting Lab: [facility] [address] [place] [address] [place] [address] Performing Lab: [facility] [address] [place] [address] [place] [address] [facility] URINALYSI S GLUCOSE [MASS/VOLUM E] IN URINE BY TEST STRIP 500 mg/dL 11/16 Specimen Type: URINE No comment entered. Ordering Provider: LUCIA YUEN Report Released Date/Time: Oct 14, 2023 01:25 PM Reporting Lab: [facility] [address] [place] [address] Performing Lab: [facility] [address] [place] [address] [facility] URINALYSI S KETONES [MASS/VOLUM E] IN URINE BY TEST STRIP NEGmg/d L 11/16 Specimen Type: URINE No comment entered. Ordering Provider: LUCIA YUEN Report Released Date/Time: Oct 14, 2023 01:25 PM Reporting Lab: [facility] [address] [place] [address] Performing Lab: [facility] [address] [place] [address] [facility] URINALYSI S NITRITE [MASS/VOLUM E] IN URINE BY TEST STRIP NEG 11/16 Specimen Type: URINE No comment entered. Ordering Provider: LUCIA YUEN Report Released Date/Time: Oct 14, 2023 01:25 PM Reporting Lab: [facility] [address] [place] [address] Performing Lab: [facility] [address] [place] [address] [facility] URINALYSI S UROBILINOGE N [UNITS/VOLU ME] IN URINE BY TEST STRIP 4 mg/dL <2.0 - 2.0 11/16 Specimen Type: URINE No comment entered. Ordering Provider: LUCIA YUEN Report Released Date/Time: Oct 14, 2023 01:25 PM Reporting Lab: [facility] [address] [place] [address] Performing Lab: [facility] [address] [place] [address] [facility] URINALYSI S BILIRUBIN.T OTAL [PRESENCE] IN URINE NEG 11/16 Specimen Type: URINE No comment entered. Ordering Provider: LUCIA YUEN Report Released Date/Time: Oct 14, 2023 01:25 PM Reporting Lab: [facility] [address] [place] [address] Performing Lab: [address] [place] [address] [facility] URINALYSI S HEMOGLOBIN [PRESENCE] IN URINE NEG 11/16 Specimen Type: URINE No comment entered. Ordering Provider: LUCIA YUEN Report Released Date/Time: Oct 14, 2023 01:25 PM Reporting Lab: [address] [place] [address] Performing Lab: [address] [place] [address] [facility] HEMOGLOBI N A1C HEMOGLOBIN A1C/HEMOGLO BIN.TOTAL IN [...] Oct 14, 2023 01:25 PM Reporting Lab: [address] [place] [address] Performing Lab: [address] [place] [id number] [place] [address] COMPREHEN SIVE METABOLIC PANEL UREA NITROGEN [MASS/VOLUM E] IN SERUM OR PLASMA 13 mg/dL - 11/16 Specimen Type: PLASMA Comment: For an [...] Oct 14, 2023 01:25 PM Reporting Lab: [address] [place] [address] Performing Lab: [address] [place] [address] [facility] COMPREHEN SIVE METABOLIC PANEL GLUCOSE [MASS/VOLUM E] [...] Oct 14, 2023 01:25 PM Reporting Lab: [address] [place] [address] Performing Lab: [address] [place] [address] [facility] COMPREH SIVE METABOLIC PANEL SODIUM [MOLES/VOLU ME] [...] Oct 14, 2023 01:25 PM Reporting Lab: [address] [place] [address] Performing Lab: [address] [place] [address] [facility] COMPREHEN SIVE METABOLIC PANEL POTASSIUM [MOLES/VOLU ME] [...] Oct 14, 2023 01:25 PM Reporting Lab: [address] [place] [address] Performing Lab: [address] [place] [address] [facility] COMPREHEN SIVE METABOLIC PANEL CHLORIDE [MOLES/VOLU ME] [...] Oct 14, 2023 01:25 PM Reporting Lab: [address] [place] [address] Performing Lab: [facility] [address] [place] [address] [facility] COMPREHEN SIVE METABOLIC PANEL CARBON DIOXIDE, TOTAL [...] Oct 14, 2023 01:25 PM Reporting Lab: [address] [place] [address] Performing Lab: [address] [place] [address] [facility] COMPREH SIVE METABOLIC PANEL PROTEIN [MASS/VOLUM E] IN [...] Oct 14, 2023 01:25 PM Reporting Lab: [address] [place] [address] Performing Lab: [address] [place] [address] [facility] COMPREHEN SIVE METABOLIC PANEL ALBUMIN [MASS/VOLUM E] [...] Oct 14, 2023 01:25 PM Reporting Lab: [address] [place] [address] Performing Lab: [address] [place] [address] [facility] COMPREH SIVE METABOLIC PANEL BILIRUBIN.T OTAL [MASS/VOLUM E] [...] Oct 14, 2023 01:25 PM Reporting Lab: [address] [place] [address] Performing Lab: [facility] [address] [place] [address] [facility] COMPREHEN SIVE METABOLIC PANEL ANION GAP IN [...] Oct 14, 2023 01:25 PM Reporting Lab: [address] [place] [address] Performing Lab: [address] [place] [address] [facility] COMPREHEN SIVE METABOLIC PANEL ALANINE AMINOTRANSF ERASE [...] Oct 14, 2023 01:25 PM Reporting Lab: [address] [place] [address] Performing Lab: [address] [place] [address] [facility] COMPREHEN SIVE METABOLIC PANEL CREATININE [MASS/VOLUM E] [...] Oct 14, 2023 01:25 PM Reporting Lab: [address] [place] [address] Performing Lab: [address] [place] [address] [facility] COMPREHEN SIVE METABOLIC PANEL ALKALINE PHOSPHATASE [ENZYMATIC [...] Oct 14, 2023 01:25 PM Reporting Lab: [address] [place] [address] Performing Lab: [address] [place] [address] [facility] COMPREHEN SIVE METABOLIC PANEL ASPARTATE AMINOTRANSF ERASE [...] Oct 14, 2023 01:25 PM Reporting Lab: [address] [place] [address] Performing Lab: [address] [place] [address] [facility] COMPREHEN SIVE METABOLIC PANEL CALCIUM [MASS/VOLUM E] [...] Oct 14, 2023 01:25 PM Reporting Lab: [address] [place] [address] Performing Lab: [address] [place] [address] [facility] COMPREHEN SIVE METABOLIC PANEL GLOMERULAR FILTRATION RATE/1.73 [...] Oct 14, 2023 01:25 PM Reporting Lab: [address] [place] [address] Performing Lab: [address] [place] [address] [facility] CBC SCREEN/AU TO DIFF MONOCYTES [#/VOLUME] IN BLOOD BY AUTOMATED COUNT 0.6 10*3/uL 0.2 - 1.0 11/16 Specimen Type: BLOOD No comment entered. Ordering Provider: LUCIA YUEN Report Released Date/Time: Oct 14, 2023 01:25 PM Reporting Lab: [address] [place] [address] Performing Lab: [address] [place] [address] [facility] CBC SCREEN/AU TO DIFF NEUTROPHILS [#/VOLUME] IN BLOOD BY AUTOMATED COUNT 6.8 10*3/uL 1.5 - 7.0 11/16 Specimen Type: BLOOD No comment entered. Ordering Provider: LUCIA YUEN Report Released Date/Time: Oct 14, 2023 01:25 PM Reporting Lab: [address] [place] [address] Performing Lab: [address] [place] [address] [facility] CBC SCREEN/AU TO DIFF ERYTHROCYTE S [#/VOLUME] IN BLOOD BY AUTOMATED COUNT 4.77 10*6/uL 3.95 - 5.79 11/16 Specimen Type: BLOOD No comment entered. Ordering Provider: LUCIA YUEN Report Released Date/Time: Oct 14, 2023 01:25 PM Reporting Lab: [address] [place] [address] Performing Lab: [address] [place] [address] [facility] CBC SCREEN/AU TO DIFF LEUKOCYTES [#/VOLUME] IN BLOOD BY AUTOMATED COUNT 8.2 10*3/uL 4.0 - 10.8 11/16 Specimen Type: BLOOD No comment entered. Ordering Provider: LUCIA YUEN Report Released Date/Time: Oct 14, 2023 01:25 PM Reporting Lab: [address] [place] [address] Performing Lab: [address] [place] [address] [facility] CBC SCREEN/AU TO DIFF HEMOGLOBIN [MASS/VOLUM E] IN BLOOD 14.7 g/dL 12.5 - 17.0 11/16 Specimen Type: BLOOD No comment entered. Ordering Provider: LUCIA YUEN Report Released Date/Time: Oct 14, 2023 01:25 PM Reporting Lab: [address] [place] [address] Performing Lab: [address] [place] [address] [facility] CBC SCREEN/AU TO DIFF HEMATOCRIT [VOLUME FRACTION] OF BLOOD BY AUTOMATED COUNT 43.9 38 - 52 11/16 Specimen Type: BLOOD No comment entered. Ordering Provider: LUCIA YUEN Report Released Date/Time: Oct 14, 2023 01:25 PM Reporting Lab: [address] [place] [address] Performing Lab: [address] [place] [address] [facility] CBC SCREEN/AU TO DIFF MCV [ENTITIC VOLUME] BY AUTOMATED COUNT 92.0 fL 81.8 - 98.6 11/16 Specimen Type: BLOOD No comment entered. Ordering Provider: LUCIA YUEN Report Released Date/Time: Oct 14, 2023 01:25 PM Reporting Lab: [address] [place] [address] Performing Lab: [address] [place] [address] [facility] CBC SCREEN/AU TO DIFF MCH [ENTITIC MASS] BY AUTOMATED COUNT 30.8 pg 27.2 - 33.6 11/16 Specimen Type: BLOOD No comment entered. Ordering Provider: LUCIA YUEN Report Released Date/Time: Oct 14, 2023 01:25 PM Reporting Lab: [address] [place] [address] Performing Lab: [address] [place] [address] [facility] CBC SCREEN/AU TO DIFF MCHC [MASS/VOLUM E] BY AUTOMATED COUNT 33.5 g/dL 32.4 - 34.8 11/16 Specimen Type: BLOOD No comment entered. Ordering Provider: LUCIA YUEN Report Released Date/Time: Oct 14, 2023 01:25 PM Reporting Lab: [address] [place] [address] Performing Lab: [address] [place] [address] [facility] CBC SCREEN/AU TO DIFF ERYTHROCYTE DISTRIBUTIO N WIDTH [RATIO] BY AUTOMATED COUNT 13.6 12.3 - 15.9 11/16 Specimen Type: BLOOD No comment entered. Ordering Provider: LUCIA YUEN Report Released Date/Time: Oct 14, 2023 01:25 PM Reporting Lab: [address] [place] [address] Performing Lab: [address] [place] [address] [facility] CBC SCREEN/AU TO DIFF PLATELETS [#/VOLUME] IN BLOOD BY AUTOMATED COUNT 226 10*3/uL 150 - 400 11/16 Specimen Type: BLOOD No comment entered. Ordering Provider: LUCIA YUEN Report Released Date/Time: Oct 14, 2023 01:25 PM Reporting Lab: [address] [place] [address] Performing Lab: [facility] [address] [place] [address] [facility] CBC SCREEN/AU TO DIFF PLATELET MEAN VOLUME [ENTITIC VOLUME] IN BLOOD BY AUTOMATED COUNT 10.1 fL 6.6 - 11.8 11/16 Specimen Type: BLOOD No comment entered. Ordering Provider: LUCIA YUEN Report Released Date/Time: Oct 14, 2023 01:25 PM Reporting Lab: [facility] [address] [place] [address] Performing Lab: [facility] [address] [place] [address] [facility] CBC SCREEN/AU TO DIFF EOSINOPHILS [#/VOLUME] IN BLOOD BY AUTOMATED COUNT 0.1 10*3/uL 0.0 - 0.6 11/16 Specimen Type: BLOOD No comment entered. Ordering Provider: LUCIA YUEN Report Released Date/Time: Oct 14, 2023 01:25 PM Reporting Lab: [facility] [address] [place] [address] Performing Lab: [facility] [address] [place] [address] [facility] CBC SCREEN/AU TO DIFF BASOPHILS [#/VOLUME] IN BLOOD BY AUTOMATED COUNT 0.0 10*3/uL 0.0 - 0.2 11/16 Specimen Type: BLOOD No comment entered. Ordering Provider: LUCIA YUEN Report Released Date/Time: Oct 14, 2023 01:25 PM Reporting Lab: [facility] [address] [place] [address] Performing Lab: [facility] [address] [place] [address] [facility] CBC SCREEN/AU TO DIFF LYMPHOCYTES [#/VOLUME] IN BLOOD BY AUTOMATED COUNT 0.6 10*3/uL 1.0 - 4.0 11/16 L Specimen Type: BLOOD No comment entered. Ordering Provider: LUCIA YUEN Report Released Date/Time: Oct 14, 2023 01:25 PM Reporting Lab: [facility] [address] [place] [address] Performing Lab: [facility] [place] [address] [place] [address] [facility] CBC SCREEN/AU TO DIFF NUCLEATED ERYTHROCYTE S [#/VOLUME] IN BLOOD BY AUTOMATED COUNT 0.00 10*3/uL 0 - 0.00 11/16 Specimen Type: BLOOD No comment entered. Ordering Provider: LUCIA YUEN Report Released Date/Time: Oct 14, 2023 01:25 PM Reporting Lab: [address] [place] [address] Performing Lab: [address] [place] [address] [facility] CBC SCREEN/AU TO DIFF NUCLEATED ERYTHROCYTE S/100 LEUKOCYTES [RATIO] IN BLOOD BY AUTOMATED COUNT 0.0 0 - 0.0 11/16 Specimen Type: BLOOD No comment entered. Ordering Provider: LUCIA YUEN Report Released Date/Time: Oct 14, 2023 01:25 PM Reporting Lab: [address] [place] [address] Performing Lab: [address] [place] [address] [facility] CBC SCREEN/AU TO DIFF IMMATURE GRANULOCYTE S [#/VOLUME] IN BLOOD BY AUTOMATED COUNT 0.0 10*3/uL 0 - 0.06 11/16 Specimen Type: BLOOD No comment entered. Ordering Provider: LUCIA YUEN Report Released Date/Time: Oct 14, 2023 01:25 PM Reporting Lab: [address] [place] [address] Performing Lab: [address] [place] [address] [facility] LIPID PANEL CHOLESTEROL [MASS/VOLUM E] IN SERUM [...] Oct 14, 2023 01:25 PM Reporting Lab: [address] [place] [address] Performing Lab: [address] [place] [address] [facility] LIPID PANEL TRIGLYCERID E [MASS/VOLUM E] IN [...] Oct 14, 2023 01:25 PM Reporting Lab: [address] [place] [address] Performing Lab: [address] [place] [address] [facility] LIPID PANEL CHOLESTEROL IN LDL [MASS/VOLUM E] [...] Oct 14, 2023 01:25 PM Reporting Lab: [address] [place] [address] Performing Lab: [address] [place] [address] [facility] LIPID PANEL CHOLESTEROL IN HDL [MASS/VOLUM E] [...] Oct 14, 2023 01:25 PM Reporting Lab: [address] [place] [address] Performing Lab: [address] [place] [address] [facility] Vital Signs Combined list of inpatient and outpatient Vital Signs from Department of Defense and Veterans Affairs, ranging from 12 months to all on record, depending upon the facility. Vital Sign Value Date Comments Source SYSTOLIC BLOOD PRESSURE 152 01/12/2024 14:19:05 [facility] DIASTOLIC BLOOD PRESSURE 75 01/12/2024 14:19:05 [facility] PULSE OXIMETRY 98 01/12/2024 14:19:05 [facility] WEIGHT 123 01/12/2024 14:19:05 [facility] BMI 19 kg/m2 01/12/2024 14:19:05 [facility] PAIN 0 01/12/2024 14:19:05 [facility] HEIGHT 67 01/12/2024 14:19:05 [facility] TEMPERATURE 97.6 01/12/2024 14:19:05 [place] [facility] PULSE 48 01/12/2024 14:19:05 [facility] [place] RESPIRATION 16 01/12/2024 14:19:05 [place] [facility] Encounters Combined list of: 1) Encounters from Department of Veterans Affairs facilities going backup to the last 18 months, not all [place] inpatient encounters are included; 2) Encounters from the Department of [facility] facilities going backup to 280 months. Location Location Details Encounter Type Encounter Number Reason For Visit Attending Provider ADM Date DC Date Status Disposition Source [facility] Outpatient Encounter [id number] 10/26 [facility] [place] [facility] Outpatient Encounter [id number] 10/28 [facility] [place] [facility] [place] [facility] Outpatient Encounter [id number] 11/16 [facility] [place] [facility] [facility] OFFICE O/P [place] 60 MIN [id number] Diagnos is: ICD-10- CM E11.9 Type 2 diabete s mellitu s without complic ations BILLY YUEN 11/16 [facility] [place] [facility] QNHP OL DIG ASSMT&MGMT 11 [id number] Diagnos is: ICD-10- CM F43.10 Post-tr aumatic stress disorde r, unspeci fied BEV,TO TRACY Cece 11/17 [facility] [place] [facility] [place] [facility] Outpatient Encounter [id number] BILLY YUEN 11/19 [facility] [place] [place] Outpatient Encounter [id number] 11/24 [facility] [place] [place] Outpatient Encounter [id number] 11/24 [facility] [facility] [place] [facility] Outpatient Encounter [id number] KAY LAZO 01/06 [place] [facility] [place] Outpatient Encounter [id number] 01/06 [facility] [place] PRO PHONE CALL 5-10 MIN [id number] Diagnos is: ICD-10- CM 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, unspeci fied DAVID MAK 01/07 [facility] [place] [place] OFFICE O/P EST MOD 30 MIN [id number] Diagnos is: ICD-10- CM 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, unspeci ME NEELA Hannah 01/11 [facility] [place] [place] PSYCH DIAGNOSTIC EVALUATION [id number] Diagnos is: ICD-10- CM F43.10 Post-tr aumatic stress disorde r, unspeci fied JUDY NICOLE 01/11 [facility] [place] [place] CASE MANAGEMENT [id number] Diagnos is: ICD-10- CM 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, unspeci fiELOY Anguiano 01/26 [facility] [place] [place] Outpatient Encounter [id number] 01/27 [facility] [place] [place] CASE MANAGEMENT [id number] Diagnos is: ICD-10- CM 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, unspeci ELOY Kwan M 02/05 [facility] [place] [place] Outpatient Encounter [id number] 02/15 [facility] [place] [place] Outpatient Encounter [id number] Diagnos is: ICD-10- CM E11.9 Type 2 diabete s mellitu s without complic ations ME NEELA KRUEGER 02/18 [facility] [place] [place] PSYTX W PT 30 MINUTES [id number] Diagnos is: ICD-10- CM F43.10 Post-tr aumatic stress disorde r, unspeci fied LISANDRO DODD 02/18 [facility] [place] [place] Outpatient Encounter [id number] 02/19 [facility] [place] [place] Outpatient Encounter [id number] LISANDRO DODD 02/20 [facility] [place] [place] [facility] Outpatient Encounter [id number] 02/23 [facility] [place] [facility] [place] [facility] QNHP OL DIG ASSMT&MGMT 05-19 [id number] Diagnos is: ICD-10- CM Z72.0 Tobacco use ROME PABLO 03/02 [facility] [place] [place] Outpatient Encounter [id number] 03/04 [facility] [place] [facility] [place] [facility] Outpatient Encounter [id number] 03/04 [facility] [place] [facility] [place] [facility] Outpatient Encounter [id number] Diagnos is: ICD-10- CM F43.10 Post-tr aumatic stress disorde r, unspeci fied UJDY NICOLE 03/09 [facility] [place] [facility] [place] [facility] Outpatient Encounter [id number] 03/10 [facility] [place] [facility] [place] [facility] Outpatient Encounter [id number] 04/15 [place] [facility] Procedures Combined list of: 1) [facility], not all VA non-surgical procedures are included; 2) All procedures [...] status NHIS VA-TOBACCO USER EVERY DAY 11/17/2023 [facility] History of tobacco use VA-TOBACCO USE WI 30 MIN OF WAKEUP 11/17/2023 [facility] History of tobacco use VA-TOBACCO QUIT 15 YRS OR MORE 01/26/2019 [facility] History of tobacco use FORMER TOBACCO USER 7Y OR GREATER 07/19/2011 [facility] History of tobacco use FORMER TOBACCO USE >1Y <7Y 10/30/2009 [facility] History of tobacco use FORMER TOBACCO USE >1Y <7Y 10/26/2008 [facility] History of tobacco use FORMER TOBACCO USE >1Y <7Y 10/27/2007 [facility] History of tobacco use FORMER TOBACCO USE >1Y <7Y 11/27/2006 [facility] History of tobacco use LIFETIME NON-SMOKER/QUIT 7 YRS OR> 04/26/2004 Quit 2 months ago [facility] This section is an empty social history section. [facility] Advance Directives List of completed, amended, or rescinded Advance Directives on record at [facility] facilities. An actual copy of the Directive is not included. Date Advance Directive Provider Source 11/15/[address] [facility]
--- OUTSIDE RECORDS SUMMARY | 2025-01-10 17:59 | XMS_ITS | Continuity of Care Document ---
Author Name [facility] Organization [facility] Care Team Providers Care Geographic Information System Surveyor Name Role Phone [facility] Unavailable Unavailable Problems Combined list of problems from Department of Defense and [facility] facilities. It does not include entries that were removed or entered in error. Problem Status Onset Date Problem Type Date of Resolution Comments Source Actinic keratosis Active Condition [facility] Adjustment Disorder Unspecified * (ICD-9-CM 309.9) Active Condition [facility] Benign prostatic hyperplasia Active Condition [facility] Cervical spinal stenosis Active Condition [facility] Cervical spondylosis without myelopathy Active Condition [facility] Diabetes Mellitus Type 2 (SCT 09810525) Active Condition [facility] Diabetes Mellitus Type II or unspecified Active Condition [facility] Erectile Dysfunction * (ICD-9-CM 302.72) Active Condition [facility] Family social history Active Condition November 17, 2023 Entered By: LUCIA YUEN Comment: Sister - passed of colon cancer - first diagnosis age 72May 2023 Entered By: LUCIA YUEN Comment: brother - passed of bone cancer [facility] History of colonoscopy Active Condition November 17, 2023 Entered By: LUCIA YUEN Comment: reports next due 2028; last 2018 in [facility] History of surgery Active Condition ay 2023 Entered By: LUCIA YUEN Comment: Arthroscopy bilateral knees, left rotator cuff repair, cervical fusion C1-C3 2022, right TMJMay 2023 Entered By: LUCIA YUEN Comment: 09/2023 left total parotidectomy, left neck dissection, left cheek wide excision, rotation flap [facility] Hyperlipidemia (SCT [id number]) Active Condition [facility] Hyperlipidemia * (ICD-9-CM 272.4) Active Condition [facility] Impaired FASTING Glucose (ICD-9-CM 790.21) Active Condition [facility] Insomnia * (ICD-9-CM 780.52) Active Condition [facility] Mixed hyperlipidemia Active Condition [facility] Nephrolithiasis Active Condition [facility] Osteoarthritis of bilateral knee joints Active Condition [facility] Peripheral Vascular Disease Leg/Foot (ICD-9-CM 443.9) Active Condition [facility] Personal History of Colonic Polyps (ICD-9-CM V12.72) Active Condition [facility] Posttraumatic stress disorder Active Condition [facility] Social and personal history finding Active Condition November 17, 2023 Entered By: LUCIA YUEN Comment: with two children. Son lives two hours from him. 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 Squamous cell carcinoma Active Condition [facility] Tobacco user Active Condition [facility] Type 2 diabetes mellitus without complication Active Condition [facility] Diagnosis: ICD-10-CM F43.10 Post-traumatic stress disorder, unspecified Active Diagnosis [facility] Diagnosis: ICD-10-CM Z72.0 Tobacco use Active Diagnosis [facility] Diagnosis: ICD-10-CM E11.9 Type 2 diabetes mellitus without complications Active Diagnosis [facility] Diagnosis: ICD-10-CM Z71.9 Counseling, unspecified Active Diagnosis [facility] Diagnosis: ICD-10-CM C80.1 Malignant (primary) neoplasm, unspecified Active Diagnosis [facility] Medications Combined list of outpatient medications from Department of Defense and [facility] facilities.Medications provided include 1) outpatient medications from the last 15 months, and 2) patient-reported medications. Medication Details Route Status Patient Instructions Prescription Expires Prescription Number Last Dispense Date Ordering Provider Order Date Order Qty Source ACETAMINOPH EN TAB TAKE TYLENOL ARTHRITI S BY MOUTH PRN ORAL ACTIVE LLOYD ZIMMERMAN 2007 [facility] atorvastati n (U/D) 20 MG ORAL TAB TAKE ONE TABLET ORALLY AT BEDTIME FOR CHOLESTE ROL 11/17/2024 [id number] LUCIA YUEN 2023 90 [facility] ATORVASTATI N CA 20MG TAB TAKE ONE TABLET ORALLY AT BEDTIME FOR CHOLESTE ROL ORAL DISCONT INUED (EDIT) 11/17/2024 [id number] 4 TON YUEN [address] [facility] ATORVASTATI N CA 20MG TAB TAKE ONE TABLET BY MOUTH AT BEDTIME ORAL ACTIVE SIVA CENTENO 2018 [facility] ATORVASTATI N CA 40MG TAB TAKE ONE TABLET ORALLY AT BEDTIME FOR CHOLESTE ROL ORAL ACTIVE 02/19/2025 [id number] PATI,Megha VICKY Megha [address] [facility] BUPROPION HCL 150MG 12HR TAB,SA TAKE ONE TABLET ORALLY EVERY DAY FOR 3 DAYS, THEN TAKE ONE TABLET TWICE A DAY FOR 12 WEEKS FOR TOBACCO CESSATIO N ORAL 05/29/2024 [id number] 4 Megha KRUEGER [address] [facility] CHOLECALCIF TERRELL (VIT D3) TAB TAKE ORALLY EVERY DAY ORAL ACTIVE Megha KRUEGER [address] [facility] CLOTRIMAZOL E (CLOTRIMAZO LE), 10MG, ALEX, MUCOUS EMILIA, [facility] 70 ea. BOTTLE Active [id number] 4 2023 70 Pharmac y Data Transac tion Service Facilit y CYANOCOBALA MIN 1000MCG TAB TAKE FIVE TABLETS ORALLY EVERY DAY ORAL ACTIVE PATIMegha VICKY [place] [address] [facility] DIPHENHYDRA MINE HCL 25MG CAP TAKE 1 CAPSULE ORALLY NEEDED ORAL ACTIVE PATIMegha VICKY Megha [address] [facility] EMPAGLIFLOZ IN 10 MG ORAL TAB TAKE ONE TABLET ORALLY EVERY MORNING FOR DIABETES 11/17/2024 [id number] LUCIA YUEN 2023 90 [facility] EMPAGLIFLOZ IN 10MG TAB TAKE ONE TABLET ORALLY EVERY MORNING FOR DIABETES ORAL ACTIVE 02/19/2025 [id number] 4 Megha KRUEGER [address] [facility] EMPAGLIFLOZ IN 10MG TAB TAKE ONE TABLET ORALLY EVERY MORNING FOR DIABETES ORAL DISCONT INUED BY PINO Boss 11/17/2024 [id number] 4 TON YUEN [address] [facility] FLOMAX (BRAND) 0.4 MG ORAL CAP TAKE ONE CAPSULE ORALLY EVERY DAY FOR PROSTATE 30 MINUTES AFTER THE SAME MEAL EACH DAY 11/17/2024 [id number] 4 LUCIA YUEN 2023 90 [facility] IBUPROFEN TAB TAKE BY MOUTH PRN ORAL ACTIVE GE,GAELTAO 2007 [facility] LIDOCAINE HCL VISCOUS (LIDOCAINE HCL), 20MG/ML, SOLUTION, MUCOUS MEM, [employer] 100 ml BOTTLE Cancele d [id number] : 2023 160 Pharmac y Data Transac tion Service Facilit y LINAGLIPTIN 5MG TAB TAKE ONE TABLET BY MOUTH EVERY DAY ORAL ACTIVE SIVA CENTENO 2018 [facility] METFORMIN HCL 750MG 24HR TAB,SA TAKE ONE TABLET ORALLY EVERY EVENING FOR DIABETES WITH FOOD ORAL 11/17/2024 [id number] [facility] METFORMIN HCL 750MG 24HR TAB,SA TAKE ONE TABLET BY MOUTH TWICE A DAY WITH FOOD ORAL ACTIVE SIVA CENTENO 2018 [facility] Metformin Hydrochlori de (Glucophage XR Eq.) Tablet Extended Release 750 mg Oral TAKE ONE TABLET ORALLY EVERY EVENING FOR DIABETES WITH FOOD 11/17/2024 [id number] 4 LUCIA YUEN 2023 90 [facility] METFORMIN TAB,SA TAKE 750MG BY MOUTH TWICE A DAY ORAL ACTIVE Demian DOVE 2011 [facility] Nicotine Polacrilex (Commit Eq.) Lozenge 4 mg Mouth/Throa t DISSOLVE 1 LOZENGE BETWEEN CHEEK AND GUM EVERY 3 HOURS NEEDED EVERY 1 TO 2 HOURS WEEKS 1-6; EVERY 2 TO 4 HOURS WEEKS 7-9; EVERY 4 TO 8 HOURS WEEKS 10-12 FOR TOBACCO CESSATIO N. 11/17/2024 [id number] 4 LUCIA YUEN 2023 144 [facility] NICOTINE POLACRILEX 4MG LOZENGE DISSOLVE 1 LOZENGE [...] BUCCAL DISCONT INUED BY PINO Boss 11/17/2024 [id number] 4 TON YUEN [address] [facility] ONDANSETRON ODT (ONDANSETRO N), 4 MG, TAB RAPDIS, ORAL, [employer] PHARMA L, 30 ea. BLIST PACK Active [id number] 2023 30 Pharmac y Data Transac tion Service Facilit y PARoxetine HCl (U/D) 20 MG ORAL TAB TAKE ONE TABLET ORALLY EVERY DAY FOR PTSD 11/17/2024 [id number] 4 LUCIA YUEN 2023 90 [facility] PAROXETINE HCL 20MG TAB TAKE ONE TABLET ORALLY EVERY DAY FOR PTSD ORAL DISCONT INUED (EDIT) 11/17/2024 [id number] 4 TON YUEN [address] [facility] PAROXETINE HCL 30MG TAB TAKE ONE TABLET ORALLY EVERY DAY FOR PTSD ORAL ACTIVE 03/10/2025 [id number] 4 Angelina NICOLE [address] [facility] PAROXETINE HCL 30MG TAB TAKE ONE TABLET ORALLY EVERY DAY FOR PTSD ORAL DISCONT INUED (EDIT) 01/19/2025 [id number] 4 Angelina NICOLE [address] [facility] PIOGLITAZON E 45 MG ORAL TAB TAKE ONE TABLET ORALLY EVERY DAY FOR DIABETES 11/17/2024 [id number] 4 LUCIA YUEN 2023 90 [facility] PIOGLITAZON E HCL 45MG TAB TAKE ONE TABLET ORALLY EVERY DAY FOR DIABETES ORAL 11/17/2024 [id number] 4 TON YUEN [address] [facility] PIOGLITAZON E HCL 45MG TAB TAKE ONE TABLET BY MOUTH DAILY ORAL ACTIVE Demian DOVE ASIL 2011 [facility] PREDNISONE 20MG TAB TAKE ONE TABLET ORALLY TWICE A DAY FOR 5 DAYS FOR RASH WITH FOOD. ORAL DISCONT INUED 02/03/2024 [id number] [address] [facility] ROSUVASTATI N CA 40MG TAB TAKE ONE TABLET BY MOUTH DAILY ORAL ACTIVE KATIE KIM 2010 [facility] SAW PALMETTO CAP/TAB TAKE 900MG BY MOUTH TWICE A DAY ORAL ACTIVE Demian DOVE ASIL 2011 [facility] SSD (SILVER SULFADIAZIN E), 1 %, CREAM (G), TOPICAL, 'S LAB, 400 g JAR Active [id number] 2023 400 Pharmac y Data Transac tion Service Facilit y TAMSULOSIN HCL 0.4MG CAP TAKE ONE CAPSULE ORALLY EVERY DAY FOR PROSTATE 30 MINUTES AFTER THE SAME MEAL EACH DAY ORAL 11/17/2024 [id number] TON YUEN [address] [facility] Immunizations Combined list of available immunizations from the Department of Defense and [facility] facilities. Immunization Series Date Given Administered By Site Reaction Lot Number CVX Code Drug Dice Dealer Status Comments Source PNEUMOCOCCAL CONJUGATE PCV20, POLYSACCHARID E [id number] CONJUGATE, ADJUVANT, PF 2023 YASMIN BROWN RIGHT DELTO ID [id number] 216 complet ed ADMINISTE [place], [facility] TDAP 2022 115 complet ed HISTORICA L INFORMATI ON - FROM PATIENT'S WRITTEN RECORD, [facility] COVID-19 (MODERNA), MRNA, LNP-S, PF, 100 MCG/0.5ML DOSE OR 50 MCG/0.25ML DOSE 2 2020 207 complet ed HISTORICA L INFORMATI ON - FROM PATIENT'S WRITTEN RECORD, [facility] COVID-19 (MODERNA), MRNA, LNP-S, PF, 100 MCG/0.5ML DOSE OR 50 MCG/0.25ML DOSE 1 2020 207 complet ed HISTORICA L INFORMATI ON - FROM PATIENT'S WRITTEN RECORD, [facility] PNEUMOCOCCAL POLYSACCHARID E PPV23 2018 33 complet ed [facility] ZOSTER RECOMBINANT 1 2018 187 complet ed [facility] PNEUMOCOCCAL CONJUGATE PCV 13 2012 133 complet ed JLV [facility] INFLUENZA, UNSPECIFIED FORMULATION 2010 88 complet ed [facility] INFLUENZA, UNSPECIFIED FORMULATION 2008 88 complet ed [facility] INFLUENZA, UNSPECIFIED FORMULATION 2007 88 complet ed [facility] INFLUENZA, UNSPECIFIED FORMULATION 2006 88 complet ed [facility] PNEUMOCOCCAL, UNSPECIFIED FORMULATION 2006 109 complet ed [facility] TD(ADULT) UNSPECIFIED FORMULATION 2003 139 complet ed [facility] Results Combined list of recent chemistry, hematology [...] BLOOD No comment entered. Ordering Provider: RISHABH KRUGEER Report Released Date/Time: Jan 08, 2024 03:50 PM Reporting Lab: [address] [place] [address] Performing Lab: [address] [place] [address] [facility] CBC SCREEN/AU TO DIFF NEUTROPHILS [#/VOLUME] IN BLOOD BY AUTOMATED COUNT 10.4 10*3/uL 1.5 - 7.0 01/11 H Specimen Type: BLOOD No comment entered. Ordering Provider: RISHABH KRUEGER Report Released Date/Time: Jan 08, 2024 03:50 PM Reporting Lab: [address] [place] [address] Performing Lab: [address] [place] [address] [facility] CBC SCREEN/AU TO DIFF ERYTHROCYTE S [#/VOLUME] IN BLOOD BY AUTOMATED COUNT 4.14 10*6/uL 3.95 - 5.79 01/11 Specimen Type: BLOOD No comment entered. Ordering Provider: RISHABH KRUEGER Report Released Date/Time: Jan 08, 2024 03:50 PM Reporting Lab: [address] [place] [address] Performing Lab: [address] [place] [id number] [place] [address] CBC SCREEN/AU TO DIFF LEUKOCYTES [#/VOLUME] IN BLOOD BY AUTOMATED COUNT 11.9 10*3/uL 4.0 - 10.8 01/11 H Specimen Type: BLOOD No comment entered. Ordering Provider: RISHABH KRUEGER Report Released Date/Time: Jan 08, 2024 03:50 PM Reporting Lab: [address] [place] [address] Performing Lab: [address] [place] [id number] [place] [address] CBC SCREEN/AU TO DIFF HEMOGLOBIN [MASS/VOLUM E] IN BLOOD 13.3 g/dL 12.5 - 17.0 01/11 Specimen Type: BLOOD No comment entered. Ordering Provider: RISHABH KRUEGER Report Released Date/Time: Jan 08, 2024 03:50 PM Reporting Lab: [address] [place] [address] Performing Lab: [address] [place] [id number] [place] [address] CBC SCREEN/AU TO DIFF HEMATOCRIT [VOLUME FRACTION] OF BLOOD BY AUTOMATED COUNT 38.7 38 - 52 01/11 Specimen Type: BLOOD No comment entered. Ordering Provider: RISHABH KRUEGER Report Released Date/Time: Jan 08, 2024 03:50 PM Reporting Lab: [place] [address] [place] [address] Performing Lab: [place] [facility] [address] [place] [address] [place] [address] [place] [facility] CBC SCREEN/AU TO DIFF MCV [ENTITIC VOLUME] BY AUTOMATED COUNT 93.5 fL 81.8 - 98.6 01/11 Specimen Type: BLOOD No comment entered. Ordering Provider: RISHABH KRUEGER Report Released Date/Time: Jan 08, 2024 03:50 PM Reporting Lab: [place] [address] [place] [address] Performing Lab: [place] [address] [place] [address] [place] [facility] CBC SCREEN/AU TO DIFF MCH [ENTITIC MASS] BY AUTOMATED COUNT 32.1 pg 27.2 - 33.6 01/11 Specimen Type: BLOOD No comment entered. Ordering Provider: RISHABH KRUEGER Report Released Date/Time: Jan 08, 2024 03:50 PM Reporting Lab: [place] [address] [place] [address] Performing Lab: [place] [address] [place] [address] [place] [facility] CBC SCREEN/AU TO DIFF MCHC [MASS/VOLUM E] BY AUTOMATED COUNT 34.4 g/dL 32.4 - 34.8 01/11 Specimen Type: BLOOD No comment entered. Ordering Provider: RISHABH KRUEGER Report Released Date/Time: Jan 08, 2024 03:50 PM Reporting Lab: [place] [address] [place] [address] Performing Lab: [place] [address] [place] [address] [facility] CBC SCREEN/AU TO DIFF ERYTHROCYTE DISTRIBUTIO N WIDTH [RATIO] BY AUTOMATED COUNT 15.2 12.3 - 15.9 01/11 Specimen Type: BLOOD No comment entered. Ordering Provider: RISHABH KRUEGER Report Released Date/Time: Jan 08, 2024 03:50 PM Reporting Lab: [place] [address] [place] [address] Performing Lab: [place] [address] [place] [address] [facility] CBC SCREEN/AU TO DIFF PLATELETS [#/VOLUME] IN BLOOD BY AUTOMATED COUNT 250 10*3/uL 150 - 400 01/11 Specimen Type: BLOOD No comment entered. Ordering Provider: RISHABH KRUEGER Report Released Date/Time: Jan 08, 2024 03:50 PM Reporting Lab: [address] [place] [address] Performing Lab: [address] [place] [address] [facility] CBC SCREEN/AU TO DIFF PLATELET MEAN VOLUME [ENTITIC VOLUME] IN BLOOD BY AUTOMATED COUNT 9.9 fL 6.6 - 11.8 01/11 Specimen Type: BLOOD No comment entered. Ordering Provider: RISHABH KRUEGER Report Released Date/Time: Jan 08, 2024 03:50 PM Reporting Lab: [address] [place] [address] Performing Lab: [address] [place] [address] [facility] CBC SCREEN/AU TO DIFF EOSINOPHILS [#/VOLUME] IN BLOOD BY AUTOMATED COUNT 0.1 10*3/uL 0.0 - 0.6 01/11 Specimen Type: BLOOD No comment entered. Ordering Provider: RISHABH KREUGER Report Released Date/Time: Jan 08, 2024 03:50 PM Reporting Lab: [address] [place] [address] Performing Lab: [address] [place] [address] [facility] CBC SCREEN/AU TO DIFF BASOPHILS [#/VOLUME] IN BLOOD BY AUTOMATED COUNT 0.0 10*3/uL 0.0 - 0.2 01/11 Specimen Type: BLOOD No comment entered. Ordering Provider: RISHABH KRUEGER Report Released Date/Time: Jan 08, 2024 03:50 PM Reporting Lab: [address] [place] [address] Performing Lab: [address] [place] [address] [facility] CBC SCREEN/AU TO DIFF LYMPHOCYTES [#/VOLUME] IN BLOOD BY AUTOMATED COUNT 0.6 10*3/uL 1.0 - 4.0 01/11 L Specimen Type: BLOOD No comment entered. Ordering Provider: RISHABH KRUEGER Report Released Date/Time: Jan 08, 2024 03:50 PM Reporting Lab: [address] [place] [address] Performing Lab: [address] [place] [address] [facility] CBC SCREEN/AU TO DIFF NUCLEATED ERYTHROCYTE S [#/VOLUME] IN BLOOD BY AUTOMATED COUNT 0.00 10*3/uL 0 - 0.00 01/11 Specimen Type: BLOOD No comment entered. Ordering Provider: RISHABH KRUEGER Report Released Date/Time: Jan 08, 2024 03:50 PM Reporting Lab: [address] [place] [address] Performing Lab: [address] [place] [address] [facility] CBC SCREEN/AU TO DIFF NUCLEATED ERYTHROCYTE S/100 LEUKOCYTES [RATIO] IN BLOOD BY AUTOMATED COUNT 0.0 0 - 0.0 01/11 Specimen Type: BLOOD No comment entered. Ordering Provider: RISHABH KRUEGER Report Released Date/Time: Jan 08, 2024 03:50 PM Reporting Lab: [address] [place] [address] Performing Lab: [address] [place] [address] [facility] CBC SCREEN/AU TO DIFF IMMATURE GRANULOCYTE S [#/VOLUME] IN BLOOD BY AUTOMATED COUNT 0.1 10*3/uL 0 - 0.06 01/11 H Specimen Type: BLOOD No comment entered. Ordering Provider: RISHABH KRUEGER Report Released Date/Time: Jan 08, 2024 03:50 PM Reporting Lab: [address] [place] [address] Performing Lab: [address] [place] [address] [facility] COMPREHEN SIVE METABOLIC PANEL UREA NITROGEN [MASS/VOLUM E] IN SERUM OR PLASMA 18 mg/dL 9 - 20 01/11 Specimen Type: PLASMA Comment: For an in-depth explanation of the eGFR (CKD-EPI) calculation, please refer to Path and Lab Sharepoint: Chemistry Ordering Provider: RISHABH KRUEGER Report Released Date/Time: Jan 08, 2024 03:50 PM Reporting Lab: [address] [place] [address] Performing Lab: [place] [address] [place] [address] [place] [address] [facility] COMPREHEN SIVE METABOLIC PANEL GLUCOSE [MASS/VOLUM E] IN SERUM OR PLASMA 350 mg/dL 70 - 100 01/11 H Specimen Type: PLASMA Comment: For an in-depth explanation of the eGFR (CKD-EPI) calculation, please refer to Path and Lab Sharepoint: Chemistry Ordering Provider: RISHABH KRUEGER Report Released Date/Time: Jan 08, 2024 03:50 PM Reporting Lab: [place] [address] [place] [address] [place] [address] Performing Lab: [place] [address] [place] [address] [facility] COMPREHEN SIVE METABOLIC PANEL SODIUM [MOLES/VOLU ME] IN SERUM OR PLASMA 135 mmol/L 137 - 145 01/11 L Specimen Type: PLASMA Comment: For an in-depth explanation of the eGFR (CKD-EPI) calculation, please refer to Path and Lab Sharepoint: Chemistry Ordering Provider: RISHABH KRUEGER Report Released Date/Time: Jan 08, 2024 03:50 PM Reporting Lab: [place] [address] [place] [address] [place] [address] Performing Lab: [place] [address] [place], [place] [address] [address] [facility] COMPREHEN SIVE METABOLIC PANEL POTASSIUM [MOLES/VOLU ME] IN SERUM OR PLASMA 4.1 mmol/L 3.5 - 5.1 01/11 Specimen Type: PLASMA Comment: For an in-depth explanation of the eGFR (CKD-EPI) calculation, please refer to Path and Lab Sharepoint: Chemistry Ordering Provider: RISHABH KRUEGER Report Released Date/Time: Jan 08, 2024 03:50 PM Reporting Lab: [place] [facility] [address] [place], [place] [address] [address] Performing Lab: [place] [facility] [address] [facility] [place] [address] [facility] COMPREHEN SIVE METABOLIC PANEL CHLORIDE [MOLES/VOLU ME] IN SERUM OR PLASMA 100 mmol/L 98 - 107 01/11 Specimen Type: PLASMA Comment: For an in-depth explanation of the eGFR (CKD-EPI) calculation, please refer to Path and Lab Sharepoint: Chemistry Ordering Provider: RISHABH KRUEGER Report Released Date/Time: Jan 08, 2024 03:50 PM Reporting Lab: [place] [address] [place] [address] Performing Lab: [place] [address] [place] [address] [facility] COMPREHEN SIVE METABOLIC PANEL CARBON DIOXIDE, TOTAL [MOLES/VOLU ME] IN SERUM OR PLASMA 27 mmol/L 22 - 30 01/11 Specimen Type: PLASMA Comment: For an in-depth explanation of the eGFR (CKD-EPI) calculation, please refer to Path and Lab Sharepoint: Chemistry Ordering Provider: RISHABH KRUEGER Report Released Date/Time: Jan 08, 2024 03:50 PM Reporting Lab: [place] [address] [place] [address] Performing Lab: [place] [address] [place] [address] [place] [address] [facility] COMPREHEN SIVE METABOLIC PANEL PROTEIN [MASS/VOLUM E] IN SERUM OR PLASMA 6.3 g/dL 6.5 - 8.5 01/11 L Specimen Type: PLASMA Comment: For an in-depth explanation of the eGFR (CKD-EPI) calculation, please refer to Path and Lab Sharepoint: Chemistry Ordering Provider: RISHABH KRUEGER Report Released Date/Time: Jan 08, 2024 03:50 PM Reporting Lab: [place] [facility] [address] [place] [address] Performing Lab: [place] [facility] [address] [place] [address] [facility] COMPREHEN SIVE METABOLIC PANEL ALBUMIN [MASS/VOLUM E] IN SERUM OR PLASMA 4.1 g/dL 3.5 - 5 01/11 Specimen Type: PLASMA Comment: For an in-depth explanation of the eGFR (CKD-EPI) calculation, please refer to Path and Lab Sharepoint: Chemistry Ordering Provider: RISHABH KRUEGER Report Released Date/Time: Jan 08, 2024 03:50 PM Reporting Lab: [place] [facility] [address] [place] [address] [place] [address] Performing Lab: [place] [facility] [address] [place] [address] [place] [address] [place] [facility] COMPREHEN SIVE METABOLIC PANEL BILIRUBIN.T OTAL [MASS/VOLUM E] IN SERUM OR PLASMA 0.6 mg/dL 0.2 - 1.3 01/11 Specimen Type: PLASMA Comment: For an in-depth explanation of the eGFR (CKD-EPI) calculation, please refer to Path and Lab Sharepoint: Chemistry Ordering Provider: RISHABH KRUEGER Report Released Date/Time: Jan 08, 2024 03:50 PM Reporting Lab: [place] [facility] [address] [place] [address] [place] [address] Performing Lab: [place] [facility] [address] [place] [address] [place] [address] [place] [facility] COMPREHEN SIVE METABOLIC PANEL ANION GAP IN SERUM OR PLASMA 8 mmol/L 3 - 11 01/11 Specimen Type: PLASMA Comment: For an in-depth explanation of the eGFR (CKD-EPI) calculation, please refer to Path and Lab Sharepoint: Chemistry Ordering Provider: RISHABH KRUEGER Report Released Date/Time: Jan 08, 2024 03:50 PM Reporting Lab: [place] [facility] [address] [place] [address] Performing Lab: [place] [facility] [address] [place] [address] [place] [facility] COMPREHEN SIVE METABOLIC PANEL ALANINE AMINOTRANSF ERASE [ENZYMATIC ACTIVITY/VO LUME] IN SERUM OR PLASMA 20 U/L < 50 - 50 01/11 Specimen Type: PLASMA Comment: For an in-depth explanation of the eGFR (CKD-EPI) calculation, please refer to Path and Lab Sharepoint: Chemistry Ordering Provider: RISHABH KRUEGER Report Released Date/Time: Jan 08, 2024 03:50 PM Reporting Lab: [place] [facility] [address] [place] [address] Performing Lab: [place] [facility] [address] [place] [address] [facility] [facility] COMPREHEN SIVE METABOLIC PANEL CREATININE [MASS/VOLUM E] IN SERUM OR PLASMA 0.7 mg/dL 0.7 - 1.4 01/11 Specimen Type: PLASMA Comment: For an in-depth explanation of the eGFR (CKD-EPI) calculation, please refer to Path and Lab Sharepoint: Chemistry Ordering Provider: RISHABH KRUEGER Report Released Date/Time: Jan 08, 2024 03:50 PM Reporting Lab: [address] [place] [address] Performing Lab: [address] [place] [address] [facility] COMPREHEN SIVE METABOLIC PANEL ALKALINE PHOSPHATASE [ENZYMATIC ACTIVITY/VO LUME] IN SERUM OR PLASMA 140 U/L 38 - 126 01/11 H Specimen Type: PLASMA Comment: For an in-depth explanation of the eGFR (CKD-EPI) calculation, please refer to Path and Lab Sharepoint: Chemistry Ordering Provider: RISHABH KRUEGER Report Released Date/Time: Jan 08, 2024 03:50 PM Reporting Lab: [place] [address] [place] [address] Performing Lab: [place] [facility] [address] [place] [address] [place] [address] [facility] COMPREHEN SIVE METABOLIC PANEL ASPARTATE AMINOTRANSF ERASE [ENZYMATIC ACTIVITY/VO LUME] IN SERUM OR PLASMA 18 U/L 15 - 46 01/11 Specimen Type: PLASMA Comment: For an in-depth explanation of the eGFR (CKD-EPI) calculation, please refer to Path and Lab Sharepoint: Chemistry Ordering Provider: RISHABH KRUEGER Report Released Date/Time: Jan 08, 2024 03:50 PM Reporting Lab: [place] [facility] [address] [place] [address] [place] [address] Performing Lab: [place] [facility] [address] [place] [address] [place] [address] [facility] COMPREHEN SIVE METABOLIC PANEL CALCIUM [MASS/VOLUM E] IN SERUM OR PLASMA 9.3 mg/dL 8.4 - 10.2 01/11 Specimen Type: PLASMA Comment: For an in-depth explanation of the eGFR (CKD-EPI) calculation, please refer to Path and Lab Sharepoint: Chemistry Ordering Provider: RISHABH KRUEGER Report Released Date/Time: Jan 08, 2024 03:50 PM Reporting Lab: [address] [place] [address] Performing Lab: [address] [place] [address] [facility] COMPREHEN SIVE METABOLIC PANEL GLOMERULAR FILTRATION RATE/1.73 SQ M.PREDICTED [VOLUME RATE/AREA] IN SERUM, PLASMA OR BLOOD BY CREATININE- BASED FORMULA (CKD-EPI 2020) 96.00 mL/min/ {1.73_m 2} 01/11 Specimen Type: PLASMA Comment: For an in-depth explanation of the eGFR (CKD-EPI) calculation, please refer to Path and Lab Sharepoint: Chemistry Ordering Provider: RISHABH KRUEGER Report Released Date/Time: Jan 08, 2024 03:50 PM Reporting Lab: [address] [place] [address] Performing Lab: [address] [place] [id number] [place] [address] HEMOGLOBI N A1C HEMOGLOBIN A1C/HEMOGLO BIN.TOTAL IN [...] Jan 08, 2024 03:50 PM Reporting Lab: [address] [place] [address] Performing Lab: [address] [place] [address] [facility] LIPID PANEL CHOLESTEROL [MASS/VOLUM E] IN SERUM OR PLASMA 207 mg/dL < 200 - 200 01/11 H Specimen Type: PLASMA Comment: For an in-depth explanation of the eGFR (CKD-EPI) calculation, please refer to Path and Lab Sharepoint: Chemistry Ordering Provider: RISHABH KRUEGER Report Released Date/Time: Jan 08, 2024 03:50 PM Reporting Lab: [address] [place] [address] Performing Lab: [address] [place] [address] [facility] LIPID PANEL TRIGLYCERID E [MASS/VOLUM E] IN SERUM OR PLASMA 155 mg/dL < 150 - 150 01/11 H Specimen Type: PLASMA Comment: For an in-depth explanation of the eGFR (CKD-EPI) calculation, please refer to Path and Lab Sharepoint: Chemistry Ordering Provider: RISHABH KRUEGER Report Released Date/Time: Jan 08, 2024 03:50 PM Reporting Lab: [address] [place] [address] Performing Lab: [address] [place] [address] [facility] LIPID PANEL CHOLESTEROL IN LDL [MASS/VOLUM E] IN SERUM OR PLASMA BY CALCULATION 102 mg/dL < 100 - 100 01/11 H Specimen Type: PLASMA Comment: For an in-depth explanation of the eGFR (CKD-EPI) calculation, please refer to Path and Lab Sharepoint: Chemistry Ordering Provider: RISHABH KRUEGER Report Released Date/Time: Jan 08, 2024 03:50 PM Reporting Lab: [address] [place] [address] Performing Lab: [address] [place] [address] [facility] LIPID PANEL CHOLESTEROL IN HDL [MASS/VOLUM E] IN SERUM OR PLASMA 74 mg/dL 01/11 Specimen Type: PLASMA Comment: For an in-depth explanation of the eGFR (CKD-EPI) calculation, please refer to Path and Lab Sharepoint: Chemistry Ordering Provider: RISHABH KRUEGER Report Released Date/Time: Jan 08, 2024 03:50 PM Reporting Lab: [address] [place] [address] Performing Lab: [facility] [address] [place] [address] [place] [address] [facility] MICROALBU MIN PANEL (RDM) MICROALBUMI N [MASS/VOLUM E] IN URINE <0.6mg/ dL < 1.7 - 1.7 01/11 Specimen Type: URINE Comment: Unable to calculate MALB/CREAT-R due to low/high Microalbumin or Creatinine. Ordering Provider: RISHABH KRUEGER Report Released Date/Time: Jan 08, 2024 03:50 PM Reporting Lab: [address] [place] [address] Performing Lab: [address] [place] [address] [facility] MICROALBU MIN PANEL (RDM) MICROALBUMI N/CREATININ E [MASS RATIO] IN URINE comment mg/g{cr eat} 01/11 Specimen Type: URINE Comment: Unable to calculate MALB/CREAT-R due to low/high Microalbumin or Creatinine. Ordering Provider: RISHABH KRUEGER Report Released Date/Time: Jan 08, 2024 03:50 PM Reporting Lab: [address] [place] [address] Performing Lab: [address] [place] [address] [facility] MICROALBU MIN PANEL (RDM) CREATININE [MASS/VOLUM E] IN URINE 40 mg/dL 01/11 Specimen Type: URINE Comment: Unable to calculate MALB/CREAT-R due to low/high Microalbumin or Creatinine. Ordering Provider: RISHABH KRUEGER Report Released Date/Time: Jan 08, 2024 03:50 PM Reporting Lab: [address] [place] [address] Performing Lab: [address] [place] [address] [facility] CBC SCREEN/AU TO DIFF MONOCYTES [#/VOLUME] IN BLOOD BY AUTOMATED COUNT 0.6 10*3/uL 0.2 - 1.0 11/16 Specimen Type: BLOOD No comment entered. Ordering Provider: LUCIA YUEN Report Released Date/Time: Oct 14, 2023 01:25 PM Reporting Lab: [address] [place] [address] Performing Lab: [address] [place] [address] [facility] CBC SCREEN/AU TO DIFF NEUTROPHILS [#/VOLUME] IN BLOOD BY AUTOMATED COUNT 6.8 10*3/uL 1.5 - 7.0 11/16 Specimen Type: BLOOD No comment entered. Ordering Provider: LUCIA YUEN Report Released Date/Time: Oct 14, 2023 01:25 PM Reporting Lab: [address] [place] [address] Performing Lab: [address] [place] [address] [facility] CBC SCREEN/AU TO DIFF ERYTHROCYTE S [#/VOLUME] IN BLOOD BY AUTOMATED COUNT 4.77 10*6/uL 3.95 - 5.79 11/16 Specimen Type: BLOOD No comment entered. Ordering Provider: LUCIA YUEN Report Released Date/Time: Oct 14, 2023 01:25 PM Reporting Lab: [address] [place] [address] Performing Lab: [address] [place] [address] [facility] CBC SCREEN/AU TO DIFF LEUKOCYTES [#/VOLUME] IN BLOOD BY AUTOMATED COUNT 8.2 10*3/uL 4.0 - 10.8 11/16 Specimen Type: BLOOD No comment entered. Ordering Provider: LUCIA YUEN Report Released Date/Time: Oct 14, 2023 01:25 PM Reporting Lab: [address] [place] [address] Performing Lab: [address] [place] [address] [facility] CBC SCREEN/AU TO DIFF HEMOGLOBIN [MASS/VOLUM E] IN BLOOD 14.7 g/dL 12.5 - 17.0 11/16 Specimen Type: BLOOD No comment entered. Ordering Provider: LUCIA YUEN Report Released Date/Time: Oct 14, 2023 01:25 PM Reporting Lab: [address] [place] [address] Performing Lab: [address] [place] [address] [facility] CBC SCREEN/AU TO DIFF HEMATOCRIT [VOLUME FRACTION] OF BLOOD BY AUTOMATED COUNT 43.9 38 - 52 11/16 Specimen Type: BLOOD No comment entered. Ordering Provider: LUCIA YUEN Report Released Date/Time: Oct 14, 2023 01:25 PM Reporting Lab: [address] [place] [address] Performing Lab: [address] [place] [address] [facility] CBC SCREEN/AU TO DIFF MCV [ENTITIC VOLUME] BY AUTOMATED COUNT 92.0 fL 81.8 - 98.6 11/16 Specimen Type: BLOOD No comment entered. Ordering Provider: LUCIA YUEN Report Released Date/Time: Oct 14, 2023 01:25 PM Reporting Lab: [address] [place] [address] Performing Lab: [address] [place] [address] [facility] CBC SCREEN/AU TO DIFF MCH [ENTITIC MASS] BY AUTOMATED COUNT 30.8 pg 27.2 - 33.6 11/16 Specimen Type: BLOOD No comment entered. Ordering Provider: LUCIA YUEN Report Released Date/Time: Oct 14, 2023 01:25 PM Reporting Lab: [address] [place] [address] Performing Lab: [address] [place] [address] [facility] CBC SCREEN/AU TO DIFF MCHC [MASS/VOLUM E] BY AUTOMATED COUNT 33.5 g/dL 32.4 - 34.8 11/16 Specimen Type: BLOOD No comment entered. Ordering Provider: LUCIA YUEN Report Released Date/Time: Oct 14, 2023 01:25 PM Reporting Lab: [address] [place] [address] Performing Lab: [address] [place] [address] [facility] CBC SCREEN/AU TO DIFF ERYTHROCYTE DISTRIBUTIO N WIDTH [RATIO] BY AUTOMATED COUNT 13.6 12.3 - 15.9 11/16 Specimen Type: BLOOD No comment entered. Ordering Provider: LUCIA YUEN Report Released Date/Time: Oct 14, 2023 01:25 PM Reporting Lab: [address] [place] [address] Performing Lab: [place] [address] [place] [address] [place] CBC SCREEN/AU TO DIFF PLATELETS [#/VOLUME] IN BLOOD BY AUTOMATED COUNT 226 10*3/uL 150 - 400 11/16 Specimen Type: BLOOD No comment entered. Ordering Provider: LUCIA YUEN Report Released Date/Time: Oct 14, 2023 01:25 PM Reporting Lab: [place] [facility] [address] [place] [address] [place] [address] Performing Lab: [place] [address] [place] [address] [place] [address] [place] [facility] CBC SCREEN/AU TO DIFF PLATELET MEAN VOLUME [ENTITIC VOLUME] IN BLOOD BY AUTOMATED COUNT 10.1 fL 6.6 - 11.8 11/16 Specimen Type: BLOOD No comment entered. Ordering Provider: LUCIA YUEN Report Released Date/Time: Oct 14, 2023 01:25 PM Reporting Lab: [place] [facility] [address] [place] [address] [place] [address] Performing Lab: [place] [facility] [address] [place] [address] [place] [address] [place] [facility] CBC SCREEN/AU TO DIFF EOSINOPHILS [#/VOLUME] IN BLOOD BY AUTOMATED COUNT 0.1 10*3/uL 0.0 - 0.6 11/16 Specimen Type: BLOOD No comment entered. Ordering Provider: LUCIA YUEN Report Released Date/Time: Oct 14, 2023 01:25 PM Reporting Lab: [place] [facility] [address] [place] [address] [place] [address] Performing Lab: [place] [address] [place] [address] [place] [address] [place] [facility] CBC SCREEN/AU TO DIFF BASOPHILS [#/VOLUME] IN BLOOD BY AUTOMATED COUNT 0.0 10*3/uL 0.0 - 0.2 11/16 Specimen Type: BLOOD No comment entered. Ordering Provider: LUCIA YUEN Report Released Date/Time: Oct 14, 2023 01:25 PM Reporting Lab: [place] [address] [place] [address] [place] [address] Performing Lab: [place] [facility] [address] [place] [address] [place] [address] [facility] CBC SCREEN/AU TO DIFF LYMPHOCYTES [#/VOLUME] IN BLOOD BY AUTOMATED COUNT 0.6 10*3/uL 1.0 - 4.0 11/16 L Specimen Type: BLOOD No comment entered. Ordering Provider: LUCIA YUEN Report Released Date/Time: Oct 14, 2023 01:25 PM Reporting Lab: [address] [place] [address] Performing Lab: [place] [address] [place] [address] [facility] CBC SCREEN/AU TO DIFF NUCLEATED ERYTHROCYTE S [#/VOLUME] IN BLOOD BY AUTOMATED COUNT 0.00 10*3/uL 0 - 0.00 11/16 Specimen Type: BLOOD No comment entered. Ordering Provider: LUCIA YUEN Report Released Date/Time: Oct 14, 2023 01:25 PM Reporting Lab: [address] [place] [address] Performing Lab: [address] [place] [address] [facility] CBC SCREEN/AU TO DIFF NUCLEATED ERYTHROCYTE S/100 LEUKOCYTES [RATIO] IN BLOOD BY AUTOMATED COUNT 0.0 0 - 0.0 11/16 Specimen Type: BLOOD No comment entered. Ordering Provider: LUCIA YUEN Report Released Date/Time: Oct 14, 2023 01:25 PM Reporting Lab: [address] [place] [address] Performing Lab: [address] [place] [address] [facility] CBC SCREEN/AU TO DIFF IMMATURE GRANULOCYTE S [#/VOLUME] IN BLOOD BY AUTOMATED COUNT 0.0 10*3/uL 0 - 0.06 11/16 Specimen Type: BLOOD No comment entered. Ordering Provider: LUCIA YUEN Report Released Date/Time: Oct 14, 2023 01:25 PM Reporting Lab: [address] [place] [address] Performing Lab: [address] [place] [address] [facility] COMPREHEN SIVE METABOLIC PANEL UREA NITROGEN [MASS/VOLUM E] IN SERUM OR PLASMA 13 mg/dL 9 - 20 05/20 /2024 Specimen Type: PLASMA Comment: For an in-depth [...] Oct 14, 2023 01:25 PM Reporting Lab: [address] [place] [address] Performing Lab: [address] [place] [address] [facility] COMPREHEN SIVE METABOLIC PANEL GLUCOSE [MASS/VOLUM [...] Oct 14, 2023 01:25 PM Reporting Lab: [address] [place] [address] Performing Lab: [address] [place] [address] [facility] COMPREHEN SIVE METABOLIC PANEL SODIUM [MOLES/VOLU [...] Oct 14, 2023 01:25 PM Reporting Lab: [address] [place] [address] Performing Lab: [address] [place] [address] [facility] COMPREHEN SIVE METABOLIC PANEL POTASSIUM [MOLES/VOLU [...] Oct 14, 2023 01:25 PM Reporting Lab: [address] [place] [address] Performing Lab: [address] [place] [address] [facility] COMPREHEN SIVE METABOLIC PANEL CHLORIDE [MOLES/VOLU [...] Oct 14, 2023 01:25 PM Reporting Lab: [address] [place] [address] Performing Lab: [address] [place] [address] [facility] COMPREHEN SIVE METABOLIC PANEL CARBON DIOXIDE, TOTAL [MOLES/VOLU ME] IN SERUM OR PLASMA 30 mmol/L - 11/16 Specimen Type: PLASMA Comment: For [...] Oct 14, 2023 01:25 PM Reporting Lab: [address] [place] [address] Performing Lab: [address] [place] [address] [facility] COMPREHEN SIVE METABOLIC PANEL PROTEIN [MASS/VOLUM [...] Oct 14, 2023 01:25 PM Reporting Lab: [address] [place] [address] Performing Lab: [address] [place] [address] [facility] COMPREHEN SIVE METABOLIC PANEL ALBUMIN [MASS/VOLUM [...] Oct 14, 2023 01:25 PM Reporting Lab: [address] [place] [address] Performing Lab: [address] [place] [address] [facility] COMPREHEN SIVE METABOLIC PANEL BILIRUBIN.T OTAL [MASS/VOLUM [...] Oct 14, 2023 01:25 PM Reporting Lab: [address] [place] [address] Performing Lab: [address] [place] [address] [facility] COMPREHEN SIVE METABOLIC PANEL ANION GAP [...] Oct 14, 2023 01:25 PM Reporting Lab: [address] [place] [address] Performing Lab: [address] [place] [address] [facility] COMPREHEN SIVE METABOLIC PANEL ALANINE AMINOTRANSF [...] Oct 14, 2023 01:25 PM Reporting Lab: [address] [place] [address] Performing Lab: [address] [place] [address] [facility] COMPREHEN SIVE METABOLIC PANEL CREATININE [MASS/VOLUM [...] Oct 14, 2023 01:25 PM Reporting Lab: [address] [place] [address] Performing Lab: [address] [place] [address] [facility] COMPREHEN SIVE METABOLIC PANEL ALKALINE PHOSPHATASE [...] Oct 14, 2023 01:25 PM Reporting Lab: [address] [place] [address] Performing Lab: [address] [place] [address] [facility] COMPREHEN SIVE METABOLIC PANEL ASPARTATE AMINOTRANSF [...] Oct 14, 2023 01:25 PM Reporting Lab: [address] [place] [address] Performing Lab: [address] [place] [address] [facility] COMPREHEN SIVE METABOLIC PANEL CALCIUM [MASS/VOLUM [...] Oct 14, 2023 01:25 PM Reporting Lab: [address] [place] [address] Performing Lab: [address] [place] [address] [facility] METABOLIC PANEL GLOMERULAR FILTRATION RATE/1.73 SQ M.PREDICTED [...] Oct 14, 2023 01:25 PM Reporting Lab: [address] [place] [address] Performing Lab: [address] [place] [address] [facility] HEMOGLOBI N A1C HEMOGLOBIN A1C/HEMOGLO BIN.TOTAL [...] Oct 14, 2023 01:25 PM Reporting Lab: [address] [place] [address] Performing Lab: [address] [place] [address] [facility] LIPID PANEL CHOLESTEROL [MASS/VOLUM E] IN [...] Oct 14, 2023 01:25 PM Reporting Lab: [address] [place] [address] Performing Lab: [address] [place] [address] [facility] LIPID PANEL TRIGLYCERID E [MASS/VOLUM E] [...] Oct 14, 2023 01:25 PM Reporting Lab: [address] [place] [address] Performing Lab: [address] [place] [address] [facility] LIPID PANEL CHOLESTEROL IN LDL [MASS/VOLUM [...] Oct 14, 2023 01:25 PM Reporting Lab: [address] [place] [address] Performing Lab: [address] [place] [address] [facility] LIPID PANEL CHOLESTEROL IN HDL [MASS/VOLUM [...] Oct 14, 2023 01:25 PM Reporting Lab: [place] [facility] [address] [place] [address] Performing Lab: [place] [facility] [address] [place] [address] [place] [facility] URINALYSI S COLOR OF URINE Yellow 11/16 Specimen Type: URINE No comment entered. Ordering Provider: LUCIA UYEN Report Released Date/Time: Oct 14, 2023 01:25 PM Reporting Lab: [place] [facility] [address] [place] [address] Performing Lab: [place] [address] [place] [address] [place] [address] [place] [facility] URINALYSI S PH OF URINE 6.5 5.0 - 9.0 11/16 Specimen Type: URINE No comment entered. Ordering Provider: LUCIA YUEN Report Released Date/Time: Oct 14, 2023 01:25 PM Reporting Lab: [place] [facility] [address] [place] [address] [place] [address] Performing Lab: [place] [facility] [address] [place] [address] [place] [address] [place] [facility] URINALYSI S LEUKOCYTES [#/AREA] IN URINE SEDIMENT BY MICROSCOPY HIGH POWER FIELD NEG 11/16 Specimen Type: URINE No comment entered. Ordering Provider: LUCIA YUEN Report Released Date/Time: Oct 14, 2023 01:25 PM Reporting Lab: [place] [address] [place] [address] [place] [address] Performing Lab: [place] [address] [place] [address] [place] [address] [place] [facility] URINALYSI S APPEARANCE OF URINE CLEAR 11/16 Specimen Type: URINE No comment entered. Ordering Provider: LUCIA YUEN Report Released Date/Time: Oct 14, 2023 01:25 PM Reporting Lab: [place] [address] [place] [address] Performing Lab: [place] [address] [place] [address] [place] [facility] URINALYSI S SPECIFIC GRAVITY OF URINE 1.019 1.003 - 1.040 11/16 Specimen Type: URINE No comment entered. Ordering Provider: LUCIA YUEN Report Released Date/Time: Oct 14, 2023 01:25 PM Reporting Lab: [place] [facility] [address] [place], [place] [address] [address] Performing Lab: [place] [facility] [address] [place] [address] [address] [facility] URINALYSI S PROTEIN [MASS/VOLUM E] IN URINE TRACEmg /dL 11/16 Specimen Type: URINE No comment entered. Ordering Provider: LUCIA YUEN Report Released Date/Time: Oct 14, 2023 01:25 PM Reporting Lab: [place] [facility] [address] [place] [address] Performing Lab: [place] [facility] [address] [place] [address] [facility] URINALYSI S GLUCOSE [MASS/VOLUM E] IN URINE BY TEST STRIP 500 mg/dL 11/16 Specimen Type: URINE No comment entered. Ordering Provider: LUCIA YUEN Report Released Date/Time: Oct 14, 2023 01:25 PM Reporting Lab: [place] [facility] [address] [place], [place] [address] [address] Performing Lab: [place] [facility] [address] [place], [place] [address] [address] [place] URINALYSI S KETONES [MASS/VOLUM E] IN URINE BY TEST STRIP NEGmg/d L 11/16 Specimen Type: URINE No comment entered. Ordering Provider: LUCIA YUEN Report Released Date/Time: Oct 14, 2023 01:25 PM Reporting Lab: [place] [facility] [address] [place], [place] [address] [address] Performing Lab: [place] [facility] [address] [place], [place] [address] [address] [facility] URINALYSI S NITRITE [MASS/VOLUM E] IN URINE BY TEST STRIP NEG 11/16 Specimen Type: URINE No comment entered. Ordering Provider: LUCIA YUEN Report Released Date/Time: Oct 14, 2023 01:25 PM Reporting Lab: [place] [facility] [address] [place], [place] [address] [address] Performing Lab: [place] [facility] [address] [place] [address] [place] [address] [place] URINALYSI S UROBILINOGE N [UNITS/VOLU ME] IN URINE BY TEST STRIP 4 mg/dL <2.0 - 2.0 11/16 Specimen Type: URINE No comment entered. Ordering Provider: LUCIA YUEN Report Released Date/Time: Oct 14, 2023 01:25 PM Reporting Lab: [place] [facility] [address] [place] [address] [place] [address] Performing Lab: [place] [facility] [address] [place] [address] [place] [address] [place] URINALYSI S BILIRUBIN.T OTAL [PRESENCE] IN URINE NEG 11/16 Specimen Type: URINE No comment entered. Ordering Provider: LUCIA YUEN Report Released Date/Time: Oct 14, 2023 01:25 PM Reporting Lab: [place] [facility] [address] [place] [address] [place] [address] Performing Lab: [place] [facility] [address] [place] [address] [place] [address] [place] [facility] URINALYSI S HEMOGLOBIN [PRESENCE] IN URINE NEG 11/16 Specimen Type: URINE No comment entered. Ordering Provider: LUCIA YUEN Report Released Date/Time: Oct 14, 2023 01:25 PM Reporting Lab: [place] [facility] [address] [place] [address] [place] [address] Performing Lab: [place] [facility] [address] [place] [address] [place] [address] [place] [facility] Vital Signs Combined list of inpatient and outpatient Vital Signs from Department of Defense and Veterans Affairs, ranging from 12 months to all on record, depending upon the facility. Vital Sign Value Date Comments Source SYSTOLIC BLOOD PRESSURE 152 01/12/2024 14:19:05 [place] [facility] DIASTOLIC BLOOD PRESSURE 75 01/12/2024 14:19:05 [place] [facility] PULSE OXIMETRY 98 01/12/2024 14:19:05 [place] [facility] WEIGHT 123 01/12/2024 14:19:05 [place] [facility] BMI 19 kg/m2 01/12/2024 14:19:05 [place] [facility] PAIN 0 01/12/2024 14:19:05 [place] [facility] HEIGHT 67 01/12/2024 14:19:05 [place] [facility] TEMPERATURE 97.6 01/12/2024 14:19:05 [place] [facility] PULSE 48 01/12/2024 14:19:05 [place] [facility] RESPIRATION 16 01/12/2024 14:19:05 [place] [facility] Encounters Combined list of: 1) Encounters from Department of Veterans Affairs facilities going backup to the last 18 months, not all [place] inpatient encounters are included; 2) Encounters from the Department of [facility] facilities going backup to 280 months. Location Location Details Encounter Type Encounter Number Reason For Visit Attending Provider ADM Date DC Date Status Disposition Source [facility] Outpatient Encounter [id number] 10/26 [facility] [place] [facility] Outpatient Encounter [id number] 10/28 [place] [facility] [place] [facility] Outpatient Encounter [id number] 11/16 [place] [facility] [place] [facility] OFFICE O/P [place] 60 MIN [id number] Diagnos is: ICD-10- CM E11.9 Type 2 diabete s mellitu s without complic ations BILLY YUEN 11/16 [place] [facility] [place] [facility] QNHP OL DIG ASSMT&MGMT 11 [id number] Diagnos is: ICD-10- CM F43.10 Post-tr aumatic stress disorde r, unspeci fied BEV,TO TRACY Cece 11/17 [place] [facility] [place] [facility] Outpatient Encounter [id number] BILLY YUEN 11/19 [place] [facility] [place] [facility] Outpatient Encounter [id number] 11/24 [place] [facility] [place] [facility] Outpatient Encounter [id number] 11/24 [place] [facility] [place] [facility] Outpatient Encounter [id number] KAY LAZO 01/06 [place] [facility] [place] [facility] Outpatient Encounter [id number] 01/06 [place] [facility] [place] [facility] PRO PHONE CALL 5-10 MIN [id number] Diagnos is: ICD-10- CM 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, unspeci fied DAVID MAK 01/07 [place] [facility] [place] [facility] OFFICE O/P EST MOD 30 MIN [id number] Diagnos is: ICD-10- CM 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, unspeci ME NEELA Hannah 01/11 [place] [facility] [place] [facility] PSYCH DIAGNOSTIC EVALUATION [id number] Diagnos is: ICD-10- CM F43.10 Post-tr aumatic stress disorde r, unspeci fied JUDY NICOLE 01/11 [place] [facility] [place] [facility] CASE MANAGEMENT [id number] Diagnos is: ICD-10- CM 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, unspeci fiLEOY Anguiano 01/26 [place] [facility] [place] [facility] Outpatient Encounter [id number] 01/27 [place] [facility] [place] [facility] CASE MANAGEMENT [id number] Diagnos is: ICD-10- CM 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, unspeci ELOY Kwan M 02/05 [place] [facility] [place] [facility] Outpatient Encounter [id number] 02/15 [place] [facility] [place] [facility] Outpatient Encounter [id number] Diagnos is: ICD-10- CM E11.9 Type 2 diabete s mellitu s without complic ations ME NEELA KRUEGER 02/18 [place] [facility] [place] [facility] PSYTX W PT 30 MINUTES [id number] Diagnos is: ICD-10- CM F43.10 Post-tr aumatic stress disorde r, unspeci fied LISANDRO DODD 02/18 [place] [facility] [place] [facility] Outpatient Encounter [id number] 02/19 [place] [facility] [place] [facility] Outpatient Encounter [id number] LISANDRO DODD 02/20 [place] [facility] [place] [facility] Outpatient Encounter [id number] 02/23 [place] [facility] [place] [facility] QNHP OL DIG ASSMT&MGMT 05-19 [id number] Diagnos is: ICD-10- CM Z72.0 Tobacco use ROME PABLO 03/02 [place] [facility] [place] [facility] Outpatient Encounter [id number] 03/04 [place] [facility] [place] [facility] Outpatient Encounter [id number] 03/04 [place] [facility] [place] [facility] Outpatient Encounter [id number] Diagnos is: ICD-10- CM F43.10 Post-tr aumatic stress disorde r, unspeci fied JUDY NICOLE 03/09 [place] [facility] [place] [facility] Outpatient Encounter [id number] 03/10 [place] [facility] [place] [facility] Outpatient Encounter [id number] 04/15 [place] [facility] Procedures Combined list of: 1) Procedures from [facility] facilities [facility], not all VA non-surgical procedures [...] status NHIS VA-TOBACCO USER EVERY DAY 11/17/2023 [facility] History of tobacco use VA-TOBACCO USE WI 30 MIN OF WAKEUP 11/17/2023 [facility] History of tobacco use VA-TOBACCO QUIT 15 YRS OR MORE 01/26/2019 [facility] History of tobacco use FORMER TOBACCO USER 7Y OR GREATER 07/19/2011 [facility] History of tobacco use FORMER TOBACCO USE >1Y <7Y 10/30/2009 [facility] History of tobacco use FORMER TOBACCO USE >1Y <7Y 10/26/2008 [facility] History of tobacco use FORMER TOBACCO USE >1Y <7Y 10/27/2007 [facility] History of tobacco use FORMER TOBACCO USE >1Y <7Y 11/27/2006 [facility] History of tobacco use LIFETIME NON-SMOKER/QUIT 7 YRS OR> 04/26/2004 Quit 2 months ago [facility] This section is an empty social history section. [facility] Advance Directives List of completed, amended, or rescinded Advance Directives on record at Department of Veterans Affairs facilities. An actual copy of the Directive is not included. Date Advance Directive Provider Source 11/15/[address] [facility]
--- OUTSIDE RECORDS SUMMARY | 2025-01-10 18:00 | XMS_ITS | Clinical Summary ---
Author Organization [facility] Address [address] [place] [address] Care Team Providers Care Deep Fryer Assembler Name Role Phone Nonstaff, Doctor Primary Care Provider Unavailab le Allergies No known active allergies Medications atorvastatin (LIPITOR) 20 mg tablet Take 20 mg by mouth once daily. Active cholecalciferol , Vitamin D3, 2,000 unit tablet Take 2,000 [...] Active oxyCODONE (ROXICODONE) 5 mg immediate release tabletIndicatio ns:Post-operati ve state Take 1-2 tablets by mouth every 6 hours if needed for Pain (For moderate pain.) 20 tablet 06/30/2019 3:14 PM HYDRAULIC PRESS OPERATOR 06/30/2019 Active metFORMIN (GLUCOPHAGE XR) 750 mg Extended-Releas e tabletIndicatio ns:Type 2 diabetes mellitus without complication, without long-term [...] at Not on file Legal Sex Male 7:28 AM HYDRAULIC PRESS OPERATOR Gender Identity Not on file Sexual Orientation Not on file Obstetrics History Last Filed Vital Signs Vital Sign Reading Time Taken Comments Blood Pressure 138/64 06/30/2019 4:00 PM HYDRAULIC PRESS OPERATOR Pulse 63 06/30/2019 4:00 PM HYDRAULIC PRESS OPERATOR Temperature 36.5 C (97.7 F) 06/30/2019 4:00 PM HYDRAULIC PRESS OPERATOR Respiratory Rate 16 06/30/2019 4:00 PM HYDRAULIC PRESS OPERATOR Oxygen Saturation 93% 06/30/2019 4:00 PM HYDRAULIC PRESS OPERATOR Inhaled Oxygen Concentration - - Weight 67.6 kg (149 lb) 06/29/2019 4:43 PM HYDRAULIC PRESS OPERATOR Height 167.6 cm (5' 6) 06/29/2019 4:43 PM HYDRAULIC PRESS OPERATOR Body Mass Index 24.05 06/29/2019 4:43 PM HYDRAULIC PRESS OPERATOR Plan of Treatment Not on file Medical Devices Implanted Type Area Flight Follower Device Identifier Shelf Expiration Date Model / Serial / Lot Stent Uret [id number] Contour - [id number] Implanted:Qty: 1 on 06/30/2019 by Seth Villa MD at [facility] Right: [facility]reter [facility] 02/23/2022 [id number] / / [id number] Insurance MEDICARE PART A HB ONLY [employer] MEDICARE PART B HB ONLY MEDICARE PB ONLY Advance Directives * Full Code (Latest Code Status on File) Date Activated Date Inactivated Comments 06/29/2019 5:43 PM 06/30/2019 8:29 PM Care Teams Deep Fryer Assembler Relationship Specialty Start Date End Date Nonstaff, Doctor NON STAFF DOCTOR PCP - General 06/29/19
--- OUTSIDE RECORDS SUMMARY | 2025-01-10 18:00 | XMS_ITS | Encounter Summary ---
Author Organization [facility] Address [address] [place] [address] Care Team Providers Care Pediatric Ophthalmologist Name Role Phone Jarod Pascual MD Primary Care Provider +1- [phone] Encounter Details Date Type Department Care Team (Late st Contact Info) Description 11/15/2024 Results Follow-Up [facility] Center - Dermatology [address] [place] [address] [place] [address] [place] [address] Social History Tobacco Use Types Packs/Day Years [...] as of this encounter Progress Notes * Yennifer Ramirez MD - 11/15/2024 5:02 PM CDT Please let him know that most recent biopsy showed Left Forearm - Anterior, shave: - Invasive well-differentiated squamous cell carcinoma, we would recommend excision at the site documented in this encounter Plan of Treatment Upcoming Encounters Date Type Department Care Team (Late st Contact Info) Description 01/14/2025 9:00 AM CDT Appointment [facility] [address] [place] [address] Cecile Arteaga MD [address] [place] [address] 01/14/2025 10:30 AM CDT Appointment [facility] [address] [place] [address] Cecile Arteaga MD [address] [place] [address] 01/18/2025 8:00 AM CDT Appointment [facility] Oncology Treatment Rooms [address] [place] [address] 01/18/2025 8:30 AM CDT Appointment [facility] Oncology [address] [place] [address] Cecile Arteaga MD [address] [place] [address] documented as of this encounter Goals Goal Patient Goal Type Associated Problems Recent Progress Patient-Stated? Author INFUSION ONCOLOGY - BASELINE Care Plan INFUSION ONCOLOGY - BASELINE No Triston Krause INFUSION ONCOLOGY - RECURRING Care Plan INFUSION ONCOLOGY - RECURRING No Kandy Paniagua RN documented as of this encounter Visit Diagnoses Not on filedocumented in this encounter Additional Health Concerns Active Problems Noted Date Diagnosed Date INFUSION ONCOLOGY - BASELINE 06/29/2024 INFUSION ONCOLOGY - RECURRING 07/12/2024 documented as of this encounter Care Teams Pediatric Ophthalmologist Relationship Specialty Start Date End Date Jarod Pascual MD [address] [place] [id number] PCP - General 05/10/24 documented as of this encounter
--- OUTSIDE RECORDS SUMMARY | 2025-01-10 18:01 | XMS_ITS | Encounter Summary ---
Author Organization [facility] Address [address] [place] [address] Care Team Providers Care Airport Baggage Screener Name Role Phone Jarod Pascual MD Primary Care Provider +1- [phone] Encounter Details Date Type Department Care Team (Late st Contact Info) Description 12/08/2024 Results Follow-Up [facility] Center - Dermatology [address] [place] [address] [place] [address] [place] [address] Social History Tobacco Use Types Packs/Day [...] Progress Notes * Yennifer Ramirez MD - 12/08/2024 3:11 PM CDT Please let him know that Left Forearm - Anterior, excision:- Residual squamous cell carcinoma, excised documented in this encounter Plan of Treatment Upcoming Encounters Date Type Department Care Team (Late st Contact Info) Description 01/14/2025 9:00 AM CDT Appointment [facility] [address] [place] [address] Cecile Arteaga MD [address] [place] [address] 01/14/2025 10:30 AM CDT Appointment [facility] [address] [place] [address] Cecile Arteaga MD Pending sale to [facility] [place] [address] 01/18/2025 8:00 AM CDT Appointment [facility] Oncology Treatment Rooms [address] [place] [address] 01/18/2025 8:30 AM CDT Appointment [facility] Oncology [address] [place] [address] Cecile Arteaga MD [address] [place] [address] documented as of this encounter Goals Goal [...] documented as of this encounter Care Teams Airport Baggage Screener Relationship Specialty Start Date End Date Jarod Pascual MD [address] [place] [address] PCP - General 05/10/24 documented as of this encounter
--- OUTSIDE RECORDS SUMMARY | 2025-01-10 18:01 | XMS_ITS | Encounter Summary ---
Author Organization [facility] Address [address] [place] [address] Care Team Providers Care Steam Conditioner Operator Name Role Phone Jarod Pascual MD Primary Care Provider +1- [phone] Reason for Visit * Reason Onset Date Comments Refill 01/10/2025 atorvastatin (LI PITOR) 20 MG tablet Encounter Details Date Type Department Care Team (Late st Contact Info) Description 01/10/2025 Refill [facility] Oncology [address] [place] [address] 797636 Cecile Arteaga MD [address] [place], [place] [address] Refill (atorvastatin (LIPITOR) 20 MG tablet) Social History Tobacco Use Types Packs/Day Years [...] as of this encounter Nursing Notes * Angela Gomez RN - 01/10/2025 1:40 PM CDT atorvastatin (LIPITOR) 20 MG tablet Advised pharmacy to seek refills from pt's primary care provider. Denied per protocol. * Elvia Nesbitt - 01/10/2025 11:05 AM CDT atorvastatin (LIPITOR) 20 MG tablet Medication started: 05/10/2024 Last ordered by YASH NEVAREZ: 06/10/2024 (214 days ago as Historical on 06/10/2024 by YASH NEVAREZ), Sig: take 1 tablet (20 mg) by mouth daily. (unchanged) -> The medication cannot be found on the patient's active medication list. -> The requested medication was previously set to Historical. -> Refill x 6 months (until due for an office visit) -> Calculate the quantity and number of refills manually. Last qualifying visit: 06/10/2024 (with YASH NEVAREZ) Next scheduled visit: [facility] Embedded Refills, Reference: [id number], 01/10/2025 11:05:21 AM CDT, Pool: CHARISSE REFILL ([id number]) documented in this encounter Plan of Treatment Upcoming Encounters Date Type Department Care Team (Late st Contact Info) Description 01/14/2025 9:00 AM CDT Appointment [facility] [address] [place] [address] Cecile Arteaga MD [address] [place] [address] 01/14/2025 10:30 AM CDT Appointment [facility] [address] [place] [address] Cecile Arteaga MD [address] [place] [address] 01/18/2025 8:00 AM CDT Appointment [facility] Oncology Treatment Rooms [address] [place] [address] 01/18/2025 8:30 AM CDT Appointment [facility] Oncology [address] [place] [address] Cecile Arteaga MD [address] [place] [address] documented as of this encounter Goals Goal Patient Goal Type Associated Problems Recent Progress Patient-Stated? Author INFUSION ONCOLOGY - BASELINE Care Plan INFUSION ONCOLOGY - BASELINE No Triston Krause INFUSION ONCOLOGY - RECURRING Care Plan INFUSION ONCOLOGY - RECURRING No Kandy Paniagua, CHRISTINE documented as of this encounter Visit Diagnoses Not on filedocumented in this encounter Additional Health Concerns Active Problems Noted Date Diagnosed Date INFUSION ONCOLOGY - BASELINE 06/29/2024 INFUSION ONCOLOGY - RECURRING 07/12/2024 documented as of this encounter Care Teams Steam Conditioner Operator Relationship Specialty Start Date End Date Jarod Pascual MD [address] [place] [address] PCP - General 05/10/24 documented as of this encounter
--- OUTSIDE RECORDS SUMMARY | 2025-01-10 18:01 | XMS_ITS | Encounter Summary ---
Author Organization [facility] Address [address], [place] [address] Care Team Providers Care Concrete Tester Name Role Phone Jarod Pascual MD Primary Care Provider +1- [phone] Encounter Details Date Type Department Care Team ([facility] Contact Info) Description 11/17/2024 Results Follow-Up [facility] Oncology [address] [place] [address] Elif Queen, RN Social History Tobacco Use Types Packs/Day Years [...] Upcoming Encounters Date Type Department Care Team ([facility] Contact Info) Description 01/14/2025 9:00 AM CDT Appointment [facility] [address] [place] [address] Cecile Arteaga MD [address] [place] [address] 01/14/2025 10:30 AM CDT Appointment [facility] [address] [place] [address] Cecile Arteaga MD [address] [place] [address] 01/18/2025 8:00 AM CDT Appointment [facility] Oncology Treatment Rooms [address] [place] [address] 01/18/2025 8:30 AM CDT Appointment [facility] Oncology [address] [place] [address] Cecile Arteaga MD [address] [place], [place] [address] documented as of this encounter Goals Goal [...] documented as of this encounter Care Teams Concrete Tester Relationship Specialty Start Date End Date Jarod Pascual MD [address] [place] [address] PCP - General 05/10/24 documented as of this encounter
--- OUTSIDE RECORDS SUMMARY | 2025-01-10 18:01 | XMS_ITS | Encounter Summary ---
Author Organization [facility] Address [address] [place] [address] Care Team Providers Care Goodyear Welter Name Role Phone Jarod Pascual MD Primary Care Provider +1- [phone] Encounter Details Date Type Department Care Team (Late st Contact Info) Description 12/22/2024 Results Follow-Up [facility] Center - Dermatology [address] [place] [address] [place] [address] [place] [address] Social History Tobacco Use Types Packs/Day [...] Progress Notes * Yennifer Ramirez MD - 12/22/2024 4:26 PM CDT Pt called and informed Left Dorsal Hand, shave Invasive, well-differentiated squamous cell carcinoma, free of sampled biopsy margins. Pt says the site is healing well . Plan to see for suture documented in this encounter Plan of Treatment Upcoming Encounters Date Type Department Care Team (Late st Contact Info) Description 01/14/2025 9:00 AM CDT Appointment [facility] [address] [place] [address] Cecile Arteaga MD [address] [place] [address] 01/14/2025 10:30 AM CDT Appointment [facility] [address] [place], [place] 6640[address] Cecile Arteaga MD [address] [place] [address] 01/18/2025 8:00 AM CDT Appointment [facility] Oncology Treatment Rooms [address] [place] [address] 01/18/2025 8:30 AM CDT Appointment [facility] Oncology [address] [place] [address] Cecile Arteaga MD [facility] [place] [address] documented as of this encounter Goals Goal [...] documented as of this encounter Care Teams Goodyear Welter Relationship Specialty Start Date End Date Jarod Pascual MD [address] [place] [address] PCP - General 05/10/24 documented as of this encounter
--- OUTSIDE RECORDS SUMMARY | 2025-01-10 18:01 | XMS_ITS | Encounter Summary ---
Author Organization [facility] Address [address] [place] [address] Care Team Providers Care Service Provider Name Role Phone Jarod Pascual MD Primary Care Provider +1- [phone] Reason for Visit * Reason Onset Date Comments Refill 01/10/2025 tamsulosin 0.4 M G CAPS capsule Encounter Details Date Type Department Care Team (Late st Contact Info) Description 01/10/2025 Refill [facility] Oncology [address] [place] [address] [id number] Cecile Adame MD [address] [place], [place] [phone] Refill (tamsulosin 0.4 MG CAPS capsule) Social History Tobacco Use Types Packs/Day Years [...] Notes * Angela Gomez RN - 01/10/2025 2:16 PM CDT 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 Refills for medication not mentioned in provider's note from last visit. tamsulosin 0.4 MG CAPS capsule Qty of 30 Last filled 08/02/24 Next visit 01/18/25. Medication pended for your review. Thank you. * Elvia Nesbitt - 01/10/2025 11:05 AM CDT tamsulosin 0.4 MG CAPS capsule Medication started: 05/10/2024 Last ordered by CECILE ADAME: 08/02/2024 (161 days ago) QTY: 30, Refills: 1, Sig: take 1 capsule (0.4 mg) by mouth daily. indications: benign enlargement of prostate (unchanged) -> Refill x 12 months (until due for an office visit) Last qualifying visit: 12/28/2024 (with RAMSES HUFF) Next scheduled visit: 01/18/2025 (with CECILE ADAME) [facility] Embedded Refills, Reference: [id number], 01/10/2025 11:05:20 AM RUFINAT, Pool: [facility] REFILL ([id number]) documented in this encounter Plan of Treatment Upcoming Encounters Date Type Department Care Team (Late st Contact Info) Description 01/14/2025 9:00 AM CDT Appointment [facility] [address] [place] [address] Cecile Adame MD [address] [place] [address] 01/14/2025 10:30 AM CDT Appointment [facility] [address] [place] [address] Cecile Adame MD [address] [place] [address] 01/18/2025 8:00 AM CDT Appointment [facility] Oncology Treatment Rooms [address] [place] [address] 01/18/2025 8:30 AM CDT Appointment [facility] Oncology [address] [place] [address] Cecile Adame MD [address] [place] [address] documented as of this encounter Goals Goal [...] documented as of this encounter Care Teams Service Provider Relationship Specialty Start Date End Date Jarod Pascual MD [address] [place] [address] PCP - General 05/10/24 documented as of this encounter
--- OUTSIDE RECORDS SUMMARY | 2025-01-10 18:01 | XMS_ITS | Encounter Summary ---
Author Organization [facility] Address [address] [place] [address] Care Team Providers Care Chief Petroleum Engineer Name Role Phone Jarod Pascual MD Primary Care Provider +1- [phone] Encounter Details Date Type Department Care Team (Late st Contact Info) Description 12/07/2024 Results Follow-Up [facility] Oncology [address] [place] [address]69876 Nguyen Betancourt, OVERHEAD LINE WORKER, CHRONIC SPECIALIST [address] [place], [place] 512136 Social History Tobacco Use Types Packs/Day Years [...] as of this encounter Nursing Notes * Maribeth Lloyd - 12/07/2024 12:52 PM CDT 6-10 LVM for patient to schedule appointment with a inclusion special educator. Provided patient with phone number for that department: [phone]. Schedule: Diabetes education consult MIKEL documented in this encounter Plan of Treatment Upcoming Encounters Date Type Department Care Team (Late st Contact Info) Description 01/14/2025 9:00 AM CDT Appointment [facility] [place] [address] Cecile Arteaga MD [address] [place] [address] 01/14/2025 10:30 AM CDT Appointment [facility] [place] [address] Cecile Arteaga MD [address] [place] [address] 01/18/2025 8:00 AM CDT Appointment [facility] Oncology Treatment Rooms [address] [place] [address] 01/18/2025 8:30 AM CDT Appointment [facility] Oncology [address] [place] [address] Cecile Arteaga MD [facility] [place] [address] documented as of this encounter Goals Goal [...] documented as of this encounter Care Teams Chief Petroleum Engineer Relationship Specialty Start Date End Date Jarod Pascual MD [address] [place] [address] PCP - General 05/10/24 documented as of this encounter
--- OUTSIDE RECORDS SUMMARY | 2025-01-10 18:01 | XMS_ITS | Encounter Summary ---
Author Organization formerly [facility] Address [address], [place] [address] Care Team Providers Care Maintenance Worker House Trailer Name Role Phone Jarod Pascual MD Primary Care Provider +1- [phone] Encounter Details Date Type Department Care Team ([facility] Contact Info) Description 12/08/2024 Results Follow-Up [facility] Oncology [address] [place] [address] Eilf Queen, RN Social History Tobacco Use Types [...] Encounters Date Type Department Care Team (Late Contact Info) Description 01/14/2025 9:00 AM CDT Appointment [facility] [address] [facility] [place] [address] Cecile Arteaga MD [address] [place] [address] 01/14/2025 10:30 AM CDT Appointment [facility] [address] [place] [address] Cecile Arteaga MD [address] [place] [address] 01/18/2025 8:00 AM CDT Appointment [facility] Oncology Treatment Rooms [address] [place] [address] 01/18/2025 8:30 AM CDT Appointment [facility] Oncology [address] [place] [address] Cecile Arteaga MD [address] [place], [place] 223396 documented as of this encounter Goals Goal [...] documented as of this encounter Care Teams Maintenance Worker House Trailer Relationship Specialty Start Date End Date Jarod Pascual MD [address] [place] [address] PCP - General 05/10/24 documented as of this encounter
--- OUTSIDE RECORDS SUMMARY | 2025-01-10 18:01 | XMS_ITS | Encounter Summary ---
Author Organization [facility] Address [address] [place] [address] Care Team Providers Care Paperhanger Name Role Phone Jarod Pascual MD Primary Care Provider +1- [phone] Encounter Details Date Type Department Care Team (Late Contact Info) Description 12/29/2024 Results Follow-Up [facility] at [facility] Oncology [address] [place], [place] 470209 Elif Queen, RN Social History Tobacco Use [...] Info) Description 01/14/2025 9:00 AM CDT Appointment [facility] [address] [place] [address] Cecile Arteaga MD [address] [place] [address] 01/14/2025 10:30 AM CDT Appointment [facility] [address] [place] [address] Cecile Arteaga MD [address] [place] [address] 01/18/2025 8:00 AM CDT Appointment [facility] Oncology Treatment Rooms [address] [place] [address] 01/18/2025 8:30 AM CDT Appointment [facility] Oncology [address] [place] [address] [place] [address] [place] [address] 930016 documented as of this encounter Goals Goal [...] documented as of this encounter Care Teams Paperhanger Relationship Specialty Start Date End Date Jarod Pascual MD [address] [place] [address] PCP - General 05/10/24 documented as of this encounter
--- OUTSIDE RECORDS SUMMARY | 2025-01-10 18:01 | XMS_ITS | Encounter Summary ---
Author Organization [facility] Address [address] [place] [address] Care Team Providers Care Glass Cutting Machine Feeder Name Role Phone Jarod Pascual MD Primary Care Provider +1- [phone] Encounter Details Date Type Department Care Team (Late Contact Info) Description 08/27/2024 Notes/Orders [facility] Cancer Care at [facility] Oncology [address] [place], [place] 331839 Cecile Arteaga MD [address] [place], [place] 0[address]166 Social History Tobacco Use Types Packs/Day Years [...] AM CDT Appointment [facility] [address] [facility] [place], [place] [address] Cecile Arteaga MD [address] [place] [address] 01/14/2025 10:30 AM CDT Appointment [facility] [address] [place] [address] Cecile Arteaga MD [address] [place] [address] 01/18/2025 8:00 AM CDT Appointment [facility] Oncology Treatment Rooms [address] [place] [address] 01/18/2025 8:30 AM CDT Appointment [facility] Oncology [address] [place] [address] Cecile Arteaga MD [address] [place] [address] documented as of this encounter Goals Goal Patient Goal Type Associated Problems Recent Progress Patient-Stated? Author INFUSION ONCOLOGY - BASELINE Care Plan INFUSION ONCOLOGY - BASELINE Triston Pollock INFUSION ONCOLOGY - RECURRING Care Plan INFUSION ONCOLOGY - RECURRING No Kandy Paniagua RN documented as of this encounter Visit Diagnoses Not on filedocumented in this encounter Additional Health Concerns Active Problems Noted Date Diagnosed Date INFUSION ONCOLOGY - BASELINE 06/29/2024 INFUSION ONCOLOGY - RECURRING 07/12/2024 documented as of this encounter Care Teams Glass Cutting Machine Feeder Relationship Specialty Start Date End Date Jarod Pascual MD [address] [place] [address] PCP - General 05/10/24 documented as of this encounter
--- OUTSIDE RECORDS SUMMARY | 2025-01-10 18:01 | XMS_ITS | Patient Health Record ---
Author Organization [facility] Address [address] [place] [address] Care Team Providers Care Pattern Designer Name Role Phone Dental Only, Primary Care Provider [phone] Leidy Bae Unavailable [phone] Allergies No Known Allergies Reason For Referral No Information Medications Medication SIG (Take, Route, Frequency, Duration) Notes Start Date End Date Status Atorvastatin Calcium 20 MG Tablet 1 tablet Orally Once a day Active metFORMIN HCl ER 750 MG Tablet Extended Release 24 Hour 1 tablet with evening meal Orally Once a day Active Tradjenta 5 MG Tablet 1 tablet Orally On ce a day Active Pioglitazone HCl 45 MG Tablet 1 tablet Orally Once a day Active Vitamin D-3 1000 UNIT Capsule 1 capsule Orally Once a day Active Social History Sex Assigned At : Social History Observation Description Sex Assigned At Male Plan Of Treatment No Information Insurance Providers Payer Name Payer Address Payer Phone Subscriber Number Group Number Insured Name Patient Relationship to Insured Coverage Start Date Coverage End Date [address] [address] [place] [address] [id number] Ever Houser Self - patient is the insured [facility] [address] [place] [address] [phone] [id number] Ever Houser Self - patient is the insured .[facility] [employer] [address] [place] [address] [id number] Ever Houser Self - patient is the insured Medical (General) History Medical History History ICD Code diabetic type 2 diverticulosis PTSD Dementia lump found in right breast area Surgical History Surgery Date(Month/Year) cataricts removal 2015 left shoulder surgery 2014 tmj surgery 1979 MOHAS surgery *skin cancer 06/13/20 Hospitalization History Reason Date(Month/Year) tmj surgery 1979 staff infection 1998
--- OUTSIDE RECORDS SUMMARY | 2025-01-10 18:02 | XMS_ITS | Encounter Summary ---
Author Organization [facility] Address [address] [place] [address] Care Team Providers Care Memorandum Statement Clerk Name Role Phone Jarod Pascual MD Primary Care Provider +1- [phone] Encounter Details Date Type Department Care Team (Late Contact Info) Description 10/05/2024 Results Follow-Up [facility] Cancer Care at [facility] Oncology [address] [place], [place] [address]199 Elif Queen, RN Social History Tobacco Use [...] 9:00 AM CDT Appointment [facility] 6[address] [facility] [place] [address] Cecile Arteaga MD [address] [place] [address] 01/14/2025 10:30 AM CDT Appointment [facility] [address] [place] [address] Cecile Arteaga MD [address] [place] [address] 01/18/2025 8:00 AM CDT Appointment [facility] Oncology Treatment Rooms [address] [place] [address] 01/18/2025 8:30 AM CDT Appointment [facility] Oncology [address] [place] [address] [place] [address] [place] [address] 879016 documented as of this encounter Goals Goal [...] documented as of this encounter Care Teams Memorandum Statement Clerk Relationship Specialty Start Date End Date Jarod Pascual MD [address] [place] [address] PCP - General 05/10/24 documented as of this encounter
--- OUTSIDE RECORDS SUMMARY | 2025-01-10 18:02 | XMS_ITS | Encounter Summary ---
Author Organization [facility] Address [address] [place] [address] Care Team Providers Care Platform Mill Supervisor Name Role Phone Jarod Pascual MD Primary Care Provider +1- [phone] Encounter Details Date Type Department Care Team ([facility] Contact Info) Description 12/01/2024 Results Follow-Up [place] [address] Dermatology [address] [place], [place] [id number] Dina Cuevas MD, PhD [address] [place], [place] [id number] Social History Tobacco Use Types Packs/Day Years [...] Upcoming Encounters Date Type Department Care Team ([facility] Contact Info) Description 01/14/2025 9:00 AM CDT Appointment [facility] [address] [place] [address]. [place], [place] [address] Cecile Arteaga MD [address] [place] [address] 01/14/2025 10:30 AM CDT Appointment [facility] [address] [place] [address] Cecile Arteaga MD [address] [place] [address] 01/18/2025 8:00 AM CDT Appointment [facility] Oncology Treatment Rooms [address] [place] [address] 01/18/2025 8:30 AM CDT Appointment [facility] Oncology [address] [place] [address] Cecile Arteaga MD [address] [place] [address] documented as of this encounter Goals Goal [...] documented as of this encounter Care Teams Platform Mill Supervisor Relationship Specialty Start Date End Date Jarod Pascual MD [address] [place] [address] PCP - General 05/10/24 documented as of this encounter
--- OUTSIDE RECORDS SUMMARY | 2025-01-10 18:02 | XMS_ITS | Encounter Summary ---
Author Organization [facility] Address [address] [place] [address] Care Team Providers Care Mig Tig Welder Name Role Phone Jarod Pascual MD Primary Care Provider +1- [phone] Encounter Details Date Type Department Care Team (Late Contact Info) Description 10/04/2024 Results Follow-Up [facility] Cancer Care at [facility] Oncology [address] [place], [place] [phone] Elif Queen, RN Social History Tobacco Use [...] Info) Description 01/14/2025 9:00 AM CDT Appointment [facility] [address] [facility] [address] Cecile Arteaga MD [address] [place] [address] 01/14/2025 10:30 AM CDT Appointment [facility] [address] [place] [address] Cecile Arteaga MD [address] [place] [address] 01/18/2025 8:00 AM CDT Appointment [facility] Oncology Treatment Rooms [address] [place] [address] 01/18/2025 8:30 AM CDT Appointment [facility] Oncology [address] [place] [address] [place] [address] [place] [address] documented as of this encounter Goals Goal [...] documented as of this encounter Care Teams Mig Tig Welder Relationship Specialty Start Date End Date Jarod Pascual MD [address] [place] [address] PCP - General 05/10/24 documented as of this encounter
--- OUTSIDE RECORDS SUMMARY | 2025-01-10 18:02 | XMS_ITS | Encounter Summary ---
Author Organization [facility] Address [address] [place] [address] Care Team Providers Care Janitorial Maintenance Worker Name Role Phone Jarod Pascual MD Primary Care Provider +1- [phone] Encounter Details Date Type Department Care Team (Late st Contact Info) Description 12/06/2024 Telephone [facility] Oncology [address] [place], [place] 9[address] Cecile Arteaga MD [address] [place], [place] 0[address]646 Social History Tobacco Use Types Packs/Day Years [...] as of this encounter Nursing Notes * Love Sifuentes - 12/06/2024 11:25 AM CDT 12-06 Called and lvm notifying pt that Scarlett Love is unavailable on 12-07 and not in clinic. Appt was switched to a VIDEO visit with Nguyendebora Betancourt documented in this encounter Plan of Treatment Upcoming Encounters Date Type Department Care Team (Late st Contact Info) Description 01/14/2025 9:00 AM CDT Appointment [facility] [address] [place] [address] Cecile Arteaga MD [address] [place] [address] 01/14/2025 10:30 AM CDT Appointment [facility] [address] [place] [address] Cecile Arteaga MD [address] [place] [address] 01/18/2025 8:00 AM CDT Appointment [facility] Oncology Treatment Rooms [address] [place] [address] 01/18/2025 8:30 AM CDT Appointment [facility] Oncology [address] [place] [address] Cecile Arteaga MD [address] [place] [address] documented as of this encounter Goals Goal [...] documented as of this encounter Care Teams Janitorial Maintenance Worker Relationship Specialty Start Date End Date Jarod Pascual MD [address] [place] [address] PCP - General 05/10/24 documented as of this encounter
--- OUTSIDE RECORDS SUMMARY | 2025-01-10 18:02 | XMS_ITS ---
Author Organization [facility] Address [address] [place] [address] Care Team Providers Care Bus Escort Name Role Phone Jarod Pascual MD Primary Care Provider +1- [phone] Active Problems * This document contains information received from the source organization and may not represent a complete record from that organization. Problem Noted Date Diagnosed Date History of actinic keratosis 11/24/2024 Overview (11/24/2024): Efudex/dovonex to scalp and face tolerated well 09/2024 x 2 rounds. 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 6.5mm invasion depth. Bx05/2023, surgery 08/2023 completed at [facility] SCC vertex scalp s/p excision 07/2023 completed at [facility] SCCis, right dorsal hand s/p mohs 07/2024 SCCis, right lower back, s/p mohs 07/2024 SCC, left forearm s/p mohs 07/2024 SCC left malar cheek s/p mohs 08/2024 SCC left forearm- anterior mohs s/p 11/2024 Current Treatment and Therapy Plans [id number] (21D:1)* Plan Start Date:06/27/2024 Plan Provider:Cecile Arteaga MD Linked Problems Metastatic cancer to cervica l lymph nodes (HRC)Squamous cell carcinoma of skin Treatment Medications Current Day (Day 1 , Cycle 9 - Planned for 01/18/2025) Next Day (Day 1, Cycle 10 - Planned for 02/08/2025) ALBUterol sulfate HFAalteplase (CATHFLO ACTIVASE)cemiplimab-rwlc (LIBTAYO) IV infusiondiphenhydrAMINE (BENADRYL)EPINEPHrinefamotidi ne (PEPCID)heparinheparin PF (Pork)methylPREDNISolone sodium succinate PF (SOLU-medrol)sodium chloride 0.9 %sodium chloride 0.9% ALBUterol sulfate HFA inhaler 2 Puffalteplase (CATHFLO ACTIVASE) injection 2 mgcemiplimab-rwlc (LIBTAYO) 350 mg in sodium chloride 0.9 % 100 mL infusiondiphenhydrAMINE (BENADRYL) injection 50 mgEPINEPHrine (EPIPEN) injection 0.3 mgfamotidine (PEPCID) injection 20 mgheparin 10 units/mL flushheparin PF 100 units/mL flushmethylPREDNISolone sodium succinate PF (SOLU-medrol) injection 125 mgsodium chloride 0.9% infusionsodium chloride 0.9% injection 10-60 mL ALBUterol sulfate HFA inhaler 2 Puffalteplase (CATHFLO ACTIVASE) injection 2 mgcemiplimab-rwlc (LIBTAYO) 350 mg in sodium chloride 0.9 % 100 mL infusiondiphenhydrAMINE (BENADRYL) injection 50 mgEPINEPHrine (EPIPEN) injection 0.3 mgfamotidine (PEPCID) injection 20 mgheparin 10 units/mL flushheparin PF 100 units/mL flushmethylPREDNISolone sodium succinate PF (SOLU-medrol) injection 125 mgsodium chloride 0.9% infusionsodium chloride 0.9% injection 10-60 mL LINE CARE (maintenance) orders* Plan Start Date:07/12/2024 Plan Provider:Cecile Arteaga MD Linked Problems Metastatic cancer to cervica l lymph nodes (HRC) Treatment Medications alteplase (CATHFLO ACTIVASE) heparinheparin PF (Pork)sodium chloride 0.9 %sodium chloride 0.9% Other Current Plans HYDRATION - IV fluids* Plan Start Date:09/13/2024 Plan Provider:Scarlett Love APRN, DESIZING MACHINE BACK TENDER Linked Problems Diarrhea, unspecified type Treatment Medications ALBUterol sulfate HFAaltepla se (CATHFLO ACTIVASE)diphenhydrAMINE (BENADRYL)EPINEPHrine (EPIPEN)famotidine (PEPCID)heparinheparin PF (Pork)methylPREDNISolone sodium succinate PF (SOLU-medrol)sodium chloride 0.9 %sodium chloride 0.9% Past Treatment and Therapy Plans No past plan information found. Lifetime Dose Tracking * Chemical Lifetime Dose Automatic Entry Manual Entr y Fluoro Time 0.2 minutes 0.2 minutes 0 minutes Total Air Kerma 0.9 mGy 0.9 mGy 0 mGy Resolved Problems Problem Noted Date Diagnosed Date Resolved Date H/O malignant neoplasm of skin 06/08/2024 12/12/2024
--- OUTSIDE RECORDS SUMMARY | 2025-01-10 18:02 | XMS_ITS | Encounter Summary ---
Author Organization [facility] Address [address] [place] [address] Care Team Providers Care Service Transformer Repair Supervisor Name Role Phone Jarod Pascual MD Primary Care Provider +1- [phone] Reason for Visit * Reason Comments Questions Encounter Details Date Type Department Care Team (Late st Contact Info) Description 01/10/2025 [facility] On[facility] [address] [place] [address] Cecile Arteaga MD [address] [place], [place] [phone] Questions Social History Tobacco Use Types Packs/Day Years [...] as of this encounter Nursing Notes * Cecile Arteaga MD - 01/10/2025 5:20 PM CDT As discussed verbally, I would recommend and agree with plan for ER evaluation. Thanks * Elif Queen RN - 01/10/2025 5:09 PM CDT Called pt about note below. FYI - while pt was on the phone stated he was planning to head to the local ER for some selling on the face that travels to the back of his head. * Cecile Arteaga MD - 01/10/2025 5:01 PM CDT It measured 2 cm. Please let patient know above. Thank you * Elif Queen RN - 01/10/2025 11:15 AM CDT Received a VM from pt asking a question. Pt mentioned 3 months ago there was an operation done to check the size of the tumor as the back of pt's neck/head. Pt wanting to know the size of it so he can having something to compare to when he gets his scan on Friday. documented in this encounter Plan of Treatment Upcoming Encounters Date Type Department Care Team (Late st Contact Info) Description 01/14/2025 9:00 AM CDT Appointment [facility] [place] [address] Cecile Arteaag MD [address] [facility] [address] 01/14/2025 10:30 AM CDT Appointment [facility] [address] [place] [address] Cecile Arteaga MD [address] [facility] [place] [address] 01/18/2025 8:00 AM CDT Appointment [facility] Oncology Treatment Rooms [address] [place] [address] 01/18/2025 8:30 AM CDT Appointment [facility] Oncology [address] [place] [address] Cecile Arteaga MD [address] [place] [address] documented as of this encounter Goals Goal Patient Goal Type Associated Problems Recent Progress Patient-Stated? Author INFUSION ONCOLOGY - BASELINE Care Plan INFUSION ONCOLOGY - BASELINE No Triston Krause INFUSION ONCOLOGY - RECURRING Care Plan INFUSION ONCOLOGY - RECURRING No Kandy Paniagua, RN documented as of this encounter Visit Diagnoses Not on filedocumented in this encounter Additional Health Concerns Active Problems Noted Date Diagnosed Date INFUSION ONCOLOGY - BASELINE 06/29/2024 INFUSION ONCOLOGY - RECURRING 07/12/2024 documented as of this encounter Care Teams Service Transformer Repair Supervisor Relationship Specialty Start Date End Date Jarod Pascual MD [address] [place] [address] PCP - General 05/10/24 documented as of this encounter
--- OUTSIDE RECORDS SUMMARY | 2025-01-10 18:02 | XMS_ITS | Clinical Summary ---
Author Organization [facility] Address [address] [place] [address] Care Team Providers Care Seed Trucker Name Role Phone Jarod Pascual MD Primary Care Provider [phone] Source Comments You are receiving this document as you are listed as the primary care provider,follow-up provider, or the patient has been referred to you for consultation.This is in compliance with the Medicare andMedicaid EHR Incentive Program,which states Providers who transition their patient to another setting of careor provider of care or refers their patient to another provider of care shouldprovide summary care record for each transition of care or referral. Yo Allergies No known active allergies Medications * This document contains information received from the source organization and may not represent a complete record from that organization. atorvastatin (LIPITOR) 20 MG tablet Take 1 Tablet (20 mg) by mouth daily. 06/10/20 24 Active cholecalciferol (VITAMIND3) 50 MCG (2000 UT) tablet Take 1 Tablet (2,000 Units) by mouth daily. 06/10/20 24 Active PARoxetine (PAXIL) 10 MG tabletIndicatio ns:Posttraumati c Stress Disorder Take 1 Tablet (10 mg) by mouth daily. Indications: Posttraumatic Stress Disorder 06/10/20 24 Active PARoxetine (PAXIL) 30 MG tabletIndicatio ns:Posttraumati c Stress Disorder Take 1 Tablet (30 mg) by mouth daily. Indications: Posttraumatic Stress Disorder 06/10/20 24 Active lidocaine-prilo marcie (EMLA) 2.5-2.5 % cream Apply quarter-sized amount to port 30-60 minutes prior to treatment as needed. 30 g 1 07/12/19 25 Active mupirocin (BACTROBAN) 2 % ointment Apply topically two times a day. 22 g 07/28/19 25 Active pioglitazone (ACTOS) 45 MG tabletIndicatio ns:Type 2 Diabetes Mellitus Take 1 Tablet (45 mg) by mouth daily. Indications: Type 2 Diabetes 30 Tablet 1 08/02/19 25 Active metFORMIN XR (GLUCOPHAGE XR) 750 MG 24 hour release tabletIndicatio ns:Type 2 Diabetes Mellitus Take 1 Tablet (750 mg) by mouth two times a day with meals. Indications: Type 2 Diabetes 60 Tablet 1 08/02/19 25 Active ondansetron (ZOFRAN) 8 MG tablet Take 1 Tablet (8 mg) by mouth every 8 hours as needed for Nausea. 30 Tablet 2 09/14/19 25 Active diphenoxylate-a tropine (LOMOTIL) 2.5-0.025 MG tablet Take 1 Tablet by mouth 4 times daily as needed for Diarrhea. 60 Tablet 2 09/14/19 25 Active fluorouracil (EFUDEX) 5 % creamIndication s:Actinic keratosis Use twice a day with calcipotriene until red, then stop (expect this about day 4, stop at day 8 if no reaction) 40 g 1 09/23/19 25 Active calcipotriene (DOVONEX) 0.005 % creamIndication s:Actinic keratosis Use twice a day efudex until red, then stop (expect this about day 4, stop at day 8 if no reaction) 60 g 1 09/23/19 25 Active levothyroxine (SYNTHROID) 75 MCG tablet Take 1 Tablet (75 mcg) by mouth daily. Take at least one hour before or two hours after meal. 90 Tablet 3 11/03/19 25 026 Active prochlorperazin e (COMPAZINE) 10 MG tablet Take 1 Tablet (10 mg) by mouth every 6 hours as needed for Nausea. 60 Tablet 2 11/17/19 25 Active nystatin creamIndication s:Perleche Apply twice daily for flares, once daily for maintenance. May stop if well controlled, but restart for flares. 30 g 12 11/25/19 25 Active Blood Glucose Monitoring Suppl (ACCU-CHEK GUIDE ME) w/Device KITIndications: Type 2 diabetes mellitus with 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, without long-term current use of insulin (HRC) Use as directed. 1 Kit 12/08/19 25 Active blood glucose (ACCU-CHEK GUIDE TEST) test stripIndication s:Type 2 diabetes mellitus with 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, without long-term current use of insulin (HRC) Use 1 Each to test daily. Use as directed 100 Each 3 12/08/19 25 Active lancets (ACCU-CHEK SOFTCLIX)Indica tions:Type 2 diabetes mellitus with 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, without long-term current use of insulin (HRC) Use 1 Each to test daily. 100 Each 11 12/08/19 25 Active tamsulosin 0.4 MG CAPS capsuleIndicati ons:Benign Prostatic Hypertrophy Take 1 Capsule (0.4 mg) by mouth daily. Indications: Benign Enlargement of Prostate 30 Capsule 01/11/20 25 Active tamsulosin 0.4 MG CAPS capsuleIndicati ons:Benign Prostatic Hypertrophy Take 1 Capsule (0.4 mg) by mouth daily. Indications: Benign Enlargement of Prostate 30 Capsule 1 08/02/19 25 025 Discontin ued(*Med change OR same med OR reorder, new dose/dire ctions) Active Problems Problem Noted Date Diagnosed Date History of [...] invasion depth. Bx05/2023, surgery 08/2023 completed at [facility] SCC vertex scalp s/p excision 07/2023 completed at [facility] SCCis, right dorsal hand s/p mohs 07/2024 SCCis, right lower back, s/p mohs 07/2024 SCC, left forearm s/p mohs 07/2024 SCC left malar cheek s/p mohs 08/2024 SCC left forearm- anterior mohs s/p 11/2024 Resolved Problems Problem Noted Date Diagnosed Date Resolved Date H/O malignant neoplasm of skin 06/08/2024 12/12/2024 Encounters * This document contains information received from the source organization and may not represent a complete record from that organization. Date Type Department Care Team Description 01/10/2025 Telephone [facility] Cancer Care at [facility] Oncology [address] [place] [address] Cecile Arteaga MD Questions 01/10/2025 Refill [facility] Oncology [address] [place] [address] Cecile Arteaga MD Refill (atorvastatin (LIPITOR) 20 MG tablet) 01/10/2025 Refill [facility] Oncology [facility] [place] [address] Cecile Arteaga MD Refill (tamsulosin 0.4 MG CAPS capsule) 12/29/2024 Results Follow-Up [facility] Cancer Care at [facility] Oncology [address] [place] [address] Elif Queen RN 12/28/2024 11:00 AM CDT Office Visit [facility] Cancer Care at [facility] [address] [place] [address] Scarlett Love APRN, CNP Squamous cell carcinoma of skin (Primary Dx); Nausea; 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); Type 2 diabetes mellitus with 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, without long-term current use of insulin (HRC); Elevated TSH 12/28/2024 10:12 AM CDT - 12/28/2024 11:59 PM CDT Hospital Encounter [facility] [address] [place] [address] Scarlett Love APRN, CNP Squamous cell carcinoma of skin (Primary Dx); 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) Discharge Disposition: Home 12/22/2024 Results Follow-Up [facility] - Dermatology [address] [place] [address] Yennifer Ramirez MD 12/15/2024 2:00 PM CDT Office Visit [facility] [address] Dermatology [address] [place] [address] Yennifer Ramirez MD Neoplasm of skin (HRC) (Primary Dx); AK (actinic keratosis); Encounter for removal of sutures; Actinic keratosis 12/08/2024 Results Follow-Up [facility] - Dermatology [address] [place] [address] Yennifer Ramirez MD 12/08/2024 Results Follow-Up [facility] Oncology [address] [place] [address] Elif Queen RN 12/07/2024 10:50 AM CDT Telemedicine [facility] Oncology [address] [place] [address] Scarlett Love APRN, CNP Jax, Sarah E, APRN, ZAHRAA Squamous cell carcinoma of skin (Primary Dx); Type 2 diabetes mellitus with 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, without long-term current use of insulin (HRC); Type 2 diabetes mellitus with hyperglycemia, without long-term current use of insulin (HRC); Nausea 12/07/2024 10:27 AM CDT - 12/07/2024 11:59 PM CDT Hospital [facility] [address] [place] [address] Demi Davis MD Squamous cell carcinoma of skin (Primary Dx); 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); Type 2 diabetes mellitus with 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, without long-term current use of insulin (HRC) Discharge Disposition: Home 12/07/2024 Results Follow-Up [facility] Oncology [address] [place] [address] Nguyen Betancourt APRN, CNP 12/06/2024 Telephone [facility] Oncology [address] [place] [address] Cecile Arteaga MD 12/01/2024 2:30 PM CDT Office Visit [place] [address] [place] [address] Yennifer Ramirez MD Squamous cell carcinoma of skin (Primary Dx) 12/01/2024 Results Follow-Up [place] [address] [place] [address] Dina Cuevas MD, PhD 11/24/2024 1:45 PM CDT Office Visit [place] [address] [place] [address] Dina Cuevas MD, PhD Sun-damaged skin (Primary Dx); Benign nevus; Seborrheic keratosis; History of nonmelanoma skin cancer; Perleche; AK (actinic keratosis); Inflamed seborrheic keratosis; Neoplasm of skin (HRC) 11/23/2024 Telephone [facility] Oncology [address] [place] [address] Cecile Arteaga MD Onc PROMs Triage 11/17/2024 Telephone [facility] [address] Dermatology [address] [place] [address] Yennifer Ramirez MD Referral 11/17/2024 Results Follow-Up [facility] Oncology [address] [place] [address] Elif Queen RN 11/16/2024 11:00 AM CDT Office Visit [facility] Cancer Care at [facility] [address] [place] [address] Scarlett Love APRN, ZAHRAA Squamous cell carcinoma of skin (Primary Dx); Elevated TSH; 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); Nausea; Diarrhea due to drug 11/16/2024 10:25 AM CDT - 11/16/2024 11:59 PM CDT Hospital Encounter [facility] [address] [place] [address] Robyn Mark MBBS Squamous cell carcinoma of skin (Primary Dx); 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); Elevated TSH; Diarrhea, unspecified type; Hypothyroidism, unspecified type (HRC) 10/26/2024 10:30 AM CDT - 10/26/2024 11:59 PM CDT Hospital Encounter [facility] [address] [place] [address] Robyn Mark MBBS Squamous cell carcinoma of skin (Primary Dx); 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); Elevated TSH; Autoinflammatory syndrome, unspecified (HRC) Discharge Disposition: Home 10/26/2024 Results Follow-Up [facility] Cancer Care at [facility] Oncology [address] [place] [address] Elif Queen RN 10/23/2024 Telephone [facility] Security Contact - Scarlett Patel APRN, ZAHRAA 10/20/2024 7:30 AM CDT Office Visit [place] [address] Derm[address]ology [address] [place] [address] Yennifer Ramirez MD 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) from Last 3 Months Immunizations Immunization Administration Dates Next Due Flu Vac (3+ yrs) 04/04/2011 HepB Adult (Engerix-B, 20+ y rs, 3 dose series) 08/16/2005 HepB, Unspecified Formulation 08/16/2015 Influenza IIV3 (Trivalent) F eloy Highdose, 65+ Yrs (55144) 04/22/2024,03/14/2023,04/30/2021,2019,06/03/2017,03/30/2014 Influenza IIV4 (Quadrivalent ) 0.5mL (17782) 07/11/2015 Influenza IIV4 (Quadrivalent ) Fluad, 65+ Yrs 03/24/2018 Moderna Monovalent 12+ 12/18/2020,11/13/2020 PCV13 (Prevnar) 04/21/2013 PPSV23 (Pneumovax) 01/26/2019 Td 01/10/2021 Td (Tdvax) 10/18/2003 Tdap 04/22/2024,04/04/2022,02/01/2009 Zoster RZV (Shingrix) 01/26/2019 Social History Tobacco Use Types Packs/Day Years [...] F) 12/28/2024 10:35 AM CDT Respiratory Rate 14 07/07/2024 10:45 AM TICKET SPECULATOR Oxygen Saturation 98% 12/28/2024 10:35 AM CDT Inhaled Oxygen Concentration - - Weight 55.3 kg (122 lb) 12/28/2024 10:35 AM CDT Height 166.4 cm (5' 5.51) 06/15/2024 12:[address] Body Mass Index 19.99 06/15/2024 12:30 PM TICKET SPECULATOR Plan of Treatment Upcoming Encounters Date Type Department Care Team (Late st Contact Info) Description 01/14/2025 9:00 AM CDT Appointment [facility] [address] [facility] [place] [address] Cecile Arteaga MD [address] [facility] [place] [id number] 01/14/2025 10:30 AM CDT Appointment [facility] [address] [facility] [place] [address] Cecile Arteaga MD [address] [place] [address] 01/18/2025 8:00 AM CDT Appointment [facility] Oncology Treatment Rooms [address] [place] [address] 01/18/2025 8:30 AM CDT Appointment [facility] Oncology [address] [place] [address] Cecile Arteaga MD [address] [place] [address] Health Maintenance Due Date Last Done Comments Diabetes: Eye Exam 1948 Diabetes: Foot Exam 1948 Diabetes: Lipid Panel 1948 Diabetes: Urine Microalbumin 1948 Hep C Screening (Preventive Services) 1950 HepB Vaccine (3) 10/11/2015 08/16/2015, 08/16/2005 Zoster/Shingles Vaccine (2 of 2) 03/23/2019 01/26/2019 RSV Vaccine (1 - 1-dose 75+ series) 2023 COVID-19 Vaccine (3 - season) 2024 12/18/2020, 11/13/2020 Influenza Vaccine (#1) 2025 , 03/14/2023, 04/30/2021, Additional history exists Diabetes: HGBA1C 06/08/2025 12/07/2024, 05/2024, 10/25/2022, Additional history exists Medicare Annual Wellness Visit 06/10/2025 06/10/2024 Diabetes: Creatinine 12/28/2025 12/28/2024, 12/07/2024, 11/16/2024, Additional history exists DTaP/Tdap/Td Vaccine (5 - Tdap) 04/22/2034 04/22/2024, 04/04/2022, 01/10/2021, Additional history exists Pneumococcal Vaccine 50+ Yrs Completed , 04/21/2013, 12/16/2006 HepA Vaccine Aged Out No longer eligi ble based on patient's age to complete this topic Hib Vaccine Aged Out No longer eligi ble based on patient's age to complete this topic MCV4 Vaccine Aged Out No longer eligi ble based on patient's age to complete this topic Meningococcal B Vaccine Aged Out No l onger eligible based on patient's age to complete this topic Goals Goal Patient Goal Type Associated Problems Recent Progress Patient-Stated? 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) Squamous cell carcinoma of skin SKIN BIOPSY Routine 12/15/2024 2:54 PM CDT Neoplasm of skin (HRC) SURGICAL PATHOLOGY, DERMATOLOGY Routine 12/15/2024 2:54 PM CDT Neoplasm of skin (HRC) HGB A1C Routine 12/07/2024 10:28 AM CDT Type 2 diabetes mellitus with 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, without long-term current use of insulin (HRC) Squamous cell carcinoma of skin COMPLETE [...] nodes (HRC) Squamous cell carcinoma of skin CBC AND DIFFERENTIAL PANEL STAT 12/07/2024 10:28 AM CDT 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) Squamous cell carcinoma of skin SKIN REPAIR Routine 12/01/2024 3:10 PM CDT Squamous cell carcinoma of skin SKIN EXCISION Routine 12/01/2024 3:10 PM CDT Squamous cell carcinoma of skin SURGICAL PATHOLOGY, DERMATOLOGY Routine 12/01/2024 3:10 PM CDT Squamous cell carcinoma of skin EPIDERMAL / DERMAL SHAVING Routine 11/24/2024 2:06 PM CDT Neoplasm of skin (HRC) SURGICAL PATHOLOGY, DERMATOLOGY Routine 11/24/2024 2:06 PM CDT Neoplasm of skin (HRC) CRYOTHERAPY SKIN LESION Routine 11/24/2024 2:05 PM CDT Inflamed seborrheic keratosis CRYOTHERAPY SKIN LESION Routine 11/24/2024 2:05 PM CDT AK (actinic keratosis) COMPLETE BLOOD COUNT-W/DIFF STAT 11/16/2024 10:26 AM CDT 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) Squamous cell carcinoma of skin TSH, SENSITIVE STAT 11/16/2024 10:26 AM CDT 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) Squamous cell carcinoma of skin BASIC METABOLIC PANEL STAT 11/16/2024 10:26 AM CDT 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) Squamous cell carcinoma of skin LIVER PANEL(HEPATIC FUNCTION PANEL) STAT 11/16/2024 10:26 AM CDT 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) Squamous cell carcinoma of skin CBC AND DIFFERENTIAL PANEL STAT 11/16/2024 10:26 AM CDT 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) Squamous cell carcinoma of skin SKIN BIOPSY Routine 11/03/2024 2:08 PM CDT Neoplasm of skin (HRC) SURGICAL PATHOLOGY, DERMATOLOGY Routine 11/03/2024 2:08 PM CDT Neoplasm of skin (HRC) FREE T4 STAT 10/26/2024 10:34 AM CDT Elevated TSH Autoinflammatory syndrome, unspecified (HRC) T3, FREE STAT 10/26/2024 10:34 AM CDT Elevated TSH Autoinflammatory syndrome, unspecified (HRC) COMPLETE BLOOD COUNT-W/DIFF STAT 10/26/2024 10:34 AM CDT 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) Squamous cell carcinoma of skin TSH, SENSITIVE STAT 10/26/2024 10:34 AM CDT 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) Squamous cell carcinoma of skin BASIC METABOLIC PANEL STAT 10/26/2024 10:34 AM CDT 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 WBC 8.9 3.5 - 10.5 x10(9)/L 12/28/2024 10:45 AM [facility] RBC 4.28(L) 4.32 - 5.72 x10(12)/L 12/28/2024 10:45 AM [facility] Hemoglobin 13.3(L) 13.5 - 17.5 g/dL 12/28/2024 10:45 AM [facility] HCT 39.0 38.8 - 50.0 % 12/28/2024 10:45 AM [facility] MCV 91.1 80.0 - 100.0 fL 12/28/2024 10:45 AM [facility] MCH 31.1 27.6 - 33.3 pg 12/28/2024 10:45 AM [facility] MCHC 34.1 31.5 - 35.2 g/dL 12/28/2024 10:45 AM [facility] RDW 14.5 11.9 - 15.5 % 12/28/2024 10:45 AM [facility] Platelets 248 150 - 450 x10(9)/L 12/28/2024 10:45 AM [facility] Automated NRBC 0 <=0 /100 WBC 12/28/2024 10:45 AM [facility] Neutrophil Absolute 7.3(H) 1.7 - 7.0 10(9)/L 12/28/2024 10:45 AM [facility] Lymphocyte Absolute 0.7(L) 1.0 - 4.8 10(9)/L 12/28/2024 10:45 AM [facility] Monocyte Absolute 0.6 0.2 - 0.9 10(9)/L 12/28/2024 10:45 AM [facility] Eosinophil Absolute 0.2 0.0 - 0.5 10(9)/L 12/28/2024 10:45 AM [facility] Basophil Absolute 0.1 0.0 - 0.3 10(9)/L 12/28/2024 10:45 AM [facility] Immature Granulocyte % 0.6(H) 0.0 - 0.5 % 12/28/2024 10:45 AM [facility] Blood Venipuncture / Unknown 12/28/2024 10:18 AM CDT 12/28/2024 10:42 AM CDT us Cecile Arteaga MD LAB_1 Final Resul t [facility] [address] [place] [address] * (ABNORMAL) Liver Panel(Hepatic Function Panel) (12/28/2024 10:18 AM CDT) Only the most recent of4 resultswithin the time period is included. Alkaline Phosphatase 76 40 - 150 U/L 12/28/2024 11:10 AM [facility] Bilirubin, Total 0.6 0.2 - 1.2 mg/dL 12/28/2024 11:10 AM [facility] Bilirubin, Direct 0.3 0.0 - 0.5 mg/dL 12/28/2024 11:10 AM [facility] AST (SGOT) 22 16 - 46 U/L 12/28/2024 11:10 AM [facility] ALT (SGPT) 14 0 - 55 U/L 12/28/2024 11:10 AM [facility] Protein, Total 6.3(L) 6.4 - 8.3 g/dL 12/28/2024 11:10 AM [facility] Albumin 3.8 3.5 - 5.0 g/dL 12/28/2024 11:10 AM CDT [facility] Blood Venipuncture / Unknown 12/28/2024 10:18 AM CDT 12/28/2024 10:42 AM CDT us Cecile Arteaga MD LAB_1 Final Resul t Performing Organization Address [facility] Co de Phone Number [facility] [address] [place] [address] * (ABNORMAL) TSH (12/28/2024 10:18 AM CDT) Only the most recent of4 resultswithin the time period is included. Pathologist [facility] TSH, Sensitive 11.65(H) 0.30 - 4.50 uIU/mL 12/28/2024 6:05 PM CDT [facility] Blood Venipuncture / Unknown 12/28/2024 10:18 AM CDT 12/28/2024 10:42 AM CDT us Cecile Arteaga MD LAB_1 Final Resul t Performing Organization Address [facility] de Phone Number [facility] [address] * (ABNORMAL) BASIC METABOLIC PANEL (12/28/2024 10:18 AM CDT) Only the most recent of4 resultswithin the time period is included. Pathologist [facility] Sodium 137 136 - 145 mmol/L 12/28/2024 11:10 AM [facility] Potassium 4.1 3.5 - 5.1 mmol/L 12/28/2024 11:10 AM [facility] Chloride 100 98 - 109 mmol/L 12/28/2024 11:10 AM [facility] CO2 25 20 - 29 mmol/L 12/28/2024 11:10 AM [facility] Anion Gap 12 6 - 16 mmol/L 12/28/2024 11:10 AM [facility] Calcium 8.8 8.4 - 10.4 mg/dL 12/28/2024 11:10 AM [facility] BUN 12 7 - 26 mg/dL 12/28/2024 11:10 AM [facility] Creatinine 0.75 0.73 - 1.18 mg/dL 12/28/2024 11:10 AM [facility] Glucose 178(H) 70 - 100 mg/dL 12/28/2024 11:10 AM [facility] Comment:The given reference range is for the fasting state. Non-fasting reference range for glucose is 70 - 180 mg/dL. GFR, Estimated >60 >60 mL/min/1.7 3m2 12/28/2024 11:10 AM [facility] Hours Fasting 0.1 8 - 12 Hours 12/28/2024 11:10 AM [facility] Comment:Lab unable to obtain patient's fasting status at time of specimen collection. Blood Venipuncture / Unknown 12/28/2024 10:18 AM CDT 12/28/2024 10:42 AM CDT us Cecile Arteaga MD LAB_1 Final Resul t Performing Organization Address [facility] de Phone Number [facility] [address] [place] [phone] * Skin Biopsy (No CPT) (12/15/2024 2:54 PM CDT) Only the most recent of2 resultswithin the time period is included. Narrative EXTERNAL RESULTS - 12/15/2024 2:54 PM [...] instructions given Dressing type: petrolatum and bandage us Yennifer Ramirez MD DERM PROCEDURE ORDERABLES Fi nal Result Performing Organization Address [facility] Co de Phone Number EXTERNAL RESULTS * Surgical Path, Dermatology (12/15/2024 2:54 PM CDT) Only the most recent of4 resultswithin the time period is included. Case Report Surgical Pathology Report Case: [id number] Authorizing Provider: Yennifer Ramirez MD Collected: 12/15/2024 1454 Ordering Location: [place] [address] Received: 12/16/2024 0901 Dermatology Pathologist: Jerad Drummond MD Specimen: Skin, Left Dorsal Hand 12/22/2024 11:08 AM T [facility] 3800 DERMATOLOGY FINAL DIAGNOSIS A. Skin, Left Dorsal Hand, shave: - Invasive, well-different iated squamous cell carcinoma, free of sampled biopsy margins. 12/22/2024 11:08 AM [facility] 3800 DERMATOLOGY at 1108 CDT Clinical Information Clinical Impression: R/O SCC 12/22/2024 11:08 AM [facility] 3800 DERMATOLOGY Microscopic Description Microscopic examination is performed. 12/22/2024 11:08 AM [facility] 3800 DERMATOLOGY Technical Information A portion of the technical staining [place] [address]. 12/22/2024 11:08 AM [facility] 3800 DERMATOLOGY Gross Description A: Received in formalin, labeled with the patient's name and Skin, Left Dorsal Hand is a 15 x 15 x 5 mm shave of skin. The specimen is marked with purple ink, serially sectioned into 5 pieces, and submitted entirely in 1 cassette. TV 12/22/2024 11:08 AM [facility] 3800 DERMATOLOGY Embedded Images 12/22/2024 11:08 AM [facility] 3800 DERMATOLOGY Skin (Skin) 12/15/2024 2:54 PM CDT 12/16/2024 9:01 AM CDT Comment:Clinical Impression: R/O SCC Yennifer Ramirez MD LAB PATHOLOGY Final Result [facility] [address] [place] [address], [facility] * (ABNORMAL) Hgb A1c (12/07/2024 10:28 AM CDT) Hemoglobin A1C (Rapid) 7.5(H) <=5.6 % 12/07/2024 12:07 PM CDT [facility] Estimated Average Glucose (Calc) 169 < 117 mg/dL 12/07/2024 12:07 PM CDT [facility] Comment:Estimated average gl ucose (eAG) converts A1c into glucose units (mg/dL) and estimates average glucose over the past approximately 3 months. The eAG reference interval (<117 mg/dL) corresponds to an A1c of <5.7%. Blood Venipuncture / Unknown 12/07/2024 10:28 AM CDT 12/07/2024 10:56 AM CDT Narrative [facility] - 12/07/2024 12:07 PM CDT For [...] Betancourt APRN, CNP LAB_1 Final Resu lt [facility] [address] [place] [address], [facility] * Skin repair (No CPT) (12/01/2024 3:10 [...] instructions given Dressing type: pressure dressing (Mupirocin) Result [facility] Yennifer Ramirez MD DERM PROCEDURE ORDERABLES [facility] Result Performing Organization Address [facility] Phone Number EXTERNAL RESULTS * Skin excision (No CPT) [...] instructions given Dressing type: pressure dressing (Mupirocin) Result [facility] Yennifer Ramirez MD DERM PROCEDURE ORDERABLES [facility] Result Performing Organization Address [facility] Phone Number EXTERNAL RESULTS * Shave removal (No CPT) (11/24/2024 2:06 PM CDT) Narrative EXTERNAL RESULTS - 11/24/2024 2:06 PM CDT Lesion diameter (cm): 0.4 Informed consent: discussed and consent obtained Timeout: patient name, date of , surgical site, and procedure verified Anesthesia: the lesion was anesthetized in a standard fashion Anesthetic: 1% lidocaine w/ epinephrine 1-100,000 local infiltration Instrument used: flexible razor blade Hemostasis achieved with: electrodesiccation Outcome: patient tolerated procedure well Post-procedure details: sterile dressing applied and wound care instructions given Dressing type: bandage and petrolatum Result [facility] Dina Cuevas MD, PhD DERM PROCEDURE ORDERABLES F inal Result Performing Organization Address [facility] Co de Phone Number EXTERNAL RESULTS * Cryotherapy, skin lesion (No CPT) (11/24/2024 2:05 PM CDT) Only the most recent of2 resultswithin the time period is included. Dina Cuevas MD, PhD DERM PROCEDURE ORDERABLES F inal Result Performing Organization Address City/[facility]/ZIP Co de Phone Number EXTERNAL RESULTS * T3, Free, Serum (10/26/2024 10:34 AM CDT) T3, Free 1.8 1.7 - 3.7 pg/mL 10/28/2024 9:34 AM CDT [facility] Blood Venipuncture / Unknown 10/26/2024 10:34 AM CDT 10/26/2024 10:59 AM CDT us Cecile Arteaga MD LAB_1 Final Resul t Performing Organization Address [facility] Phone Number [facility] * (ABNORMAL) Free T4 (10/26/2024 10:34 AM CDT) T4, Free 0.6(L) 0.7 - 1.5 ng/dL 10/27/2024 6:26 PM CDT [facility] Blood Venipuncture / Unknown 10/26/2024 10:34 AM CDT 10/26/2024 10:59 AM CDT us Cecile Arteaga MD LAB_1 Final Resul t Performing Organization Address [facility] Phone Number [facility] [address] from Last 3 Months Additional Health Concerns Active Problems Noted Date Diagnosed Date INFUSION ONCOLOGY - BASELINE 06/29/2024 INFUSION ONCOLOGY - RECURRING 07/12/2024 Insurance FOR LIFE MEDICARE Advance Directives Documents on File Type Date Recorded Patient Semi Conductor Assembler Expl anation HEALTHCARE DIRECTIVE 09/30/2024 Minh Houser 5 * Full Code (Latest Code Status on File) Date Activated Date Inactivated Comments 07/07/2024 9:58 AM 07/07/2024 1:07 PM * Full Code Date Activated Date Inactivated Comments 06/15/2024 5:39 PM 06/16/2024 1:16 PM Healthcare Agents on File Name Relationship Healthcare Agent Relationshi p Communication Minh Houser Son Health Care Agent Care Teams Seed Trucker Relationship Specialty Start Date End Date Jarod Pascual MD [address] [place] [address] PCP - General 05/10/24
[2025-01-10 18:29] VITALS: BP 117/68; PULSE 76; RESP 20; TEMP 37.1; O2SAT 97; BMI 19.4
--- NOTE | 2025-01-10 19:41 | CRLHL7_ITS ---
For Patients: As a result of the Century Cures Act, medical imaging exams and procedure reports are released immediately into your electronic medical record. You may view this report before your referring provider. If you have questions, please contact your health care provider. INDICATION: Left facial swelling. TECHNIQUE: CT maxillofacial with 58 cc Isovue 370 IV contrast. COMPARISON: PET-CT 02/12/2024. FINDINGS: Soft tissues: Subcutaneous soft tissue edema throughout the left face extending to the neck. No focal fluid collection. Small left mastoid effusion. Left parotidectomy. No lymphadenopathy. Orbits and globes: Bilateral lens thinning. Globes are intact. No postseptal process. Sinuses: No acute or significant findings. Bones: No fractures or bone lesions. Edentulous. C4-T1 ACDF. IMPRESSION: Subcutaneous soft tissue edema throughout the left face extending into the neck, nonspecific correlate for cellulitis. No mass or focal fluid collection. Please note that all CT scans at this facility use dose modulation, iterative reconstruction, and/or weight-based dosing when appropriate to reduce radiation dose to as low as reasonably achievable. Dictated by Napoleon Tyler MD @ 01/10/2025 11:10:23 PM (Electronically Signed)
[2025-01-10 20:30] LABS: Chloride* 103 mmol/L (96-114); Potassium* 4.0 mmol/L (3.6-5.1); Sodium* 137 mmol/L (135-149)
[2025-01-10 20:34] LABS: Anion Gap 5 mEq/L (7-15); Blood Urea Nitrogen* 13 mg/dL (7-30); Calcium* 9.0 mg/dL (8.4-10.6); Carbon Dioxide* 29 mmol/L (20-32); Creatinine* 0.9 mg/dL (0.5-1.5); Est. Creatinine Clearance* 48.38; Estimated Glomerular Filt Rate 89 ml/min; Glucose* 108 mg/dL (60-115)
--- NOTE | 2025-01-10 20:40 | ED.GENADULT ---
HPI - General Adult General Date Seen: 01/10/25 Chief complaint: Unspecified Complaint, Adult Stated complaint: swelling on the left side of the face Time Seen by Provider: 01/10/25 19:22 History of Present Illness HPI narrative: Patient is 74-year-old male with a history of significant basal cell carcinoma with surgical resection and radiation to the left side of his face, currently undergoing chemotherapy. This is managed through [facility]. This was last year. He tells me for the last month or so he has felt a bump behind his ear. He thought maybe this was a bug bite. He does not have very good sensation on the side of his face secondary to the radiation and surgery. He has not had pain. Today he feels he has developed swelling in the ear and on the anglican area. Again does not note pain although he isn't certain that he would have pain. He has not had fevers. He is not aware of any bug bites. He tried some topical itch cream which did not seem to help. He shaved yesterday and he feels sure that the swelling was not there yesterday. Related Data Home Medications ?Medication ?Instructions ?Recorded ?Confirmed atorvastatin 20 mg tablet 20 mg PO QDAY 04/21/24 01/10/25 linagliptin 5 mg tablet (Tradjenta) 5 mg PO QAM 04/21/24 01/10/25 calcipotriene 0.005 % topical cream 1 applic topical BID 12/02/24 cholecalciferol (vitamin D3) 50 50 mcg PO QDAY 12/02/24 01/10/25 mcg (2,000 unit) tablet diphenoxylate-atropine 2.5 1 tab PO QID PRN 12/02/24 01/10/25 mg-0.025 mg tablet (Lomotil) fluorouracil 5 % topical cream 1 applic topical BID 12/02/24 levothyroxine 75 mcg capsule 75 mcg PO QDAY 12/02/24 01/10/25 lidocaine-prilocaine 2.5 %-2.5 % 1 applic topical ONCE PRN 12/02/24 topical cream nystatin 100,000 unit/gram topical 1 applic topical BID PRN 12/02/24 cream ondansetron HCl 8 mg tablet 8 mg PO Q8H PRN 12/02/24 paroxetine HCl 30 mg tablet 30 mg PO QDAY 12/02/24 01/10/25 prochlorperazine maleate 10 mg 10 mg PO Q6H PRN 12/02/24 tablet Previous Rx's ?Medication ?Instructions ?Recorded metformin 750 mg tablet,extended 750 mg PO BID #180 tabs 10/07/24 release 24 hr pioglitazone 45 mg tablet 45 mg PO QDAY #90 tabs 10/07/24 tamsulosin 0.4 mg capsule 0.4 mg PO QHS #90 caps 10/07/24 cetirizine 10 mg tablet 10 mg PO DAILY #10 tabs 01/10/25 Allergies Allergy/AdvReac Type Severity Reaction Status Date / Time No Known Drug Allergies Allergy Verified 01/10/25 18:28 Review of Systems Status of ROS: Reports: 6 or more systems reviewed and unremarkable except as noted in History and below [facility] Medical History Fall ?W19.XXXA - Unspecified fall, initial encounter (ICD-10) PTSD (post-traumatic stress disorder) ?F43.10 - Post-traumatic stress disorder, unspecified (ICD-10) History of basal cell carcinoma (BCC) ?Z85.828 - Personal history of other malignant neoplasm of skin (ICD-10) Nontoxic single thyroid nodule ?E04.1 - Nontoxic single thyroid nodule (ICD-10) History of adenomatous polyp of colon ?Z86.0101 - Personal history of adenomatous and serrated colon polyps (ICD-10) History of squamous cell carcinoma ?Z85.89 - Personal history of malignant neoplasm of other organs and systems (ICD-10) Right iliac artery stenosis ?I77.1 - Stricture of artery (ICD-10) Hyperlipidemia ?E78.5 - Hyperlipidemia, unspecified (ICD-10) Essential hypertension ?I10 - Essential (primary) hypertension (ICD-10) Erectile dysfunction ?N52.9 - Male erectile dysfunction, unspecified (ICD-10) Diverticulosis ?K57.90 - Diverticulosis of intestine, part unspecified, without perforation or abscess without bleeding (ICD-10) BPH (benign prostatic hyperplasia) ?N40.0 - Benign prostatic hyperplasia without lower urinary tract symptoms (ICD-10) Ureteral stricture, right ?N13.5 - Crossing vessel and stricture of ureter without hydronephrosis (ICD-10) Cervical spine disease ?M48.9 - Spondylopathy, unspecified (ICD-10) Back pain ?M54.9 - Dorsalgia, unspecified (ICD-10) Left-sided weakness ?R53.1 - Weakness (ICD-10) Osteoporosis ?M81.0 - Age-related osteoporosis without current pathological fracture (ICD-10) Hard of hearing ?H91.90 - Unspecified hearing loss, unspecified ear (ICD-10) Facial paresthesia ?R20.2 - Paresthesia of skin (ICD-10) Type 2 diabetes mellitus ?E11.9 - Type 2 diabetes mellitus without complications (ICD-10) S/P radiation therapy (09/2023) ?Z92.3 - Personal history of irradiation (ICD-10) Skin cancer of face (06/2023) ?C44.300 - Unspecified malignant neoplasm of skin of unspecified part of face (ICD-10) Surgical History History of repair of rotator cuff ?Z98.890 - Other specified postprocedural states (ICD-10) History of prostate biopsy ?Z98.890 - Other specified postprocedural states (ICD-10) History of reconstruction of anterior cruciate ligament tear ?Z98.890 - Other specified postprocedural states (ICD-10) History of mandibular surgery (1977) ?Z98.890 - Other specified postprocedural states (ICD-10) History of phacoemulsification of cataract of both eyes with intraocular lens implantation ?Z98.41 - Cataract extraction status, right eye (ICD-10) ?Z98.42 - Cataract extraction status, left eye (ICD-10) ?Z96.1 - Presence of intraocular lens (ICD-10) History of parotidectomy (08/2023) ?Z90.49 - Acquired absence of other specified parts of digestive tract (ICD-10) History of spinal fusion (01/13/23) ?Z98.1 - Arthrodesis status (ICD-10) Family History Mother Diabetes CHF (congestive heart failure), Onset Age: 82 High blood pressure Father Coronary artery disease Myocardial infarction, Onset Age: 67 Sister Colon cancer Brother FELICITA (obstructive sleep apnea) Prostate cancer Social History What is your current living situation?: I presently have a place to live Problems where you live: no known problems In the past 12 months, utilities in danger of being shut off: no In past 12 months, lack of transportation kept you from medical appts, meetings, work, or getting things needed for daily living: no In the past 12 mos, have been you worried that your food would run out before you had money to buy more?: never true In the past 12 mos, the food you bought just didn't last and you didn't have money to buy more?: never true Smoking Status: Never smoker Do you use any of these nicotine containing products: None Second hand tobacco smoke exposure: No How often do you have a drink containing alcohol: never How often do you have six or more drinks on one occasion: Never AUDIT-C Alcohol total score: 0 Non-prescribed substance use: denies use How often does anyone, including family, friends and others, physically hurt you: never How often does anyone, including family, friends and others, insult or talk down to you: never How often does anyone, including family, friends and others, threaten you with harm: never How often does anyone, including family, friends and others, scream or curse at you: never service: Yes Exam Narrative: Exam Narrative: Vital signs reviewed General, alert, nontoxic elderly male. Somewhat hard of hearing. Head: He has evidence of prior surgery and radiation on the left side of his face. I do not know what his baseline facial shape is. There is somewhat of a bulge over the left forehead and anglican as well as some swelling of the left ear. There is some redness in this area but no significant warmth. No fluctuance and the swelling itself does not feel particularly soft over the forehead or anglican area. I do not feel a bump behind the ear. ENT: Nares are clear. Posterior pharynx looks clear. No obvious masses, no edema. Const: Vital Signs, click to edit/add: Vital Signs - 24 hr 01/10/25 18:29 Temperature 98.7 F Pulse Rate [Pulse Oximeter] 76 Respiratory Rate 20 Blood Pressure [Ri ght Upper Arm] 117/68 Pulse Oximetry 97 Oxygen Delivery Me thod Room Air Course Course ED Course: Difficult to assess whether this might be infectious as patient does not have good sensation. I do not see an obvious insect bite although this could be reactive. It sounds as if this started fairly abruptly today so I think the likelihood that if this being directly related to his prior skin cancer is relatively low, but I did elect to do a CT scan to further evaluate the area. I also did basic labs, his white blood cell count is 11.85 with a left shift with 83% neutrophils. CRP is less than 0.5 metabolic panel is normal. CT scan of the facial bones and soft tissues was done with IV contrast. I reviewed the radiology report. They note nonspecific soft tissue swelling without focal fluid collections masses or other abnormalities. Consider cellulitis based on clinical presentation. Discussed this with him, I think it is reasonable to cover this with an antibiotic and I am also going to have him take an antihistamine. Primary care follow-up recommended in a couple days to recheck and we discussed reasons to return. He is comfortable with that plan. Vital Signs Vital signs: Initial Vital Signs Temperature 98.7 F 01/10/25 18:29 Temperature Source Temporal Artery Scan 01/10/25 18:29 Pulse Rate 76 01/10/25 18:29 Respiratory Rate 20 01/10/25 18:29 Blood Pressure 117/68 01/10/25 18:29 Blood Pressure Mean 84 01/10/25 18:29 Pulse Oximetry 97 01/10/25 18:29 Oxygen Delivery Method Room Air 01/10/25 18:29 Vital Signs Temperature 98.7 F 01/10/25 18:29 Pulse Rate 76 01/10/25 18:29 Respiratory Rate 20 01/10/25 18:29 Blood Pressure 117/68 01/10/25 18:29 Pulse Oximetry 97 01/10/25 18:29 Oxygen Delivery Method Room Air 01/10/25 18:29 Temperature 98.7 F 01/10/25 18:29 Pulse Rate 76 01/10/25 18:29 Respiratory Rate 20 01/10/25 18:29 Blood Pressure 117/68 01/10/25 18:29 Pulse Oximetry 97 01/10/25 18:29 Oxygen Delivery Method Room Air 01/10/25 18:29 Medical Decision Making Lab Data Lab results reviewed: Yes I reviewed the patient's lab results Labs: Lab Results 01/10/25 Range/Units 19:43 WBC 11.45 H (4.50-11.00) K/uL RBC 4.36 (4.30-5.90) m/uL Hgb 13.6 (13.5-17.5) gm/dL Hct 40.9 (37.0-53.0) % MCV 94 (80-100) fL MCH 31 (26-34) pg MCHC 33 (32-36) gm/dL RDW Coeff of Carly 14.3 (11.5-15.5) % Plt Count 308 (140-440) K/uL Neut % (Auto) 83.2 H (42.0-72.0) % Lymph % (Auto) 5.6 L (20-44) % Clarke % (Auto) 6.7 (0.0-11.0) % Eos % (Auto) 3.9 (0.0-7.0) % Baso % (Auto) 0.3 (0.0-3.0) % Neut # (Auto) 9.50 H (1.7-7.0) K/uL Lymph # (Auto) 0.60 L (0.90-2.90) K/uL Clarke # (Auto) 0.80 (0.00-0.90) K/UL Eos # (Auto) 0.40 (0.00-0.50) K/uL Baso # (Auto) 0.00 (0.00-0.30) K/uL Abs Immat Gran (auto) 0.00 (0.00-0.30) K/uL Imm/Tot Granulo (auto) 0.3 % Sodium 137 (135-149) mmol/L Potassium 4.0 (3.6-5.1) mmol/L Chloride 103 (96-114) mmol/L Carbon Dioxide 29 (20-32) mmol/L Anion Gap 5 L (7-15) mEq/L BUN 13 (7-30) mg/dL Creatinine 0.9 (0.5-1.5) mg/dL Estimated Creat Clear 48.38 Estimated GFR 89 ml/min Glucose 108 (60-115) mg/dL Calcium 9.0 (8.4-10.6) mg/dL C-Reactive Protein < 0.5 L (0.5-1.0) mg/dL Imaging Data CT- Other: Attestation: I have reviewed the pertinent imaging results. Radiologist's impression: Patient: Ever Houser JR MR#: [id number] : 1950 Acct:[id number] Loc: ED Service Date: 01/10/[address]: Ordering Physician: Shaunna Duque M.D. Date of Service: 01/10/25 Procedure(s): CT facial bones w con Accession Number(s): [id number] cc: Shaunna Duque M.D.; Jarod Pascual M.D.~ For Patients: As a result of the Cures Act, medical imaging exams and procedure reports are released immediately into your electronic medical record. You may view this report before your referring provider. If you have questions, please contact your health care provider. INDICATION: Left facial swelling. TECHNIQUE: CT maxillofacial with 58 cc Isovue 370 IV contrast. COMPARISON: PET-CT 02/12/2024. FINDINGS: Soft tissues: Subcutaneous soft tissue edema throughout the left face extending to the neck. No focal fluid collection. Small left mastoid effusion. Left parotidectomy. No lymphadenopathy. Orbits and globes: Bilateral lens thinning. Globes are intact. No postseptal process. Sinuses: No acute or significant findings. Bones: No fractures or bone lesions. Edentulous. C4-T1 ACDF. IMPRESSION: Subcutaneous soft tissue edema throughout the left face extending into the neck, nonspecific correlate for cellulitis. No mass or focal fluid collection. Please note that all CT scans at this facility use dose modulation, iterative reconstruction, and/or weight-based dosing when appropriate to reduce radiation dose to as low as reasonably achievable. Dictated by Napoleon Tyler MD @ 01/10/2025 11:10:23 PM Discharge Plan Discharge Clinical Impression: Left facial swelling Patient Disposition: Home, Self-Care Condition: Stable Additional Instructions: Your CT scan does not show any significant fluid collections or masses. The swelling in your face may be related to a reaction to a bug bite, but I do not think we can rule out infection at this time. Going to cover you with an antibiotic, I would also recommend that you take an antihistamine. Please follow-up with your regular clinic in a couple days for recheck. If you feel you are getting worse, if swelling is worsening, you have new symptoms such as fever, developed pain, difficulty swallowing or breathing, return to the ER at any time. Prescriptions: New cetirizine 10 mg tablet 10 mg PO DAILY Qty: 10 0RF No Action atorvastatin 20 mg tablet 20 mg PO QDAY Tradjenta 5 mg tablet 5 mg PO QAM pioglitazone 45 mg tablet 45 mg PO QDAY Qty: 90 3RF tamsulosin 0.4 mg capsule 0.4 mg PO QHS Qty: 90 3RF metformin 750 mg tablet extended release 24 hr 750 mg PO BID Qty: 180 0RF diphenoxylate-atropine [Lomotil] 2.5-0.025 mg tablet 1 tab PO QID PRN cholecalciferol (vitamin D3) 50 mcg (2,000 unit) tablet 50 mcg PO QDAY ondansetron HCl 8 mg tablet 8 mg PO Q8H PRN levothyroxine 75 mcg capsule 75 mcg PO QDAY prochlorperazine maleate 10 mg tablet 10 mg PO Q6H PRN paroxetine HCl 30 mg tablet 30 mg PO QDAY nystatin 100,000 unit/gram cream 1 applic topical BID PRN Rx Instructions: Apply twice daily for flares, once daily for maintenance. May stop if well controlled, but restart for flares. fluorouracil 5 % cream 1 applic topical BID Rx Instructions: Use twice a day with calcipotriene until red, then stop. calcipotriene 0.005 % cream 1 applic topical BID Rx Instructions: Use twice a day with efudex until red, then stop lidocaine-prilocaine 2.5-2.5 % cream 1 applic topical ONCE PRN Rx Instructions: Apply quarter-size amount to port 30-60 minutes prior to treatment PRN Follow Up/Referrals: Jarod Pascual MD [Primary Care Provider, Internal Medicine] Stand Alone Forms: [email or web address] Info Instructions
[2025-01-10 20:59] LABS: Hematocrit 40.9 % (37.0-53.0); Hemoglobin* 13.6 gm/dL (13.5-17.5); Immature Granulocytes Pct Auto 0.3 %; Mean Corpuscular HGB Conc 33 gm/dL (32-36); Mean Corpuscular Hemoglobin 31 pg (26-34); Mean Corpuscular Volume 94 fL (80-100); RDW Coefficient of Variation % 14.3 % (11.5-15.5); Red Blood Count 4.36 m/uL (4.30-5.90); White Blood Count* 11.45 K/uL (4.50-11.00)
[2025-01-10 21:13] LABS: Immature Granulocytes Abs Auto 0.00 K/uL (0.00-0.30); Lymphocytes Absolute Auto 0.60 K/uL (0.90-2.90); Slide Review Reflex No
[2025-01-10 23:26] VITALS: BP 128/68; PULSE 68; RESP 18; TEMP 36.8
== END 2025-01-10 23:27 | disposition home or self-care (01) ==
PROVIDERS: Emergency Provider Emergency Medicine; PCP Internal Medicine
DX: R22.0 Localized swelling, mass and lump, head (principal); C44.310 Basal cell carcinoma of skin of unspecified parts of face
CPT/HCPCS: 36415; 70487; 80048; 85025; 86140; 99284; 99285; Q9967

== ENCOUNTER 2025-05-17 08:37 | Outpatient (CLI) | payer MEDICARE, OTHER, SELFPAY | END 2025-05-17 08:38 | disposition home or self-care (01) | LOC: NFLDREF 08:38 | PROVIDERS: PCP Internal Medicine; Visit Provider Internal Medicine | DX: E11.9 Type 2 diabetes mellitus without complications (principal); E78.5 Hyperlipidemia, unspecified; Z12.5 Encounter for screening for malignant neoplasm of prostate | CPT/HCPCS: 80053; 80061; 84439; 84443; G0103 ==